=== PATIENT | female | born 1975 | race Hispanic/Latino ===

== ENCOUNTER 2017-08-02 13:27 | Emergency (ER) | payer SELFPAY ==
--- NOTE | 2017-08-02 14:55 | ER ---
Nurse's Notes [facility] Name: Nichol Garcia Age: 42 yrs Sex: Female : 1975 Arrival Date: 08/02/2017 Time: 13:28 Bed 13 Private MD: Diagnosis: Nondisplaced fracture of distal phalanx of left lesser toe(s) Presentation: 08/02 14:00 Presenting complaint: Patient states: I smashed my toe in the car door yesterday. Pt ss c/o L fifth toe pain. Transition of care: patient was not received from another setting of care. Onset of symptoms was August 01, 2017. Care prior to arrival: None. 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 - Social history:: Smoking status: Patient/guardian denies using tobacco. - Family history:: not pertinent. - Hospitalizations: : No recent hospitalization is reported. Screenin:00 Abuse screen: Denies threats or abuse. Nutritional screening: No deficits noted. rb1 Tuberculosis screening: No symptoms or risk factors identified. Fall Risk None identified. Assessment: 14:00 General: Appears uncomfortable, Behavior is calm, cooperative. Pain: Complains of pain rb1 in left fifth toe Pain currently is 10 out of 10 on a pain scale. Pain began last night. Neuro: Level of Consciousness is awake, alert, obeys commands, Oriented to person, place, time, situation. Cardiovascular: Capillary refill < 3 seconds is brisk in bilateral toes. Respiratory: Airway is patent Respiratory effort is even, unlabored, Respiratory pattern is regular, symmetrical. GI: No signs and/or symptoms were reported involving the gastrointestinal system. : No signs and/or symptoms were reported regarding the genitourinary system. Derm: Skin is pink, warm \\T\\ dry. Bruising that is dark purple, on left fifth toe. Musculoskeletal: Range of motion: limited in left fifth toe. Injury Description: Bruise sustained to left fifth toe is purple, was sustained 12-24 hours ago. pt. stated, "I shut my toe in the car door last night.". 15:00 Reassessment: Patient appears in no apparent distress at this time. No changes from [facility] previously documented assessment. Vital Signs: 14:03 BP 126 / 81; Pulse 98; Resp 16; Pulse Ox 96% on R/A; Weight 77.11 kg; Height 4 ft. 11 ss in. (149.86 cm); Pain 5/10; 15:00 BP 109 / 78; Pulse 85; Resp 17; Pulse Ox 95% on R/A; Pain 5/10; rb1 14:03 Body Mass Index 34.34 (77.11 kg, 149.86 cm) ED Course: 13:28 Patient arrived in ED. as 13:59 Andreina Kendrick, RN is Primary Nurse. rb1 14:00 Patient has correct armband on for positive identification. Bed in low position. Call rb1 light in reach. Side rails up X 1. Pulse ox on. NIBP on. 14:01 Triage completed. 14:03 Arm band placed on right wrist. 14:04 Corey Ortega MD is Attending Physician. rn 14:43 X-ray completed. Portable x-ray completed in exam room. Patient tolerated procedure jw2 well. 14:44 XRAY Foot LEFT 3 View In Process Unspecified. EDUT 15:04 Gilberto tape left foot and left fifth toe. dh3 15:08 No provider procedures requiring assistance completed. Patient did not have IV access [facility] during this emergency room visit. Administered Medications: No medications were administered Outcome: 14:55 Discharge ordered by . rn 15:08 Discharged to home ambulatory, with family. rb1 15:08 Condition: stable 15:08 Discharge instructions given to patient, Instructed on discharge instructions, follow up and referral plans. Demonstrated understanding of instructions, follow-up care, Prescriptions given X none 15:08 Patient left the ED. rb1 Signatures: Dispatcher [employer] EDUT Mikayla Pierce Roman, MD MD rn Smirch, Shelby, RN RN Andreina Kendrick RN RN [facility] Wen Kemp jw2 Tessy Borrego dh3 Corrections: (The following items were deleted from the chart) 16:16 15:09 Patient left the ED. rb1 rb1
--- NOTE | 2017-08-02 14:55 | EDPHYS ---
Physician Documentation [facility] Name: Nichol Garcia Age: 42 yrs Sex: Female : 1975 Arrival Date: 08/02/2017 Time: 13:28 Bed 13 Private MD: ED Physician Corey Ortega HPI: 08/02 14:35 This 42 yrs old Female presents to ER via Ambulatory with complaints of Toe rn Injury. 14:35 The patient presents with a crush injury, an injury. The complaints affect the left rn foot. Onset: The symptoms/episode began/occurred. 14:36 Onset: The symptoms/episode began/occurred yesterday. Associated signs and symptoms: rn Pertinent positives: swelling. The patient has not experienced similar symptoms in the past. Reports slammed foot in car door yesterday, hurts left 4th/5th toes. . 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 - Social history:: Smoking status: Patient/guardian denies using tobacco. - Family history:: not pertinent. - Hospitalizations: : No recent hospitalization is reported. ROS: 14:36 Constitutional: Negative for fever, chills, and weight loss, MS/Extremity: + for left rn foot injury Exam: 14:36 Constitutional: This is a well developed, well nourished patient who is awake, alert, rn and in no acute distress. MS/ Extremity: Pulses equal, no cyanosis. Neurovascular intact. + left 4th/5th toe tenderness with ecchymosis of left 5th toe. Vital Signs: 14:03 BP 126 / 81; Pulse 98; Resp 16; Pulse Ox 96% on R/A; Weight 77.11 kg; Height 4 ft. 11 ss in. (149.86 cm); Pain 5/10; 15:00 BP 109 / 78; Pulse 85; Resp 17; Pulse Ox 95% on R/A; Pain 5/10; rb1 14:03 Body Mass Index 34.34 (77.11 kg, 149.86 cm) ss MDM: 14:04 Patient medically screened. rn 14:50 Differential diagnosis: fracture. Data reviewed: vital signs, nurses notes, radiologic rn studies, plain films, and as a result, I will discharge patient. Counseling: I had a detailed discussion with the patient and/or guardian regarding: the historical points, exam findings, and any diagnostic results supporting the discharge/admit diagnosis, radiology results, the need for outpatient follow up, to return to the emergency department if symptoms worsen or persist or if there are any questions or concerns that arise at home. Special discussion: I discussed with the patient/guardian in detail that at this point there is no indication for admission to the hospital. It is understood, however, that if the symptoms persist or worsen the patient needs to return immediately for re-evaluation. 08/02 14:07 Order name: XRAY Foot LEFT 3 View rn 08/02 14:53 Order name: Splint: martin tape; Complete Time: 15:05 rn Administered Medications: No medications were administered Disposition: 08/02/17 14:55 Discharged to Home. Impression: Nondisplaced fracture of distal phalanx of left lesser toe(s). - Condition is Stable. - Discharge Instructions: Crush Injury, Fingers or Toes, Toe Fracture. - Medication Reconciliation Form, Thank You Letter, Antibiotic Education, Prescription Opioid Use form. - Follow up: Private Physician; When: As needed; Reason: Recheck today's complaints, Re-evaluation by your physician. - Problem is new. - Symptoms have improved. Signatures: Dispatcher [employer] EDMS Corey Ortega MD MD rn Smirch, Shelby, RN RN Andreina Kendrick RN RN rb1
--- NOTE | 2017-08-02 15:13 | RAD REPORT ---
EXAM DESCRIPTION: RAD - Foot Left 3 View - 08/02/2017 2:43 pm CLINICAL HISTORY: Left Foot pain status post fall FINDINGS: No fracture or dislocation is seen. The bones are osteoporotic
[2017-08-02 15:20] VITALS: BP 109/78; O2SAT 95
== END 2017-08-02 15:09 | disposition home or self-care (01) ==
LOC: ER 13:27
DX: S92.535A Nondisplaced fracture of distal phalanx of left lesser toe(s), initial encounter for closed fracture (principal); W23.1XXA Caught, crushed, jammed, or pinched between stationary objects, initial encounter; Y93.9 Activity, unspecified; Y92.9 Unspecified place or not applicable
CPT/HCPCS: 99284

== ENCOUNTER 2018-02-02 11:46 | Emergency (ER) | payer SELFPAY ==
[2018-02-02 13:37] LABS: Absolute Lymphocytes (CBC) 2.5 K/uL (0.7-4.9); Absolute Monocytes 0.4 K/uL (0.1-1.3); Absolute Neutrophil 4.1 K/uL (1.8-8.0); Basophils % 0.3 % (0-1.3); Eosinophils % 2.9 % (0-4.4); Hematocrit 34.7 % (36.0-45.0); Lymphocytes % 34.2 % (15.3-44.8); MCH 27.6 pg (27.0-35.0); MCV 82.3 fL (80-100); MPV 9.9 fL (7.6-11.3); Monocytes % 5.8 % (3.3-12.3); RBC Red Blood Cell Count 4.22 M/uL (3.86-4.86)
[2018-02-02 13:54] LABS: Potassium 3.8 mmol/L (3.5-5.1)
--- NOTE | 2018-02-02 14:17 | RAD REPORT ---
EXAM DESCRIPTION: US - Transvaginal Study Probe - 02/02/2018 1:57 pm CLINICAL HISTORY: ICD N92.5 heavy menses COMPARISON: June 2017 FINDINGS: The uterus measures 8 x 4 x 4cm. A fibroid is not seen. Nabothian cysts are present within the cervix. The endometrial stripe 16 millimeters The right ovary is normal in size and echotexture. Left ovary was not seen. No significant free fluid is seen. IMPRESSION: Borderline enlargement of the endometrium . Follow-up ultrasound in a couple months is r ecommended for re-evaluation
--- NOTE | 2018-02-02 14:19 | ER ---
Nurse's Notes [facility] Name: Nichol Garcia Age: 43 yrs Sex: Female : 1975 Arrival Date: 02/02/2018 Time: 11:49 Bed 24 Private MD: Diagnosis: Abnormal uterine and vaginal bleeding, unspecified Presentation: 02/02 11:57 Presenting complaint: Patient states: VAGINAL BLEEDING "TOO MUCH". Transition of care: bp patient was not received from another setting of care. Onset of symptoms is unknown. Risk Assessment: Do you want to hurt yourself or someone else? Patient reports no desire to harm self or others. Initial Sepsis Screen: Does the patient meet any 2 criteria? No. Patient's initial sepsis screen is negative. Does the patient have a suspected source of infection? No. Patient's initial sepsis screen is negative. Care prior to arrival: None. 11:57 Method Of Arrival: Ambulatory bp 11:57 Acuity: LAMAR 3 bp Triage Assessment: 11:58 General: Appears in no apparent distress. comfortable, Behavior is calm, cooperative, bp appropriate for age. Pain: Denies pain. : Reports vaginal bleeding that is FOR TWO MONTHS. 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 - Social history:: Smoking status: Patient/guardian denies using tobacco. - Ebola Screening: : Patient negative for fever greater than or equal to 101.5 degrees Fahrenheit, and additional compatible Ebola Virus Disease symptoms Patient denies exposure to infectious person Patient denies travel to an Ebola-affected area in the 21 days before illness onset No symptoms or risks identified at this time. Screenin:29 Abuse screen: Denies threats or abuse. Nutritional screening: No deficits noted. tw2 Tuberculosis screening: No symptoms or risk factors identified. Fall Risk None identified. Assessment: 12:30 General: Appears in no apparent distress. Behavior is calm, cooperative, appropriate tw2 for age. Neuro: Level of Consciousness is awake, alert, obeys commands, Oriented to person, place, time, situation. Cardiovascular: Heart tones S1 S2 Patient's skin is warm and dry. Respiratory: Airway is patent Respiratory effort is even, unlabored, Respiratory pattern is regular, symmetrical, Breath sounds are clear bilaterally. GI: No signs and/or symptoms were reported involving the gastrointestinal system. Abdomen is round Bowel sounds present X 4 quads. : Reports vaginal bleeding that is bright red. EENT: No signs and/or symptoms were reported regarding the EENT system. Derm: No signs and/or symptoms reported regarding the dermatologic system. Musculoskeletal: No signs and/or symptoms reported regarding the musculoskeletal system. Range of motion: intact in all extremities. 13:30 Reassessment: Patient appears in no apparent distress at this time. No changes from tw2 previously documented assessment. Patient and/or family updated on plan of care and expected duration. Pain level reassessed. Patient is alert, oriented x 3, equal unlabored respirations, skin warm/dry/pink. 14:16 Reassessment: Patient appears in no apparent distress at this time. No changes from tw2 previously documented assessment. Patient and/or family updated on plan of care and expected duration. Pain level reassessed. Patient is alert, oriented x 3, equal unlabored respirations, skin warm/dry/pink. Vital Signs: 11:58 BP 114 / 64; Pulse 88; Resp 16; Temp 97.4; Pulse Ox 94% ; Weight 77.11 kg; Height 4 ft. bp 11 in. (149.86 cm); 13:29 BP 106 / 65 Supine; Pulse 85; tw2 13:29 BP 98 / 59 Sitting; Pulse 88; tw2 13:29 BP 105 / 59 Standing; Pulse 87; tw2 14:14 BP 103 / 67; Pulse 84; Resp 17; Pulse Ox 95% on R/A; tw2 11:58 Body Mass Index 34.34 (77.11 kg, 149.86 cm) bp 13:29 nad, no symptoms reported tw2 ED Course: 11:49 Patient arrived in ED. mr 11:57 Triage completed. bp 11:58 Arm band placed on left wrist. bp 12:03 Vivien Alegria FNP-C is PHCP. kb 12:03 Brian Quinteros MD is Attending Physician. kb 12:29 Amalia Crystal RN is Primary Nurse. tw2 12:29 Bed in low position. Call light in reach. Pulse ox on. NIBP on. tw2 13:11 Initial lab(s) drawn, by me, sent to lab. T\\T\\S collected, blood band applied to patient. tl3 Inserted saline lock: 22 gauge in left hand, using aseptic technique. Blood collected. 13:49 US Transvaginal Study (Probe) In Process Unspecified. EDMS 14:32 No provider procedures requiring assistance completed. IV discontinued, intact, tw2 bleeding controlled, No redness/swelling at site. Pressure dressing applied. Administered Medications: No medications were administered Outcome: 14:19 Discharge ordered by . phillip 14:32 Discharged to home ambulatory, with family, with significant other. tw2 14:32 Condition: stable 14:32 Discharge instructions given to patient, family, significant other, Instructed on discharge instructions, follow up and referral plans. Demonstrated understanding of instructions, follow-up care. 14:33 Patient left the ED. tw2 Signatures: Dispatcher [employer] EDMO Vivien Alegria, SLITTER AND CUTTER OPERATOR-C SLITTER AND CUTTER OPERATOR-Mariel Daniel Tara RN RN tw2 Scot Calix, SHAHZAD RN Noemi Taylor, SHAHZAD RN tl3
--- NOTE | 2018-02-02 14:19 | EDPHYS ---
Physician Documentation [facility] Name: Nichol Garcia Age: 43 yrs Sex: Female : 1975 Arrival Date: 02/02/2018 Time: 11:49 Bed 24 Private MD: ED Physician Brian Quinteros HPI: 02/02 13:09 This 43 yrs old Female presents to ER via Ambulatory with complaints of kb Vaginal Bleeding. 13:09 The patient presents with vaginal bleeding that is light. Onset: The symptoms/episode kb began/occurred 2 month(s) ago. Modifying factors: The symptoms are alleviated by nothing, the symptoms are aggravated by nothing. Associated signs and symptoms: Pertinent positives: vaginal bleeding, Pertinent negatives: constipation, cramping, diarrhea, dyspareunia, dysuria, fever, hematuria, nausea, urinary frequency, vaginal discharge, vomiting. Severity of symptoms: At their worst the symptoms were mild, moderate, in the emergency department the symptoms are unchanged. The patient has experienced similar episodes in the past. The patient has not recently seen a physician. 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 - Social history:: Smoking status: Patient/guardian denies using tobacco. - Ebola Screening: : Patient negative for fever greater than or equal to 101.5 degrees Fahrenheit, and additional compatible Ebola Virus Disease symptoms Patient denies exposure to infectious person Patient denies travel to an Ebola-affected area in the 21 days before illness onset No symptoms or risks identified at this time. ROS: 13:09 Constitutional: Negative for fever, chills, and weight loss, Cardiovascular: Negative kb for chest pain, palpitations, and edema, Respiratory: Negative for shortness of breath, cough, wheezing, and pleuritic chest pain, Abdomen/GI: Negative for abdominal pain, nausea, vomiting, diarrhea, and constipation, Back: Negative for injury and pain, MS/Extremity: Negative for injury and deformity, Skin: Negative for injury, rash, and discoloration, Neuro: Negative for headache, weakness, numbness, tingling, and seizure. 13:09 : Positive for vaginal bleeding. Exam: 13:09 Constitutional: This is a well developed, well nourished patient who is awake, alert, kb and in no acute distress. Head/Face: Normocephalic, atraumatic. Chest/axilla: Normal chest wall appearance and motion. Nontender with no deformity. No lesions are appreciated. Cardiovascular: Regular rate and rhythm with a normal S1 and S2. No gallops, murmurs, or rubs. Normal PMI, no JVD. No pulse deficits. Respiratory: Lungs have equal breath sounds bilaterally, clear to auscultation and percussion. No rales, rhonchi or wheezes noted. No increased work of breathing, no retractions or nasal flaring. Abdomen/GI: Soft, non-tender, with normal bowel sounds. No distension or tympany. No guarding or rebound. No evidence of tenderness throughout. Back: No spinal tenderness. No costovertebral tenderness. Full range of motion. Skin: Warm, dry with normal turgor. Normal color with no rashes, no lesions, and no evidence of cellulitis. MS/ Extremity: Pulses equal, no cyanosis. Neurovascular intact. Full, normal range of motion. Neuro: Awake and alert, GCS 15, oriented to person, place, time, and situation. Cranial nerves II-XII grossly intact. Motor strength 5/5 in all extremities. Sensory grossly intact. Cerebellar exam normal. Normal gait. Vital Signs: 11:58 BP 114 / 64; Pulse 88; Resp 16; Temp 97.4; Pulse Ox 94% ; Weight 77.11 kg; Height 4 ft. bp 11 in. (149.86 cm); 13:29 BP 106 / 65 Supine; Pulse 85; tw2 13:29 BP 98 / 59 Sitting; Pulse 88; tw2 13:29 BP 105 / 59 Standing; Pulse 87; tw2 14:14 BP 103 / 67; Pulse 84; Resp 17; Pulse Ox 95% on R/A; tw2 11:58 Body Mass Index 34.34 (77.11 kg, 149.86 cm) bp 13:29 nad, no symptoms reported tw2 MDM: 12:27 Patient medically screened. kb 13:09 Data reviewed: vital signs, nurses notes. Data interpreted: Pulse oximetry: on room air kb is 94 %. Interpretation: normal. 14:19 Counseling: I had a detailed discussion with the patient and/or guardian regarding: the kb historical points, exam findings, and any diagnostic results supporting the discharge/admit diagnosis, lab results, radiology results, the need for outpatient follow up, an OB/Gyne specialist, to return to the emergency department if symptoms worsen or persist or if there are any questions or concerns that arise at home. 02/02 12:40 Order name: Basic Metabolic Panel; Complete Time: 13:59 kb 02/02 12:40 Order name: CBC with Diff; Complete Time: 13:43 kb 02/02 12:40 Order name: IV Saline Lock; Complete Time: 13:19 kb 02/02 12:40 Order name: Labs collected and sent; Complete Time: 13:19 kb 02/02 12:40 Order name: Type And Screen kb 02/02 12:53 Order name: US Transvaginal Study (Probe); Complete Time: 14:18 kb 02/02 12:40 Order name: NPO; Complete Time: 13:19 kb 02/02 12:40 Order name: Orthostatics; Complete Time: 13:28 kb Administered Medications: No medications were administered Disposition: 02/02/18 14:19 Discharged to Home. Impression: Abnormal uterine and vaginal bleeding, unspecified. - Condition is Stable. - Discharge Instructions: Abnormal Uterine Bleeding, [id number]. - Medication Reconciliation Form, Thank You Letter, Antibiotic Education, Prescription Opioid Use form. - Follow up: Emergency Department; When: As needed; Reason: Worsening of condition. Follow up: Private Physician; When: 2 - 3 days; Reason: Recheck today's complaints, Continuance of care, Re-evaluation by your physician. Addendum: 02/03/2018 18:07 Co-signature as Attending Physician, Brian Quinteros MD. g s Signatures: Dispatcher [employer] EDVivien Rivera, GUSTAVO-C REAL ESTATE ANALYST-Amalia Padron, RN RN tw2 Brian Quinteros MD MD gs Peltier, Brian, RN RN bp Corrections: (The following items were deleted from the chart) 02/02 14:33 14:19 02/02/2018 14:19 Discharged to Home. Impression: Abnormal uterine and vaginal tw2 bleeding, unspecified. Condition is Stable. Forms are Medication Reconciliation Form, Thank You Letter, Antibiotic Education, Prescription Opioid Use. Follow up: Emergency Department; When: As needed; Reason: Worsening of condition. Follow up: Private Physician; When: 2 - 3 days; Reason: Recheck today's complaints, Continuance of care, Re-evaluation by your physician. kb
[2018-02-02 14:56] VITALS: TEMP 97.4
[2018-02-02 14:59] VITALS: BP 103/67; O2SAT 95
== END 2018-02-02 14:33 | disposition home or self-care (01) ==
LOC: ER 11:46
DX: N93.9 Abnormal uterine and vaginal bleeding, unspecified (principal)
CPT/HCPCS: 36415; 76830; 80048; 85025; 86850; 86900; 86901; 99284

== ENCOUNTER 2018-04-27 16:12 | Emergency (ER) | payer SELFPAY ==
--- OUTSIDE RECORDS SUMMARY | 2018-04-27 16:14 | XMS REPORT ---
:1975 [facility] Address [address] [place] [address] Dr. Del Cid [address] [place] [id number] Care Team Providers Name Role Phone Unavailable Unavailable Unavailable Problems This patient has no known problems. Allergies, Adverse Reactions, Alerts This patient has no known allergies or adverse reactions. Medications This patient has no known medications.
--- NOTE | 2018-04-27 16:37 | ER ---
Nurse's Notes [facility] Name: Nichol Garcia Age: 43 yrs Sex: Female : 1975 Arrival Date: 04/27/2018 Time: 16:16 Bed 13 Private MD: Diagnosis: Contusion of left breast Presentation: 04/27 16:22 Presenting complaint: Patient states: "I don't know how, but I fell Thursday onto my ss knees, and the next day my tit started hurting." Pt c/o L breast pain and palpable "bump" that began the day after she fell. Denies fever/ feeling ill. Transition of care: patient was not received from another setting of care. Onset of symptoms was April 24, 2018. Risk Assessment: Do you want to hurt yourself or someone else? Patient reports no desire to harm self or others. Initial Sepsis Screen: Does the patient meet any 2 criteria? HR > 90 bpm. Does the patient have a suspected source of infection? No. Patient's initial sepsis screen is negative. Care prior to arrival: None. 16:22 Method Of Arrival: Ambulatory ss 16:22 Acuity: LAMAR 4 ss Historical: - Allergies: 16:24 No Known Allergies; ss - Home Meds: 16:24 Pt reports she takes unknown blood pressure medication that was given to her by her ss father [Active]; - PMHx: 16:24 None; ss - PSHx: 16:24 ; ss - Immunization history:: Adult Immunizations up to date. - Social history:: Smoking status: Patient/guardian denies using tobacco, Patient/guardian denies using alcohol. - Ebola Screening: : Patient denies exposure to infectious person Patient denies travel to an Ebola-affected area in the 21 days before illness onset. Screenin:26 Abuse screen: Denies threats or abuse. Denies injuries from another. Nutritional jl7 screening: No deficits noted. Tuberculosis screening: No symptoms or risk factors identified. Assessment: 16:26 General: Appears in no apparent distress. uncomfortable, Behavior is calm, cooperative, jl7 appropriate for age. Pain: Complains of pain in left breast. Silver dollar sized swelling palpated to lateral aspect of left breast, no discoloration noted. Pain does not radiate. Pain currently is 8 out of 10 on a pain scale. Quality of pain is described as "Sore" Pain began 2-3 days ago. Is continuous. Neuro: Level of Consciousness is awake, alert, obeys commands, Oriented to person, place, time, situation. Cardiovascular: Patient's skin is warm and dry. Respiratory: Airway is patent Respiratory effort is even, unlabored, Respiratory pattern is regular, symmetrical. GI: No signs and/or symptoms were reported involving the gastrointestinal system. : No signs and/or symptoms were reported regarding the genitourinary system. EENT: No signs and/or symptoms were reported regarding the EENT system. Derm: Skin is pink, warm \\T\\ dry. Musculoskeletal:. Vital Signs: 16:24 BP 138 / 85; Pulse 104; Resp 18; Temp 98.0(TE); Pulse Ox 97% on R/A; Height 4 ft. 11 ss in. (149.86 cm); Pain 8/10; ED Course: 16:16 Patient arrived in ED. sb2 16:17 Adelaida Cherry, SHAHZAD is Primary Nurse. jl7 16:23 Triage completed. ss 16:24 Cristina Vanessa FNP-C is PHCP. snw 16:24 Arm band placed on right wrist. ss 16:25 Freddy Lemus MD is Attending Physician. snw 16:26 Patient has correct armband on for positive identification. Placed in gown. Bed in low jl7 position. Call light in reach. Side rails up X 1. Pulse ox on. NIBP on. 16:30 Attending Physician role handed off by Freddy Lemus MD [facility] 16:30 Kings Ponce MD is Attending Physician. [facility] 17:05 No provider procedures requiring assistance completed. Patient did not have IV access jl7 during this emergency room visit. Administered Medications: No medications were administered Outcome: 16:37 Discharge ordered by . snw 17:05 Discharged to home ambulatory. jl7 17:05 Condition: stable 17:05 Discharge instructions given to patient, family, Instructed on discharge instructions, follow up and referral plans. medication usage, Demonstrated understanding of instructions, follow-up care, medications, Prescriptions given X 1. 17:06 Patient left the ED. jl7 Signatures: Kings Ponce MD MD cha Therrien, Shelly, FNP-C FEEDER/FOLDER-Sirisha Charlton RN RN ss Adelaida Cherry RN RN jl7 Tina Oneill sb2 Corrections: (The following items were deleted from the chart) 16:23 16:22 Initial Sepsis Screen: Does the patient meet any 2 criteria? No. Patient's ss initial sepsis screen is negative. Does the patient have a suspected source of infection? No. Patient's initial sepsis screen is negative. 16:31 16:26 Pain: Complains of pain in left breast Pain does not radiate. Pain currently is 8 jl7 out of 10 on a pain scale. Quality of pain is described as "Sore" Pain began 2-3 days ago. Is continuous, jl7
--- NOTE | 2018-04-27 16:37 | EDPHYS ---
Physician Documentation [facility] Name: Nichol Garcia Age: 43 yrs Sex: Female : 1975 Arrival Date: 04/27/2018 Time: 16:16 Bed 13 Private MD: ED Physician Kings Ponce HPI: 04/27 16:40 This 43 yrs old Female presents to ER via Ambulatory with complaints of Breast snw Injury. 16:40 Trauma demographics: County: The injury occurred in [place]. Mechanism of injury: snw Fall: the patient fell from a standing position and struck struck left breast on chair edge. Associated injuries: The patient sustained left breast. Onset: The symptoms/episode began/occurred suddenly, 2 day(s) ago, and became persistent. The patient has not experienced similar symptoms in the past. The patient has not recently seen a physician. Historical: - Allergies: 16:24 No Known Allergies; ss - Home Meds: 16:24 Pt reports she takes unknown blood pressure medication that was given to her by her ss father [Active]; - PMHx: 16:24 None; ss - PSHx: 16:24 ; ss - Immunization history:: Adult Immunizations up to date. - Social history:: Smoking status: Patient/guardian denies using tobacco, Patient/guardian denies using alcohol. - Ebola Screening: : Patient denies exposure to infectious person Patient denies travel to an Ebola-affected area in the 21 days before illness onset. ROS: 16:34 Constitutional: Negative for fever, chills, and weight loss, Eyes: Negative for injury, snw pain, redness, and discharge, ENT: Negative for injury, pain, and discharge, Neck: Negative for injury, pain, and swelling, Cardiovascular: Negative for chest pain, palpitations, and edema, Respiratory: Negative for shortness of breath, cough, wheezing, and pleuritic chest pain, Abdomen/GI: Negative for abdominal pain, nausea, vomiting, diarrhea, and constipation, Back: Negative for injury and pain, : Negative for injury, bleeding, discharge, and swelling, MS/Extremity: Negative for injury and deformity, Neuro: Negative for headache, weakness, numbness, tingling, and seizure. 16:34 Skin: Positive for swelling, tenderness to left lateral breast. Exam: 16:34 Constitutional: This is a well developed, well nourished patient who is awake, alert, snw and in no acute distress. Head/Face: Normocephalic, atraumatic. Eyes: Pupils equal round and reactive to light, extra-ocular motions intact. Lids and lashes normal. Conjunctiva and sclera are non-icteric and not injected. Cornea within normal limits. Periorbital areas with no swelling, redness, or edema. ENT: Nares patent. No nasal discharge, no septal abnormalities noted. Tympanic membranes are normal and external auditory canals are clear. Oropharynx with no redness, swelling, or masses, exudates, or evidence of obstruction, uvula midline. Mucous membranes moist. Neck: Trachea midline, no thyromegaly or masses palpated, and no cervical lymphadenopathy. Supple, full range of motion without nuchal rigidity, or vertebral point tenderness. No Meningismus. Cardiovascular: Regular rate and rhythm with a normal S1 and S2. No gallops, murmurs, or rubs. Normal PMI, no JVD. No pulse deficits. Respiratory: Lungs have equal breath sounds bilaterally, clear to auscultation and percussion. No rales, rhonchi or wheezes noted. No increased work of breathing, no retractions or nasal flaring. Abdomen/GI: Soft, non-tender, with normal bowel sounds. No distension or tympany. No guarding or rebound. No evidence of tenderness throughout. Back: No spinal tenderness. No costovertebral tenderness. Full range of motion. Skin: Warm, dry with normal turgor. Normal color with no rashes, no lesions, and no evidence of cellulitis. MS/ Extremity: Pulses equal, no cyanosis. Neurovascular intact. Full, normal range of motion. Neuro: Awake and alert, GCS 15, oriented to person, place, time, and situation. Cranial nerves II-XII grossly intact. Motor strength 5/5 in all extremities. Sensory grossly intact. Cerebellar exam normal. Normal gait. Psych: Awake, alert, with orientation to person, place and time. Behavior, mood, and affect are within normal limits. 16:34 Chest/axilla: Inspection: normal, Palpation: tenderness, left lateral breast, Axilla: are normal, Breasts: swelling, tenderness, indurated area s/p fall/striking left breast on chair edge. Vital Signs: 16:24 BP 138 / 85; Pulse 104; Resp 18; Temp 98.0(TE); Pulse Ox 97% on R/A; Height 4 ft. 11 ss in. (149.86 cm); Pain 8/10; MDM: 16:31 Patient medically screened. [facility] 16:39 Data reviewed: vital signs, nurses notes. Data interpreted: Pulse oximetry: on room air snw is 97 %. Interpretation: normal. Counseling: I had a detailed discussion with the patient and/or guardian regarding: the historical points, exam findings, and any diagnostic results supporting the discharge/admit diagnosis, the presence of at least one elevated blood pressure reading (>120/80) during this emergency department visit, the need for outpatient follow up, for definitive care, to return to the emergency department if symptoms worsen or persist or if there are any questions or concerns that arise at home. Special discussion: I have referred the patient to see his PCP for further evaluation of high blood pressure. Based on the history and exam findings, there is no indication for further emergent testing or inpatient evaluation. I discussed with the patient/guardian the need to see the OB Gyne specialist for further evaluation of the symptoms. I discussed with the patient/guardian the need to see the primary care provider for further evaluation of the symptoms. Administered Medications: No medications were administered Disposition: 04/28 07:27 Co-signature as Attending Physician, Kings Ponce MD I agree with the assessment and [facility] plan of care. Disposition: 04/27/18 16:37 Discharged to Home. Impression: Contusion of left breast. - Condition is Stable. - Discharge Instructions: Contusion, Fall Prevention in the Home, Mammogram. - Prescriptions for Motrin IB 200 mg Oral Tablet - take 3 tablet by ORAL route every 8 hours As needed as needed with food; 40 tablet. - Medication Reconciliation Form, Thank You Letter, Antibiotic Education, Prescription Opioid Use form. - Follow up: Private Physician; When: 2 - 3 days; Reason: Recheck today's complaints, Continuance of care, Re-evaluation by your physician. Follow up: Emergency Department; When: As needed; Reason: Worsening of condition. Signatures: Kings Ponce MD MD cha Therrien, Shelly, SAVE ALL OPERATOR-C SAVE ALL OPERATOR-Edsonw Sirisha Hodges RN RN Cherry, Jahala, RN RN jl7 Corrections: (The following items were deleted from the chart) 04/27 17:06 16:37 04/27/2018 16:37 Discharged to Home. Impression: Contusion of left breast. jl7 Condition is Stable. Forms are Medication Reconciliation Form, Thank You Letter, Antibiotic Education, Prescription Opioid Use. Follow up: Private Physician; When: 2 - 3 days; Reason: Recheck today's complaints, Continuance of care, Re-evaluation by your physician. Follow up: Emergency Department; When: As needed; Reason: Worsening of condition. snw
[2018-04-27 17:27] VITALS: BP 138/85; TEMP 98; O2SAT 97
== END 2018-04-27 17:06 | disposition home or self-care (01) ==
LOC: ER 16:12
DX: S20.02XA Contusion of left breast, initial encounter (principal); W18.39XA Other fall on same level, initial encounter; Y92.009 Unspecified place in unspecified non-institutional (private) residence as the place of occurrence of the external cause
CPT/HCPCS: 99283

== ENCOUNTER 2020-01-06 16:33 | Emergency (ER) | payer SELFPAY ==
--- OUTSIDE RECORDS SUMMARY | 2020-01-06 16:35 | XMS REPORT | Continuity of Care Document ---
:1975 Author Organization [facility] t Address [address] [place] [address] [place] [address] Care Team Providers Name Role Phone Unavailable Unavailable Unavailable Problems This patient has no known problems. Allergies, Adverse Reactions, Alerts This patient has no known allergies or adverse reactions. Medications This patient has no known medications. Procedures This patient has no known procedures. Results This patient has no known results.
[2020-01-06 17:35] LABS: Absolute Lymphocytes (CBC) 3.3 K/uL (0.7-4.9); Basophils % 0.6 % (0-1.3); Hematocrit 26.1 % (36.0-45.0); Lymphocytes % 39.3 % (15.3-44.8); MPV 9.4 fL (7.6-11.3); RBC Red Blood Cell Count 4.29 M/uL (3.86-4.86)
[2020-01-06 17:51] LABS: BUN Blood Urea Nitrogen 13 mg/dL (7-18); Bicarbonate 28 mmol/L (21-32); Glucose Level 107 mg/dL (74-106); Potassium 3.8 mmol/L (3.5-5.1); Sodium Level 141 mmol/L (136-145)
--- NOTE | 2020-01-06 18:22 | ER ---
Nurse's Notes [facility] Name: Nichol Garcia Age: 44 yrs Sex: Female : 1975 Arrival Date: 01/06/2020 Time: 16:36 Bed 13 Private MD: Diagnosis: Anemia, unspecified Presentation: 01/05 16:41 Chief complaint: Patient states: "I was sent by my primary because of my low blood jd3 levels. I just feel tired is all.". Coronavirus screen: At this time, the client does not indicate any symptoms associated with coronavirus-19. Ebola Screen: Patient negative for fever greater than or equal to 101.5 degrees Fahrenheit, and additional compatible Ebola Virus Disease symptoms. Initial Sepsis Screen: Does the patient meet any 2 criteria? No. Patient's initial sepsis screen is negative. Does the patient have a suspected source of infection? No. Patient's initial sepsis screen is negative. Risk Assessment: Do you want to hurt yourself or someone else? Patient reports no desire to harm self or others. Onset of symptoms was January 06, 2020. 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 - Social history:: Smoking status: Patient denies any tobacco usage or history of. Screenin:17 Abuse screen: Denies threats or abuse. Nutritional screening: No deficits noted. ll1 Tuberculosis screening: No symptoms or risk factors identified. Fall Risk None identified. IV access (20 points). Gait- Weak (10 pts.). Total Elias Fall Scale indicates Low Risk Score (25-44 pts). Fall prevention measures have been instituted. Side Rails Up X 2 Frequent Obs/Assesments occuring As available Patient and Family Educated on Fall Prevention Program and strategies. Assessment: 17:15 General: Appears comfortable, Behavior is calm, cooperative. General: was told to come ll1 into ER for low HGB. . Pain: Denies pain. Neuro: No deficits noted. Cardiovascular: Reports fatigue, generalized weakness Heart tones S1 S2 Capillary refill < 3 seconds Clubbing of nail beds is absent JVD is absent Patient's skin is warm and dry. Pulses are all present. Respiratory: No deficits noted. GI: No deficits noted. Musculoskeletal: Circulation, motion, and sensation intact. Capillary refill < 3 seconds, Reports weakness in generalized. 18:15 Reassessment: No changes from previously documented assessment. Patient and/or family ll1 updated on plan of care and expected duration. Pain level reassessed. Patient is alert, oriented x 3, equal unlabored respirations, skin warm/dry/pink. 19:15 Reassessment: Patient and/or family updated on plan of care and expected duration. Pain ll1 level reassessed. Patient is alert, oriented x 3, equal unlabored respirations, skin warm/dry/pink. Vital Signs: 16:43 BP 97 / 74; Pulse 100; Resp 16 S; Temp 98.5(TE); Pulse Ox 100% on R/A; Weight 75.75 kg jd3 (R); Height 4 ft. 11 in. (149.86 cm) (R); Pain 4/10; 16:55 BP 116 / 77 Supine; Pulse 98; ll1 17:00 BP 121 / 97; Pulse 101; ll1 17:03 BP 116 / 72; Pulse 102; ll1 19:18 BP 115 / 70; Pulse 88; Resp 16; Pulse Ox 100% ; Pain 0/10; ll1 16:43 Body Mass Index 33.73 (75.75 kg, 149.86 cm) [facility] ED Course: 16:36 Patient arrived in ED. ds1 16:42 Triage completed. jd3 16:45 Vivien Alegria FNP-C is PHCP. kb 16:45 Brandie Guido MD is Attending Physician. kb 16:45 Arm band placed on. jd3 16:49 Jihan Moon RN is Primary Nurse. ll1 16:50 Inserted saline lock: 20 gauge in right antecubital area, using aseptic technique. ll1 Blood collected. 17:17 Patient has correct armband on for positive identification. Bed in low position. Call ll1 light in reach. Side rails up X 1. Pulse ox on. NIBP on. 19:19 No provider procedures requiring assistance completed. IV discontinued, intact, ll1 bleeding controlled, No redness/swelling at site. Pressure dressing applied. Administered Medications: 18:17 Drug: NS 0.9% 1000 ml Route: IV; Rate: 1000 ml; Site: right antecubital; ll1 19:18 Follow up: Response: No adverse reaction; RASS: Alert and Calm (0); IV Status: ll1 Completed infusion; IV Intake: 1000ml Intake: 19:18 IV: 1000ml; Total: 1000ml. ll1 Outcome: 18:21 Discharge ordered by . phillip 19:20 Discharged to home ambulatory. ll1 19:20 Condition: stable 19:20 Discharge instructions given to patient, Instructed on discharge instructions, follow up and referral plans. Demonstrated understanding of instructions, follow-up care. 19:21 Patient left the ED. 1 Signatures: Vivien Alegria, SHEAR OPERATOR-C SHEAR OPERATOR-Reina Welsh ds1 Tejinder Centeno RN RN Jihan Stallings RN RN ll1
--- NOTE | 2020-01-06 18:22 | EDPHYS ---
Physician Documentation [facility] Name: Nichol Garcia Age: 44 yrs Sex: Female : 1975 Arrival Date: 01/06/2020 Time: 16:36 Bed 13 Private MD: ED Physician Brandie Guido HPI: 01/05 18:19 This 44 yrs old Female presents to ER via Ambulatory with complaints of sent kb by Dr Leiva, Low Blood Results. 18:19 Pt reports she had blood work last week and today her dr called her and told her to kb come to the ER for low blood count. Hgb 6.8. Pt denies any active bleeding. Denies dyspnea on exertion, palpitations. States she is tired at times.. Onset: The symptoms/episode began/occurred last week. Severity of symptoms: At their worst the symptoms were moderate in the emergency department the symptoms are unchanged. The patient has experienced similar episodes in the past, chronically. The patient has been recently seen by a physician: the patient's primary care provider. 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 - Social history:: Smoking status: Patient denies any tobacco usage or history of. ROS: 18:10 Cardiovascular: Negative for chest pain, palpitations, and edema, Respiratory: Negative kb for shortness of breath, cough, wheezing, and pleuritic chest pain, Abdomen/GI: Negative for abdominal pain, nausea, vomiting, diarrhea, and constipation, : Negative for injury, bleeding, discharge, and swelling, MS/Extremity: Negative for injury and deformity, Skin: Negative for injury, rash, and discoloration, Neuro: Negative for headache, weakness, numbness, tingling, and seizure. 18:10 Constitutional: Positive for fatigue, Negative for body aches, chills, fever, malaise, poor PO intake, weight loss. Exam: 18:16 Constitutional: This is a well developed, well nourished patient who is awake, alert, kb and in no acute distress. Head/Face: Normocephalic, atraumatic. Chest/axilla: Normal chest wall appearance and motion. Nontender with no deformity. No lesions are appreciated. Cardiovascular: Regular rate and rhythm with a normal S1 and S2. No gallops, murmurs, or rubs. Normal PMI, no JVD. No pulse deficits. Respiratory: Lungs have equal breath sounds bilaterally, clear to auscultation and percussion. No rales, rhonchi or wheezes noted. No increased work of breathing, no retractions or nasal flaring. Abdomen/GI: Soft, non-tender, with normal bowel sounds. No distension or tympany. No guarding or rebound. No evidence of tenderness throughout. Skin: Warm, dry with normal turgor. Normal color with no rashes, no lesions, and no evidence of cellulitis. MS/ Extremity: Pulses equal, no cyanosis. Neurovascular intact. Full, normal range of motion. Neuro: Awake and alert, GCS 15, oriented to person, place, time, and situation. Cranial nerves II-XII grossly intact. Motor strength 5/5 in all extremities. Sensory grossly intact. Cerebellar exam normal. Normal gait. Vital Signs: 16:43 BP 97 / 74; Pulse 100; Resp 16 S; Temp 98.5(TE); Pulse Ox 100% on R/A; Weight 75.75 kg jd3 (R); Height 4 ft. 11 in. (149.86 cm) (R); Pain 4/10; 16:55 BP 116 / 77 Supine; Pulse 98; ll1 17:00 BP 121 / 97; Pulse 101; ll1 17:03 BP 116 / 72; Pulse 102; ll1 19:18 BP 115 / 70; Pulse 88; Resp 16; Pulse Ox 100% ; Pain 0/10; ll1 16:43 Body Mass Index 33.73 (75.75 kg, 149.86 cm) jd3 MDM: 16:45 Patient medically screened. kb 18:16 Data reviewed: vital signs, nurses notes. Data interpreted: Pulse oximetry: on room air kb is 100 %. Interpretation: normal. 18:17 Counseling: I had a detailed discussion with the patient and/or guardian regarding: the kb historical points, exam findings, and any diagnostic results supporting the discharge/admit diagnosis, lab results, the need for outpatient follow up, a family practitioner, to return to the emergency department if symptoms worsen or persist or if there are any questions or concerns that arise at home. ED course: Pt educated on labs. Hgb 7.2, pt has no active bleeding, not symptomatic of anemia. Has history of anemia. No resp distress or reported dyspnea. Pt will increased iron supplement as directed by PCP and follow up with them. . 01/05 16:52 Order name: CBC with Diff; Complete Time: 18:45 kb 01/05 16:52 Order name: Basic Metabolic Panel; Complete Time: 18:04 kb 01/05 16:52 Order name: Type And Screen; Complete Time: 18:16 kb 01/05 16:52 Order name: IV Start; Complete Time: 18:13 kb 01/05 18:42 Order name: CBC Smear Scan; Complete Time: 18:45 EDMS 01/05 16:52 Order name: Orthostatics; Complete Time: 18:13 kb Administered Medications: 18:17 Drug: NS 0.9% 1000 ml Route: IV; Rate: 1000 ml; Site: right antecubital; ll1 19:18 Follow up: Response: No adverse reaction; RASS: Alert and Calm (0); IV Status: ll1 Completed infusion; IV Intake: 1000ml Disposition: 01/06/20 18:21 Discharged to Home. Impression: Anemia, unspecified. - Condition is Stable. - Discharge Instructions: Iron Deficiency Anemia, Adult, [id number]. - Medication Reconciliation Form, Thank You Letter, Antibiotic Education, Prescription Opioid Use form. - Follow up: Emergency Department; When: As needed; Reason: Worsening of condition. Follow up: Private Physician; When: 2 - 3 days; Reason: Recheck today's complaints, Continuance of care, Re-evaluation by your physician. Signatures: Dispatcher [employer] EDVivien Rivera, VIRIDIANA CHEN-Tejinder Chaidez RN RN Jihan Stallings RN RN ll1 Corrections: (The following items were deleted from the chart) 18:21 18:19 Pt reports she had blood work last week and today her dr called her and told her kb to come to the ER for low blood count. Hgb 6.8. kb 19:21 18:21 01/06/2020 18:21 Discharged to Home. Impression: Anemia, unspecified. Condition ll1 is Stable. Forms are Medication Reconciliation Form, Thank You Letter, Antibiotic Education, Prescription Opioid Use. Follow up: Emergency Department; When: As needed; Reason: Worsening of condition. Follow up: Private Physician; When: 2 - 3 days; Reason: Recheck today's complaints, Continuance of care, Re-evaluation by your physician. kb
[2020-01-06] MEDS ORDERED: NA CHLORIDE 0.9% 1,000 ML ONE (18:26)
[2020-01-06 18:41] LABS: White Blood Cell Scan OK (OK)
[2020-01-06 18:42] LABS: Blood Morphology Comment NOTED (NOT SEEN); Hypochromasia 3+; Platelet Estimate ADEQ
[2020-01-06 19:26] VITALS: TEMP 98.5; O2SAT 100
[2020-01-06 19:30] VITALS: BP 115/70
== END 2020-01-06 19:21 | disposition home or self-care (01) ==
LOC: ER 16:33
DX: D64.9 Anemia, unspecified (principal); E11.9 Type 2 diabetes mellitus without complications
CPT/HCPCS: 36415; 80048; 85025; 86850; 86900; 86901; 96360; 99284; J7030

== ENCOUNTER → 2023-05-15 | Emergency (ER) | payer OTHER, SELFPAY ==
[~2023-05-15] MED LIST: FENTANYL CITR 100 MCG/2 ML ONE
--- OUTSIDE RECORDS SUMMARY | 2023-05-15 16:38 | XMS REPORT | Continuity of Care Document ---
Author Name Unknown Address [address] [facility] [address] [place] [address] [facility] Address [address] [facility] [address] [place] [address] Care Team Providers Care Staff Development Coordinator Rn Name Role Phone Daina NELSON, [facility] Primary Care Physician [phone] Allergies, Adverse Reactions, Alerts Allergy Name Allergy Type Status Severity Reaction(s) Onset Date Inactive Date Treating Clinician Comments Source [place] - Intraven ous Propensi ty to adverse reaction to drug Active 707 00:00: 00 n Propensi ty to adverse reaction to drug Active 6-28 00:00: 00 Fish Oil - Oral Propensi ty to adverse reaction to drug Active 3-31 00:00: 00 Fish Oil Propensi ty to adverse reaction to drug Active -24 00:00: 00 Medications Ordered Medication Name Filled Medication Name Start Date Stop Date Current Medication? Ordering Clinician Indication Dosage Frequency Signature (SIG) Comments Components Source TAKE 1 TABLET TWICE DAILY. - 00:00: 00 No TAKE 1 TABLET TWICE DAILY. 12-25 00:00: 00 No TAKE 1 TABLET TWICE DAILY. 11-16 00:00: 00 No 1000 TAKE 1 TABLET TWICE DAILY. 11-16 00:00: 00 No 1000 TAKE 1 TABLET 3 TIMES DAILY WITH FOOD. 18 00:00: 00 No [id number] TAKE 1 TABLET 3 TIMES DAILY WITH FOOD. -18 00:00: 00 No [id number] TAKE 1 TABLET 3 TIMES DAILY WITH FOOD. 7-18 00:00: 00 No [id number] TAKE 1 TABLET TWICE DAILY. 11-07 00:00: 00 No 1000 TAKE 1 TABLET TWICE DAILY. 0 7- 00:00: 00 No 1000 TAKE 1 TABLET TWICE DAILY. 0 14 00:00: 00 No 1000 TAKE 1 TABLET TWICE DAILY. 11-05 00:00: 00 No 1000 TAKE 1 TABLET TWICE DAILY. 0 11-05 00:00: 00 No 1000 TAKE 1 TABLET TWICE DAILY. 0 11-05 00:00: 00 No 1000 TAKE 1 TABLET TWICE DAILY. 11-05 00:00: 00 No 1000 TAKE 1 TABLET 3 TIMES DAILY WITH FOOD. 10-31 00:00: 00 No [id number] TAKE 1 TABLET 3 TIMES DAILY WITH FOOD. 10-31 00:00: 00 [place] [id number] TAKE 1 TABLET 3 TIMES DAILY WITH FOOD. 10-31 00:00: 00 No [id number] TAKE 1 TABLET 3 TIMES DAILY WITH FOOD. 10-31 00:00: 00 No [id number] TAKE 1 TABLET 3 TIMES DAILY WITH FOOD. 0 10-31 00:00: 00 [place] [id number] glipizide 5 mg tablet 0 07-25 00:00: 00 No 1mg metformin 1,000 mg tablet 0 3 00:00: 00 No 1mg atorvastati n 40 mg tablet 0 07-25 00:00: 00 No 1mg Dose Unknown 0 07-25 00:00: 00 No Dose Unknown 0 3 00:00: 00 No Dose Unknown 0 3 00:00: 00 No Dose Unknown 0 3 00:00: 00 No Dose Unknown 0 3 00:00: 00 No Dose Unknown 0 3 00:00: 00 No Dose Unknown 0 3 00:00: 00 No Dose Unknown 0 3 00:00: 00 No Dose Unknown 0 3 00:00: 00 No Dose Unknown 0 3 00:00: 00 No glipizide 5 mg tablet 0 3 00:00: 00 No 1mg metformin 1,000 mg tablet 0 3 00:00: 00 No 1mg glipizide 5 mg tablet 2022-0 3-31 00:00: 00 No 1mg metformin 1,000 mg tablet 2022-0 3-31 00:00: 00 No 1mg atorvastati n 40 mg tablet 2022-0 3-31 00:00: 00 No 1mg Dose Unknown 2022-0 3-31 00:00: 00 No Dose Unknown 2022-0 3-31 00:00: 00 No Dose Unknown 2022-0 3-31 00:00: 00 No Dose Unknown 2022-0 3-31 00:00: 00 No Dose Unknown 2022-0 3-31 00:00: 00 No atorvastati n 40 mg tablet 2022-0 3-31 00:00: 00 No 1mg Dose Unknown 2022-0 3-31 00:00: 00 No Dose Unknown 2022-0 3-31 00:00: 00 No Dose Unknown 2022-0 3-31 00:00: 00 No Dose Unknown 2022-0 3-31 00:00: 00 No Dose Unknown 2022-0 3-31 00:00: 00 No Dose Unknown 2022-0 3-31 00:00: 00 No Dose Unknown 2022-0 3-31 00:00: 00 No Dose Unknown 2022-0 3-31 00:00: 00 No Dose Unknown 2022-0 3-31 00:00: 00 No Dose Unknown 2022-0 3-31 00:00: 00 No Dose Unknown 2022-0 3-31 00:00: 00 No Dose Unknown 2022-0 3-31 00:00: 00 No Dose Unknown 2022-0 3-31 00:00: 00 No Dose Unknown 2022-0 3-31 00:00: 00 No Dose Unknown 2022-0 3-31 00:00: 00 No TAKE 1 TABLET TWICE DAILY. 2022-0 3-31 00:00: 00 No metformin 1,000 mg tablet 2-0 3-31 00:00: 00 No 1mg Dose Unknown 2022-0 3-31 00:00: 00 No Dose Unknown 2022-0 3-31 00:00: 00 No Dose Unknown 2022-0 3-31 00:00: 00 No Dose Unknown 2022-0 3-31 00:00: 00 No Dose Unknown 2022-0 3-31 00:00: 00 No Dose Unknown 2022-0 3-31 00:00: 00 No Dose Unknown 2022-0 3-31 00:00: 00 No Dose Unknown 2022-0 3-31 00:00: 00 No Dose Unknown 2022-0 3-31 00:00: 00 No Dose Unknown 2022-0 3-31 00:00: 00 No Dose Unknown 2022-0 3-31 00:00: 00 No TAKE 1 TABLET TWICE DAILY. 2-0 3-31 00:00: 00 No metformin 1,000 mg tablet 2021-0 3-31 00:00: 00 No 1mg Dose Unknown 2021-0 3-31 00:00: 00 No Dose Unknown 2022-0 3-31 00:00: 00 No Dose Unknown 2-0 3-31 00:00: 00 No Dose Unknown 2-0 3-31 00:00: 00 No Dose Unknown 2-0 3- 00:00: 00 No Dose Unknown 2-0 3- 00:00: 00 No Dose Unknown 2-0 3- 00:00: 00 No Dose Unknown 2-0 3-31 00:00: 00 No Dose Unknown 2-0 331 00:00: 00 No Dose Unknown 2-0 3-31 00:00: 00 No Dose Unknown 2-0 3-31 00:00: 00 No Dose Unknown 2-0 1-07 00:00: 00 No Dose Unknown 2022-0 1-07 00:00: 00 No Dose Unknown 2022-0 1-07 00:00: 00 No Dose Unknown 2-0 1-07 00:00: 00 No Dose Unknown 2022-0 1-07 00:00: 00 No Dose Unknown 2022-0 1-06 00:00: 00 No Dose Unknown 2022-0 1-06 00:00: 00 No ferrous sulfate 325 mg (65 mg iron) tablet 2-0 1-06 00:00: 00 No 1(65 mg iron) Dose Unknown 2022-0 1-06 00:00: 00 No Dose Unknown 2022-0 1-06 00:00: 00 No ferrous sulfate 325 mg (65 mg iron) tablet 2-0 1-06 00:00: 00 No 1(65 mg iron) Dose Unknown 2022-0 1-06 00:00: 00 No Dose Unknown 05-02 00:00: 00 No ferrous sulfate 325 mg (65 mg iron) tablet 05-02 00:00: 00 No 1(65 mg iron) Dose Unknown 05-02 00:00: 00 No Dose Unknown 05-02 00:00: 00 No ferrous sulfate 325 mg (65 mg iron) tablet 05-02 00:00: 00 No 1(65 mg iron) Dose Unknown 05-02 00:00: 00 No Dose Unknown 05-02 00:00: 00 No ferrous sulfate 325 mg (65 mg iron) tablet 05-02 00:00: 00 No 1(65 mg iron) metformin 1,000 mg tablet 2020-04 00:00: 00 No 1mg Vitamin D3 10 mcg (400 unit) tablet 2020-04 00:00: 00 No 2(400 unit) metformin 1,000 mg tablet 2020-04 00:00: 00 No 1mg Vitamin D3 10 mcg (400 unit) tablet 2020-04 00:00: 00 No 2(400 unit) metformin 1,000 mg tablet 2020-04 00:00: 00 No 1mg Vitamin D3 10 mcg (400 unit) tablet 2020-04 00:00: 00 No 2(400 unit) metformin 1,000 mg tablet 2020-04 00:00: 00 No 1mg Vitamin D3 10 mcg (400 unit) tablet 2020-04 00:00: 00 No 2(400 unit) metformin 1,000 mg tablet 2020-04 00:00: 00 No 1mg Vitamin D3 10 mcg (400 unit) tablet 2020-04 00:00: 00 No 2(400 unit) metformin ER 500 mg tablet,exte nded release 24 hr 2020-04 00:00: 00 No 1mg atorvastati n 40 mg tablet 2020-04 0 00:00: 00 No 1mg ferrous sulfate 325 mg (65 mg iron) tablet 2020-04 00:00: 00 No 1(65 mg iron) metformin ER 500 mg tablet,exte nded release 24 hr 2021-1 0-04 00:00: 00 No 1mg atorvastati n 40 mg tablet 2020-04 0-04 00:00: 00 No 1mg ferrous sulfate 325 mg (65 mg iron) tablet 2020-04 0-04 00:00: 00 No 1(65 mg iron) metformin ER 500 mg tablet,exte nded release 24 hr 2020-04 0- 00:00: 00 No 1mg atorvastati n 40 mg tablet 2020-04 0- 00:00: 00 No 1mg ferrous sulfate 325 mg (65 mg iron) tablet 2020-04 0 00:00: 00 No 1(65 mg iron) metformin ER 500 mg tablet,exte nded release 24 hr 2020-04 0 00:00: 00 No 1mg atorvastati n 40 mg tablet 2020-04 0 00:00: 00 No 1mg ferrous sulfate 325 mg (65 mg iron) tablet 2020-04 0 00:00: 00 No 1(65 mg iron) metformin ER 500 mg tablet,exte nded release 24 hr 2020-04 0 00:00: 00 No 1mg atorvastati n 40 mg tablet 2020-04 0 00:00: 00 No 1mg ferrous sulfate 325 mg (65 mg iron) tablet 2020-04 0 00:00: 00 No 1(65 mg iron) ferrous sulfate 325 mg (65 mg iron) tablet 10-05 00:00: 00 No 1(65 mg iron) Macrobid 100 mg capsule 10-05 00:00: 00 No 1mg cholecalcif otto (vitamin D3) 50 mcg (2,000 unit) capsule 10-05 00:00: 00 No 1(2,000 unit) ferrous sulfate 325 mg (65 mg iron) tablet 10-05 00:00: 00 No 1(65 mg iron) Macrobid 100 mg capsule 10-05 00:00: 00 No 1mg cholecalcif otto (vitamin D3) 50 mcg (2,000 unit) capsule 10-05 00:00: 00 No 1(2,000 unit) ferrous sulfate 325 mg (65 mg iron) tablet 10-05 00:00: 00 No 1(65 mg iron) Macrobid 100 mg capsule 10-05 00:00: 00 No 1mg cholecalcif otto (vitamin D3) 50 mcg (2,000 unit) capsule 10-05 00:00: 00 No 1(2,000 unit) ferrous sulfate 325 mg (65 mg iron) tablet 10-05 00:00: 00 No 1(65 mg iron) Macrobid 100 mg capsule 10-05 00:00: 00 No 1mg cholecalcif otto (vitamin D3) 50 mcg (2,000 unit) capsule 10-05 00:00: 00 No 1%-" ferrous sulfate 325 mg (65 mg iron) tablet 10-05 00:00: 00 No 1(65 mg iron) Macrobid 100 mg capsule 10-05 00:00: 00 No 1mg cholecalcif otto (vitamin D3) 50 mcg (2,000 unit) capsule 10-05 00:00: 00 No 1%-" metformin ER 500 mg tablet,exte nded release 24 hr 10-01 00:00: 00 No 1mg atorvastati n 40 mg tablet 10-01 00:00: 00 No 1mg metformin ER 500 mg tablet,exte nded release 24 hr 10-01 00:00: 00 No 1mg atorvastati n 40 mg tablet 10-01 00:00: 00 No 1mg metformin ER 500 mg tablet,exte nded release 24 hr 10-01 00:00: 00 No 1mg atorvastati n 40 mg tablet 10-01 00:00: 00 No 1mg metformin ER 500 mg tablet,exte nded release 24 hr 10-01 00:00: 00 No 1mg atorvastati n 40 mg tablet 10-01 00:00: 00 No 1mg metformin ER 500 mg tablet,exte nded release 24 hr 10-01 00:00: 00 No 1mg atorvastati n 40 mg tablet 10-01 00:00: 00 No 1mg cholecalcif otto (vitamin D3) 50 mcg (2,000 unit) capsule 07-13 00:00: 00 No 1(2,000 unit) cholecalcif otto (vitamin D3) 50 mcg (2,000 unit) capsule 07-13 00:00: 00 No 1(2,000 unit) cholecalcif otto (vitamin D3) 50 mcg (2,000 unit) capsule 07-13 00:00: 00 No 1(2,000 unit) cholecalcif otto (vitamin D3) 50 mcg (2,000 unit) capsule 07-13 00:00: 00 No 1%-" cholecalcif otto (vitamin D3) 50 mcg (2,000 unit) capsule 07-13 00:00: 00 No 1%-" metformin ER 500 mg tablet,exte nded release 24 hr 07-10 00:00: 00 No 1mg atorvastati n 40 mg tablet 07-10 00:00: 00 No 1mg metformin ER 500 mg tablet,exte nded release 24 hr 07-10 00:00: 00 No 1mg atorvastati n 40 mg tablet 07-10 00:00: 00 No 1mg metformin ER 500 mg tablet,exte nded release 24 hr 07-10 00:00: 00 No 1mg atorvastati n 40 mg tablet 07-10 00:00: 00 No 1mg metformin ER 500 mg tablet,exte nded release 24 hr 07-10 00:00: 00 No 1mg atorvastati n 40 mg tablet 07-10 00:00: 00 No 1mg metformin ER 500 mg tablet,exte nded release 24 hr 07-10 00:00: 00 No 1mg atorvastati n 40 mg tablet 07-10 00:00: 00 No 1mg cholecalcif otto (vitamin D3) 1,250 mcg (50,000 unit) tablet 2019-04 00:00: 00 No 1(50,00 0 unit) cholecalcif otto (vitamin D3) 1,250 mcg (50,000 unit) tablet 2019-04 00:00: 00 No 1(50,00 0 unit) cholecalcif otto (vitamin D3) 1,250 mcg (50,000 unit) tablet 2019-04 00:00: 00 No 1(50,00 0 unit) cholecalcif otto (vitamin D3) 1,250 mcg (50,000 unit) tablet 2019-04 00:00: 00 No 1(50,00 0 unit) cholecalcif otto (vitamin D3) 1,250 mcg (50,000 unit) tablet 2019-04 00:00: 00 No 1(50,00 0 unit) metformin ER 500 mg tablet,exte nded release 24 hr 2019-04 00:00: 00 No 1mg atorvastati n 40 mg tablet 2019-04 00:00: 00 No 1mg metformin ER 500 mg tablet,exte nded release 24 hr 2019-04 00:00: 00 No 1mg atorvastati n 40 mg tablet 2019-04 00:00: 00 No 1mg metformin ER 500 mg tablet,exte nded release 24 hr 2019-04 00:00: 00 No 1mg atorvastati n 40 mg tablet 2019-04 00:00: 00 No 1mg metformin ER 500 mg tablet,exte nded release 24 hr 2019-04 00:00: 00 No 1mg atorvastati n 40 mg tablet 2019-04 00:00: 00 No 1mg metformin ER 500 mg tablet,exte nded release 24 hr 2019-04 00:00: 00 No 1mg atorvastati n 40 mg tablet 2019-04 00:00: 00 No 1mg metformin ER 500 mg tablet,exte nded release 24 hr 01-05 00:00: 00 No 1mg atorvastati n 40 mg tablet 01-05 00:00: 00 No 1mg cholecalcif otto (vitamin D3) 1,250 mcg (50,000 unit) tablet 01-05 00:00: 00 No 1(50,00 0 unit) metformin ER 500 mg tablet,exte nded release 24 hr 01-05 00:00: 00 No 1mg atorvastati n 40 mg tablet 01-05 00:00: 00 No 1mg cholecalcif otto (vitamin D3) 1,250 mcg (50,000 unit) tablet 01-05 00:00: 00 No 1(50,00 0 unit) metformin ER 500 mg tablet,exte nded release 24 hr 01-05 00:00: 00 No 1mg atorvastati n 40 mg tablet 01-05 00:00: 00 No 1mg cholecalcif otto (vitamin D3) 1,250 mcg (50,000 unit) tablet 01-05 00:00: 00 No 1(50,00 0 unit) metformin ER 500 mg tablet,exte nded release 24 hr 01-05 00:00: 00 No 1mg atorvastati n 40 mg tablet 01-05 00:00: 00 No 1mg cholecalcif otto (vitamin D3) 1,250 mcg (50,000 unit) tablet 01-05 00:00: 00 No 1(50,00 0 unit) metformin ER 500 mg tablet,exte nded release 24 hr 01-05 00:00: 00 No 1mg atorvastati n 40 mg tablet 01-05 00:00: 00 No 1mg cholecalcif otto (vitamin D3) 1,250 mcg (50,000 unit) tablet 01-05 00:00: 00 No 1(50,00 0 unit) metformin ER 500 mg tablet,exte nded release 24 hr 09-21 00:00: 00 No 1mg atorvastati n 40 mg tablet 09-21 00:00: 00 No 1mg metformin ER 500 mg tablet,exte nded release 24 hr 09-21 00:00: 00 No 1mg atorvastati n 40 mg tablet 09-21 00:00: 00 No 1mg metformin ER 500 mg tablet,exte nded release 24 hr 09-21 00:00: 00 No 1mg atorvastati n 40 mg tablet 09-21 00:00: 00 No 1mg metformin ER 500 mg tablet,exte nded release 24 hr 09-21 00:00: 00 No 1mg atorvastati n 40 mg tablet 0 09-21 00:00: 00 No 1mg metformin ER 500 mg tablet,exte nded release 24 hr 0 09-21 00:00: 00 No 1mg atorvastati n 40 mg tablet 09-21 00:00: 00 No 1mg loratadine 10 mg tablet 06-23 00:00: 00 No 1mg metformin ER 500 mg tablet,exte nded release 24 hr 06-23 00:00: 00 No 1mg atorvastati n 40 mg tablet 06-23 00:00: 00 No 1mg loratadine 10 mg tablet 06-23 00:00: 00 No 1mg metformin ER 500 mg tablet,exte nded release 24 hr 06-23 00:00: 00 No 1mg atorvastati n 40 mg tablet 06-23 00:00: 00 No 1mg loratadine 10 mg tablet 06-23 00:00: 00 No 1mg metformin ER 500 mg tablet,exte nded release 24 hr 06-23 00:00: 00 No 1mg atorvastati n 40 mg tablet 06-23 00:00: 00 No 1mg loratadine 10 mg tablet 06-23 00:00: 00 No 1mg metformin ER 500 mg tablet,exte nded release 24 hr 06-23 00:00: 00 No 1mg atorvastati n 40 mg tablet 06-23 00:00: 00 No 1mg loratadine 10 mg tablet 06-23 00:00: 00 No 1mg metformin ER 500 mg tablet,exte nded release 24 hr 06-23 00:00: 00 No 1mg atorvastati n 40 mg tablet 06-23 00:00: 00 No 1mg atorvastati n 40 mg tablet 2018-04 00:00: 00 No 1mg cholecalcif otto (vitamin D3) 25 mcg (1,000 unit) capsule 2018-04 00:00: 00 No 1(1,000 unit) atorvastati n 40 mg tablet 2018-04 00:00: 00 No 1mg cholecalcif otto (vitamin D3) 25 mcg (1,000 unit) capsule 2018-04 00:00: 00 No 1(1,000 unit) atorvastati n 40 mg tablet 2018-04 00:00: 00 No 1mg cholecalcif otto (vitamin D3) 25 mcg (1,000 unit) capsule 2018-04 00:00: 00 No 1(1,000 unit) atorvastati n 40 mg tablet 2018-04 00:00: 00 No 1mg cholecalcif otto (vitamin D3) 25 mcg (1,000 unit) capsule 2018-04 00:00: 00 No 1(1,000 unit) atorvastati n 40 mg tablet 2018-04 00:00: 00 No 1mg cholecalcif otto (vitamin D3) 25 mcg (1,000 unit) capsule 2018-04 00:00: 00 No 1(1,000 unit) hydrochloro thiazide 12.5 mg tablet 2018-04 00:00: 00 No 1mg metformin ER 500 mg tablet,exte nded release 24 hr 2018-04 00:00: 00 No 1mg hydrochloro thiazide 12.5 mg tablet 2018-04 0 00:00: 00 No 1mg metformin ER 500 mg tablet,exte nded release 24 hr 2018-04 00:00: 00 No 1mg hydrochloro thiazide 12.5 mg tablet 2018-04 00:00: 00 No 1mg metformin ER 500 mg tablet,exte nded release 24 hr 2018-04 00:00: 00 No 1mg hydrochloro thiazide 12.5 mg tablet 2018-04 0 00:00: 00 No 1mg metformin ER 500 mg tablet,exte nded release 24 hr 2018-04 0 00:00: 00 No 1mg hydrochloro thiazide 12.5 mg tablet 2018-04 0 00:00: 00 No 1mg metformin ER 500 mg tablet,exte nded release 24 hr 2018-04 0 00:00: 00 No 1mg metformin ER 500 mg tablet,exte nded release 24 hr 2018-04 0 00:00: 00 No 1mg metformin ER 500 mg tablet,exte nded release 24 hr 2019-1 0-19 00:00: 00 No 1mg metformin ER 500 mg tablet,exte nded release 24 hr 2018-04 0 00:00: 00 No 1mg metformin ER 500 mg tablet,exte nded release 24 hr 2018-04 0 00:00: 00 No 1mg metformin ER 500 mg tablet,exte nded release 24 hr 2018-04 0 00:00: 00 No 1mg loratadine 10 mg tablet 0 09-23 00:00: 00 No 1mg loratadine 10 mg tablet 09-23 00:00: 00 No 1mg loratadine 10 mg tablet 09-23 00:00: 00 No 1mg loratadine 10 mg tablet 09-23 00:00: 00 No 1mg loratadine 10 mg tablet 09-23 00:00: 00 No 1mg Vitamin D2 50,000 unit capsule 4 00:00: 00 No 1unit metformin ER 500 mg tablet,exte nded release 24 hr 08-05 00:00: 00 No 1mg Vitamin D2 50,000 unit capsule 0 08-05 00:00: 00 No 1unit metformin ER 500 mg tablet,exte nded release 24 hr 08-05 00:00: 00 No 1mg Vitamin D2 50,000 unit capsule 0 08-05 00:00: 00 No 1unit metformin ER 500 mg tablet,exte nded release 24 hr 4 00:00: 00 No 1mg Vitamin D2 50,000 unit capsule 0 4 00:00: 00 No 1unit metformin ER 500 mg tablet,exte nded release 24 hr 0 08-05 00:00: 00 No 1mg Vitamin D2 50,000 unit capsule 0 411 00:00: 00 No 1unit metformin ER 500 mg tablet,exte nded release 24 hr 0 11 00:00: 00 No 1mg metformin ER 500 mg tablet,exte nded release 24 hr 0 16 00:00: 00 No 1mg Vitamin D2 50,000 unit capsule 0 116 00:00: 00 No 1unit metformin ER 500 mg tablet,exte nded release 24 hr 05-12 00:00: 00 No 1mg Vitamin D2 50,000 unit capsule 05-12 00:00: 00 No 1unit metformin ER 500 mg tablet,exte nded release 24 hr 05-12 00:00: 00 No 1mg Vitamin D2 50,000 unit capsule 05-12 00:00: 00 No 1unit metformin ER 500 mg tablet,exte nded release 24 hr 05-12 00:00: 00 No 1mg Vitamin D2 50,000 unit capsule 05-12 00:00: 00 No 1unit metformin ER 500 mg tablet,exte nded release 24 hr 05-12 00:00: 00 No 1mg Vitamin D2 50,000 unit capsule 05-12 00:00: 00 No 1unit Vital Signs Vital Name Observation Time Observation Value Comments S ource BP Systolic 2022-01-21 10:44:00 134 mm[Hg] BP Diastolic 2022-01-21 10:44:00 83 mm[Hg] Weight Measured 2022-01-21 10:44:00 154.40 pounds Height Measured 2022-01-21 10:44:00 58.60 inches Body Temperature 2022-01-21 10:44:00 98.00 degrees Heart Rate 2022-01-21 10:44:00 83.00 /min Respiratory Rate 2022-01-21 10:44:00 BP Systolic 2022-01-14 10:49:00 113 mm[Hg] BP Diastolic 2022-01-14 10:49:00 68 mm[Hg] Weight Measured 2022-01-14 10:49:00 153.80 pounds Height Measured 2022-01-14 10:49:00 58.60 inches Body Temperature 2022-01-14 10:49:00 98.40 degrees Heart Rate 2022-01-14 10:49:00 75.00 /min Respiratory Rate 2022-01-14 10:49:00 18.00 /min BP Systolic 2021-11-13 17:43:00 103 mm[Hg] BP Diastolic 2021-11-13 17:43:00 71 mm[Hg] Weight Measured 2021-11-13 17:43:00 159.00 pounds Height Measured 2021-11-13 17:43:00 58.60 inches Body Temperature 2021-11-13 17:43:00 98.10 degrees Heart Rate 2021-11-13 17:43:00 86.00 /min Respiratory Rate 2021-11-13 17:43:00 18.00 /min BP Systolic 2021-11-05 15:51:00 111 mm[Hg] BP Diastolic 2021-11-05 15:51:00 70 mm[Hg] Weight Measured 2021-11-05 15:51:00 159.20 pounds Height Measured 2021-11-05 15:51:00 58.60 inches Body Temperature 2021-11-05 15:51:00 97.80 degrees Heart Rate 2021-11-05 15:51:00 74.00 /min Respiratory Rate 2021-11-05 15:51:00 18.00 /min BP Systolic 2021-10-31 11:22:00 86 mm[Hg] BP Diastolic 2021-10-31 11:22:00 60 mm[Hg] Weight Measured 2021-10-31 11:22:00 159.00 pounds Height Measured 2021-10-31 11:22:00 58.60 inches Body Temperature 2021-10-31 11:22:00 98.00 degrees Heart Rate 2021-10-31 11:22:00 68.00 /min Respiratory Rate 2021-10-31 11:22:00 16.00 /min BP Systolic 2021-07-25 09:49:00 107 mm[Hg] BP Diastolic 2021-07-25 09:49:00 70 mm[Hg] Weight Measured 2021-07-25 09:49:00 167.00 pounds Height Measured 2021-07-25 09:49:00 58.60 inches Body Temperature 2021-07-25 09:49:00 98.00 degrees Heart Rate 2021-07-25 09:49:00 78.00 /min Respiratory Rate 2021-07-25 09:49:00 20.00 /min BP Systolic 2021-05-02 10:09:00 107 mm[Hg] BP Diastolic 2021-05-02 10:09:00 67 mm[Hg] Weight Measured 2021-05-02 10:09:00 168.80 pounds Height Measured 2021-05-02 10:09:00 58.60 inches Body Temperature 2021-05-02 10:09:00 98.20 degrees Heart Rate 2021-05-02 10:09:00 79.00 /min Respiratory Rate 2021-05-02 10:09:00 20.00 /min BP Systolic 2021-02-12 09:26:00 102 mm[Hg] BP Diastolic 2021-02-12 09:26:00 67 mm[Hg] Weight Measured 2021-02-12 09:26:00 169.60 pounds Height Measured 2021-02-12 09:26:00 58.60 inches Body Temperature 2021-02-12 09:26:00 98.20 degrees Heart Rate 2021-02-12 09:26:00 92.00 /min Respiratory Rate 2021-02-12 09:26:00 17.00 /min BP Systolic 2021-01-28 14:32:00 116 mm[Hg] BP Diastolic 2021-01-28 14:32:00 68 mm[Hg] Weight Measured 2021-01-28 14:32:00 169.00 pounds Height Measured 2021-01-28 14:32:00 58.60 inches Body Temperature 2021-01-28 14:32:00 98.30 degrees Heart Rate 2021-01-28 14:32:00 97.00 /min Respiratory Rate 2021-01-28 14:32:00 BP Systolic 2020-10-01 10:09:00 92 mm[Hg] BP Diastolic 2020-10-01 10:09:00 59 mm[Hg] Weight Measured 2020-10-01 10:09:00 169.80 pounds Height Measured 2020-10-01 10:09:00 58.60 inches Body Temperature 2020-10-01 10:09:00 97.50 degrees Heart Rate 2020-10-01 10:09:00 84.00 /min Respiratory Rate 2020-10-01 10:09:00 20.00 /min BP Systolic 2020-07-10 11:33:00 105 mm[Hg] BP Diastolic 2020-07-10 11:33:00 65 mm[Hg] Weight Measured 2020-07-10 11:33:00 170.60 pounds Height Measured 2020-07-10 11:33:00 58.60 inches Body Temperature 2020-07-10 11:33:00 98.80 degrees Heart Rate 2020-07-10 11:33:00 85.00 /min Respiratory Rate 2020-07-10 11:33:00 16.00 /min BP Systolic 2020-04-17 11:15:00 110 mm[Hg] BP Diastolic 2020-04-17 11:15:00 76 mm[Hg] Weight Measured 2020-04-17 11:15:00 167.60 pounds Height Measured 2020-04-17 11:15:00 58.60 inches Body Temperature 2020-04-17 11:15:00 97.90 degrees Heart Rate 2020-04-17 11:15:00 79.00 /min Respiratory Rate 2020-04-17 11:15:00 BP Systolic 2020-01-06 15:45:00 120 mm[Hg] BP Diastolic 2020-01-06 15:45:00 69 mm[Hg] Weight Measured 2020-01-06 15:45:00 167.80 pounds Height Measured 2020-01-06 15:45:00 58.46 inches Body Temperature 2020-01-06 15:45:00 98.40 degrees Heart Rate 2020-01-06 15:45:00 109.00 /min Respiratory Rate 2020-01-06 15:45:00 17.00 /min BP Systolic 2019-09-22 10:42:00 99 mm[Hg] BP Diastolic 2019-09-22 10:42:00 64 mm[Hg] Weight Measured 2019-09-22 10:42:00 174.80 pounds Height Measured 2019-09-22 10:42:00 58.46 inches Body Temperature 2019-09-22 10:42:00 98.10 degrees Heart Rate 2019-09-22 10:42:00 72.00 /min Respiratory Rate 2019-09-22 10:42:00 16.00 /min Plan of Care Planned Activity Planned Date Details Comments Source Goal Plan of Care Note [code = 52621-1] Goal Plan of Care Note [code = 67575-6] Goal Plan of Care Note [code = 99872-1] Goal Plan of Care Note [code = 35265-6] Goal Plan of Care Note [code = 41691-2] Goal Plan of Care Note [code = 03574-1] Goal Plan of Care Note [code = 93421-8] Goal Plan of Care Note [code = 09102-1] Goal Plan of Care Note [code = 67913-9] Goal Plan of Care Note [code = 14866-1] Goal Plan of Care Note [code = 34081-5] Goal Plan of Care Note [code = 89826-6] Goal Plan of Care Note [code = 55978-9] Goal Plan of Care Note [code = 07853-5] Goal Plan of Care Note [code = 90587-4] Goal Plan of Care Note [code = 71141-3] Goal Plan of Care Note [code = 68505-7] Goal Plan of Care Note [code = 41368-0] Goal Plan of Care Note [code = 27766-5] Goal Plan of Care Note [code = 28590-4] Goal Plan of Care Note [code = 78907-1] Goal Plan of Care Note [code = 59061-7] Goal Plan of Care Note [code = 89468-3] Goal Plan of Care Note [code = 22098-9] Goal Plan of Care Note [code = 32601-4] Goal Plan of Care Note [code = 85226-6] Goal Plan of Care Note [code = 61302-7] Goal Plan of Care Note [code = 60698-4] Goal Plan of Care Note [code = 91456-9] Goal Plan of Care Note [code = 10742-4] Goal Plan of Care Note [code = 84566-4] Goal Plan of Care Note [code = 85103-3] Goal Plan of Care Note [code = 99463-0] Goal Plan of Care Note [code = 43928-3] Goal Plan of Care Note [code = 80516-0] Goal Plan of Care Note [code = 77170-1] Goal Plan of Care Note [code = 87021-4] Goal Plan of Care Note [code = 51203-1] Goal Plan of Care Note [code = 63394-9] Goal Plan of Care Note [code = 27620-3] Goal Plan of Care Note [code = 53671-3] Goal Plan of Care Note [code = 19589-7] Goal Plan of Care Note [code = 99132-0] Goal Plan of Care Note [code = 28653-9] Goal Plan of Care Note [code = 30446-7] Goal Plan of Care Note [code = 90374-8] Goal Plan of Care Note [code = 13505-3] Goal Plan of Care Note [code = 91135-2] Goal Plan of Care Note [code = 27411-2] Goal Plan of Care Note [code = 97464-3] Goal Plan of Care Note [code = 60581-9] Goal Plan of Care Note [code = 57308-4] Goal Plan of Care Note [code = 88807-4] Goal Plan of Care Note [code = 50786-0] Goal Plan of Care Note [code = 85406-0] Goal Plan of Care Note [code = 44896-5] Goal Plan of Care Note [code = 84150-6] Goal Plan of Care Note [code = 97928-3] Goal Plan of Care Note [code = 10033-6] Goal Plan of Care Note [code = 81564-9] Goal Plan of Care Note [code = 12724-0] Goal Plan of Care Note [code = 64942-7] Goal Plan of Care Note [code = 73073-8] Goal Plan of Care Note [code = 22229-7] Goal Plan of Care Note [code = 83367-0] Goal Plan of Care Note [code = 01811-7] Goal Plan of Care Note [code = 64531-0] Goal Plan of Care Note [code = 13095-0] Goal Plan of Care Note [code = 99831-8] Goal Plan of Care Note [code = 32701-0] Goal Plan of Care Note [code = 22178-3] Goal Plan of Care Note [code = 04610-1] Goal Plan of Care Note [code = 45327-7] Goal Plan of Care Note [code = 07621-2] Goal Plan of Care Note [code = 25108-3] Goal Plan of Care Note [code = 48142-0] Goal Plan of Care Note [code = 84956-7] Goal Plan of Care Note [code = 75599-4] Goal Plan of Care Note [code = 23270-3] Goal Plan of Care Note [code = 10055-4] Goal Plan of Care Note [code = 70068-8] Goal Plan of Care Note [code = 44767-4] Goal Plan of Care Note [code = 80459-1] Goal Plan of Care Note [code = 30291-0] Goal Plan of Care Note [code = 59898-7] Goal Plan of Care Note [code = 97641-0] Goal Plan of Care Note [code = 05934-3] Goal Plan of Care Note [code = 53861-4] Goal Plan of Care Note [code = 78674-9] Goal Plan of Care Note [code = 53861-6] Goal Plan of Care Note [code = 46715-4] Goal Plan of Care Note [code = 12072-2] Goal Plan of Care Note [code = 33877-7] Goal Plan of Care Note [code = 78535-1] Goal Plan of Care Note [code = 39290-7] Goal Plan of Care Note [code = 57010-2] Goal Plan of Care Note [code = 89252-0] Goal Plan of Care Note [code = 91427-6] Goal Plan of Care Note [code = 42992-3] Goal Plan of Care Note [code = 62576-5] Goal Plan of Care Note [code = 63223-5] Goal Plan of Care Note [code = 29801-9] Goal Plan of Care Note [code = 97386-8] Goal Plan of Care Note [code = 07315-6] Goal Plan of Care Note [code = 35567-5] Goal Plan of Care Note [code = 27124-4] Goal Plan of Care Note [code = 16249-6] Goal Plan of Care Note [code = 81992-1] Goal Plan of Care Note [code = 80127-3] Goal Plan of Care Note [code = 33373-7] Goal Plan of Care Note [code = 70112-6] Encounters Start Date/Time End Date/Time Encounter Type Admission Type Attending Clinicians Care Facility Care Department Encounter ID Source 2023-05-05 14:33:34 2023-05-05 14:33:34 Outpatient [facility] [id number] Alex Jones 2023-01-30 09:15:30 2023-01-30 09:15:30 Outpatient [facility] [id number] Alex Jones 2023-01-29 11:06:53 2023-01-29 11:06:53 Outpatient [facility] [id number] Alex Jones 2023-01-05 08:28:03 2023-01-05 08:28:03 Outpatient [facility] [id number] Alex Jones 2022-12-04 14:08:04 2022-12-04 14:08:04 Outpatient [facility] [id number] Alex Jones 2022-11-03 15:02:23 2022-11-03 15:02:23 Outpatient [facility] [id number] Alex Jones 2022-09-11 13:29:53 2022-09-11 13:29:53 Outpatient [facility] [id number] Alex Jones 2022-08-13 14:05:58 2022-08-13 14:05:58 Outpatient [facility] [id number] Alex Jones 2022-08-08 14:10:12 2022-08-08 14:10:12 Outpatient [facility] [id number] Alex Jones 2022-08-07 13:17:14 2022-08-07 13:17:14 Outpatient [facility] [id number] Alex Jonse 2022-07-30 14:26:04 2022-07-30 14:26:04 Outpatient [facility] [id number] Alex Jones 2022-05-01 14:53:35 2022-05-01 14:53:35 Outpatient [facility] [id number] Alex Jones 2022-03-05 13:17:56 2022-03-05 13:17:56 Outpatient [facility] [id number] Alex Caal Robert 2022-03-04 10:43:13 2022-03-04 10:43:13 Outpatient [facility] [id number] Alex Jones 2022-01-21 00:00:00 2022-01-21 00:00:00 Outpatient Visit [id number]-[id number] 2022-01-14 00:00:00 2022-01-14 00:00:00 Outpatient Visit [id number] -[id number] 6e0dae 2021-11-13 00:00:00 2021-11-13 00:00:00 Outpatient Visit [id number] 2021-11-05 00:00:00 2021-11-05 00:00:00 Outpatient Visit [id number] -[id number] [id number]-[id number] e08-[id number] 77fafa 2021-10-31 00:00:00 2021-10-31 00:00:00 Outpatient Visit [id number] -[id number] [id number]-[id number]-b [id number] Results Test Description Test Time Test Comments Results Result Co mments Source [id number] 05:25:43* Test Item Value Reference Range Interpretation Comme nts FERRITIN (test code = 2075) 5 NG/ML 13-200 L UNLESS OTHERWISE INDICATED, ALL TESTING PERFORMED AT [facility] [address] [place] [address] CARE MANAGER: MANUEL GUIDRY M.D. CLIA NUMBER [id number] [place]. [id number] CBC W/AUTO DIFF WITH [id number] 02:54:07* Test Item Value Reference Range Interpretation Comme nts WBC (test code = 1001) 8.0 K/UL 3.5-11.0 RBC (test code = 1002) 4.69 M/UL 3.80-5.40 HEMOGLOBIN (test code = 1003) 9.1 G/DL 11.5-15.5 L HEMATOCRIT (test code = 1004) 31.8 % 34.0-45.0 L MCV (test code = 1005) 67.8 fL 80.0-99.0 L MCH (test code = 1006) 19.4 PG 25.0-33.0 L MCHC (test code = 1007) 28.6 G/DL 31.0-36.0 L RDW (test code = 1038) 20.4 % 11.5-15.0 H NEUTROPHILS (test code = 1008) 58.9 % LYMPHOCYTES (test code = 1010) 33.3 % MONOCYTES (test code = 1011) 4.9 % EOSINOPHILS (test code = 1012) 2.0 % BASOPHILS (test code = 1013) 0.4 % IMMATURE GRANULOCYTES (test code = 1036) 0.5 % NUCLEATED RBCS (test code = 1065) 0.0 /100 WBC'S See_Comment [Automated messa ge] The system which generated this result transmitted reference range: 0.0. The reference range was not used to interpret this result as normal/abnormal. PLATELET COUNT (test code = 1015) 222 K/UL 130-400 ABSOLUTE NEUTROPHILS (test code = 1066) 4.74 K/UL 1.50-7.50 ABSOLUTE LYMPHOCYTES (test code = 1067) 2.67 K/UL 1.00-4.00 ABSOLUTE MONOCYTES (test code = 1068) 0.39 K/UL 0.20-1.00 ABSOLUTE EOSINOPHILS (test code = 1040) 0.16 K/UL 0.00-0.50 ABSOLUTE BASOPHILS (test code = 1069) 0.03 K/UL 0.00-0.20 ABS IMMATURE GRANULOCYTES (test code = 1020) 0.04 K/UL 0.00-0.10 ABS NUCLEATED RBCS (test code = 45154) 0.00 K/UL 0.00-0.11 SCR MAMM BILATERAL SANDHYA CAD [id number] 14:44:35 Name: Jb : 1975 Sex: F - SCR MAMM BILATERAL SANDHYA CAD DIGITALBILATERAL FIRST EVER DIGITAL SCREENING MAMMOGRAM 3D/2D WITH CAD: 08/29/2022LINICAL: Asymptomatic. Digital breast tomosynthesis was performed in addition to routine CC and MLO views. Current mammographic images were evaluated by [employer] CAD (computer-aided detection) software. No prior exams were available for comparison. The tissue of both breasts is heterogeneously dense. This may lower the sensitivity of mammography. There is a benign calcification in both breasts. No suspicious mass, architectural distortion, malignant type calcification, or lymph node abnormality detected. IMPRESSION: BENIGNThere is no mammographic evidence of malignancy. Resume annual screening mammography in oneyear. (08/30/2023) Janet Clark M.D. scg/penrad:09/04/2022 14:44:35 Service Liaison Representative: Génesis Harding MM, [facility] Mammographyletter sent: BIRADS 1-2 Normal Mammogram BI-RADS: 2 BenignLIPID [id number] 04:19:55* Test Item Value Reference Range Interpretation Comme nts CHOLESTEROL (test code = 2210) 111 MG/DL <200 TRIGLYCERIDES (test code = 2232) 156 MG/DL <150 H HDL CHOLESTEROL (test code = 2220) 45 MG/DL >39 CALC LDL CHOL (test code = 2237) 43 MG/DL <100 NOTE: CALCULATED LDL IS BASED ON PAUL-OLIVIA METHOD WHICHINCLUDES ADJUSTABLE TRIGLYCERIDE:VLDL CHOLESTEROL RATIO.THIS FACTOR VARIES BY MEASURED TRIGLYCERIDE AND NON-HDLCHOLESTEROL CONCENTRATIONS WITH INCREASED CALCULATED LDL SEENIN HIGHER TRIGLYCERIDE OR LOWER NON-HDL SPECIMENS. FOR MOREINFORMATION, SEE CLIENT ANNOUNCEMENT AT [email or web address] RATIO LDL/HDL (test code = 2238) 0.96 RATIO <3.22 [facility] has i mportant pathology staff changes effective 06/25/2022. New pathology staff will provide uninterrupted, excellent patient care and clinical consultation. See URL: [email or web address]. UNLESS OTHERWISE INDICATED, ALL TESTING PERFORMED AT [facility] [address] [place] [address] CARE MANAGER: MANUEL GUIDRY M.D. CLIA NUMBER [id number] [place]. [id number] ALBUMIN/CREATININE RATIO, URINE, [id number] 09:05:23* Test Item Value Reference Range Interpretation Comme nts CREATININE, URINE, CONC. (test code = 2072) 83.6 MG/DL NOT ESTAB ALBUMIN, URINE, RANDOM (test code = 75208) 0.7 MG/DL NOT ESTAB CALC ALBUMIN/CREAT, RND (test code = 20435) 8 MG/G <30 Note: Albumin/Creatinine ratio reference interval reflects ADA and NKF guidelines. CBC W/AUTO DIFF WITH [id number] 03:21:53* Test Item Value Reference Range Interpretation Comme nts WBC (test code = 1001) 8.9 K/UL 3.5-11.0 RBC (test code = 1002) 4.94 M/UL 3.80-5.40 HEMOGLOBIN (test code = 1003) 9.5 G/DL 11.5-15.5 L HEMATOCRIT (test code = 1004) 32.9 % 34.0-45.0 L MCV (test code = 1005) 66.6 fL 80.0-99.0 L MCH (test code = 1006) 19.2 PG 25.0-33.0 L MCHC (test code = 1007) 28.9 G/DL 31.0-36.0 L RDW (test code = 1038) 18.2 % 11.5-15.0 H NEUTROPHILS (test code = 1008) 55.3 % LYMPHOCYTES (test code = 1010) 35.9 % MONOCYTES (test code = 1011) 5.5 % EOSINOPHILS (test code = 1012) 2.4 % BASOPHILS (test code = 1013) 0.3 % IMMATURE GRANULOCYTES (test code = 1036) 0.6 % NUCLEATED RBCS (test code = 1065) 0.0 /100 WBC'S See_Comment [Automated message] The system which generated this result transmitted reference range: 0.0. The reference range was not used to interpret this result as normal/abnormal. PLATELET COUNT (test code = 1015) 218 K/UL 130-400 ABSOLUTE NEUTROPHILS (test code = 1066) 4.89 K/UL 1.50-7.50 ABSOLUTE LYMPHOCYTES (test code = 1067) 3.18 K/UL 1.00-4.00 ABSOLUTE MONOCYTES (test code = 1068) 0.49 K/UL 0.20-1.00 ABSOLUTE EOSINOPHILS (test code = 1040) 0.21 K/UL 0.00-0.50 ABSOLUTE BASOPHILS (test code = 1069) 0.03 K/UL 0.00-0.20 ABS IMMATURE GRANULOCYTES (test code = 1020) 0.05 K/UL 0.00-0.10 ABS NUCLEATED RBCS (test code = 06840) 0.00 K/UL 0.00-0.11 [facility] has important pathology staff changes effective 06/25/2022. New pathology staff will provide uninterrupted, excellent patient care and clinical consultation. See URL: [email or web address]. UNLESS OTHERWISE INDICATED, ALL TESTING PERFORMED AT [facility] [address] [place] [address] CARE MANAGER: MANUEL GUIDRY M.D. [facility] NUMBER [id number] [place] [id number] HEMOGLOBIN [id number] 03:19:43* Test Item Value Reference Range Interpretation Comme nts HEMOGLOBIN A1c (test code = 55608) 6.2 % 4.2-5.6 H [employer] GUIDELINES FOR HGB A1C: PREDIABETES/INCREASED RISK . . . . . . . 5.7-6.4% DIAGNOSIS OF DIABETES . . . . . . . . . >=6.5% WITH CONFIRMATION OR APPROPRIATE SYMPTOMS NOTE: ASSAY MAY BE AFFECTED BY HEMOGLOBINOPATHIES (SICKLE CELL ANEMIA, S-C DISEASE, OTHERS) OR ARTIFICIALLY LOWERED BY DECREASED RED CELL SURVIVAL (HEMOLYTIC ANEMIAS, BLOOD LOSS, ETC.). CONSIDER ALTERNATE TESTING OR LABORATORY CONSULTATION. PAP TEST, THINPREP, [id number] 14:10:25* Test Item Value Reference Range Interpretation Comme nts SOURCE: (test code = 8001) Cervical/End ocervical SLIDES: (test code = 8011) 1 LMP: (test code = 8021) 01/07/2022 SPECIMEN ADEQUACY: (test code = 76729) (NOTE) Satisfactory for evaluation. Endocervical cells/transformation zone component present. INTERPRETATION: (test code = 30695) NILM/NO EPITH. ABNORMALITY; SEE BELOW -- ---- NEGATIVE FOR INTRAEPITHELIAL LESION OR MALIGNANCY Reactive cellular changes present (NILM). OTHER COMMENTS: (test code = 8081) (NOTE) Cellular changes consistent with Herpes virus. ARTIFICIAL MARBLE WORKER: (test code = 8101) ANA Cowart (ASCP) PATHOLOGIST INTERPRETATION BY: (test code = 8122) Jakob Arrington LOCATION: (test code = 39803) (NOTE) Specimens proces sed at [facility], [address] [place] [address], , CLIA: [id number] interpreted at [facility], [address] [place] [address],Pathology Department Lower Level, [facility] [place] [address], , CLIA: [id number] CPT: (test code = 8140) (NOTE) 1949[address], [address] UNL ESS OTHERWISE INDICATED, COMPUTER AIDED AND ARTIFICIAL MARBLE WORKER SCREENING PERFORMED. The Pap test is a screening test with an inherent, but low probability of error. Your patient should be reminded to consult you immediately if she experiences any suspicious signs or symptoms, regardless of her Pap test result. An alternate report format containing images or consolidated prior Pap history is available as applicable. UNLESS OTHERWISE INDICATED, ALL TESTING PERFORMED [facility] PATHOLOGY [employer], [facility]. [address] [place] [address] CARE MANAGER: FRANCISCO BANSAL M.D. CLIA NUMBER [id number] [place] [id number] HEMOGLOBIN [id number] 08:34:55* Test Item Value Reference Range Interpretation Comme nts HEMOGLOBIN A1c (test code = 64702) 5.8 % 4.2-5.6 H CBC W/AUTO DIFF WITH [id number] 07:43:36* Test Item Value Reference Range Interpretation Comme nts WBC (test code = 1001) 7.3 K/UL 3.5-11.0 RBC (test code = 1002) 4.73 M/UL 3.80-5.40 HEMOGLOBIN (test code = 1003) 9.5 G/DL 11.5-15.5 L HEMATOCRIT (test code = 1004) 31.7 % 34.0-45.0 L MCV (test code = 1005) 67.0 fL 80.0-99.0 L MCH (test code = 1006) 20.1 PG 25.0-33.0 L MCHC (test code = 1007) 30.0 G/DL 31.0-36.0 L RDW (test code = 1038) 18.3 % 11.5-15.0 H NEUTROPHILS (test code = 1008) 57.5 % LYMPHOCYTES (test code = 1010) 34.6 % MONOCYTES (test code = 1011) 4.7 % EOSINOPHILS (test code = 1012) 2.5 % BASOPHILS (test code = 1013) 0.4 % IMMATURE GRANULOCYTES (test code = 1036) 0.3 % NUCLEATED RBCS (test code = 1065) 0.0 /100 WBC'S See_Comment [Automated messa ge] The system which generated this result transmitted reference range: 0.0. The reference range was not used to interpret this result as normal/abnormal. PLATELET COUNT (test code = 1015) 227 K/UL 130-400 ABSOLUTE NEUTROPHILS (test code = 1066) 4.17 K/UL 1.50-7.50 ABSOLUTE LYMPHOCYTES (test code = 1067) 2.51 K/UL 1.00-4.00 ABSOLUTE MONOCYTES (test code = 1068) 0.34 K/UL 0.20-1.00 ABSOLUTE EOSINOPHILS (test code = 1040) 0.18 K/UL 0.00-0.50 ABSOLUTE BASOPHILS (test code = 1069) 0.03 K/UL 0.00-0.20 ABS IMMATURE GRANULOCYTES (test code = 1020) 0.02 K/UL 0.00-0.10 ABS NUCLEATED RBCS (test code = 01698) 0.00 K/UL 0.00-0.11 FSH + LH [id number] 05:38:34* Test Item Value Reference Range Interpretation Comme nts FOLLICLE STIM HORMONE (test code = 2700) 6.5 IU/L SEE BELOW EXPEC JOSE VALUES FOR FSH FOR FEMALES >17 YEARS MALES FEMALES >=18 YEARS 1.5-12.4 IU/L FOLLICULAR 3.5-12.5 IU/L MID-CYCLE PEAK 4.7-21.5 IU/L LUTEAL PHASE 1.7-7.7 IU/L POSTMENOPAUSAL 25.8-134.8 IU/L LUTEINIZING HORMONE (test code = 2776) 11.3 IU/L SEE BELOW EXPEC JOSE VALUES FOR LH FOR FEMALES >17 YEARS MALES FEMALES >=18 YEARS 1.8-8.6 IU/L FOLLICULAR 2.4-12.6 IU/L MID-CYCLE PEAK 14.0-95.6 IU/L LUTEAL PHASE 1.0-11.4 IU/L POSTMENOPAUSAL 7.7-58.5 IU/L [id number] 05:38:34* Test Item Value Reference Range Interpretation Comme [facility] ESTRADIOL (test code = 2505) 106.0 PG/ML SEE BELOW EXPECTED VALUES FOR ESTRADIOL FOR FEMALES >=18 YEARS FOLLICULAR . . . . . . . . . . . . . PG/ML 12.4-233.0 OVULATION. . . . . . . . . . . . . . PG/ML 41.0-398.0 LUTEAL PHASE . . . . . . . . . . . . PG/ML 22.3-341.0 POSTMENOPAUSAL SUPPLEMENTED/NON-SUPP . PG/ML <138.0/<20.0 NOTE: TO DETERMINE NORMAL VS. SUBNORMAL ESTRADIOL IN POSTMENOPAUSAL FEMALES, CONSIDER ULTRASENSITIVE ESTRADIOL ([facility] ORDER CODE 5678). METHODOLOGY IS PAYTON SON ELECTROCHEMILUMINESCENT IMMUNOASSAY WITH A LIMIT OF DETECTION OF 17 PG/ML. [id number] 05:38:34* Test Item Value Reference Range Interpretation Comme [facility] PROLACTIN (test code = 2800) 9.5 NG/ML 5.0-37.0 NOTE: Methodolog y is [employer] Electrochemiluminescence Immunoassay (ECLIA). Values obtained with different assays/manufacturers cannot be used interchangeably. Results should not be used as sole basis to establish the presence or absence of malignancy. TSH, THIRD [id number] 05:38:34* Test Item Value Reference Range Interpretation Comme nts TSH, THIRD GENERATION (test code = 2821) 1.320 UIU/ML 0.400-4.100 UNLESS OTHERWISE INDICATED, ALL TESTING PERFORMED [facility] [employer] [address] [place] [address] CARE MANAGER: FRANCISCO BANSAL M.D. CLIA NUMBER [id number] [place] [id number] CBC W/AUTO [id number] 00:00:00* Test Item Value Reference Range Interpretation Comme nts WBC (test code = 1001) 7.3 K/UL RBC (test code = 1002) 4.73 M/UL HEMOGLOBIN (test code = 1003) 9.5 G/DL HEMATOCRIT (test code = 1004) 31.7 % MCV (test code = 1005) 67.0 fL MCH (test code = 1006) 20.1 PG MCHC (test code = 1007) 30.0 G/DL RDW (test code = 1038) 18.3 % NEUTROPHILS (test code = 1008) 57.5 % LYMPHOCYTES (test code = 1010) 34.6 % MONOCYTES (test code = 1011) 4.7 % EOSINOPHILS (test code = 1012) 2.5 % BASOPHILS (test code = 1013) 0.4 % IMMATURE GRANULOCYTES (test code = 1036) 0.3 % NUCLEATED RBCS (test code = 1065) 0.0 /100WBC'S PLATELET COUNT (test code = 1015) 227 K/UL ABSOLUTE NEUTROPHILS (test c ode = 1066) 4.17 K/UL ABSOLUTE LYMPHOCYTES (test c ode = 1067) 2.51 K/UL ABSOLUTE MONOCYTES (test cod e = 1068) 0.34 K/UL ABSOLUTE EOSINOPHILS (test c ode = 1040) 0.18 K/UL ABSOLUTE BASOPHILS (test cod e = 1069) 0.03 K/UL ABS IMMATURE GRANULOCYTES (t est code = 1020) 0.02 K/UL ABS NUCLEATED RBCS (test cod e = 55289) 0.00 K/UL CBC W/AUTO [id number] 00:00:00* Test Item Value Reference Range Interpretation Comme nts WBC (test code = 1001) 7.3 K/UL RBC (test code = 1002) 4.73 M/UL HEMOGLOBIN (test code = 1003) 9.5 G/DL HEMATOCRIT (test code = 1004) 31.7 % MCV (test code = 1005) 67.0 fL MCH (test code = 1006) 20.1 PG MCHC (test code = 1007) 30.0 G/DL RDW (test code = 1038) 18.3 % NEUTROPHILS (test code = 1008) 57.5 % LYMPHOCYTES (test code = 1010) 34.6 % MONOCYTES (test code = 1011) 4.7 % EOSINOPHILS (test code = 1012) 2.5 % BASOPHILS (test code = 1013) 0.4 % IMMATURE GRANULOCYTES (test code = 1036) 0.3 % NUCLEATED RBCS (test code = 1065) 0.0 /100WBC'S PLATELET COUNT (test code = 1015) 227 K/UL ABSOLUTE NEUTROPHILS (test c ode = 1066) 4.17 K/UL ABSOLUTE LYMPHOCYTES (test c ode = 1067) 2.51 K/UL ABSOLUTE MONOCYTES (test cod e = 1068) 0.34 K/UL ABSOLUTE EOSINOPHILS (test c ode = 1040) 0.18 K/UL ABSOLUTE BASOPHILS (test cod e = 1069) 0.03 K/UL ABS IMMATURE GRANULOCYTES (t est code = 1020) 0.02 K/UL ABS NUCLEATED RBCS (test cod e = 61956) 0.00 K/UL FSH + LH [id number] 00:00:00* Test Item Value Reference Range Interpretation Comme nts FOLLICLE STIM HORMONE (test code = 2700) 6.5 IU/L LUTEINIZING HORMONE (test co de = 2776) 11.3 IU/L FSH + LH [id number] 00:00:00* Test Item Value Reference Range Interpretation Comme nts FOLLICLE STIM HORMONE (test code = 2700) 6.5 IU/L LUTEINIZING HORMONE (test co de = 2776) 11.3 IU/L [id number] 00:00:00* Test Item Value Reference Range Interpretation Comme nts ESTRADIOL (test code = 2505) 106.0 PG/ML [id number] 00:00:00* Test Item Value Reference Range Interpretation Comme nts ESTRADIOL (test code = 2505) 106.0 PG/ML [id number] 00:00:00* Test Item Value Reference Range Interpretation Comme nts ESTRADIOL (test code = 2505) 106.0 PG/ML [id number] 00:00:00* Test Item Value Reference Range Interpretation Comme nts PROLACTIN (test code = 2800) 9.5 NG/ML [id number] 00:00:00* Test Item Value Reference Range Interpretation Comme nts PROLACTIN (test code = 2800) 9.5 NG/ML TSH, THIRD [id number] 00:00:00* Test Item Value Reference Range Interpretation Comme nts TSH, THIRD GENERATION (test code = 2821) 1.320 UIU/ML TSH, THIRD [id number] 00:00:00* Test Item Value Reference Range Interpretation Comme nts TSH, THIRD GENERATION (test code = 2821) 1.320 UIU/ML TSH, THIRD [id number] 00:00:00* Test Item Value Reference Range Interpretation Comme nts TSH, THIRD GENERATION (test code = 2821) 1.320 UIU/ML HEMOGLOBIN [id number] 00:00:00* Test Item Value Reference Range Interpretation Comme nts HEMOGLOBIN A1c (test code = 75803) 5.8 % HEMOGLOBIN [id number] 00:00:00* Test Item Value Reference Range Interpretation Comme nts HEMOGLOBIN A1c (test code = 00957) 5.8 % HEMOGLOBIN [id number] 00:00:00* Test Item Value Reference Range Interpretation Comme nts HEMOGLOBIN A1c (test code = 28630) 5.8 % CBC W/AUTO [id number] 00:00:00* Test Item Value Reference Range Interpretation Comme nts WBC (test code = 1001) 7.3 K/UL RBC (test code = 1002) 4.73 M/UL HEMOGLOBIN (test code = 1003) 9.5 G/DL HEMATOCRIT (test code = 1004) 31.7 % MCV (test code = 1005) 67.0 fL MCH (test code = 1006) 20.1 PG MCHC (test code = 1007) 30.0 G/DL RDW (test code = 1038) 18.3 % NEUTROPHILS (test code = 1008) 57.5 % LYMPHOCYTES (test code = 1010) 34.6 % MONOCYTES (test code = 1011) 4.7 % EOSINOPHILS (test code = 1012) 2.5 % BASOPHILS (test code = 1013) 0.4 % IMMATURE GRANULOCYTES (test code = 1036) 0.3 % NUCLEATED RBCS (test code = 1065) 0.0 /100WBC'S PLATELET COUNT (test code = 1015) 227 K/UL ABSOLUTE NEUTROPHILS (test c ode = 1066) 4.17 K/UL ABSOLUTE LYMPHOCYTES (test c ode = 1067) 2.51 K/UL ABSOLUTE MONOCYTES (test cod e = 1068) 0.34 K/UL ABSOLUTE EOSINOPHILS (test c ode = 1040) 0.18 K/UL ABSOLUTE BASOPHILS (test cod e = 1069) 0.03 K/UL ABS IMMATURE GRANULOCYTES (t est code = 1020) 0.02 K/UL ABS NUCLEATED RBCS (test cod e = 79380) 0.00 K/UL CBC W/AUTO [id number] 00:00:00* Test Item Value Reference Range Interpretation Comme nts WBC (test code = 1001) 7.3 K/UL RBC (test code = 1002) 4.73 M/UL HEMOGLOBIN (test code = 1003) 9.5 G/DL HEMATOCRIT (test code = 1004) 31.7 % MCV (test code = 1005) 67.0 fL MCH (test code = 1006) 20.1 PG MCHC (test code = 1007) 30.0 G/DL RDW (test code = 1038) 18.3 % NEUTROPHILS (test code = 1008) 57.5 % LYMPHOCYTES (test code = 1010) 34.6 % MONOCYTES (test code = 1011) 4.7 % EOSINOPHILS (test code = 1012) 2.5 % BASOPHILS (test code = 1013) 0.4 % IMMATURE GRANULOCYTES (test code = 1036) 0.3 % NUCLEATED RBCS (test code = 1065) 0.0 /100WBC'S PLATELET COUNT (test code = 1015) 227 K/UL ABSOLUTE NEUTROPHILS (test c ode = 1066) 4.17 K/UL ABSOLUTE LYMPHOCYTES (test c ode = 1067) 2.51 K/UL ABSOLUTE MONOCYTES (test cod e = 1068) 0.34 K/UL ABSOLUTE EOSINOPHILS (test c ode = 1040) 0.18 K/UL ABSOLUTE BASOPHILS (test cod e = 1069) 0.03 K/UL ABS IMMATURE GRANULOCYTES (t est code = 1020) 0.02 K/UL ABS NUCLEATED RBCS (test cod e = 52838) 0.00 K/UL CBC W/AUTO [id number] 00:00:00* Test Item Value Reference Range Interpretation Comme nts WBC (test code = 1001) 7.3 K/UL RBC (test code = 1002) 4.73 M/UL HEMOGLOBIN (test code = 1003) 9.5 G/DL HEMATOCRIT (test code = 1004) 31.7 % MCV (test code = 1005) 67.0 fL MCH (test code = 1006) 20.1 PG MCHC (test code = 1007) 30.0 G/DL RDW (test code = 1038) 18.3 % NEUTROPHILS (test code = 1008) 57.5 % LYMPHOCYTES (test code = 1010) 34.6 % MONOCYTES (test code = 1011) 4.7 % EOSINOPHILS (test code = 1012) 2.5 % BASOPHILS (test code = 1013) 0.4 % IMMATURE GRANULOCYTES (test code = 1036) 0.3 % NUCLEATED RBCS (test code = 1065) 0.0 /100WBC'S PLATELET COUNT (test code = 1015) 227 K/UL ABSOLUTE NEUTROPHILS (test c ode = 1066) 4.17 K/UL ABSOLUTE LYMPHOCYTES (test c ode = 1067) 2.51 K/UL ABSOLUTE MONOCYTES (test cod e = 1068) 0.34 K/UL ABSOLUTE EOSINOPHILS (test c ode = 1040) 0.18 K/UL ABSOLUTE BASOPHILS (test cod e = 1069) 0.03 K/UL ABS IMMATURE GRANULOCYTES (t est code = 1020) 0.02 K/UL ABS NUCLEATED RBCS (test cod e = 48496) 0.00 K/UL FSH + LH [id number] 00:00:00* Test Item Value Reference Range Interpretation Comme nts FOLLICLE STIM HORMONE (test code = 2700) 6.5 IU/L LUTEINIZING HORMONE (test co de = 2336) 11.3 IU/L FSH + LH [id number] 00:00:00* Test Item Value Reference Range Interpretation Comme nts FOLLICLE STIM HORMONE (test code = 2700) 6.5 IU/L LUTEINIZING HORMONE (test co de = 2776) 11.3 IU/L [id number] 00:00:00* Test Item Value Reference Range Interpretation Comme nts ESTRADIOL (test code = 2505) 106.0 PG/ML [id number] 00:00:00* Test Item Value Reference Range Interpretation Comme nts ESTRADIOL (test code = 2505) 106.0 PG/ML [id number] 00:00:00* Test Item Value Reference Range Interpretation Comme nts ESTRADIOL (test code = 2505) 106.0 PG/ML [id number] 00:00:00* Test Item Value Reference Range Interpretation Comme nts PROLACTIN (test code = 2800) 9.5 NG/ML [id number] 00:00:00* Test Item Value Reference Range Interpretation Comme nts PROLACTIN (test code = 2800) 9.5 NG/ML TSH, THIRD [id number] 00:00:00* Test Item Value Reference Range Interpretation Comme nts TSH, THIRD GENERATION (test code = 2821) 1.320 UIU/ML TSH, THIRD [id number] 00:00:00* Test Item Value Reference Range Interpretation Comme nts TSH, THIRD GENERATION (test code = 2821) 1.320 UIU/ML TSH, THIRD [id number] 00:00:00* Test Item Value Reference Range Interpretation Comme nts TSH, THIRD GENERATION (test code = 2821) 1.320 UIU/ML HEMOGLOBIN [id number] 00:00:00* Test Item Value Reference Range Interpretation Comme nts HEMOGLOBIN A1c (test code = 20886) 5.8 % HEMOGLOBIN [id number] 00:00:00* Test Item Value Reference Range Interpretation Comme nts HEMOGLOBIN A1c (test code = 62855) 5.8 % HEMOGLOBIN [id number] 00:00:00* Test Item Value Reference Range Interpretation Comme nts HEMOGLOBIN A1c (test code = 19577) 5.8 % CBC W/AUTO [id number] 00:00:00* Test Item Value Reference Range Interpretation Comme nts WBC (test code = 1001) 7.3 K/UL RBC (test code = 1002) 4.73 M/UL HEMOGLOBIN (test code = 1003) 9.5 G/DL HEMATOCRIT (test code = 1004) 31.7 % MCV (test code = 1005) 67.0 fL MCH (test code = 1006) 20.1 PG MCHC (test code = 1007) 30.0 G/DL RDW (test code = 1038) 18.3 % NEUTROPHILS (test code = 1008) 57.5 % LYMPHOCYTES (test code = 1010) 34.6 % MONOCYTES (test code = 1011) 4.7 % EOSINOPHILS (test code = 1012) 2.5 % BASOPHILS (test code = 1013) 0.4 % IMMATURE GRANULOCYTES (test code = 1036) 0.3 % NUCLEATED RBCS (test code = 1065) 0.0 /100WBC'S PLATELET COUNT (test code = 1015) 227 K/UL ABSOLUTE NEUTROPHILS (test c ode = 1066) 4.17 K/UL ABSOLUTE LYMPHOCYTES (test c ode = 1067) 2.51 K/UL ABSOLUTE MONOCYTES (test cod e = 1068) 0.34 K/UL ABSOLUTE EOSINOPHILS (test c ode = 1040) 0.18 K/UL ABSOLUTE BASOPHILS (test cod e = 1069) 0.03 K/UL ABS IMMATURE GRANULOCYTES (t est code = 1020) 0.02 K/UL ABS NUCLEATED RBCS (test cod e = 38430) 0.00 K/UL FERRITIN [ADDED]2021-11-07 00:00:00* Test Item Value Reference Range Interpretation Comme nts FERRITIN (test code = 2075) 6 NG/ML FERRITIN [ADDED]2021-11-07 00:00:00* Test Item Value Reference Range Interpretation Comme nts FERRITIN (test code = 2075) 6 NG/ML TRANSFERRIN [ADDED]2021-11-07 00:00:00* Test Item Value Reference Range Interpretation Comme nts TRANSFERRIN (test code = 4936) 443 MG/DL TRANSFERRIN [ADDED]2021-11-07 00:00:00* Test Item Value Reference Range Interpretation Comme nts TRANSFERRIN (test code = 4936) 443 MG/DL VITAMIN B 12 AND FOLIC ACID [ADDED]2021-11-07 00:00:00* Test Item Value Reference Range Interpretation Comme nts VITAMIN B-12 (test code = 2840) 354 PG/ML FOLIC ACID (test code = 2695) 6.4 UG/L VITAMIN B 12 AND FOLIC ACID [ADDED]2021-11-07 00:00:00* Test Item Value Reference Range Interpretation Comme nts VITAMIN B-12 (test code = 2840) 354 PG/ML FOLIC ACID (test code = 2695) 6.4 UG/L IRON BINDING CAPACITY AND IRON AND % SATURATION [ADDED]2021-11-07 00:00:00* Test Item Value Reference Range Interpretation Comme nts IRON, SERUM (test code = 2) 21 UG/DL UNSATURATED IBC (test code = 89619) 478 UG/DL CALC TOTAL IBC (test code = 7) 499 UG/DL CALC % IRON SAT (test code = 9) 4 % FERRITIN [ADDED]2021-11-07 00:00:00* Test Item Value Reference Range Interpretation Comme nts FERRITIN (test code = 5) 6 NG/ML TRANSFERRIN [ADDED]2021-11-07 00:00:00* Test Item Value Reference Range Interpretation Comme nts TRANSFERRIN (test code = 4936) 443 MG/DL VITAMIN B 12 AND FOLIC ACID [ADDED]2021-11-07 00:00:00* Test Item Value Reference Range Interpretation Comme nts VITAMIN B-12 (test code = 2840) 354 PG/ML FOLIC ACID (test code = 2695) 6.4 UG/L IRON BINDING CAPACITY AND IRON AND % SATURATION [ADDED]2021-11-07 00:00:00* Test Item Value Reference Range Interpretation Comme nts IRON, SERUM (test code = 2221) 21 UG/DL UNSATURATED IBC (test code = 84266) 478 UG/DL CALC TOTAL IBC (test code = 7) 499 UG/DL CALC % IRON SAT (test code = 9) 4 % IRON BINDING CAPACITY AND IRON AND % SATURATION [ADDED]2021-11-07 00:00:00* Test Item Value Reference Range Interpretation Comme nts IRON, SERUM (test code = 2) 21 UG/DL UNSATURATED IBC (test code = 58207) 478 UG/DL CALC TOTAL IBC (test code = 7) 499 UG/DL CALC % IRON SAT (test code = 9) 4 % FERRITIN [ADDED]2021-11-07 00:00:00* Test Item Value Reference Range Interpretation Comme nts FERRITIN (test code = 5) 6 NG/ML FERRITIN [ADDED]2021-11-07 00:00:00* Test Item Value Reference Range Interpretation Comme nts FERRITIN (test code = 5) 6 NG/ML TRANSFERRIN [ADDED]2021-11-07 00:00:00* Test Item Value Reference Range Interpretation Comme nts TRANSFERRIN (test code = 4936) 443 MG/DL TRANSFERRIN [ADDED]2021-11-07 00:00:00* Test Item Value Reference Range Interpretation Comme nts TRANSFERRIN (test code = 4936) 443 MG/DL VITAMIN B 12 AND FOLIC ACID [ADDED]2021-11-07 00:00:00* Test Item Value Reference Range Interpretation Comme nts VITAMIN B-12 (test code = 2840) 354 PG/ML FOLIC ACID (test code = 2695) 6.4 UG/L VITAMIN B 12 AND FOLIC ACID [ADDED]2021-11-07 00:00:00* Test Item Value Reference Range Interpretation Comme nts VITAMIN B-12 (test code = 2840) 354 PG/ML FOLIC ACID (test code = 2695) 6.4 UG/L IRON BINDING CAPACITY AND IRON AND % SATURATION [ADDED]2021-11-07 00:00:00* Test Item Value Reference Range Interpretation Comme nts IRON, SERUM (test code = 2222) 21 UG/DL UNSATURATED IBC (test code = 22779) 478 UG/DL CALC TOTAL IBC (test code = 7) 499 UG/DL CALC % IRON SAT (test code = 9) 4 % IRON BINDING CAPACITY AND IRON AND % SATURATION [ADDED]2021-11-07 00:00:00* Test Item Value Reference Range Interpretation Comme nts IRON, SERUM (test code = 2222) 21 UG/DL UNSATURATED IBC (test code = 16913) 478 UG/DL CALC TOTAL IBC (test code = 7) 499 UG/DL CALC % IRON SAT (test code = 9) 4 % CBC W/AUTO DIFF WITH [id number] 03:00:09* Test Item Value Reference Range Interpretation Comme nts WBC (test code = 1001) 6.2 K/UL 3.5-11.0 RBC (test code = 1002) 4.65 M/UL 3.80-5.40 HEMOGLOBIN (test code = 1003) 9.1 G/DL 11.5-15.5 L HEMATOCRIT (test code = 1004) 32.0 % 34.0-45.0 L MCV (test code = 1005) 68.8 fL 80.0-99.0 L MCH (test code = 1006) 19.6 PG 25.0-33.0 L MCHC (test code = 1007) 28.4 G/DL 31.0-36.0 L RDW (test code = 1038) 17.8 % 11.5-15.0 H NEUTROPHILS (test code = 1008) 53.6 % LYMPHOCYTES (test code = 1010) 37.5 % MONOCYTES (test code = 1011) 6.3 % EOSINOPHILS (test code = 1012) 1.8 % BASOPHILS (test code = 1013) 0.5 % IMMATURE GRANULOCYTES (test code = 1036) 0.3 % NUCLEATED RBCS (test code = 1065) 0.0 /100 WBC'S See_Comment [Automated message] The system which generated this result transmitted reference range: 0.0. The reference range was not used to interpret this result as normal/abnormal. PLATELET COUNT (test code = 1015) 213 K/UL 130-400 ABSOLUTE NEUTROPHILS (test code = 1066) 3.34 K/UL 1.50-7.50 ABSOLUTE LYMPHOCYTES (test code = 1067) 2.33 K/UL 1.00-4.00 ABSOLUTE MONOCYTES (test code = 1068) 0.39 K/UL 0.20-1.00 ABSOLUTE EOSINOPHILS (test code = 1040) 0.11 K/UL 0.00-0.50 ABSOLUTE BASOPHILS (test code = 1069) 0.03 K/UL 0.00-0.20 ABS IMMATURE GRANULOCYTES (test code = 1020) 0.02 K/UL 0.00-0.10 ABS NUCLEATED RBCS (test code = 68639) 0.00 K/UL 0.00-0.11 UNLESS OTHER FAIR INDICATED, ALL TESTING PERFORMED [facility] [employer] [address] [place] [id number] CARE MANAGER: FRANCISCO BANSAL M.D. CLIA NUMBER [id number] [place]. [id number] CBC W/AUTO [id number] 00:00:00* Test Item Value Reference Range Interpretation Comme nts WBC (test code = 1001) 6.2 K/UL RBC (test code = 1002) 4.65 M/UL HEMOGLOBIN (test code = 1003) 9.1 G/DL HEMATOCRIT (test code = 1004) 32.0 % MCV (test code = 1005) 68.8 fL MCH (test code = 1006) 19.6 PG MCHC (test code = 1007) 28.4 G/DL RDW (test code = 1038) 17.8 % NEUTROPHILS (test code = 1008) 53.6 % LYMPHOCYTES (test code = 1010) 37.5 % MONOCYTES (test code = 1011) 6.3 % EOSINOPHILS (test code = 1012) 1.8 % BASOPHILS (test code = 1013) 0.5 % IMMATURE GRANULOCYTES (test code = 1036) 0.3 % NUCLEATED RBCS (test code = 1065) 0.0 /100WBC'S PLATELET COUNT (test code = 1015) 213 K/UL ABSOLUTE NEUTROPHILS (test c ode = 1066) 3.34 K/UL ABSOLUTE LYMPHOCYTES (test c ode = 1067) 2.33 K/UL ABSOLUTE MONOCYTES (test cod e = 1068) 0.39 K/UL ABSOLUTE EOSINOPHILS (test c ode = 1040) 0.11 K/UL ABSOLUTE BASOPHILS (test cod e = 1069) 0.03 K/UL ABS IMMATURE GRANULOCYTES (t est code = 1020) 0.02 K/UL ABS NUCLEATED RBCS (test cod e = 75555) 0.00 K/UL CBC W/AUTO [id number] 00:00:00* Test Item Value Reference Range Interpretation Comme nts WBC (test code = 1001) 6.2 K/UL RBC (test code = 1002) 4.65 M/UL HEMOGLOBIN (test code = 1003) 9.1 G/DL HEMATOCRIT (test code = 1004) 32.0 % MCV (test code = 1005) 68.8 fL MCH (test code = 1006) 19.6 PG MCHC (test code = 1007) 28.4 G/DL RDW (test code = 1038) 17.8 % NEUTROPHILS (test code = 1008) 53.6 % LYMPHOCYTES (test code = 1010) 37.5 % MONOCYTES (test code = 1011) 6.3 % EOSINOPHILS (test code = 1012) 1.8 % BASOPHILS (test code = 1013) 0.5 % IMMATURE GRANULOCYTES (test code = 1036) 0.3 % NUCLEATED RBCS (test code = 1065) 0.0 /100WBC'S PLATELET COUNT (test code = 1015) 213 K/UL ABSOLUTE NEUTROPHILS (test c ode = 1066) 3.34 K/UL ABSOLUTE LYMPHOCYTES (test c ode = 1067) 2.33 K/UL ABSOLUTE MONOCYTES (test cod e = 1068) 0.39 K/UL ABSOLUTE EOSINOPHILS (test c ode = 1040) 0.11 K/UL ABSOLUTE BASOPHILS (test cod e = 1069) 0.03 K/UL ABS IMMATURE GRANULOCYTES (t est code = 1020) 0.02 K/UL ABS NUCLEATED RBCS (test cod e = 97636) 0.00 K/UL CBC W/AUTO [id number] 00:00:00* Test Item Value Reference Range Interpretation Comme nts WBC (test code = 1001) 6.2 K/UL RBC (test code = 1002) 4.65 M/UL HEMOGLOBIN (test code = 1003) 9.1 G/DL HEMATOCRIT (test code = 1004) 32.0 % MCV (test code = 1005) 68.8 fL MCH (test code = 1006) 19.6 PG MCHC (test code = 1007) 28.4 G/DL RDW (test code = 1038) 17.8 % NEUTROPHILS (test code = 1008) 53.6 % LYMPHOCYTES (test code = 1010) 37.5 % MONOCYTES (test code = 1011) 6.3 % EOSINOPHILS (test code = 1012) 1.8 % BASOPHILS (test code = 1013) 0.5 % IMMATURE GRANULOCYTES (test code = 1036) 0.3 % NUCLEATED RBCS (test code = 1065) 0.0 /100WBC'S PLATELET COUNT (test code = 1015) 213 K/UL ABSOLUTE NEUTROPHILS (test c ode = 1066) 3.34 K/UL ABSOLUTE LYMPHOCYTES (test c ode = 1067) 2.33 K/UL ABSOLUTE MONOCYTES (test cod e = 1068) 0.39 K/UL ABSOLUTE EOSINOPHILS (test c ode = 1040) 0.11 K/UL ABSOLUTE BASOPHILS (test cod e = 1069) 0.03 K/UL ABS IMMATURE GRANULOCYTES (t est code = 1020) 0.02 K/UL ABS NUCLEATED RBCS (test cod e = 57571) 0.00 K/UL CBC W/AUTO [id number] 00:00:00* Test Item Value Reference Range Interpretation Comme nts WBC (test code = 1001) 6.2 K/UL RBC (test code = 1002) 4.65 M/UL HEMOGLOBIN (test code = 1003) 9.1 G/DL HEMATOCRIT (test code = 1004) 32.0 % MCV (test code = 1005) 68.8 fL MCH (test code = 1006) 19.6 PG MCHC (test code = 1007) 28.4 G/DL RDW (test code = 1038) 17.8 % NEUTROPHILS (test code = 1008) 53.6 % LYMPHOCYTES (test code = 1010) 37.5 % MONOCYTES (test code = 1011) 6.3 % EOSINOPHILS (test code = 1012) 1.8 % BASOPHILS (test code = 1013) 0.5 % IMMATURE GRANULOCYTES (test code = 1036) 0.3 % NUCLEATED RBCS (test code = 1065) 0.0 /100WBC'S PLATELET COUNT (test code = 1015) 213 K/UL ABSOLUTE NEUTROPHILS (test c ode = 1066) 3.34 K/UL ABSOLUTE LYMPHOCYTES (test c ode = 1067) 2.33 K/UL ABSOLUTE MONOCYTES (test cod e = 1068) 0.39 K/UL ABSOLUTE EOSINOPHILS (test c ode = 1040) 0.11 K/UL ABSOLUTE BASOPHILS (test cod e = 1069) 0.03 K/UL ABS IMMATURE GRANULOCYTES (t est code = 1020) 0.02 K/UL ABS NUCLEATED RBCS (test cod e = 10552) 0.00 K/UL CBC W/AUTO [id number] 00:00:00* Test Item Value Reference Range Interpretation Comme nts WBC (test code = 1001) 6.2 K/UL RBC (test code = 1002) 4.65 M/UL HEMOGLOBIN (test code = 1003) 9.1 G/DL HEMATOCRIT (test code = 1004) 32.0 % MCV (test code = 1005) 68.8 fL MCH (test code = 1006) 19.6 PG MCHC (test code = 1007) 28.4 G/DL RDW (test code = 1038) 17.8 % NEUTROPHILS (test code = 1008) 53.6 % LYMPHOCYTES (test code = 1010) 37.5 % MONOCYTES (test code = 1011) 6.3 % EOSINOPHILS (test code = 1012) 1.8 % BASOPHILS (test code = 1013) 0.5 % IMMATURE GRANULOCYTES (test code = 1036) 0.3 % NUCLEATED RBCS (test code = 1065) 0.0 /100WBC'S PLATELET COUNT (test code = 1015) 213 K/UL ABSOLUTE NEUTROPHILS (test c ode = 1066) 3.34 K/UL ABSOLUTE LYMPHOCYTES (test c ode = 1067) 2.33 K/UL ABSOLUTE MONOCYTES (test cod e = 1068) 0.39 K/UL ABSOLUTE EOSINOPHILS (test c ode = 1040) 0.11 K/UL ABSOLUTE BASOPHILS (test cod e = 1069) 0.03 K/UL ABS IMMATURE GRANULOCYTES (t est code = 1020) 0.02 K/UL ABS NUCLEATED RBCS (test cod e = 57624) 0.00 K/UL CBC W/AUTO [id number] 00:00:00* Test Item Value Reference Range Interpretation Comme nts WBC (test code = 1001) 6.2 K/UL RBC (test code = 1002) 4.65 M/UL HEMOGLOBIN (test code = 1003) 9.1 G/DL HEMATOCRIT (test code = 1004) 32.0 % MCV (test code = 1005) 68.8 fL MCH (test code = 1006) 19.6 PG MCHC (test code = 1007) 28.4 G/DL RDW (test code = 1038) 17.8 % NEUTROPHILS (test code = 1008) 53.6 % LYMPHOCYTES (test code = 1010) 37.5 % MONOCYTES (test code = 1011) 6.3 % EOSINOPHILS (test code = 1012) 1.8 % BASOPHILS (test code = 1013) 0.5 % IMMATURE GRANULOCYTES (test code = 1036) 0.3 % NUCLEATED RBCS (test code = 1065) 0.0 /100WBC'S PLATELET COUNT (test code = 1015) 213 K/UL ABSOLUTE NEUTROPHILS (test c ode = 1066) 3.34 K/UL ABSOLUTE LYMPHOCYTES (test c ode = 1067) 2.33 K/UL ABSOLUTE MONOCYTES (test cod e = 1068) 0.39 K/UL ABSOLUTE EOSINOPHILS (test c ode = 1040) 0.11 K/UL ABSOLUTE BASOPHILS (test cod e = 1069) 0.03 K/UL ABS IMMATURE GRANULOCYTES (t est code = 1020) 0.02 K/UL ABS NUCLEATED RBCS (test cod e = 92694) 0.00 K/UL CBC W/AUTO [id number] 00:00:00* Test Item Value Reference Range Interpretation Comme nts WBC (test code = 1001) 6.2 K/UL RBC (test code = 1002) 4.65 M/UL HEMOGLOBIN (test code = 1003) 9.1 G/DL HEMATOCRIT (test code = 1004) 32.0 % MCV (test code = 1005) 68.8 fL MCH (test code = 1006) 19.6 PG MCHC (test code = 1007) 28.4 G/DL RDW (test code = 1038) 17.8 % NEUTROPHILS (test code = 1008) 53.6 % LYMPHOCYTES (test code = 1010) 37.5 % MONOCYTES (test code = 1011) 6.3 % EOSINOPHILS (test code = 1012) 1.8 % BASOPHILS (test code = 1013) 0.5 % IMMATURE GRANULOCYTES (test code = 1036) 0.3 % NUCLEATED RBCS (test code = 1065) 0.0 /100WBC'S PLATELET COUNT (test code = 1015) 213 K/UL ABSOLUTE NEUTROPHILS (test c ode = 1066) 3.34 K/UL ABSOLUTE LYMPHOCYTES (test c ode = 1067) 2.33 K/UL ABSOLUTE MONOCYTES (test cod e = 1068) 0.39 K/UL ABSOLUTE EOSINOPHILS (test c ode = 1040) 0.11 K/UL ABSOLUTE BASOPHILS (test cod e = 1069) 0.03 K/UL ABS IMMATURE GRANULOCYTES (t est code = 1020) 0.02 K/UL ABS NUCLEATED RBCS (test cod e = 91949) 0.00 K/UL CBC W/AUTO [id number] 00:00:00* Test Item Value Reference Range Interpretation Comme nts WBC (test code = 1001) 6.2 K/UL RBC (test code = 1002) 4.65 M/UL HEMOGLOBIN (test code = 1003) 9.1 G/DL HEMATOCRIT (test code = 1004) 32.0 % MCV (test code = 1005) 68.8 fL MCH (test code = 1006) 19.6 PG MCHC (test code = 1007) 28.4 G/DL RDW (test code = 1038) 17.8 % NEUTROPHILS (test code = 1008) 53.6 % LYMPHOCYTES (test code = 1010) 37.5 % MONOCYTES (test code = 1011) 6.3 % EOSINOPHILS (test code = 1012) 1.8 % BASOPHILS (test code = 1013) 0.5 % IMMATURE GRANULOCYTES (test code = 1036) 0.3 % NUCLEATED RBCS (test code = 1065) 0.0 /100WBC'S PLATELET COUNT (test code = 1015) 213 K/UL ABSOLUTE NEUTROPHILS (test c ode = 1066) 3.34 K/UL ABSOLUTE LYMPHOCYTES (test c ode = 1067) 2.33 K/UL ABSOLUTE MONOCYTES (test cod e = 1068) 0.39 K/UL ABSOLUTE EOSINOPHILS (test c ode = 1040) 0.11 K/UL ABSOLUTE BASOPHILS (test cod e = 1069) 0.03 K/UL ABS IMMATURE GRANULOCYTES (t est code = 1020) 0.02 K/UL ABS NUCLEATED RBCS (test cod e = 87877) 0.00 K/UL CBC W/AUTO [id number] 00:00:00* Test Item Value Reference Range Interpretation Comme nts WBC (test code = 1001) 6.2 K/UL RBC (test code = 1002) 4.65 M/UL HEMOGLOBIN (test code = 1003) 9.1 G/DL HEMATOCRIT (test code = 1004) 32.0 % MCV (test code = 1005) 68.8 fL MCH (test code = 1006) 19.6 PG MCHC (test code = 1007) 28.4 G/DL RDW (test code = 1038) 17.8 % NEUTROPHILS (test code = 1008) 53.6 % LYMPHOCYTES (test code = 1010) 37.5 % MONOCYTES (test code = 1011) 6.3 % EOSINOPHILS (test code = 1012) 1.8 % BASOPHILS (test code = 1013) 0.5 % IMMATURE GRANULOCYTES (test code = 1036) 0.3 % NUCLEATED RBCS (test code = 1065) 0.0 /100WBC'S PLATELET COUNT (test code = 1015) 213 K/UL ABSOLUTE NEUTROPHILS (test c ode = 1066) 3.34 K/UL ABSOLUTE LYMPHOCYTES (test c ode = 1067) 2.33 K/UL ABSOLUTE MONOCYTES (test cod e = 1068) 0.39 K/UL ABSOLUTE EOSINOPHILS (test c ode = 1040) 0.11 K/UL ABSOLUTE BASOPHILS (test cod e = 1069) 0.03 K/UL ABS IMMATURE GRANULOCYTES (t est code = 1020) 0.02 K/UL ABS NUCLEATED RBCS (test cod e = 97654) 0.00 K/UL CBC W/AUTO [id number] 00:00:00* Test Item Value Reference Range Interpretation Comme nts WBC (test code = 1001) 6.2 K/UL RBC (test code = 1002) 4.65 M/UL HEMOGLOBIN (test code = 1003) 9.1 G/DL HEMATOCRIT (test code = 1004) 32.0 % MCV (test code = 1005) 68.8 fL MCH (test code = 1006) 19.6 PG MCHC (test code = 1007) 28.4 G/DL RDW (test code = 1038) 17.8 % NEUTROPHILS (test code = 1008) 53.6 % LYMPHOCYTES (test code = 1010) 37.5 % MONOCYTES (test code = 1011) 6.3 % EOSINOPHILS (test code = 1012) 1.8 % BASOPHILS (test code = 1013) 0.5 % IMMATURE GRANULOCYTES (test code = 1036) 0.3 % NUCLEATED RBCS (test code = 1065) 0.0 /100WBC'S PLATELET COUNT (test code = 1015) 213 K/UL ABSOLUTE NEUTROPHILS (test c ode = 1066) 3.34 K/UL ABSOLUTE LYMPHOCYTES (test c ode = 1067) 2.33 K/UL ABSOLUTE MONOCYTES (test cod e = 1068) 0.39 K/UL ABSOLUTE EOSINOPHILS (test c ode = 1040) 0.11 K/UL ABSOLUTE BASOPHILS (test cod e = 1069) 0.03 K/UL ABS IMMATURE GRANULOCYTES (t est code = 1020) 0.02 K/UL ABS NUCLEATED RBCS (test cod e = 18639) 0.00 K/UL HEMOGLOBIN [id number] 07:48:03* Test Item Value Reference Range Interpretation Comme nts HEMOGLOBIN A1c (test code = 84936) 6.5 % 4.2-5.6 H [employer] GUIDELINES FOR HGB A1C: PREDIABETES/INCREASED RISK . . . . . . . 5.7-6.4% DIAGNOSIS OF DIABETES . . . . . . . . . >=6.5% WITH CONFIRMATION OR APPROPRIATE SYMPTOMS NOTE: ASSAY MAY BE AFFECTED BY HEMOGLOBINOPATHIES (SICKLE CELL ANEMIA, S-C DISEASE, OTHERS) OR ARTIFICIALLY LOWERED BY DECREASED RED CELL SURVIVAL (HEMOLYTIC ANEMIAS, BLOOD LOSS, ETC.). CONSIDER ALTERNATE TESTING OR LABORATORY CONSULTATION. ALBUMIN/CREATININE RATIO, URINE, [id number] 06:47:39* Test Item Value Reference Range Interpretation Comme nts CREATININE, URINE, RANDOM (test code = 2072) 88.0 MG/DL NOT ESTAB ALBUMIN, URINE, RANDOM (test code = 21872) 0.5 MG/DL NOT ESTAB CALC ALBUMIN/CREAT, RND (test code = 42694) 6 MG/G <30 Note: Albumin/Cr eatinine ratio reference interval reflects ADA and NKF guidelines. UNLESS OTHERWISE INDICATED, ALL TESTING PERFORMED [facility] [employer], [employer]. [address] [place] [address] CARE MANAGER: FRANCISCO BANSAL M.D. CLIA NUMBER [id number] [place] [id number] MICROALBUMIN/CREATININE, RANDOM AND [id number] 00:00:00* Test Item Value Reference Range Interpretation Comme nts CREATININE, URINE, RANDOM (t est code = 207) 88.0 MG/DL ALBUMIN, URINE, RANDOM (test code = 50792) 0.5 MG/DL CALC ALBUMIN/CREAT, RND (becca t code = 87081) 6 MG/G HEMOGLOBIN [id number] 00:00:00* Test Item Value Reference Range Interpretation Comme nts HEMOGLOBIN A1c (test code = 22209) 6.5 % HEMOGLOBIN [id number] 00:00:00* Test Item Value Reference Range Interpretation Comme nts HEMOGLOBIN A1c (test code = 15956) 6.5 % MICROALBUMIN/CREATININE, RANDOM AND [id number] 00:00:00* Test Item Value Reference Range Interpretation Comme nts CREATININE, URINE, RANDOM (t est code = 2072) 88.0 MG/DL ALBUMIN, URINE, RANDOM (test code = 79330) 0.5 MG/DL CALC ALBUMIN/CREAT, RND (becca t code = 22109) 6 MG/G HEMOGLOBIN [id number] 00:00:00* Test Item Value Reference Range Interpretation Comme nts HEMOGLOBIN A1c (test code = 65194) 6.5 % HEMOGLOBIN [id number] 00:00:00* Test Item Value Reference Range Interpretation Comme nts HEMOGLOBIN A1c (test code = 82326) 6.5 % MICROALBUMIN/CREATININE, RANDOM AND [id number] 00:00:00* Test Item Value Reference Range Interpretation Comme nts CREATININE, URINE, RANDOM (t est code = 207) 88.0 MG/DL ALBUMIN, URINE, RANDOM (test code = 07302) 0.5 MG/DL CALC ALBUMIN/CREAT, RND (becca t code = 05394) 6 MG/G HEMOGLOBIN [id number] 00:00:00* Test Item Value Reference Range Interpretation Comme nts HEMOGLOBIN A1c (test code = 09623) 6.5 % HEMOGLOBIN [id number] 00:00:00* Test Item Value Reference Range Interpretation Comme nts HEMOGLOBIN A1c (test code = 62550) 6.5 % HEMOGLOBIN [id number] 00:00:00* Test Item Value Reference Range Interpretation Comme nts HEMOGLOBIN A1c (test code = 57044) 6.5 % HEMOGLOBIN [id number] 00:00:00* Test Item Value Reference Range Interpretation Comme nts HEMOGLOBIN A1c (test code = 05192) 6.5 % MICROALBUMIN/CREATININE, RANDOM AND [id number] 00:00:00* Test Item Value Reference Range Interpretation Comme nts CREATININE, URINE, RANDOM (t est code = 2071) 88.0 MG/DL ALBUMIN, URINE, RANDOM (test code = 03474) 0.5 MG/DL CALC ALBUMIN/CREAT, RND (becca t code = 30827) 6 MG/G MICROALBUMIN/CREATININE, RANDOM AND [id number] 00:00:00* Test Item Value Reference Range Interpretation Comme nts CREATININE, URINE, RANDOM (t est code = 207) 88.0 MG/DL ALBUMIN, URINE, RANDOM (test code = 26518) 0.5 MG/DL CALC ALBUMIN/CREAT, RND (becca t code = 02784) 6 MG/G HEMOGLOBIN [id number] 00:00:00* Test Item Value Reference Range Interpretation Comme nts HEMOGLOBIN A1c (test code = 29356) 6.5 % HEMOGLOBIN [id number] 00:00:00* Test Item Value Reference Range Interpretation Comme nts HEMOGLOBIN A1c (test code = 60299) 6.5 % HEMOGLOBIN [id number] 00:00:00* Test Item Value Reference Range Interpretation Comme nts HEMOGLOBIN A1c (test code = 07112) 6.5 % MICROALBUMIN/CREATININE, RANDOM AND [id number] 00:00:00* Test Item Value Reference Range Interpretation Comme nts CREATININE, URINE, RANDOM (t est code = 2072) 88.0 MG/DL ALBUMIN, URINE, RANDOM (test code = 75314) 0.5 MG/DL CALC ALBUMIN/CREAT, RND (becca t code = 03828) 6 MG/G HEMOGLOBIN [id number] 00:00:00* Test Item Value Reference Range Interpretation Comme nts HEMOGLOBIN A1c (test code = 03576) 6.5 % MICROALBUMIN/CREATININE, RANDOM AND [id number] 00:00:00* Test Item Value Reference Range Interpretation Comme nts CREATININE, URINE, RANDOM (t est code = 2072) 88.0 MG/DL ALBUMIN, URINE, RANDOM (test code = 18280) 0.5 MG/DL CALC ALBUMIN/CREAT, RND (becca t code = 98437) 6 MG/G [id number] 06:28:44* Test Item Value Reference Range Interpretation Comme [facility] FERRITIN (test code = 2075) 10 NG/ML 13-200 L HEMOGLOBIN [id number] 05:30:35* Test Item Value Reference Range Interpretation Comme [facility] HEMOGLOBIN A1c (test code = 91151) 8.2 % 4.2-5.6 H [employer] GUIDELINES FOR HGB A1C: PREDIABETES/INCREASED RISK . . . . . . . 5.7-6.4% DIAGNOSIS OF DIABETES . . . . . . . . . >=6.5% WITH CONFIRMATION OR APPROPRIATE SYMPTOMS NOTE: ASSAY MAY BE AFFECTED BY HEMOGLOBINOPATHIES (SICKLE CELL ANEMIA, S-C DISEASE, OTHERS) OR ARTIFICIALLY LOWERED BY DECREASED RED CELL SURVIVAL (HEMOLYTIC ANEMIAS, BLOOD LOSS, ETC.). CONSIDER ALTERNATE TESTING OR LABORATORY CONSULTATION. [id number] 04:37:13* Test Item Value Reference Range Interpretation Comme nts TRANSFERRIN (test code = 4936) 405 MG/DL 200-360 H UNLESS OTHERWISE INDICATED, ALL TESTING PERFORMED [facility] [employer] [address] [place] [id number] CARE MANAGER: FRANCISCO BANSAL M.D. [place] NUMBER [id number] [place]. [id number] LIPID [id number] 04:30:07* Test Item Value Reference Range Interpretation Comme nts CHOLESTEROL (test code = 2210) 138 MG/DL <200 TRIGLYCERIDES (test code = 2232) 293 MG/DL <150 H HDL CHOLESTEROL (test code = 2220) 41 MG/DL >39 CALC LDL CHOL (test code = 2237) 66 MG/DL <100 NOTE: CALCULATED LDL IS BASED ON PAUL-OLIVIA METHOD WHICHINCLUDES ADJUSTABLE TRIGLYCERIDE:VLDL CHOLESTEROL RATIO.THIS FACTOR VARIES BY MEASURED TRIGLYCERIDE AND NON-HDLCHOLESTEROL CONCENTRATIONS WITH INCREASED CALCULATED LDL SEENIN HIGHER TRIGLYCERIDE OR LOWER NON-HDL SPECIMENS. FOR MOREINFORMATION, SEE CLIENT ANNOUNCEMENT AT [email or web address] RISK RATIO LDL/HDL (test code = 2238) 1.61 RATIO <3.22 COMPREHENSIVE METABOLIC [id number] 04:30:07* Test Item Value Reference Range Interpretation Comme nts GLUCOSE (test code = 2217) 133 MG/DL 70-99 H BUN (test code = 2208) 10 MG/DL 6-20 CREATININE (test code = 2214) 0.45 MG/DL 0.60-1.30 L EFFECTIVE 04/08/2021, [facility] HAS IMPLEMENTED THE NKF-ASN RECOMMENDED KD-EPI EGFR REFIT CALCULATION THAT DOES NOT INCLUDE A COEFFICIENT FORRACE. FOR MORE INFORMATION, SEE ANNOUNCEMENT [email or web address] eGFR (2020 CKD-EPI) (test code = 92426) 120 ML/MIN/1.73 >60 CALC BUN/CREAT (test code = 2235) 22 RATIO 6-28 SODIUM (test code = 223) 141 MEQ/L 133-146 POTASSIUM (test code = 2228) 4.2 MEQ/L 3.5-5.4 CHLORIDE (test code = 2214) 103 MEQ/L 95-107 CARBON DIOXIDE (test code = 2205) 27 MEQ/L 19-31 CALCIUM (test code = 2208) 9.4 MG/DL 8.5-10.5 PROTEIN, TOTAL (test code = 2228) 7.7 G/DL 6.1-8.3 ALBUMIN (test code = 2200) 4.0 G/DL 3.5-5.2 CALC GLOBULIN (test code = 2239) 3.7 G/DL 1.9-3.7 CALC A/G RATIO (test code = 2233) 1.1 RATIO 1.0-2.6 BILIRUBIN, TOTAL (test code = 2206) 0.3 MG/DL See_Comment [Automated me ssage] The system which generated this result transmitted reference range: <=1.2. The reference range was not used to interpret this result as normal/abnormal. ALKALINE PHOSPHATASE (test code = 2203) 165 U/L 40-118 H AST (test code = 2217) 31 U/L 9-40 ALT (test code = 2218) 31 U/L 5-40 IRON BINDING CAPACITY AND IRON AND % [id number] 04:30:07* Test Item Value Reference Range Interpretation Comme nts IRON, SERUM (test code = 2221) 24 UG/DL 37-145 L UNSATURATED IBC (test code = ) 438 UG/DL 112-347 H CALC TOTAL IBC (test code = 2076) 462 UG/DL 250-450 H CALC % IRON SAT (test code = 2078) 5 % 20-50 L CBC W/AUTO DIFF WITH [id number] 03:53:25* Test Item Value Reference Range Interpretation Comme nts WBC (test code = 1001) 8.1 K/UL 3.5-11.0 RBC (test code = 1002) 4.87 M/UL 3.80-5.40 HEMOGLOBIN (test code = 1003) 11.0 G/DL 11.5-15.5 L HEMATOCRIT (test code = 1004) 35.4 % 34.0-45.0 MCV (test code = 1005) 72.7 fL 80.0-99.0 L MCH (test code = 1006) 22.6 PG 25.0-33.0 L MCHC (test code = 1007) 31.1 G/DL 31.0-36.0 RDW (test code = 1038) 15.9 % 11.5-15.0 H NEUTROPHILS (test code = 1008) 57.6 % LYMPHOCYTES (test code = 1010) 34.7 % MONOCYTES (test code = 1011) 5.3 % EOSINOPHILS (test code = 1012) 1.6 % BASOPHILS (test code = 1013) 0.4 % IMMATURE GRANYLOCYTES (test code = 1036) 0.4 % NUCLEATED RBCS (test code = 1065) 0.0 /100 WBC'S See_Comment [Automated messa ge] The system which generated this result transmitted reference range: 0.0. The reference range was not used to interpret this result as normal/abnormal. PLATELET COUNT (test code = 1015) 207 K/UL 130-400 ABSOLUTE NEUTROPHILS (test code = 1066) 4.68 K/UL 1.50-7.50 ABSOLUTE LYMPHOCYTES (test code = 1067) 2.82 K/UL 1.00-4.00 ABSOLUTE MONOCYTES (test code = 1068) 0.43 K/UL 0.20-1.00 ABSOLUTE EOSINOPHILS (test code = 1040) 0.13 K/UL 0.00-0.50 ABSOLUTE BASOPHILS (test code = 1069) 0.03 K/UL 0.00-0.20 ABS IMMATURE GRANULOCYTES (test code = 1020) 0.03 K/UL 0.00-0.10 ABS NUCLEATED RBCS (test code = 73686) 0.00 K/UL 0.00-0.11 HEMOGLOBIN [id number] 00:00:00* Test Item Value Reference Range Interpretation Comme nts HEMOGLOBIN A1c (test code = 58415) 8.2 % LIPID [id number] 00:00:00* Test Item Value Reference Range Interpretation Comme nts CHOLESTEROL (test code = 2210) 138 MG/DL TRIGLYCERIDES (test code = 2232) 293 MG/DL HDL CHOLESTEROL (test code = 2220) 41 MG/DL CALC LDL CHOL (test code = 2237) 66 MG/DL RISK RATIO LDL/HDL (test cod e = 2238) 1.61 RATIO LIPID [id number] 00:00:00* Test Item Value Reference Range Interpretation Comme nts CHOLESTEROL (test code = 2210) 138 MG/DL TRIGLYCERIDES (test code = 2232) 293 MG/DL HDL CHOLESTEROL (test code = 2220) 41 MG/DL CALC LDL CHOL (test code = 2237) 66 MG/DL RISK RATIO LDL/HDL (test cod e = 2238) 1.61 RATIO COMPREHENSIVE METABOLIC [id number] 00:00:00* Test Item Value Reference Range Interpretation Comme nts GLUCOSE (test code = 2217) 133 MG/DL BUN (test code = 2208) 10 MG/DL CREATININE (test code = 2214) 0.45 MG/DL eGFR (2020 CKD-EPI) (test code = 29261) 120 ML/MIN/1.73 CALC BUN/CREAT (test code = 2235) 22 RATIO SODIUM (test code = 2231) 141 MEQ/L POTASSIUM (test code = 2228) 4.2 MEQ/L CHLORIDE (test code = 2215) 103 MEQ/L CARBON DIOXIDE (test code = 2206) 27 MEQ/L CALCIUM (test code = 2209) 9.4 MG/DL PROTEIN, TOTAL (test code = 2229) 7.7 G/DL ALBUMIN (test code = 2201) 4.0 G/DL CALC GLOBULIN (test code = 2240) 3.7 G/DL CALC A/G RATIO (test code = 2234) 1.1 RATIO BILIRUBIN, TOTAL (test code = 2207) 0.3 MG/DL ALKALINE PHOSPHATASE (test code = 2204) 165 U/L AST (test code = 2218) 31 U/L ALT (test code = 2219) 31 U/L COMPREHENSIVE METABOLIC [id number] 00:00:00* Test Item Value Reference Range Interpretation Comme nts GLUCOSE (test code = 2217) 133 MG/DL BUN (test code = 2208) 10 MG/DL CREATININE (test code = 2214) 0.45 MG/DL eGFR (2020 CKD-EPI) (test code = 65587) 120 ML/MIN/1.73 CALC BUN/CREAT (test code = 2235) 22 RATIO SODIUM (test code = 2231) 141 MEQ/L POTASSIUM (test code = 2228) 4.2 MEQ/L CHLORIDE (test code = 2215) 103 MEQ/L CARBON DIOXIDE (test code = 2206) 27 MEQ/L CALCIUM (test code = 2209) 9.4 MG/DL PROTEIN, TOTAL (test code = 2229) 7.7 G/DL ALBUMIN (test code = 2201) 4.0 G/DL CALC GLOBULIN (test code = 2240) 3.7 G/DL CALC A/G RATIO (test code = 2234) 1.1 RATIO BILIRUBIN, TOTAL (test code = 2207) 0.3 MG/DL ALKALINE PHOSPHATASE (test code = 2204) 165 U/L AST (test code = 2218) 31 U/L ALT (test code = 2219) 31 U/L LIPID [id number] 00:00:00* Test Item Value Reference Range Interpretation Comme nts CHOLESTEROL (test code = 2210) 138 MG/DL TRIGLYCERIDES (test code = 2232) 293 MG/DL HDL CHOLESTEROL (test code = 2220) 41 MG/DL CALC LDL CHOL (test code = 2237) 66 MG/DL RISK RATIO LDL/HDL (test cod e = 2238) 1.61 RATIO IRON BINDING CAPACITY AND IRON AND % [id number] 00:00:00* Test Item Value Reference Range Interpretation Comme nts IRON, SERUM (test code = 2221) 24 UG/DL UNSATURATED IBC (test code = 21505) 438 UG/DL CALC TOTAL IBC (test code = 7) 462 UG/DL CALC % IRON SAT (test code = 9) 5 % IRON BINDING CAPACITY AND IRON AND % [id number] 00:00:00* Test Item Value Reference Range Interpretation Comme nts IRON, SERUM (test code = 2221) 24 UG/DL UNSATURATED IBC (test code = 06145) 438 UG/DL CALC TOTAL IBC (test code = 7) 462 UG/DL CALC % IRON SAT (test code = 9) 5 % [id number] 00:00:00* Test Item Value Reference Range Interpretation Comme nts FERRITIN (test code = 5) 10 NG/ML [id number] 00:00:00* Test Item Value Reference Range Interpretation Comme nts FERRITIN (test code = 5) 10 NG/ML [id number] 00:00:00* Test Item Value Reference Range Interpretation Comme nts TRANSFERRIN (test code = 4936) 405 MG/DL [id number] 00:00:00* Test Item Value Reference Range Interpretation Comme nts TRANSFERRIN (test code = 4936) 405 MG/DL COMPREHENSIVE METABOLIC [id number] 00:00:00* Test Item Value Reference Range Interpretation Comme nts GLUCOSE (test code = 7) 133 MG/DL BUN (test code = 2207) 10 MG/DL CREATININE (test code = 2214) 0.45 MG/DL eGFR (2020 CKD-EPI) (test code = 05103) 120 ML/MIN/1.73 CALC BUN/CREAT (test code = 2235) 22 RATIO SODIUM (test code = 2231) 141 MEQ/L POTASSIUM (test code = 2228) 4.2 MEQ/L CHLORIDE (test code = 2215) 103 MEQ/L CARBON DIOXIDE (test code = 2206) 27 MEQ/L CALCIUM (test code = 2209) 9.4 MG/DL PROTEIN, TOTAL (test code = 2228) 7.7 G/DL ALBUMIN (test code = 220) 4.0 G/DL CALC GLOBULIN (test code = 2240) 3.7 G/DL CALC A/G RATIO (test code = 2234) 1.1 RATIO BILIRUBIN, TOTAL (test code = 2206) 0.3 MG/DL ALKALINE PHOSPHATASE (test code = 4) 165 U/L AST (test code = 2218) 31 U/L ALT (test code = 9) 31 U/L IRON BINDING CAPACITY AND IRON AND % [id number] 00:00:00* Test Item Value Reference Range Interpretation Comme nts IRON, SERUM (test code = 2221) 24 UG/DL UNSATURATED IBC (test code = 48045) 438 UG/DL CALC TOTAL IBC (test code = 2076) 462 UG/DL CALC % IRON SAT (test code = 2078) 5 % [id number] 00:00:00* Test Item Value Reference Range Interpretation Comme nts FERRITIN (test code = 2075) 10 NG/ML [id number] 00:00:00* Test Item Value Reference Range Interpretation Comme nts TRANSFERRIN (test code = 4936) 405 MG/DL CBC W/AUTO [id number] 00:00:00* Test Item Value Reference Range Interpretation Comme nts WBC (test code = 1001) 8.1 K/UL RBC (test code = 1002) 4.87 M/UL HEMOGLOBIN (test code = 1003) 11.0 G/DL HEMATOCRIT (test code = 1004) 35.4 % MCV (test code = 1005) 72.7 fL MCH (test code = 1006) 22.6 PG MCHC (test code = 1007) 31.1 G/DL RDW (test code = 1038) 15.9 % NEUTROPHILS (test code = 1008) 57.6 % LYMPHOCYTES (test code = 1010) 34.7 % MONOCYTES (test code = 1011) 5.3 % EOSINOPHILS (test code = 1012) 1.6 % BASOPHILS (test code = 1013) 0.4 % IMMATURE GRANYLOCYTES (test code = 1036) 0.4 % NUCLEATED RBCS (test code = 1065) 0.0 /100WBC'S PLATELET COUNT (test code = 1015) 207 K/UL ABSOLUTE NEUTROPHILS (test c ode = 1066) 4.68 K/UL ABSOLUTE LYMPHOCYTES (test c ode = 1067) 2.82 K/UL ABSOLUTE MONOCYTES (test cod e = 1068) 0.43 K/UL ABSOLUTE EOSINOPHILS (test c ode = 1040) 0.13 K/UL ABSOLUTE BASOPHILS (test cod e = 1069) 0.03 K/UL ABS IMMATURE GRANULOCYTES (t est code = 1020) 0.03 K/UL ABS NUCLEATED RBCS (test cod e = 64985) 0.00 K/UL CBC W/AUTO [id number] 00:00:00* Test Item Value Reference Range Interpretation Comme nts WBC (test code = 1001) 8.1 K/UL RBC (test code = 1002) 4.87 M/UL HEMOGLOBIN (test code = 1003) 11.0 G/DL HEMATOCRIT (test code = 1004) 35.4 % MCV (test code = 1005) 72.7 fL MCH (test code = 1006) 22.6 PG MCHC (test code = 1007) 31.1 G/DL RDW (test code = 1038) 15.9 % NEUTROPHILS (test code = 1008) 57.6 % LYMPHOCYTES (test code = 1010) 34.7 % MONOCYTES (test code = 1011) 5.3 % EOSINOPHILS (test code = 1012) 1.6 % BASOPHILS (test code = 1013) 0.4 % IMMATURE GRANYLOCYTES (test code = 1036) 0.4 % NUCLEATED RBCS (test code = 1065) 0.0 /100WBC'S PLATELET COUNT (test code = 1015) 207 K/UL ABSOLUTE NEUTROPHILS (test c ode = 1066) 4.68 K/UL ABSOLUTE LYMPHOCYTES (test c ode = 1067) 2.82 K/UL ABSOLUTE MONOCYTES (test cod e = 1068) 0.43 K/UL ABSOLUTE EOSINOPHILS (test c ode = 1040) 0.13 K/UL ABSOLUTE BASOPHILS (test cod e = 1069) 0.03 K/UL ABS IMMATURE GRANULOCYTES (t est code = 1020) 0.03 K/UL ABS NUCLEATED RBCS (test cod e = 65302) 0.00 K/UL HEMOGLOBIN [id number] 00:00:00* Test Item Value Reference Range Interpretation Comme nts HEMOGLOBIN A1c (test code = 75215) 8.2 % HEMOGLOBIN [id number] 00:00:00* Test Item Value Reference Range Interpretation Comme nts HEMOGLOBIN A1c (test code = 15616) 8.2 % LIPID [id number] 00:00:00* Test Item Value Reference Range Interpretation Comme nts CHOLESTEROL (test code = 2210) 138 MG/DL TRIGLYCERIDES (test code = 2232) 293 MG/DL HDL CHOLESTEROL (test code = 2220) 41 MG/DL CALC LDL CHOL (test code = 2237) 66 MG/DL RISK RATIO LDL/HDL (test cod e = 2238) 1.61 RATIO COMPREHENSIVE METABOLIC [id number] 00:00:00* Test Item Value Reference Range Interpretation Comme nts GLUCOSE (test code = 2217) 133 MG/DL BUN (test code = 2208) 10 MG/DL CREATININE (test code = 2214) 0.45 MG/DL eGFR (2020 CKD-EPI) (test code = 18456) 120 ML/MIN/1.73 CALC BUN/CREAT (test code = 2235) 22 RATIO SODIUM (test code = 2231) 141 MEQ/L POTASSIUM (test code = 2228) 4.2 MEQ/L CHLORIDE (test code = 2215) 103 MEQ/L CARBON DIOXIDE (test code = 2206) 27 MEQ/L CALCIUM (test code = 2209) 9.4 MG/DL PROTEIN, TOTAL (test code = 2229) 7.7 G/DL ALBUMIN (test code = 2201) 4.0 G/DL CALC GLOBULIN (test code = 2240) 3.7 G/DL CALC A/G RATIO (test code = 2234) 1.1 RATIO BILIRUBIN, TOTAL (test code = 2206) 0.3 MG/DL ALKALINE PHOSPHATASE (test code = 2203) 165 U/L AST (test code = 8) 31 U/L ALT (test code = 9) 31 U/L IRON BINDING CAPACITY AND IRON AND % [id number] 00:00:00* Test Item Value Reference Range Interpretation Comme nts IRON, SERUM (test code = 2221) 24 UG/DL UNSATURATED IBC (test code = 39998) 438 UG/DL CALC TOTAL IBC (test code = 2076) 462 UG/DL CALC % IRON SAT (test code = 2078) 5 % [id number] 00:00:00* Test Item Value Reference Range Interpretation Comme nts FERRITIN (test code = 5) 10 NG/ML [id number] 00:00:00* Test Item Value Reference Range Interpretation Comme nts TRANSFERRIN (test code = 4936) 405 MG/DL CBC W/AUTO [id number] 00:00:00* Test Item Value Reference Range Interpretation Comme nts WBC (test code = 1001) 8.1 K/UL RBC (test code = 1002) 4.87 M/UL HEMOGLOBIN (test code = 1003) 11.0 G/DL HEMATOCRIT (test code = 1004) 35.4 % MCV (test code = 1005) 72.7 fL MCH (test code = 1006) 22.6 PG MCHC (test code = 1007) 31.1 G/DL RDW (test code = 1038) 15.9 % NEUTROPHILS (test code = 1008) 57.6 % LYMPHOCYTES (test code = 1010) 34.7 % MONOCYTES (test code = 1011) 5.3 % EOSINOPHILS (test code = 1012) 1.6 % BASOPHILS (test code = 1013) 0.4 % IMMATURE GRANYLOCYTES (test code = 1036) 0.4 % NUCLEATED RBCS (test code = 1065) 0.0 /100WBC'S PLATELET COUNT (test code = 1015) 207 K/UL ABSOLUTE NEUTROPHILS (test c ode = 1066) 4.68 K/UL ABSOLUTE LYMPHOCYTES (test c ode = 1067) 2.82 K/UL ABSOLUTE MONOCYTES (test cod e = 1068) 0.43 K/UL ABSOLUTE EOSINOPHILS (test c ode = 1040) 0.13 K/UL ABSOLUTE BASOPHILS (test cod e = 1069) 0.03 K/UL ABS IMMATURE GRANULOCYTES (t est code = 1020) 0.03 K/UL ABS NUCLEATED RBCS (test cod e = 05969) 0.00 K/UL CBC W/AUTO [id number] 00:00:00* Test Item Value Reference Range Interpretation Comme nts WBC (test code = 1001) 8.1 K/UL RBC (test code = 1002) 4.87 M/UL HEMOGLOBIN (test code = 1003) 11.0 G/DL HEMATOCRIT (test code = 1004) 35.4 % MCV (test code = 1005) 72.7 fL MCH (test code = 1006) 22.6 PG MCHC (test code = 1007) 31.1 G/DL RDW (test code = 1038) 15.9 % NEUTROPHILS (test code = 1008) 57.6 % LYMPHOCYTES (test code = 1010) 34.7 % MONOCYTES (test code = 1011) 5.3 % EOSINOPHILS (test code = 1012) 1.6 % BASOPHILS (test code = 1013) 0.4 % IMMATURE GRANYLOCYTES (test code = 1036) 0.4 % NUCLEATED RBCS (test code = 1065) 0.0 /100WBC'S PLATELET COUNT (test code = 1015) 207 K/UL ABSOLUTE NEUTROPHILS (test c ode = 1066) 4.68 K/UL ABSOLUTE LYMPHOCYTES (test c ode = 1067) 2.82 K/UL ABSOLUTE MONOCYTES (test cod e = 1068) 0.43 K/UL ABSOLUTE EOSINOPHILS (test c ode = 1040) 0.13 K/UL ABSOLUTE BASOPHILS (test cod e = 1069) 0.03 K/UL ABS IMMATURE GRANULOCYTES (t est code = 1020) 0.03 K/UL ABS NUCLEATED RBCS (test cod e = 44661) 0.00 K/UL HEMOGLOBIN [id number] 00:00:00* Test Item Value Reference Range Interpretation Comme nts HEMOGLOBIN A1c (test code = 72201) 8.2 % HEMOGLOBIN [id number] 00:00:00* Test Item Value Reference Range Interpretation Comme nts HEMOGLOBIN A1c (test code = 76270) 8.2 % LIPID [id number] 00:00:00* Test Item Value Reference Range Interpretation Comme nts CHOLESTEROL (test code = 2210) 138 MG/DL TRIGLYCERIDES (test code = 2232) 293 MG/DL HDL CHOLESTEROL (test code = 2220) 41 MG/DL CALC LDL CHOL (test code = 2237) 66 MG/DL RISK RATIO LDL/HDL (test cod e = 2238) 1.61 RATIO COMPREHENSIVE METABOLIC [id number] 00:00:00* Test Item Value Reference Range Interpretation Comme nts GLUCOSE (test code = 2217) 133 MG/DL BUN (test code = 2208) 10 MG/DL CREATININE (test code = 2214) 0.45 MG/DL eGFR (2020 CKD-EPI) (test code = 21202) 120 ML/MIN/1.73 CALC BUN/CREAT (test code = 2235) 22 RATIO SODIUM (test code = 2231) 141 MEQ/L POTASSIUM (test code = 2228) 4.2 MEQ/L CHLORIDE (test code = 2215) 103 MEQ/L CARBON DIOXIDE (test code = 2206) 27 MEQ/L CALCIUM (test code = 2209) 9.4 MG/DL PROTEIN, TOTAL (test code = 2229) 7.7 G/DL ALBUMIN (test code = 2201) 4.0 G/DL CALC GLOBULIN (test code = 2240) 3.7 G/DL CALC A/G RATIO (test code = 2234) 1.1 RATIO BILIRUBIN, TOTAL (test code = 2207) 0.3 MG/DL ALKALINE PHOSPHATASE (test code = 2204) 165 U/L AST (test code = 2218) 31 U/L ALT (test code = 2219) 31 U/L IRON BINDING CAPACITY AND IRON AND % [id number] 00:00:00* Test Item Value Reference Range Interpretation Comme nts IRON, SERUM (test code = 2221) 24 UG/DL UNSATURATED IBC (test code = 62608) 438 UG/DL CALC TOTAL IBC (test code = 7) 462 UG/DL CALC % IRON SAT (test code = 2078) 5 % [id number] 00:00:00* Test Item Value Reference Range Interpretation Comme nts FERRITIN (test code = 2075) 10 NG/ML [id number] 00:00:00* Test Item Value Reference Range Interpretation Comme nts TRANSFERRIN (test code = 4936) 405 MG/DL CBC W/AUTO [id number] 00:00:00* Test Item Value Reference Range Interpretation Comme nts WBC (test code = 1001) 8.1 K/UL RBC (test code = 1002) 4.87 M/UL HEMOGLOBIN (test code = 1003) 11.0 G/DL HEMATOCRIT (test code = 1004) 35.4 % MCV (test code = 1005) 72.7 fL MCH (test code = 1006) 22.6 PG MCHC (test code = 1007) 31.1 G/DL RDW (test code = 1038) 15.9 % NEUTROPHILS (test code = 1008) 57.6 % LYMPHOCYTES (test code = 1010) 34.7 % MONOCYTES (test code = 1011) 5.3 % EOSINOPHILS (test code = 1012) 1.6 % BASOPHILS (test code = 1013) 0.4 % IMMATURE GRANYLOCYTES (test code = 1036) 0.4 % NUCLEATED RBCS (test code = 1065) 0.0 /100WBC'S PLATELET COUNT (test code = 1015) 207 K/UL ABSOLUTE NEUTROPHILS (test c ode = 1066) 4.68 K/UL ABSOLUTE LYMPHOCYTES (test c ode = 1067) 2.82 K/UL ABSOLUTE MONOCYTES (test cod e = 1068) 0.43 K/UL ABSOLUTE EOSINOPHILS (test c ode = 1040) 0.13 K/UL ABSOLUTE BASOPHILS (test cod e = 1069) 0.03 K/UL ABS IMMATURE GRANULOCYTES (t est code = 1020) 0.03 K/UL ABS NUCLEATED RBCS (test cod e = 88352) 0.00 K/UL CBC W/AUTO [id number] 00:00:00* Test Item Value Reference Range Interpretation Comme nts WBC (test code = 1001) 8.1 K/UL RBC (test code = 1002) 4.87 M/UL HEMOGLOBIN (test code = 1003) 11.0 G/DL HEMATOCRIT (test code = 1004) 35.4 % MCV (test code = 1005) 72.7 fL MCH (test code = 1006) 22.6 PG MCHC (test code = 1007) 31.1 G/DL RDW (test code = 1038) 15.9 % NEUTROPHILS (test code = 1008) 57.6 % LYMPHOCYTES (test code = 1010) 34.7 % MONOCYTES (test code = 1011) 5.3 % EOSINOPHILS (test code = 1012) 1.6 % BASOPHILS (test code = 1013) 0.4 % IMMATURE GRANYLOCYTES (test code = 1036) 0.4 % NUCLEATED RBCS (test code = 1065) 0.0 /100WBC'S PLATELET COUNT (test code = 1015) 207 K/UL ABSOLUTE NEUTROPHILS (test c ode = 1066) 4.68 K/UL ABSOLUTE LYMPHOCYTES (test c ode = 1067) 2.82 K/UL ABSOLUTE MONOCYTES (test cod e = 1068) 0.43 K/UL ABSOLUTE EOSINOPHILS (test c ode = 1040) 0.13 K/UL ABSOLUTE BASOPHILS (test cod e = 1069) 0.03 K/UL ABS IMMATURE GRANULOCYTES (t est code = 1020) 0.03 K/UL ABS NUCLEATED RBCS (test cod e = 14785) 0.00 K/UL CBC W/AUTO [id number] 00:00:00* Test Item Value Reference Range Interpretation Comme nts WBC (test code = 1001) 8.1 K/UL RBC (test code = 1002) 4.87 M/UL HEMOGLOBIN (test code = 1003) 11.0 G/DL HEMATOCRIT (test code = 1004) 35.4 % MCV (test code = 1005) 72.7 fL MCH (test code = 1006) 22.6 PG MCHC (test code = 1007) 31.1 G/DL RDW (test code = 1038) 15.9 % NEUTROPHILS (test code = 1008) 57.6 % LYMPHOCYTES (test code = 1010) 34.7 % MONOCYTES (test code = 1011) 5.3 % EOSINOPHILS (test code = 1012) 1.6 % BASOPHILS (test code = 1013) 0.4 % IMMATURE GRANYLOCYTES (test code = 1036) 0.4 % NUCLEATED RBCS (test code = 1065) 0.0 /100WBC'S PLATELET COUNT (test code = 1015) 207 K/UL ABSOLUTE NEUTROPHILS (test c ode = 1066) 4.68 K/UL ABSOLUTE LYMPHOCYTES (test c ode = 1067) 2.82 K/UL ABSOLUTE MONOCYTES (test cod e = 1068) 0.43 K/UL ABSOLUTE EOSINOPHILS (test c ode = 1040) 0.13 K/UL ABSOLUTE BASOPHILS (test cod e = 1069) 0.03 K/UL ABS IMMATURE GRANULOCYTES (t est code = 1020) 0.03 K/UL ABS NUCLEATED RBCS (test cod e = 25507) 0.00 K/UL HEMOGLOBIN [id number] 00:00:00* Test Item Value Reference Range Interpretation Comme nts HEMOGLOBIN A1c (test code = 89165) 8.2 % HEMOGLOBIN [id number] 00:00:00* Test Item Value Reference Range Interpretation Comme nts HEMOGLOBIN A1c (test code = 72099) 8.2 % HEMOGLOBIN [id number] 00:00:00* Test Item Value Reference Range Interpretation Comme nts HEMOGLOBIN A1c (test code = 72856) 8.2 % CBC W/AUTO [id number] 00:00:00* Test Item Value Reference Range Interpretation Comme nts WBC (test code = 1001) 8.1 K/UL RBC (test code = 1002) 4.87 M/UL HEMOGLOBIN (test code = 1003) 11.0 G/DL HEMATOCRIT (test code = 1004) 35.4 % MCV (test code = 1005) 72.7 fL MCH (test code = 1006) 22.6 PG MCHC (test code = 1007) 31.1 G/DL RDW (test code = 1038) 15.9 % NEUTROPHILS (test code = 1008) 57.6 % LYMPHOCYTES (test code = 1010) 34.7 % MONOCYTES (test code = 1011) 5.3 % EOSINOPHILS (test code = 1012) 1.6 % BASOPHILS (test code = 1013) 0.4 % IMMATURE GRANYLOCYTES (test code = 1036) 0.4 % NUCLEATED RBCS (test code = 1065) 0.0 /100WBC'S PLATELET COUNT (test code = 1015) 207 K/UL ABSOLUTE NEUTROPHILS (test c ode = 1066) 4.68 K/UL ABSOLUTE LYMPHOCYTES (test c ode = 1067) 2.82 K/UL ABSOLUTE MONOCYTES (test cod e = 1068) 0.43 K/UL ABSOLUTE EOSINOPHILS (test c ode = 1040) 0.13 K/UL ABSOLUTE BASOPHILS (test cod e = 1069) 0.03 K/UL ABS IMMATURE GRANULOCYTES (t est code = 1020) 0.03 K/UL ABS NUCLEATED RBCS (test cod e = 27474) 0.00 K/UL LIPID [id number] 00:00:00* Test Item Value Reference Range Interpretation Comme nts CHOLESTEROL (test code = 2210) 138 MG/DL TRIGLYCERIDES (test code = 2232) 293 MG/DL HDL CHOLESTEROL (test code = 2220) 41 MG/DL CALC LDL CHOL (test code = 2237) 66 MG/DL RISK RATIO LDL/HDL (test cod e = 2238) 1.61 RATIO LIPID [id number] 00:00:00* Test Item Value Reference Range Interpretation Comme nts CHOLESTEROL (test code = 2210) 138 MG/DL TRIGLYCERIDES (test code = 2232) 293 MG/DL HDL CHOLESTEROL (test code = 2220) 41 MG/DL CALC LDL CHOL (test code = 2237) 66 MG/DL RISK RATIO LDL/HDL (test cod e = 2238) 1.61 RATIO COMPREHENSIVE METABOLIC [id number] 00:00:00* Test Item Value Reference Range Interpretation Comme nts GLUCOSE (test code = 2217) 133 MG/DL BUN (test code = 2208) 10 MG/DL CREATININE (test code = 2214) 0.45 MG/DL eGFR (2020 CKD-EPI) (test code = 35502) 120 ML/MIN/1.73 CALC BUN/CREAT (test code = 2235) 22 RATIO SODIUM (test code = 2231) 141 MEQ/L POTASSIUM (test code = 2228) 4.2 MEQ/L CHLORIDE (test code = 2215) 103 MEQ/L CARBON DIOXIDE (test code = 2206) 27 MEQ/L CALCIUM (test code = 2209) 9.4 MG/DL PROTEIN, TOTAL (test code = 2229) 7.7 G/DL ALBUMIN (test code = 2201) 4.0 G/DL CALC GLOBULIN (test code = 2240) 3.7 G/DL CALC A/G RATIO (test code = 2234) 1.1 RATIO BILIRUBIN, TOTAL (test code = 2207) 0.3 MG/DL ALKALINE PHOSPHATASE (test code = 2204) 165 U/L AST (test code = 2218) 31 U/L ALT (test code = 2219) 31 U/L COMPREHENSIVE METABOLIC [id number] 00:00:00* Test Item Value Reference Range Interpretation Comme nts GLUCOSE (test code = 2217) 133 MG/DL BUN (test code = 2208) 10 MG/DL CREATININE (test code = 2214) 0.45 MG/DL eGFR (2020 CKD-EPI) (test code = 18277) 120 ML/MIN/1.73 CALC BUN/CREAT (test code = 2235) 22 RATIO SODIUM (test code = 2231) 141 MEQ/L POTASSIUM (test code = 2228) 4.2 MEQ/L CHLORIDE (test code = 2215) 103 MEQ/L CARBON DIOXIDE (test code = 2206) 27 MEQ/L CALCIUM (test code = 2209) 9.4 MG/DL PROTEIN, TOTAL (test code = 2229) 7.7 G/DL ALBUMIN (test code = 2201) 4.0 G/DL CALC GLOBULIN (test code = 2240) 3.7 G/DL CALC A/G RATIO (test code = 2234) 1.1 RATIO BILIRUBIN, TOTAL (test code = 2207) 0.3 MG/DL ALKALINE PHOSPHATASE (test code = 2204) 165 U/L AST (test code = 2218) 31 U/L ALT (test code = 2219) 31 U/L CBC W/AUTO [id number] 00:00:00* Test Item Value Reference Range Interpretation Comme nts WBC (test code = 1001) 8.1 K/UL RBC (test code = 1002) 4.87 M/UL HEMOGLOBIN (test code = 1003) 11.0 G/DL HEMATOCRIT (test code = 1004) 35.4 % MCV (test code = 1005) 72.7 fL MCH (test code = 1006) 22.6 PG MCHC (test code = 1007) 31.1 G/DL RDW (test code = 1038) 15.9 % NEUTROPHILS (test code = 1008) 57.6 % LYMPHOCYTES (test code = 1010) 34.7 % MONOCYTES (test code = 1011) 5.3 % EOSINOPHILS (test code = 1012) 1.6 % BASOPHILS (test code = 1013) 0.4 % IMMATURE GRANYLOCYTES (test code = 1036) 0.4 % NUCLEATED RBCS (test code = 1065) 0.0 /100WBC'S PLATELET COUNT (test code = 1015) 207 K/UL ABSOLUTE NEUTROPHILS (test c ode = 1066) 4.68 K/UL ABSOLUTE LYMPHOCYTES (test c ode = 1067) 2.82 K/UL ABSOLUTE MONOCYTES (test cod e = 1068) 0.43 K/UL ABSOLUTE EOSINOPHILS (test c ode = 1040) 0.13 K/UL ABSOLUTE BASOPHILS (test cod e = 1069) 0.03 K/UL ABS IMMATURE GRANULOCYTES (t est code = 1020) 0.03 K/UL ABS NUCLEATED RBCS (test cod e = 32379) 0.00 K/UL IRON BINDING CAPACITY AND IRON AND % [id number] 00:00:00* Test Item Value Reference Range Interpretation Comme nts IRON, SERUM (test code = 2221) 24 UG/DL UNSATURATED IBC (test code = ) 438 UG/DL CALC TOTAL IBC (test code = 7) 462 UG/DL CALC % IRON SAT (test code = 9) 5 % IRON BINDING CAPACITY AND IRON AND % [id number] 00:00:00* Test Item Value Reference Range Interpretation Comme nts IRON, SERUM (test code = 2221) 24 UG/DL UNSATURATED IBC (test code = 45957) 438 UG/DL CALC TOTAL IBC (test code = 7) 462 UG/DL CALC % IRON SAT (test code = 9) 5 % [id number] 00:00:00* Test Item Value Reference Range Interpretation Comme nts FERRITIN (test code = 2074) 10 NG/ML [id number] 00:00:00* Test Item Value Reference Range Interpretation Comme nts FERRITIN (test code = 5) 10 NG/ML [id number] 00:00:00* Test Item Value Reference Range Interpretation Comme nts TRANSFERRIN (test code = 4936) 405 MG/DL [id number] 00:00:00* Test Item Value Reference Range Interpretation Comme nts TRANSFERRIN (test code = 4936) 405 MG/DL HEMOGLOBIN [id number] 00:00:00* Test Item Value Reference Range Interpretation Comme nts HEMOGLOBIN A1c (test code = 09413) 8.2 % HEMOGLOBIN [id number] 00:00:00* Test Item Value Reference Range Interpretation Comme nts HEMOGLOBIN A1c (test code = 65388) 8.2 % CBC W/AUTO [id number] 00:00:00* Test Item Value Reference Range Interpretation Comme nts WBC (test code = 1001) 8.1 K/UL RBC (test code = 1002) 4.87 M/UL HEMOGLOBIN (test code = 1003) 11.0 G/DL HEMATOCRIT (test code = 1004) 35.4 % MCV (test code = 1005) 72.7 fL MCH (test code = 1006) 22.6 PG MCHC (test code = 1007) 31.1 G/DL RDW (test code = 1038) 15.9 % NEUTROPHILS (test code = 1008) 57.6 % LYMPHOCYTES (test code = 1010) 34.7 % MONOCYTES (test code = 1011) 5.3 % EOSINOPHILS (test code = 1012) 1.6 % BASOPHILS (test code = 1013) 0.4 % IMMATURE GRANYLOCYTES (test code = 1036) 0.4 % NUCLEATED RBCS (test code = 1065) 0.0 /100WBC'S PLATELET COUNT (test code = 1015) 207 K/UL ABSOLUTE NEUTROPHILS (test c ode = 1066) 4.68 K/UL ABSOLUTE LYMPHOCYTES (test c ode = 1067) 2.82 K/UL ABSOLUTE MONOCYTES (test cod e = 1068) 0.43 K/UL ABSOLUTE EOSINOPHILS (test c ode = 1040) 0.13 K/UL ABSOLUTE BASOPHILS (test cod e = 1069) 0.03 K/UL ABS IMMATURE GRANULOCYTES (t est code = 1020) 0.03 K/UL ABS NUCLEATED RBCS (test cod e = 17870) 0.00 K/UL CBC W/AUTO [id number] 00:00:00* Test Item Value Reference Range Interpretation Comme nts WBC (test code = 1001) 8.1 K/UL RBC (test code = 1002) 4.87 M/UL HEMOGLOBIN (test code = 1003) 11.0 G/DL HEMATOCRIT (test code = 1004) 35.4 % MCV (test code = 1005) 72.7 fL MCH (test code = 1006) 22.6 PG MCHC (test code = 1007) 31.1 G/DL RDW (test code = 1038) 15.9 % NEUTROPHILS (test code = 1008) 57.6 % LYMPHOCYTES (test code = 1010) 34.7 % MONOCYTES (test code = 1011) 5.3 % EOSINOPHILS (test code = 1012) 1.6 % BASOPHILS (test code = 1013) 0.4 % IMMATURE GRANYLOCYTES (test code = 1036) 0.4 % NUCLEATED RBCS (test code = 1065) 0.0 /100WBC'S PLATELET COUNT (test code = 1015) 207 K/UL ABSOLUTE NEUTROPHILS (test c ode = 1066) 4.68 K/UL ABSOLUTE LYMPHOCYTES (test c ode = 1067) 2.82 K/UL ABSOLUTE MONOCYTES (test cod e = 1068) 0.43 K/UL ABSOLUTE EOSINOPHILS (test c ode = 1040) 0.13 K/UL ABSOLUTE BASOPHILS (test cod e = 1069) 0.03 K/UL ABS IMMATURE GRANULOCYTES (t est code = 1020) 0.03 K/UL ABS NUCLEATED RBCS (test cod e = 36537) 0.00 K/UL CBC W/AUTO [id number] 00:00:00* Test Item Value Reference Range Interpretation Comme nts WBC (test code = 1001) 8.1 K/UL RBC (test code = 1002) 4.87 M/UL HEMOGLOBIN (test code = 1003) 11.0 G/DL HEMATOCRIT (test code = 1004) 35.4 % MCV (test code = 1005) 72.7 fL MCH (test code = 1006) 22.6 PG MCHC (test code = 1007) 31.1 G/DL RDW (test code = 1038) 15.9 % NEUTROPHILS (test code = 1008) 57.6 % LYMPHOCYTES (test code = 1010) 34.7 % MONOCYTES (test code = 1011) 5.3 % EOSINOPHILS (test code = 1012) 1.6 % BASOPHILS (test code = 1013) 0.4 % IMMATURE GRANYLOCYTES (test code = 1036) 0.4 % NUCLEATED RBCS (test code = 1065) 0.0 /100WBC'S PLATELET COUNT (test code = 1015) 207 K/UL ABSOLUTE NEUTROPHILS (test c ode = 1066) 4.68 K/UL ABSOLUTE LYMPHOCYTES (test c ode = 1067) 2.82 K/UL ABSOLUTE MONOCYTES (test cod e = 1068) 0.43 K/UL ABSOLUTE EOSINOPHILS (test c ode = 1040) 0.13 K/UL ABSOLUTE BASOPHILS (test cod e = 1069) 0.03 K/UL ABS IMMATURE GRANULOCYTES (t est code = 1020) 0.03 K/UL ABS NUCLEATED RBCS (test cod e = 25733) 0.00 K/UL HEMOGLOBIN [id number] 00:00:00* Test Item Value Reference Range Interpretation Comme nts HEMOGLOBIN A1c (test code = 28075) 8.2 % HEMOGLOBIN [id number] 00:00:00* Test Item Value Reference Range Interpretation Comme nts HEMOGLOBIN A1c (test code = 42696) 8.2 % FSH + LH [id number] 00:00:00* Test Item Value Reference Range Interpretation Comme nts FOLLICLE STIM HORMONE (test code = 2700) 4.9 IU/L LUTEINIZING HORMONE (test co de = 2776) 14.3 IU/L FSH + LH [id number] 00:00:00* Test Item Value Reference Range Interpretation Comme nts FOLLICLE STIM HORMONE (test code = 2700) 4.9 IU/L LUTEINIZING HORMONE (test co de = 2776) 14.3 IU/L FSH + LH [id number] 00:00:00* Test Item Value Reference Range Interpretation Comme nts FOLLICLE STIM HORMONE (test code = 2700) 4.9 IU/L LUTEINIZING HORMONE (test co de = 2776) 14.3 IU/L [id number] 00:00:00* Test Item Value Reference Range Interpretation Comme nts PROLACTIN (test code = 2800) 11.2 NG/ML [id number] 00:00:00* Test Item Value Reference Range Interpretation Comme nts PROLACTIN (test code = 2800) 11.2 NG/ML [id number] 00:00:00* Test Item Value Reference Range Interpretation Comme nts ESTRADIOL (test code = 2505) 113.0 PG/ML [id number] 00:00:00* Test Item Value Reference Range Interpretation Comme nts ESTRADIOL (test code = 2505) 113.0 PG/ML [id number] 00:00:00* Test Item Value Reference Range Interpretation Comme nts ESTRADIOL (test code = 2505) 113.0 PG/ML [id number] 00:00:00* Test Item Value Reference Range Interpretation Comme nts PROLACTIN (test code = 2800) 11.2 NG/ML [id number] 00:00:00* Test Item Value Reference Range Interpretation Comme nts ESTRADIOL (test code = 2505) 113.0 PG/ML [id number] 00:00:00* Test Item Value Reference Range Interpretation Comme nts ESTRADIOL (test code = 2505) 113.0 PG/ML [id number] 00:00:00* Test Item Value Reference Range Interpretation Comme nts TESTOSTERONE (test code = 2830) 16 NG/DL FSH + LH [id number] 00:00:00* Test Item Value Reference Range Interpretation Comme nts FOLLICLE STIM HORMONE (test code = 2700) 4.9 IU/L LUTEINIZING HORMONE (test co de = 2776) 14.3 IU/L [id number] 00:00:00* Test Item Value Reference Range Interpretation Comme nts PROLACTIN (test code = 2800) 11.2 NG/ML [id number] 00:00:00* Test Item Value Reference Range Interpretation Comme nts ESTRADIOL (test code = 2505) 113.0 PG/ML [id number] 00:00:00* Test Item Value Reference Range Interpretation Comme nts ESTRADIOL (test code = 2505) 113.0 PG/ML [id number] 00:00:00* Test Item Value Reference Range Interpretation Comme nts TESTOSTERONE (test code = 2830) 16 NG/DL FSH + LH [id number] 00:00:00* Test Item Value Reference Range Interpretation Comme nts FOLLICLE STIM HORMONE (test code = 2700) 4.9 IU/L LUTEINIZING HORMONE (test co de = 2776) 14.3 IU/L [id number] 00:00:00* Test Item Value Reference Range Interpretation Comme nts PROLACTIN (test code = 2800) 11.2 NG/ML [id number] 00:00:00* Test Item Value Reference Range Interpretation Comme nts ESTRADIOL (test code = 2505) 113.0 PG/ML [id number] 00:00:00* Test Item Value Reference Range Interpretation Comme nts ESTRADIOL (test code = 2505) 113.0 PG/ML [id number] 00:00:00* Test Item Value Reference Range Interpretation Comme nts TESTOSTERONE (test code = 2830) 16 NG/DL [id number] 00:00:00* Test Item Value Reference Range Interpretation Comme nts TESTOSTERONE (test code = 2830) 16 NG/DL [id number] 00:00:00* Test Item Value Reference Range Interpretation Comme nts TESTOSTERONE (test code = 2830) 16 NG/DL FSH + LH [id number] 00:00:00* Test Item Value Reference Range Interpretation Comme nts FOLLICLE STIM HORMONE (test code = 2700) 4.9 IU/L LUTEINIZING HORMONE (test co de = 2776) 14.3 IU/L FSH + LH [id number] 00:00:00* Test Item Value Reference Range Interpretation Comme nts FOLLICLE STIM HORMONE (test code = 2700) 4.9 IU/L LUTEINIZING HORMONE (test co de = 2776) 14.3 IU/L [id number] 00:00:00* Test Item Value Reference Range Interpretation Comme nts PROLACTIN (test code = 2800) 11.2 NG/ML [id number] 00:00:00* Test Item Value Reference Range Interpretation Comme nts PROLACTIN (test code = 2800) 11.2 NG/ML [id number] 00:00:00* Test Item Value Reference Range Interpretation Comme nts ESTRADIOL (test code = 2505) 113.0 PG/ML [id number] 00:00:00* Test Item Value Reference Range Interpretation Comme nts ESTRADIOL (test code = 2505) 113.0 PG/ML [id number] 00:00:00* Test Item Value Reference Range Interpretation Comme nts ESTRADIOL (test code = 2505) 113.0 PG/ML [id number] 00:00:00* Test Item Value Reference Range Interpretation Comme nts TESTOSTERONE (test code = 2830) 16 NG/DL [id number] 00:00:00* Test Item Value Reference Range Interpretation Comme nts TESTOSTERONE (test code = 2830) 16 NG/DL VITAMIN D, 25 [id number] 00:00:00* Test Item Value Reference Range Interpretation Comme nts VITAMIN D, 25 OH (test code = 4958) 18 NG/ML VITAMIN D, 25 [id number] 00:00:00* Test Item Value Reference Range Interpretation Comme nts VITAMIN D, 25 OH (test code = 4958) 18 NG/ML HEMOGLOBIN [id number] 00:00:00* Test Item Value Reference Range Interpretation Comme nts HEMOGLOBIN A1c (test code = 35125) 7.8 % HEMOGLOBIN [id number] 00:00:00* Test Item Value Reference Range Interpretation Comme nts HEMOGLOBIN A1c (test code = 05176) 7.8 % HEMOGLOBIN [id number] 00:00:00* Test Item Value Reference Range Interpretation Comme nts HEMOGLOBIN A1c (test code = 84746) 7.8 % HEMOGLOBIN [id number] 00:00:00* Test Item Value Reference Range Interpretation Comme nts HEMOGLOBIN A1c (test code = 21586) 7.8 % LIPID [id number] 00:00:00* Test Item Value Reference Range Interpretation Comme nts CHOLESTEROL (test code = 2210) 175 MG/DL TRIGLYCERIDES (test code = 2232) 226 MG/DL HDL CHOLESTEROL (test code = 2220) 39 MG/DL CALC LDL CHOL (test code = 2237) 102 MG/DL RISK RATIO LDL/HDL (test cod e = 2238) 2.62 RATIO LIPID [id number] 00:00:00* Test Item Value Reference Range Interpretation Comme nts CHOLESTEROL (test code = 2210) 175 MG/DL TRIGLYCERIDES (test code = 2232) 226 MG/DL HDL CHOLESTEROL (test code = 2220) 39 MG/DL CALC LDL CHOL (test code = 2237) 102 MG/DL RISK RATIO LDL/HDL (test cod e = 2238) 2.62 RATIO COMPREHENSIVE METABOLIC [id number] 00:00:00* Test Item Value Reference Range Interpretation Comme nts GLUCOSE (test code = 2217) 158 MG/DL BUN (test code = 2208) 11 MG/DL CREATININE (test code = 2214) 0.48 MG/DL eGFR AMER. (test cod e = 16377) 136 ML/MIN/1.73 eGFR NON- AMER. (test code = 45948) 118 ML/MIN/1.73 CALC BUN/CREAT (test code = 2235) 23 RATIO SODIUM (test code = 2231) 142 MEQ/L POTASSIUM (test code = 2228) 4.3 MEQ/L CHLORIDE (test code = 2215) 104 MEQ/L CARBON DIOXIDE (test code = 2206) 26 MEQ/L CALCIUM (test code = 2209) 9.6 MG/DL PROTEIN, TOTAL (test code = 2229) 7.6 G/DL ALBUMIN (test code = 2201) 4.0 G/DL CALC GLOBULIN (test code = 2240) 3.6 G/DL CALC A/G RATIO (test code = 2234) 1.1 RATIO BILIRUBIN, TOTAL (test code = 2207) 0.4 MG/DL ALKALINE PHOSPHATASE (test code = 2204) 212 U/L AST (test code = 2218) 49 U/L ALT (test code = 2219) 53 U/L COMPREHENSIVE METABOLIC [id number] 00:00:00* Test Item Value Reference Range Interpretation Comme nts GLUCOSE (test code = 2217) 158 MG/DL BUN (test code = 2208) 11 MG/DL CREATININE (test code = 2214) 0.48 MG/DL eGFR AMER. (test cod e = 01714) 136 ML/MIN/1.73 eGFR NON- AMER. (test code = 64490) 118 ML/MIN/1.73 CALC BUN/CREAT (test code = 2235) 23 RATIO SODIUM (test code = 2231) 142 MEQ/L POTASSIUM (test code = 2228) 4.3 MEQ/L CHLORIDE (test code = 2215) 104 MEQ/L CARBON DIOXIDE (test code = 2206) 26 MEQ/L CALCIUM (test code = 2209) 9.6 MG/DL PROTEIN, TOTAL (test code = 2229) 7.6 G/DL ALBUMIN (test code = 2201) 4.0 G/DL CALC GLOBULIN (test code = 2240) 3.6 G/DL CALC A/G RATIO (test code = 2234) 1.1 RATIO BILIRUBIN, TOTAL (test code = 2207) 0.4 MG/DL ALKALINE PHOSPHATASE (test code = 2204) 212 U/L AST (test code = 2218) 49 U/L ALT (test code = 2219) 53 U/L [id number] 00:00:00* Test Item Value Reference Range Interpretation Comme nts FERRITIN (test code = 2074) 11 NG/ML [id number] 00:00:00* Test Item Value Reference Range Interpretation Comme nts FERRITIN (test code = 2074) 11 NG/ML HEMOGLOBIN [id number] 00:00:00* Test Item Value Reference Range Interpretation Comme nts HEMOGLOBIN A1c (test code = 61646) 7.8 % IRON BINDING CAPACITY AND IRON AND % [id number] 00:00:00* Test Item Value Reference Range Interpretation Comme nts IRON, SERUM (test code = 2221) 23 UG/DL UNSATURATED IBC (test code = ) 478 UG/DL CALC TOTAL IBC (test code = 2076) 501 UG/DL CALC % IRON SAT (test code = 2078) 5 % IRON BINDING CAPACITY AND IRON AND % [id number] 00:00:00* Test Item Value Reference Range Interpretation Comme nts IRON, SERUM (test code = 2221) 23 UG/DL UNSATURATED IBC (test code = ) 478 UG/DL CALC TOTAL IBC (test code = 2076) 501 UG/DL CALC % IRON SAT (test code = 2078) 5 % [id number] 00:00:00* Test Item Value Reference Range Interpretation Comme nts TRANSFERRIN (test code = 4936) 410 MG/DL [id number] 00:00:00* Test Item Value Reference Range Interpretation Comme nts TRANSFERRIN (test code = 4936) 410 MG/DL VITAMIN B 12 AND FOLIC [id number] 00:00:00* Test Item Value Reference Range Interpretation Comme nts VITAMIN B-12 (test code = 2840) 519 PG/ML FOLIC ACID (test code = 2695) 7.1 UG/L VITAMIN B 12 AND FOLIC [id number] 00:00:00* Test Item Value Reference Range Interpretation Comme nts VITAMIN B-12 (test code = 2840) 519 PG/ML FOLIC ACID (test code = 2695) 7.1 UG/L LIPID [id number] 00:00:00* Test Item Value Reference Range Interpretation Comme nts CHOLESTEROL (test code = 2210) 175 MG/DL TRIGLYCERIDES (test code = 2232) 226 MG/DL HDL CHOLESTEROL (test code = 2220) 39 MG/DL CALC LDL CHOL (test code = 7) 102 MG/DL RISK RATIO LDL/HDL (test cod e = 2238) 2.62 RATIO COMPREHENSIVE METABOLIC [id number] 00:00:00* Test Item Value Reference Range Interpretation Comme nts GLUCOSE (test code = 7) 158 MG/DL BUN (test code = 8) 11 MG/DL CREATININE (test code = 2214) 0.48 MG/DL eGFR AMER. (test cod e = 46247) 136 ML/MIN/1.73 eGFR NON- AMER. (test code = 77162) 118 ML/MIN/1.73 CALC BUN/CREAT (test code = 2235) 23 RATIO SODIUM (test code = 223) 142 MEQ/L POTASSIUM (test code = 2228) 4.3 MEQ/L CHLORIDE (test code = 2215) 104 MEQ/L CARBON DIOXIDE (test code = 2206) 26 MEQ/L CALCIUM (test code = 2209) 9.6 MG/DL PROTEIN, TOTAL (test code = 2228) 7.6 G/DL ALBUMIN (test code = 2201) 4.0 G/DL CALC GLOBULIN (test code = 2240) 3.6 G/DL CALC A/G RATIO (test code = 2234) 1.1 RATIO BILIRUBIN, TOTAL (test code = 7) 0.4 MG/DL ALKALINE PHOSPHATASE (test code = 2204) 212 U/L AST (test code = 8) 49 U/L ALT (test code = 2219) 53 U/L [id number] 00:00:00* Test Item Value Reference Range Interpretation Comme nts FERRITIN (test code = 2074) 11 NG/ML IRON BINDING CAPACITY AND IRON AND % [id number] 00:00:00* Test Item Value Reference Range Interpretation Comme nts IRON, SERUM (test code = 2221) 23 UG/DL UNSATURATED IBC (test code = 34428) 478 UG/DL CALC TOTAL IBC (test code = 2076) 501 UG/DL CALC % IRON SAT (test code = 2078) 5 % [id number] 00:00:00* Test Item Value Reference Range Interpretation Comme nts TRANSFERRIN (test code = 4936) 410 MG/DL VITAMIN B 12 AND FOLIC [id number] 00:00:00* Test Item Value Reference Range Interpretation Comme nts VITAMIN B-12 (test code = 2840) 519 PG/ML FOLIC ACID (test code = 2695) 7.1 UG/L CBC W/AUTO [id number] 00:00:00* Test Item Value Reference Range Interpretation Comme nts WBC (test code = 1001) 7.5 K/UL RBC (test code = 1002) 4.41 M/UL HEMOGLOBIN (test code = 1003) 8.0 G/DL HEMATOCRIT (test code = 1004) 27.7 % MCV (test code = 1005) 62.8 fL MCH (test code = 1006) 18.1 PG MCHC (test code = 1007) 28.9 G/DL RDW (test code = 1038) 17.8 % NEUTROPHILS (test code = 1008) 56.3 % LYMPHOCYTES (test code = 1010) 34.4 % MONOCYTES (test code = 1011) 5.6 % EOSINOPHILS (test code = 1012) 2.8 % BASOPHILS (test code = 1013) 0.5 % IMMATURE GRANULOCYTES (test code = 1036) 0.4 % NUCLEATED RBCS (test code = 1065) 0.0 /100WBC'S PLATELET COUNT (test code = 1015) 246 K/UL ABSOLUTE NEUTROPHILS (test c ode = 1066) 4.21 K/UL ABSOLUTE LYMPHOCYTES (test c ode = 1067) 2.57 K/UL ABSOLUTE MONOCYTES (test cod e = 1068) 0.42 K/UL ABSOLUTE EOSINOPHILS (test c ode = 1040) 0.21 K/UL ABSOLUTE BASOPHILS (test cod e = 1069) 0.04 K/UL ABS IMMATURE GRANULOCYTES (t est code = 1020) 0.03 K/UL ABS NUCLEATED RBCS (test cod e = 47154) 0.00 K/UL COMMENTS (test code = 1016) (NOTE) CBC W/AUTO [id number] 00:00:00* Test Item Value Reference Range Interpretation Comme nts WBC (test code = 1001) 7.5 K/UL RBC (test code = 1002) 4.41 M/UL HEMOGLOBIN (test code = 1003) 8.0 G/DL HEMATOCRIT (test code = 1004) 27.7 % MCV (test code = 1005) 62.8 fL MCH (test code = 1006) 18.1 PG MCHC (test code = 1007) 28.9 G/DL RDW (test code = 1038) 17.8 % NEUTROPHILS (test code = 1008) 56.3 % LYMPHOCYTES (test code = 1010) 34.4 % MONOCYTES (test code = 1011) 5.6 % EOSINOPHILS (test code = 1012) 2.8 % BASOPHILS (test code = 1013) 0.5 % IMMATURE GRANULOCYTES (test code = 1036) 0.4 % NUCLEATED RBCS (test code = 1065) 0.0 /100WBC'S PLATELET COUNT (test code = 1015) 246 K/UL ABSOLUTE NEUTROPHILS (test c ode = 1066) 4.21 K/UL ABSOLUTE LYMPHOCYTES (test c ode = 1067) 2.57 K/UL ABSOLUTE MONOCYTES (test cod e = 1068) 0.42 K/UL ABSOLUTE EOSINOPHILS (test c ode = 1040) 0.21 K/UL ABSOLUTE BASOPHILS (test cod e = 1069) 0.04 K/UL ABS IMMATURE GRANULOCYTES (t est code = 1020) 0.03 K/UL ABS NUCLEATED RBCS (test cod e = 51007) 0.00 K/UL COMMENTS (test code = 1016) (NOTE) VITAMIN D, 25 [id number] 00:00:00* Test Item Value Reference Range Interpretation Comme [facility] VITAMIN D, 25 OH (test code = 4958) 18 NG/ML HEMOGLOBIN [id number] 00:00:00* Test Item Value Reference Range Interpretation Comme [facility] HEMOGLOBIN A1c (test code = 50603) 7.8 % HEMOGLOBIN [id number] 00:00:00* Test Item Value Reference Range Interpretation Comme nts HEMOGLOBIN A1c (test code = 38649) 7.8 % LIPID [id number] 00:00:00* Test Item Value Reference Range Interpretation Comme nts CHOLESTEROL (test code = 2210) 175 MG/DL TRIGLYCERIDES (test code = 2232) 226 MG/DL HDL CHOLESTEROL (test code = 2220) 39 MG/DL CALC LDL CHOL (test code = 2237) 102 MG/DL RISK RATIO LDL/HDL (test cod e = 2238) 2.62 RATIO COMPREHENSIVE METABOLIC [id number] 00:00:00* Test Item Value Reference Range Interpretation Comme nts GLUCOSE (test code = 2217) 158 MG/DL BUN (test code = 2208) 11 MG/DL CREATININE (test code = 2214) 0.48 MG/DL eGFR AMER. (test cod e = 19066) 136 ML/MIN/1.73 eGFR NON- AMER. (test code = 57676) 118 ML/MIN/1.73 CALC BUN/CREAT (test code = 2235) 23 RATIO SODIUM (test code = 2231) 142 MEQ/L POTASSIUM (test code = 2228) 4.3 MEQ/L CHLORIDE (test code = 2215) 104 MEQ/L CARBON DIOXIDE (test code = 2206) 26 MEQ/L CALCIUM (test code = 2209) 9.6 MG/DL PROTEIN, TOTAL (test code = 222) 7.6 G/DL ALBUMIN (test code = 220) 4.0 G/DL CALC GLOBULIN (test code = 2240) 3.6 G/DL CALC A/G RATIO (test code = 2234) 1.1 RATIO BILIRUBIN, TOTAL (test code = 2206) 0.4 MG/DL ALKALINE PHOSPHATASE (test code = 2204) 212 U/L AST (test code = 2218) 49 U/L ALT (test code = 2219) 53 U/L [id number] 00:00:00* Test Item Value Reference Range Interpretation Comme nts FERRITIN (test code = 5) 11 NG/ML IRON BINDING CAPACITY AND IRON AND % [id number] 00:00:00* Test Item Value Reference Range Interpretation Comme nts IRON, SERUM (test code = 222) 23 UG/DL UNSATURATED IBC (test code = 69173) 478 UG/DL CALC TOTAL IBC (test code = 2076) 501 UG/DL CALC % IRON SAT (test code = 2078) 5 % [id number] 00:00:00* Test Item Value Reference Range Interpretation Comme nts TRANSFERRIN (test code = 4936) 410 MG/DL VITAMIN B 12 AND FOLIC [id number] 00:00:00* Test Item Value Reference Range Interpretation Comme nts VITAMIN B-12 (test code = 2840) 519 PG/ML FOLIC ACID (test code = 2695) 7.1 UG/L CBC W/AUTO [id number] 00:00:00* Test Item Value Reference Range Interpretation Comme nts WBC (test code = 1001) 7.5 K/UL RBC (test code = 1002) 4.41 M/UL HEMOGLOBIN (test code = 1003) 8.0 G/DL HEMATOCRIT (test code = 1004) 27.7 % MCV (test code = 1005) 62.8 fL MCH (test code = 1006) 18.1 PG MCHC (test code = 1007) 28.9 G/DL RDW (test code = 1038) 17.8 % NEUTROPHILS (test code = 1008) 56.3 % LYMPHOCYTES (test code = 1010) 34.4 % MONOCYTES (test code = 1011) 5.6 % EOSINOPHILS (test code = 1012) 2.8 % BASOPHILS (test code = 1013) 0.5 % IMMATURE GRANULOCYTES (test code = 1036) 0.4 % NUCLEATED RBCS (test code = 1065) 0.0 /100WBC'S PLATELET COUNT (test code = 1015) 246 K/UL ABSOLUTE NEUTROPHILS (test c ode = 1066) 4.21 K/UL ABSOLUTE LYMPHOCYTES (test c ode = 1067) 2.57 K/UL ABSOLUTE MONOCYTES (test cod e = 1068) 0.42 K/UL ABSOLUTE EOSINOPHILS (test c ode = 1040) 0.21 K/UL ABSOLUTE BASOPHILS (test cod e = 1069) 0.04 K/UL ABS IMMATURE GRANULOCYTES (t est code = 1020) 0.03 K/UL ABS NUCLEATED RBCS (test cod e = 94272) 0.00 K/UL COMMENTS (test code = 1016) (NOTE) CBC W/AUTO [id number] 00:00:00* Test Item Value Reference Range Interpretation Comme nts WBC (test code = 1001) 7.5 K/UL RBC (test code = 1002) 4.41 M/UL HEMOGLOBIN (test code = 1003) 8.0 G/DL HEMATOCRIT (test code = 1004) 27.7 % MCV (test code = 1005) 62.8 fL MCH (test code = 1006) 18.1 PG MCHC (test code = 1007) 28.9 G/DL RDW (test code = 1038) 17.8 % NEUTROPHILS (test code = 1008) 56.3 % LYMPHOCYTES (test code = 1010) 34.4 % MONOCYTES (test code = 1011) 5.6 % EOSINOPHILS (test code = 1012) 2.8 % BASOPHILS (test code = 1013) 0.5 % IMMATURE GRANULOCYTES (test code = 1036) 0.4 % NUCLEATED RBCS (test code = 1065) 0.0 /100WBC'S PLATELET COUNT (test code = 1015) 246 K/UL ABSOLUTE NEUTROPHILS (test c ode = 1066) 4.21 K/UL ABSOLUTE LYMPHOCYTES (test c ode = 1067) 2.57 K/UL ABSOLUTE MONOCYTES (test cod e = 1068) 0.42 K/UL ABSOLUTE EOSINOPHILS (test c ode = 1040) 0.21 K/UL ABSOLUTE BASOPHILS (test cod e = 1069) 0.04 K/UL ABS IMMATURE GRANULOCYTES (t est code = 1020) 0.03 K/UL ABS NUCLEATED RBCS (test cod e = 42926) 0.00 K/UL COMMENTS (test code = 1016) (NOTE) VITAMIN D, 25 [id number] 00:00:00* Test Item Value Reference Range Interpretation Comme nts VITAMIN D, 25 OH (test code = 4958) 18 NG/ML HEMOGLOBIN [id number] 00:00:00* Test Item Value Reference Range Interpretation Comme nts HEMOGLOBIN A1c (test code = 09788) 7.8 % HEMOGLOBIN [id number] 00:00:00* Test Item Value Reference Range Interpretation Comme nts HEMOGLOBIN A1c (test code = 01018) 7.8 % LIPID [id number] 00:00:00* Test Item Value Reference Range Interpretation Comme nts CHOLESTEROL (test code = 2210) 175 MG/DL TRIGLYCERIDES (test code = 2232) 226 MG/DL HDL CHOLESTEROL (test code = 2220) 39 MG/DL CALC LDL CHOL (test code = 2237) 102 MG/DL RISK RATIO LDL/HDL (test cod e = 2238) 2.62 RATIO COMPREHENSIVE METABOLIC [id number] 00:00:00* Test Item Value Reference Range Interpretation Comme nts GLUCOSE (test code = 2217) 158 MG/DL BUN (test code = 2208) 11 MG/DL CREATININE (test code = 2214) 0.48 MG/DL eGFR AMER. (test cod e = 48629) 136 ML/MIN/1.73 eGFR NON- AMER. (test code = 15111) 118 ML/MIN/1.73 CALC BUN/CREAT (test code = 2234) 23 RATIO SODIUM (test code = 2230) 142 MEQ/L POTASSIUM (test code = 2228) 4.3 MEQ/L CHLORIDE (test code = 5) 104 MEQ/L CARBON DIOXIDE (test code = 2205) 26 MEQ/L CALCIUM (test code = 9) 9.6 MG/DL PROTEIN, TOTAL (test code = 2228) 7.6 G/DL ALBUMIN (test code = 2200) 4.0 G/DL CALC GLOBULIN (test code = 0) 3.6 G/DL CALC A/G RATIO (test code = 2233) 1.1 RATIO BILIRUBIN, TOTAL (test code = 2206) 0.4 MG/DL ALKALINE PHOSPHATASE (test code = 2203) 212 U/L AST (test code = 2217) 49 U/L ALT (test code = 2218) 53 U/L [id number] 00:00:00* Test Item Value Reference Range Interpretation Comme nts FERRITIN (test code = 2074) 11 NG/ML IRON BINDING CAPACITY AND IRON AND % [id number] 00:00:00* Test Item Value Reference Range Interpretation Comme nts IRON, SERUM (test code = 2221) 23 UG/DL UNSATURATED IBC (test code = 53470) 478 UG/DL CALC TOTAL IBC (test code = 2076) 501 UG/DL CALC % IRON SAT (test code = 2078) 5 % [id number] 00:00:00* Test Item Value Reference Range Interpretation Comme nts TRANSFERRIN (test code = 4936) 410 MG/DL VITAMIN B 12 AND FOLIC [id number] 00:00:00* Test Item Value Reference Range Interpretation Comme nts VITAMIN B-12 (test code = 2840) 519 PG/ML FOLIC ACID (test code = 2695) 7.1 UG/L CBC W/AUTO [id number] 00:00:00* Test Item Value Reference Range Interpretation Comme nts WBC (test code = 1001) 7.5 K/UL RBC (test code = 1002) 4.41 M/UL HEMOGLOBIN (test code = 1003) 8.0 G/DL HEMATOCRIT (test code = 1004) 27.7 % MCV (test code = 1005) 62.8 fL MCH (test code = 1006) 18.1 PG MCHC (test code = 1007) 28.9 G/DL RDW (test code = 1038) 17.8 % NEUTROPHILS (test code = 1008) 56.3 % LYMPHOCYTES (test code = 1010) 34.4 % MONOCYTES (test code = 1011) 5.6 % EOSINOPHILS (test code = 1012) 2.8 % BASOPHILS (test code = 1013) 0.5 % IMMATURE GRANULOCYTES (test code = 1036) 0.4 % NUCLEATED RBCS (test code = 1065) 0.0 /100WBC'S PLATELET COUNT (test code = 1015) 246 K/UL ABSOLUTE NEUTROPHILS (test c ode = 1066) 4.21 K/UL ABSOLUTE LYMPHOCYTES (test c ode = 1067) 2.57 K/UL ABSOLUTE MONOCYTES (test cod e = 1068) 0.42 K/UL ABSOLUTE EOSINOPHILS (test c ode = 1040) 0.21 K/UL ABSOLUTE BASOPHILS (test cod e = 1069) 0.04 K/UL ABS IMMATURE GRANULOCYTES (t est code = 1020) 0.03 K/UL ABS NUCLEATED RBCS (test cod e = 20189) 0.00 K/UL COMMENTS (test code = 1016) (NOTE) CBC W/AUTO [id number] 00:00:00* Test Item Value Reference Range Interpretation Comme nts WBC (test code = 1001) 7.5 K/UL RBC (test code = 1002) 4.41 M/UL HEMOGLOBIN (test code = 1003) 8.0 G/DL HEMATOCRIT (test code = 1004) 27.7 % MCV (test code = 1005) 62.8 fL MCH (test code = 1006) 18.1 PG MCHC (test code = 1007) 28.9 G/DL RDW (test code = 1038) 17.8 % NEUTROPHILS (test code = 1008) 56.3 % LYMPHOCYTES (test code = 1010) 34.4 % MONOCYTES (test code = 1011) 5.6 % EOSINOPHILS (test code = 1012) 2.8 % BASOPHILS (test code = 1013) 0.5 % IMMATURE GRANULOCYTES (test code = 1036) 0.4 % NUCLEATED RBCS (test code = 1065) 0.0 /100WBC'S PLATELET COUNT (test code = 1015) 246 K/UL ABSOLUTE NEUTROPHILS (test c ode = 1066) 4.21 K/UL ABSOLUTE LYMPHOCYTES (test c ode = 1067) 2.57 K/UL ABSOLUTE MONOCYTES (test cod e = 1068) 0.42 K/UL ABSOLUTE EOSINOPHILS (test c ode = 1040) 0.21 K/UL ABSOLUTE BASOPHILS (test cod e = 1069) 0.04 K/UL ABS IMMATURE GRANULOCYTES (t est code = 1020) 0.03 K/UL ABS NUCLEATED RBCS (test cod e = 61691) 0.00 K/UL COMMENTS (test code = 1016) (NOTE) CBC W/AUTO [id number] 00:00:00* Test Item Value Reference Range Interpretation Comme nts WBC (test code = 1001) 7.5 K/UL RBC (test code = 1002) 4.41 M/UL HEMOGLOBIN (test code = 1003) 8.0 G/DL HEMATOCRIT (test code = 1004) 27.7 % MCV (test code = 1005) 62.8 fL MCH (test code = 1006) 18.1 PG MCHC (test code = 1007) 28.9 G/DL RDW (test code = 1038) 17.8 % NEUTROPHILS (test code = 1008) 56.3 % LYMPHOCYTES (test code = 1010) 34.4 % MONOCYTES (test code = 1011) 5.6 % EOSINOPHILS (test code = 1012) 2.8 % BASOPHILS (test code = 1013) 0.5 % IMMATURE GRANULOCYTES (test code = 1036) 0.4 % NUCLEATED RBCS (test code = 1065) 0.0 /100WBC'S PLATELET COUNT (test code = 1015) 246 K/UL ABSOLUTE NEUTROPHILS (test c ode = 1066) 4.21 K/UL ABSOLUTE LYMPHOCYTES (test c ode = 1067) 2.57 K/UL ABSOLUTE MONOCYTES (test cod e = 1068) 0.42 K/UL ABSOLUTE EOSINOPHILS (test c ode = 1040) 0.21 K/UL ABSOLUTE BASOPHILS (test cod e = 1069) 0.04 K/UL ABS IMMATURE GRANULOCYTES (t est code = 1020) 0.03 K/UL ABS NUCLEATED RBCS (test cod e = 63874) 0.00 K/UL COMMENTS (test code = 1016) (NOTE) CBC W/AUTO [id number] 00:00:00* Test Item Value Reference Range Interpretation Comme nts WBC (test code = 1001) 7.5 K/UL RBC (test code = 1002) 4.41 M/UL HEMOGLOBIN (test code = 1003) 8.0 G/DL HEMATOCRIT (test code = 1004) 27.7 % MCV (test code = 1005) 62.8 fL MCH (test code = 1006) 18.1 PG MCHC (test code = 1007) 28.9 G/DL RDW (test code = 1038) 17.8 % NEUTROPHILS (test code = 1008) 56.3 % LYMPHOCYTES (test code = 1010) 34.4 % MONOCYTES (test code = 1011) 5.6 % EOSINOPHILS (test code = 1012) 2.8 % BASOPHILS (test code = 1013) 0.5 % IMMATURE GRANULOCYTES (test code = 1036) 0.4 % NUCLEATED RBCS (test code = 1065) 0.0 /100WBC'S PLATELET COUNT (test code = 1015) 246 K/UL ABSOLUTE NEUTROPHILS (test c ode = 1066) 4.21 K/UL ABSOLUTE LYMPHOCYTES (test c ode = 1067) 2.57 K/UL ABSOLUTE MONOCYTES (test cod e = 1068) 0.42 K/UL ABSOLUTE EOSINOPHILS (test c ode = 1040) 0.21 K/UL ABSOLUTE BASOPHILS (test cod e = 1069) 0.04 K/UL ABS IMMATURE GRANULOCYTES (t est code = 1020) 0.03 K/UL ABS NUCLEATED RBCS (test cod e = 98987) 0.00 K/UL COMMENTS (test code = 1016) (NOTE) CBC W/AUTO [id number] 00:00:00* Test Item Value Reference Range Interpretation Comme nts WBC (test code = 1001) 7.5 K/UL RBC (test code = 1002) 4.41 M/UL HEMOGLOBIN (test code = 1003) 8.0 G/DL HEMATOCRIT (test code = 1004) 27.7 % MCV (test code = 1005) 62.8 fL MCH (test code = 1006) 18.1 PG MCHC (test code = 1007) 28.9 G/DL RDW (test code = 1038) 17.8 % NEUTROPHILS (test code = 1008) 56.3 % LYMPHOCYTES (test code = 1010) 34.4 % MONOCYTES (test code = 1011) 5.6 % EOSINOPHILS (test code = 1012) 2.8 % BASOPHILS (test code = 1013) 0.5 % IMMATURE GRANULOCYTES (test code = 1036) 0.4 % NUCLEATED RBCS (test code = 1065) 0.0 /100WBC'S PLATELET COUNT (test code = 1015) 246 K/UL ABSOLUTE NEUTROPHILS (test c ode = 1066) 4.21 K/UL ABSOLUTE LYMPHOCYTES (test c ode = 1067) 2.57 K/UL ABSOLUTE MONOCYTES (test cod e = 1068) 0.42 K/UL ABSOLUTE EOSINOPHILS (test c ode = 1040) 0.21 K/UL ABSOLUTE BASOPHILS (test cod e = 1069) 0.04 K/UL ABS IMMATURE GRANULOCYTES (t est code = 1020) 0.03 K/UL ABS NUCLEATED RBCS (test cod e = 80813) 0.00 K/UL COMMENTS (test code = 1016) (NOTE) VITAMIN D, 25 [id number] 00:00:00* Test Item Value Reference Range Interpretation Comme [facility] VITAMIN D, 25 OH (test code = 4958) 18 NG/ML VITAMIN D, 25 [id number] 00:00:00* Test Item Value Reference Range Interpretation Comme [facility] VITAMIN D, 25 OH (test code = 4958) 18 NG/ML HEMOGLOBIN [id number] 00:00:00* Test Item Value Reference Range Interpretation Comme [facility] HEMOGLOBIN A1c (test code = 81983) 7.8 % HEMOGLOBIN [id number] 00:00:00* Test Item Value Reference Range Interpretation Comme nts HEMOGLOBIN A1c (test code = 32913) 7.8 % HEMOGLOBIN [id number] 00:00:00* Test Item Value Reference Range Interpretation Comme nts HEMOGLOBIN A1c (test code = 70716) 7.8 % LIPID [id number] 00:00:00* Test Item Value Reference Range Interpretation Comme nts CHOLESTEROL (test code = 2210) 175 MG/DL TRIGLYCERIDES (test code = 2232) 226 MG/DL HDL CHOLESTEROL (test code = 2220) 39 MG/DL CALC LDL CHOL (test code = 2237) 102 MG/DL RISK RATIO LDL/HDL (test cod e = 2238) 2.62 RATIO LIPID [id number] 00:00:00* Test Item Value Reference Range Interpretation Comme nts CHOLESTEROL (test code = 2210) 175 MG/DL TRIGLYCERIDES (test code = 2232) 226 MG/DL HDL CHOLESTEROL (test code = 2220) 39 MG/DL CALC LDL CHOL (test code = 2237) 102 MG/DL RISK RATIO LDL/HDL (test cod e = 2238) 2.62 RATIO COMPREHENSIVE METABOLIC [id number] 00:00:00* Test Item Value Reference Range Interpretation Comme nts GLUCOSE (test code = 2217) 158 MG/DL BUN (test code = 2208) 11 MG/DL CREATININE (test code = 2214) 0.48 MG/DL eGFR AMER. (test cod e = 33595) 136 ML/MIN/1.73 eGFR NON- AMER. (test code = 92687) 118 ML/MIN/1.73 CALC BUN/CREAT (test code = 2235) 23 RATIO SODIUM (test code = 2231) 142 MEQ/L POTASSIUM (test code = 2228) 4.3 MEQ/L CHLORIDE (test code = 2215) 104 MEQ/L CARBON DIOXIDE (test code = 2206) 26 MEQ/L CALCIUM (test code = 2209) 9.6 MG/DL PROTEIN, TOTAL (test code = 2229) 7.6 G/DL ALBUMIN (test code = 2201) 4.0 G/DL CALC GLOBULIN (test code = 2240) 3.6 G/DL CALC A/G RATIO (test code = 2234) 1.1 RATIO BILIRUBIN, TOTAL (test code = 2207) 0.4 MG/DL ALKALINE PHOSPHATASE (test code = 2204) 212 U/L AST (test code = 2218) 49 U/L ALT (test code = 2219) 53 U/L COMPREHENSIVE METABOLIC [id number] 00:00:00* Test Item Value Reference Range Interpretation Comme nts GLUCOSE (test code = 2217) 158 MG/DL BUN (test code = 2208) 11 MG/DL CREATININE (test code = 2214) 0.48 MG/DL eGFR AMER. (test cod e = 72707) 136 ML/MIN/1.73 eGFR NON- AMER. (test code = 32924) 118 ML/MIN/1.73 CALC BUN/CREAT (test code = 2235) 23 RATIO SODIUM (test code = 2230) 142 MEQ/L POTASSIUM (test code = 8) 4.3 MEQ/L CHLORIDE (test code = 5) 104 MEQ/L CARBON DIOXIDE (test code = 2205) 26 MEQ/L CALCIUM (test code = 2208) 9.6 MG/DL PROTEIN, TOTAL (test code = 2228) 7.6 G/DL ALBUMIN (test code = 2200) 4.0 G/DL CALC GLOBULIN (test code = 0) 3.6 G/DL CALC A/G RATIO (test code = 2233) 1.1 RATIO BILIRUBIN, TOTAL (test code = 2206) 0.4 MG/DL ALKALINE PHOSPHATASE (test code = 2203) 212 U/L AST (test code = 2217) 49 U/L ALT (test code = 2218) 53 U/L [id number] 00:00:00* Test Item Value Reference Range Interpretation Comme nts FERRITIN (test code = 2074) 11 NG/ML [id number] 00:00:00* Test Item Value Reference Range Interpretation Comme nts FERRITIN (test code = 2074) 11 NG/ML IRON BINDING CAPACITY AND IRON AND % [id number] 00:00:00* Test Item Value Reference Range Interpretation Comme nts IRON, SERUM (test code = 2221) 23 UG/DL UNSATURATED IBC (test code = ) 478 UG/DL CALC TOTAL IBC (test code = 2076) 501 UG/DL CALC % IRON SAT (test code = 2078) 5 % IRON BINDING CAPACITY AND IRON AND % [id number] 00:00:00* Test Item Value Reference Range Interpretation Comme nts IRON, SERUM (test code = 2221) 23 UG/DL UNSATURATED IBC (test code = 82341) 478 UG/DL CALC TOTAL IBC (test code = 2076) 501 UG/DL CALC % IRON SAT (test code = 2078) 5 % [id number] 00:00:00* Test Item Value Reference Range Interpretation Comme nts TRANSFERRIN (test code = 4936) 410 MG/DL [id number] 00:00:00* Test Item Value Reference Range Interpretation Comme nts TRANSFERRIN (test code = 4936) 410 MG/DL VITAMIN B 12 AND FOLIC [id number] 00:00:00* Test Item Value Reference Range Interpretation Comme nts VITAMIN B-12 (test code = 2840) 519 PG/ML FOLIC ACID (test code = 2695) 7.1 UG/L VITAMIN B 12 AND FOLIC [id number] 00:00:00* Test Item Value Reference Range Interpretation Comme nts VITAMIN B-12 (test code = 2840) 519 PG/ML FOLIC ACID (test code = 2695) 7.1 UG/L VITAMIN D, 25 [id number] 00:00:00* Test Item Value Reference Range Interpretation Comme nts VITAMIN D, 25 OH (test code = 4958) 18 NG/ML CBC W/AUTO [id number] 00:00:00* Test Item Value Reference Range Interpretation Comme nts WBC (test code = 1001) 7.5 K/UL RBC (test code = 1002) 4.41 M/UL HEMOGLOBIN (test code = 1003) 8.0 G/DL HEMATOCRIT (test code = 1004) 27.7 % MCV (test code = 1005) 62.8 fL MCH (test code = 1006) 18.1 PG MCHC (test code = 1007) 28.9 G/DL RDW (test code = 1038) 17.8 % NEUTROPHILS (test code = 1008) 56.3 % LYMPHOCYTES (test code = 1010) 34.4 % MONOCYTES (test code = 1011) 5.6 % EOSINOPHILS (test code = 1012) 2.8 % BASOPHILS (test code = 1013) 0.5 % IMMATURE GRANULOCYTES (test code = 1036) 0.4 % NUCLEATED RBCS (test code = 1065) 0.0 /100WBC'S PLATELET COUNT (test code = 1015) 246 K/UL ABSOLUTE NEUTROPHILS (test c ode = 1066) 4.21 K/UL ABSOLUTE LYMPHOCYTES (test c ode = 1067) 2.57 K/UL ABSOLUTE MONOCYTES (test cod e = 1068) 0.42 K/UL ABSOLUTE EOSINOPHILS (test c ode = 1040) 0.21 K/UL ABSOLUTE BASOPHILS (test cod e = 1069) 0.04 K/UL ABS IMMATURE GRANULOCYTES (t est code = 1020) 0.03 K/UL ABS NUCLEATED RBCS (test cod e = 13187) 0.00 K/UL COMMENTS (test code = 1016) (NOTE) CBC W/AUTO [id number] 00:00:00* Test Item Value Reference Range Interpretation Comme nts WBC (test code = 1001) 7.5 K/UL RBC (test code = 1002) 4.41 M/UL HEMOGLOBIN (test code = 1003) 8.0 G/DL HEMATOCRIT (test code = 1004) 27.7 % MCV (test code = 1005) 62.8 fL MCH (test code = 1006) 18.1 PG MCHC (test code = 1007) 28.9 G/DL RDW (test code = 1038) 17.8 % NEUTROPHILS (test code = 1008) 56.3 % LYMPHOCYTES (test code = 1010) 34.4 % MONOCYTES (test code = 1011) 5.6 % EOSINOPHILS (test code = 1012) 2.8 % BASOPHILS (test code = 1013) 0.5 % IMMATURE GRANULOCYTES (test code = 1036) 0.4 % NUCLEATED RBCS (test code = 1065) 0.0 /100WBC'S PLATELET COUNT (test code = 1015) 246 K/UL ABSOLUTE NEUTROPHILS (test c ode = 1066) 4.21 K/UL ABSOLUTE LYMPHOCYTES (test c ode = 1067) 2.57 K/UL ABSOLUTE MONOCYTES (test cod e = 1068) 0.42 K/UL ABSOLUTE EOSINOPHILS (test c ode = 1040) 0.21 K/UL ABSOLUTE BASOPHILS (test cod e = 1069) 0.04 K/UL ABS IMMATURE GRANULOCYTES (t est code = 1020) 0.03 K/UL ABS NUCLEATED RBCS (test cod e = 63458) 0.00 K/UL COMMENTS (test code = 1016) (NOTE) CBC W/AUTO [id number] 00:00:00* Test Item Value Reference Range Interpretation Comme nts WBC (test code = 1001) 7.5 K/UL RBC (test code = 1002) 4.41 M/UL HEMOGLOBIN (test code = 1003) 8.0 G/DL HEMATOCRIT (test code = 1004) 27.7 % MCV (test code = 1005) 62.8 fL MCH (test code = 1006) 18.1 PG MCHC (test code = 1007) 28.9 G/DL RDW (test code = 1038) 17.8 % NEUTROPHILS (test code = 1008) 56.3 % LYMPHOCYTES (test code = 1010) 34.4 % MONOCYTES (test code = 1011) 5.6 % EOSINOPHILS (test code = 1012) 2.8 % BASOPHILS (test code = 1013) 0.5 % IMMATURE GRANULOCYTES (test code = 1036) 0.4 % NUCLEATED RBCS (test code = 1065) 0.0 /100WBC'S PLATELET COUNT (test code = 1015) 246 K/UL ABSOLUTE NEUTROPHILS (test c ode = 1066) 4.21 K/UL ABSOLUTE LYMPHOCYTES (test c ode = 1067) 2.57 K/UL ABSOLUTE MONOCYTES (test cod e = 1068) 0.42 K/UL ABSOLUTE EOSINOPHILS (test c ode = 1040) 0.21 K/UL ABSOLUTE BASOPHILS (test cod e = 1069) 0.04 K/UL ABS IMMATURE GRANULOCYTES (t est code = 1020) 0.03 K/UL ABS NUCLEATED RBCS (test cod e = 81102) 0.00 K/UL COMMENTS (test code = 1016) (NOTE) CULTURE, [id number] 00:00:00* Test Item Value Reference Range Interpretation Comme nts CULTURE, URINE (test code = 20317) SPECIMEN NUMBER: [id number] CULTURE, [id number] 00:00:00* Test Item Value Reference Range Interpretation Comme nts CULTURE, URINE (test code = 24429) SPECIMEN NUMBER: [id number] CULTURE, [id number] 00:00:00* Test Item Value Reference Range Interpretation Comme nts CULTURE, URINE (test code = 03616) SPECIMEN NUMBER: [id number] CULTURE, [id number] 00:00:00* Test Item Value Reference Range Interpretation Comme nts CULTURE, URINE (test code = 49468) SPECIMEN NUMBER: [id number] CULTURE, [id number] 00:00:00* Test Item Value Reference Range Interpretation Comme nts CULTURE, URINE (test code = 91098) SPECIMEN NUMBER: [id number] CULTURE, [id number] 00:00:00* Test Item Value Reference Range Interpretation Comme nts CULTURE, URINE (test code = 72597) SPECIMEN NUMBER: [id number] CULTURE, [id number] 00:00:00* Test Item Value Reference Range Interpretation Comme nts CULTURE, URINE (test code = 13682) SPECIMEN NUMBER: [id number] HEMOGLOBIN [id number] 00:00:00* Test Item Value Reference Range Interpretation Comme nts HEMOGLOBIN A1c (test code = 06812) 7.3 % HEMOGLOBIN [id number] 00:00:00* Test Item Value Reference Range Interpretation Comme nts HEMOGLOBIN A1c (test code = 37486) 7.3 % HEMOGLOBIN [id number] 00:00:00* Test Item Value Reference Range Interpretation Comme nts HEMOGLOBIN A1c (test code = 53315) 7.3 % LIPID [id number] 00:00:00* Test Item Value Reference Range Interpretation Comme nts CHOLESTEROL (test code = 2210) 210 MG/DL TRIGLYCERIDES (test code = 2232) 291 MG/DL HDL CHOLESTEROL (test code = 2220) 44 MG/DL CALC LDL CHOL (test code = 2237) 121 MG/DL RISK RATIO LDL/HDL (test cod e = 2238) 2.75 RATIO LIPID [id number] 00:00:00* Test Item Value Reference Range Interpretation Comme nts CHOLESTEROL (test code = 2210) 210 MG/DL TRIGLYCERIDES (test code = 2232) 291 MG/DL HDL CHOLESTEROL (test code = 2220) 44 MG/DL CALC LDL CHOL (test code = 2237) 121 MG/DL RISK RATIO LDL/HDL (test cod e = 2238) 2.75 RATIO LIPID [id number] 00:00:00* Test Item Value Reference Range Interpretation Comme nts CHOLESTEROL (test code = 2210) 210 MG/DL TRIGLYCERIDES (test code = 2232) 291 MG/DL HDL CHOLESTEROL (test code = 2220) 44 MG/DL CALC LDL CHOL (test code = 2237) 121 MG/DL RISK RATIO LDL/HDL (test cod e = 2238) 2.75 RATIO COMPREHENSIVE METABOLIC [id number] 00:00:00* Test Item Value Reference Range Interpretation Comme nts GLUCOSE (test code = 2217) 137 MG/DL BUN (test code = 2208) 8 MG/DL CREATININE (test code = 2214) 0.49 MG/DL eGFR AMER. (test cod e = 92261) 136 ML/MIN/1.73 eGFR NON- AMER. (test code = 69814) 118 ML/MIN/1.73 CALC BUN/CREAT (test code = 2235) 16 RATIO SODIUM (test code = 2231) 141 MEQ/L POTASSIUM (test code = 2228) 4.4 MEQ/L CHLORIDE (test code = 2215) 102 MEQ/L CARBON DIOXIDE (test code = 2206) 27 MEQ/L CALCIUM (test code = 2209) 9.8 MG/DL PROTEIN, TOTAL (test code = 2229) 7.6 G/DL ALBUMIN (test code = 2201) 4.1 G/DL CALC GLOBULIN (test code = 2240) 3.5 G/DL CALC A/G RATIO (test code = 2234) 1.2 RATIO BILIRUBIN, TOTAL (test code = 2207) 0.4 MG/DL ALKALINE PHOSPHATASE (test code = 2204) 176 U/L AST (test code = 2218) 69 U/L ALT (test code = 2219) 78 U/L COMPREHENSIVE METABOLIC [id number] 00:00:00* Test Item Value Reference Range Interpretation Comme nts GLUCOSE (test code = 2217) 137 MG/DL BUN (test code = 2208) 8 MG/DL CREATININE (test code = 2214) 0.49 MG/DL eGFR AMER. (test cod e = 81930) 136 ML/MIN/1.73 eGFR NON- AMER. (test code = 23760) 118 ML/MIN/1.73 CALC BUN/CREAT (test code = 2235) 16 RATIO SODIUM (test code = 2231) 141 MEQ/L POTASSIUM (test code = 2228) 4.4 MEQ/L CHLORIDE (test code = 2215) 102 MEQ/L CARBON DIOXIDE (test code = 2206) 27 MEQ/L CALCIUM (test code = 2209) 9.8 MG/DL PROTEIN, TOTAL (test code = 2229) 7.6 G/DL ALBUMIN (test code = 2201) 4.1 G/DL CALC GLOBULIN (test code = 2240) 3.5 G/DL CALC A/G RATIO (test code = 2234) 1.2 RATIO BILIRUBIN, TOTAL (test code = 2207) 0.4 MG/DL ALKALINE PHOSPHATASE (test code = 2204) 176 U/L AST (test code = 2218) 69 U/L ALT (test code = 2219) 78 U/L [id number] 00:00:00* Test Item Value Reference Range Interpretation Comme nts TSH, THIRD GENERATION (test code = 2821) 1.490 UIU/ML [id number] 00:00:00* Test Item Value Reference Range Interpretation Comme nts TSH, THIRD GENERATION (test code = 2821) 1.490 UIU/ML [id number] 00:00:00* Test Item Value Reference Range Interpretation Comme nts TSH, THIRD GENERATION (test code = 2821) 1.490 UIU/ML VITAMIN D, 25 [id number] 00:00:00* Test Item Value Reference Range Interpretation Comme nts VITAMIN D, 25 OH (test code = 4958) 29 NG/ML VITAMIN D, 25 [id number] 00:00:00* Test Item Value Reference Range Interpretation Comme nts VITAMIN D, 25 OH (test code = 4958) 29 NG/ML HIV AB/AG COMBO RFLX [id number] 00:00:00* Test Item Value Reference Range Interpretation Comme nts HIV 1/2 4TH GEN, RFLX CONF ( test code = 3514) NON-REACTIVE HIV AB/AG COMBO RFLX [id number] 00:00:00* Test Item Value Reference Range Interpretation Comme nts HIV 1/2 4TH GEN, RFLX CONF ( test code = 3514) NON-REACTIVE COMPREHENSIVE METABOLIC [id number] 00:00:00* Test Item Value Reference Range Interpretation Comme nts GLUCOSE (test code = 2217) 137 MG/DL BUN (test code = 2208) 8 MG/DL CREATININE (test code = 2214) 0.49 MG/DL eGFR AMER. (test cod e = 78085) 136 ML/MIN/1.73 eGFR NON- AMER. (test code = 58409) 118 ML/MIN/1.73 CALC BUN/CREAT (test code = 2235) 16 RATIO SODIUM (test code = 2231) 141 MEQ/L POTASSIUM (test code = 2228) 4.4 MEQ/L CHLORIDE (test code = 2215) 102 MEQ/L CARBON DIOXIDE (test code = 2206) 27 MEQ/L CALCIUM (test code = 2209) 9.8 MG/DL PROTEIN, TOTAL (test code = 2229) 7.6 G/DL ALBUMIN (test code = 2201) 4.1 G/DL CALC GLOBULIN (test code = 2240) 3.5 G/DL CALC A/G RATIO (test code = 2234) 1.2 RATIO BILIRUBIN, TOTAL (test code = 2207) 0.4 MG/DL ALKALINE PHOSPHATASE (test code = 2204) 176 U/L AST (test code = 2218) 69 U/L ALT (test code = 2219) 78 U/L [id number] 00:00:00* Test Item Value Reference Range Interpretation Comme [facility] TSH, THIRD GENERATION (test code = 2821) 1.490 UIU/ML [id number] 00:00:00* Test Item Value Reference Range Interpretation Comme [facility] TSH, THIRD GENERATION (test code = 2821) 1.490 UIU/ML VITAMIN D, 25 [id number] 00:00:00* Test Item Value Reference Range Interpretation Comme [facility] VITAMIN D, 25 OH (test code = 4958) 29 NG/ML HIV AB/AG COMBO RFLX [id number] 00:00:00* Test Item Value Reference Range Interpretation Comme [facility] HIV 1/2 4TH GEN, RFLX CONF ( test code = 3514) NON-REACTIVE CBC W/AUTO [id number] 00:00:00* Test Item Value Reference Range Interpretation Comme [facility] WBC (test code = 1001) 6.9 K/UL RBC (test code = 1002) 4.61 M/UL HEMOGLOBIN (test code = 1003) 8.7 G/DL HEMATOCRIT (test code = 1004) 30.0 % MCV (test code = 1005) 65.1 fL MCH (test code = 1006) 18.9 PG MCHC (test code = 1007) 29.0 G/DL RDW (test code = 1038) 18.4 % NEUTROPHILS (test code = 1008) 56.8 % LYMPHOCYTES (test code = 1010) 34.0 % MONOCYTES (test code = 1011) 5.7 % EOSINOPHILS (test code = 1012) 2.6 % BASOPHILS (test code = 1013) 0.6 % IMMATURE GRANULOCYTES (test code = 1036) 0.3 % NUCLEATED RBCS (test code = 1065) 0.0 /100WBC'S PLATELET COUNT (test code = 1015) 281 K/UL ABSOLUTE NEUTROPHILS (test c ode = 1066) 3.92 K/UL ABSOLUTE LYMPHOCYTES (test c ode = 1067) 2.34 K/UL ABSOLUTE MONOCYTES (test cod e = 1068) 0.39 K/UL ABSOLUTE EOSINOPHILS (test c ode = 1040) 0.18 K/UL ABSOLUTE BASOPHILS (test cod e = 1069) 0.04 K/UL ABS IMMATURE GRANULOCYTES (t est code = 1020) 0.02 K/UL ABS NUCLEATED RBCS (test cod e = 85230) 0.00 K/UL CBC W/AUTO [id number] 00:00:00* Test Item Value Reference Range Interpretation Comme nts WBC (test code = 1001) 6.9 K/UL RBC (test code = 1002) 4.61 M/UL HEMOGLOBIN (test code = 1003) 8.7 G/DL HEMATOCRIT (test code = 1004) 30.0 % MCV (test code = 1005) 65.1 fL MCH (test code = 1006) 18.9 PG MCHC (test code = 1007) 29.0 G/DL RDW (test code = 1038) 18.4 % NEUTROPHILS (test code = 1008) 56.8 % LYMPHOCYTES (test code = 1010) 34.0 % MONOCYTES (test code = 1011) 5.7 % EOSINOPHILS (test code = 1012) 2.6 % BASOPHILS (test code = 1013) 0.6 % IMMATURE GRANULOCYTES (test code = 1036) 0.3 % NUCLEATED RBCS (test code = 1065) 0.0 /100WBC'S PLATELET COUNT (test code = 1015) 281 K/UL ABSOLUTE NEUTROPHILS (test c ode = 1066) 3.92 K/UL ABSOLUTE LYMPHOCYTES (test c ode = 1067) 2.34 K/UL ABSOLUTE MONOCYTES (test cod e = 1068) 0.39 K/UL ABSOLUTE EOSINOPHILS (test c ode = 1040) 0.18 K/UL ABSOLUTE BASOPHILS (test cod e = 1069) 0.04 K/UL ABS IMMATURE GRANULOCYTES (t est code = 1020) 0.02 K/UL ABS NUCLEATED RBCS (test cod e = 86037) 0.00 K/UL HEMOGLOBIN [id number] 00:00:00* Test Item Value Reference Range Interpretation Comme nts HEMOGLOBIN A1c (test code = 96337) 7.3 % HEMOGLOBIN [id number] 00:00:00* Test Item Value Reference Range Interpretation Comme nts HEMOGLOBIN A1c (test code = 14161) 7.3 % LIPID [id number] 00:00:00* Test Item Value Reference Range Interpretation Comme nts CHOLESTEROL (test code = 2210) 210 MG/DL TRIGLYCERIDES (test code = 2232) 291 MG/DL HDL CHOLESTEROL (test code = 2220) 44 MG/DL CALC LDL CHOL (test code = 2237) 121 MG/DL RISK RATIO LDL/HDL (test cod e = 2238) 2.75 RATIO COMPREHENSIVE METABOLIC [id number] 00:00:00* Test Item Value Reference Range Interpretation Comme nts GLUCOSE (test code = 2217) 137 MG/DL BUN (test code = 2208) 8 MG/DL CREATININE (test code = 2214) 0.49 MG/DL eGFR AMER. (test cod e = 56699) 136 ML/MIN/1.73 eGFR NON- AMER. (test code = 10386) 118 ML/MIN/1.73 CALC BUN/CREAT (test code = 2235) 16 RATIO SODIUM (test code = 2231) 141 MEQ/L POTASSIUM (test code = 2228) 4.4 MEQ/L CHLORIDE (test code = 2215) 102 MEQ/L CARBON DIOXIDE (test code = 2206) 27 MEQ/L CALCIUM (test code = 2209) 9.8 MG/DL PROTEIN, TOTAL (test code = 2229) 7.6 G/DL ALBUMIN (test code = 2201) 4.1 G/DL CALC GLOBULIN (test code = 2240) 3.5 G/DL CALC A/G RATIO (test code = 2234) 1.2 RATIO BILIRUBIN, TOTAL (test code = 2207) 0.4 MG/DL ALKALINE PHOSPHATASE (test code = 2204) 176 U/L AST (test code = 2218) 69 U/L ALT (test code = 2219) 78 U/L [id number] 00:00:00* Test Item Value Reference Range Interpretation Comme nts TSH, THIRD GENERATION (test code = 2821) 1.490 UIU/ML [id number] 00:00:00* Test Item Value Reference Range Interpretation Comme nts TSH, THIRD GENERATION (test code = 2821) 1.490 UIU/ML VITAMIN D, 25 [id number] 00:00:00* Test Item Value Reference Range Interpretation Comme [facility] VITAMIN D, 25 OH (test code = 4958) 29 NG/ML HIV AB/AG COMBO RFLX [id number] 00:00:00* Test Item Value Reference Range Interpretation Comme [facility] HIV 1/2 4TH GEN, RFLX CONF ( test code = 3514) NON-REACTIVE CBC W/AUTO [id number] 00:00:00* Test Item Value Reference Range Interpretation Comme nts WBC (test code = 1001) 6.9 K/UL RBC (test code = 1002) 4.61 M/UL HEMOGLOBIN (test code = 1003) 8.7 G/DL HEMATOCRIT (test code = 1004) 30.0 % MCV (test code = 1005) 65.1 fL MCH (test code = 1006) 18.9 PG MCHC (test code = 1007) 29.0 G/DL RDW (test code = 1038) 18.4 % NEUTROPHILS (test code = 1008) 56.8 % LYMPHOCYTES (test code = 1010) 34.0 % MONOCYTES (test code = 1011) 5.7 % EOSINOPHILS (test code = 1012) 2.6 % BASOPHILS (test code = 1013) 0.6 % IMMATURE GRANULOCYTES (test code = 1036) 0.3 % NUCLEATED RBCS (test code = 1065) 0.0 /100WBC'S PLATELET COUNT (test code = 1015) 281 K/UL ABSOLUTE NEUTROPHILS (test c ode = 1066) 3.92 K/UL ABSOLUTE LYMPHOCYTES (test c ode = 1067) 2.34 K/UL ABSOLUTE MONOCYTES (test cod e = 1068) 0.39 K/UL ABSOLUTE EOSINOPHILS (test c ode = 1040) 0.18 K/UL ABSOLUTE BASOPHILS (test cod e = 1069) 0.04 K/UL ABS IMMATURE GRANULOCYTES (t est code = 1020) 0.02 K/UL ABS NUCLEATED RBCS (test cod e = 16074) 0.00 K/UL CBC W/AUTO [id number] 00:00:00* Test Item Value Reference Range Interpretation Comme nts WBC (test code = 1001) 6.9 K/UL RBC (test code = 1002) 4.61 M/UL HEMOGLOBIN (test code = 1003) 8.7 G/DL HEMATOCRIT (test code = 1004) 30.0 % MCV (test code = 1005) 65.1 fL MCH (test code = 1006) 18.9 PG MCHC (test code = 1007) 29.0 G/DL RDW (test code = 1038) 18.4 % NEUTROPHILS (test code = 1008) 56.8 % LYMPHOCYTES (test code = 1010) 34.0 % MONOCYTES (test code = 1011) 5.7 % EOSINOPHILS (test code = 1012) 2.6 % BASOPHILS (test code = 1013) 0.6 % IMMATURE GRANULOCYTES (test code = 1036) 0.3 % NUCLEATED RBCS (test code = 1065) 0.0 /100WBC'S PLATELET COUNT (test code = 1015) 281 K/UL ABSOLUTE NEUTROPHILS (test c ode = 1066) 3.92 K/UL ABSOLUTE LYMPHOCYTES (test c ode = 1067) 2.34 K/UL ABSOLUTE MONOCYTES (test cod e = 1068) 0.39 K/UL ABSOLUTE EOSINOPHILS (test c ode = 1040) 0.18 K/UL ABSOLUTE BASOPHILS (test cod e = 1069) 0.04 K/UL ABS IMMATURE GRANULOCYTES (t est code = 1020) 0.02 K/UL ABS NUCLEATED RBCS (test cod e = 93727) 0.00 K/UL HEMOGLOBIN [id number] 00:00:00* Test Item Value Reference Range Interpretation Comme nts HEMOGLOBIN A1c (test code = 82692) 7.3 % HEMOGLOBIN [id number] 00:00:00* Test Item Value Reference Range Interpretation Comme nts HEMOGLOBIN A1c (test code = 21692) 7.3 % LIPID [id number] 00:00:00* Test Item Value Reference Range Interpretation Comme nts CHOLESTEROL (test code = 2210) 210 MG/DL TRIGLYCERIDES (test code = 2232) 291 MG/DL HDL CHOLESTEROL (test code = 2220) 44 MG/DL CALC LDL CHOL (test code = 2237) 121 MG/DL RISK RATIO LDL/HDL (test cod e = 2238) 2.75 RATIO COMPREHENSIVE METABOLIC [id number] 00:00:00* Test Item Value Reference Range Interpretation Comme nts GLUCOSE (test code = 2217) 137 MG/DL BUN (test code = 2208) 8 MG/DL CREATININE (test code = 2214) 0.49 MG/DL eGFR AMER. (test cod e = ) 136 ML/MIN/1.73 eGFR NON- AMER. (test code = 63459) 118 ML/MIN/1.73 CALC BUN/CREAT (test code = 2235) 16 RATIO SODIUM (test code = 2231) 141 MEQ/L POTASSIUM (test code = 2228) 4.4 MEQ/L CHLORIDE (test code = 2215) 102 MEQ/L CARBON DIOXIDE (test code = 2206) 27 MEQ/L CALCIUM (test code = 2209) 9.8 MG/DL PROTEIN, TOTAL (test code = 222) 7.6 G/DL ALBUMIN (test code = 2201) 4.1 G/DL CALC GLOBULIN (test code = 2240) 3.5 G/DL CALC A/G RATIO (test code = 2234) 1.2 RATIO BILIRUBIN, TOTAL (test code = 2207) 0.4 MG/DL ALKALINE PHOSPHATASE (test code = 2204) 176 U/L AST (test code = 2218) 69 U/L ALT (test code = 2219) 78 U/L [id number] 00:00:00* Test Item Value Reference Range Interpretation Comme [facility] TSH, THIRD GENERATION (test code = 2821) 1.490 UIU/ML [id number] 00:00:00* Test Item Value Reference Range Interpretation Comme [facility] TSH, THIRD GENERATION (test code = 2821) 1.490 UIU/ML VITAMIN D, 25 [id number] 00:00:00* Test Item Value Reference Range Interpretation Comme [facility] VITAMIN D, 25 OH (test code = 4958) 29 NG/ML HIV AB/AG COMBO RFLX [id number] 00:00:00* Test Item Value Reference Range Interpretation Comme [facility] HIV 1/2 4TH GEN, RFLX CONF ( test code = 3514) NON-REACTIVE CBC W/AUTO [id number] 00:00:00* Test Item Value Reference Range Interpretation Comme [facility] WBC (test code = 1001) 6.9 K/UL RBC (test code = 1002) 4.61 M/UL HEMOGLOBIN (test code = 1003) 8.7 G/DL HEMATOCRIT (test code = 1004) 30.0 % MCV (test code = 1005) 65.1 fL MCH (test code = 1006) 18.9 PG MCHC (test code = 1007) 29.0 G/DL RDW (test code = 1038) 18.4 % NEUTROPHILS (test code = 1008) 56.8 % LYMPHOCYTES (test code = 1010) 34.0 % MONOCYTES (test code = 1011) 5.7 % EOSINOPHILS (test code = 1012) 2.6 % BASOPHILS (test code = 1013) 0.6 % IMMATURE GRANULOCYTES (test code = 1036) 0.3 % NUCLEATED RBCS (test code = 1065) 0.0 /100WBC'S PLATELET COUNT (test code = 1015) 281 K/UL ABSOLUTE NEUTROPHILS (test c ode = 1066) 3.92 K/UL ABSOLUTE LYMPHOCYTES (test c ode = 1067) 2.34 K/UL ABSOLUTE MONOCYTES (test cod e = 1068) 0.39 K/UL ABSOLUTE EOSINOPHILS (test c ode = 1040) 0.18 K/UL ABSOLUTE BASOPHILS (test cod e = 1069) 0.04 K/UL ABS IMMATURE GRANULOCYTES (t est code = 1020) 0.02 K/UL ABS NUCLEATED RBCS (test cod e = 29284) 0.00 K/UL CBC W/AUTO [id number] 00:00:00* Test Item Value Reference Range Interpretation Comme nts WBC (test code = 1001) 6.9 K/UL RBC (test code = 1002) 4.61 M/UL HEMOGLOBIN (test code = 1003) 8.7 G/DL HEMATOCRIT (test code = 1004) 30.0 % MCV (test code = 1005) 65.1 fL MCH (test code = 1006) 18.9 PG MCHC (test code = 1007) 29.0 G/DL RDW (test code = 1038) 18.4 % NEUTROPHILS (test code = 1008) 56.8 % LYMPHOCYTES (test code = 1010) 34.0 % MONOCYTES (test code = 1011) 5.7 % EOSINOPHILS (test code = 1012) 2.6 % BASOPHILS (test code = 1013) 0.6 % IMMATURE GRANULOCYTES (test code = 1036) 0.3 % NUCLEATED RBCS (test code = 1065) 0.0 /100WBC'S PLATELET COUNT (test code = 1015) 281 K/UL ABSOLUTE NEUTROPHILS (test c ode = 1066) 3.92 K/UL ABSOLUTE LYMPHOCYTES (test c ode = 1067) 2.34 K/UL ABSOLUTE MONOCYTES (test cod e = 1068) 0.39 K/UL ABSOLUTE EOSINOPHILS (test c ode = 1040) 0.18 K/UL ABSOLUTE BASOPHILS (test cod e = 1069) 0.04 K/UL ABS IMMATURE GRANULOCYTES (t est code = 1020) 0.02 K/UL ABS NUCLEATED RBCS (test cod e = 64323) 0.00 K/UL CBC W/AUTO [id number] 00:00:00* Test Item Value Reference Range Interpretation Comme nts WBC (test code = 1001) 6.9 K/UL RBC (test code = 1002) 4.61 M/UL HEMOGLOBIN (test code = 1003) 8.7 G/DL HEMATOCRIT (test code = 1004) 30.0 % MCV (test code = 1005) 65.1 fL MCH (test code = 1006) 18.9 PG MCHC (test code = 1007) 29.0 G/DL RDW (test code = 1038) 18.4 % NEUTROPHILS (test code = 1008) 56.8 % LYMPHOCYTES (test code = 1010) 34.0 % MONOCYTES (test code = 1011) 5.7 % EOSINOPHILS (test code = 1012) 2.6 % BASOPHILS (test code = 1013) 0.6 % IMMATURE GRANULOCYTES (test code = 1036) 0.3 % NUCLEATED RBCS (test code = 1065) 0.0 /100WBC'S PLATELET COUNT (test code = 1015) 281 K/UL ABSOLUTE NEUTROPHILS (test c ode = 1066) 3.92 K/UL ABSOLUTE LYMPHOCYTES (test c ode = 1067) 2.34 K/UL ABSOLUTE MONOCYTES (test cod e = 1068) 0.39 K/UL ABSOLUTE EOSINOPHILS (test c ode = 1040) 0.18 K/UL ABSOLUTE BASOPHILS (test cod e = 1069) 0.04 K/UL ABS IMMATURE GRANULOCYTES (t est code = 1020) 0.02 K/UL ABS NUCLEATED RBCS (test cod e = 45253) 0.00 K/UL CBC W/AUTO [id number] 00:00:00* Test Item Value Reference Range Interpretation Comme nts WBC (test code = 1001) 6.9 K/UL RBC (test code = 1002) 4.61 M/UL HEMOGLOBIN (test code = 1003) 8.7 G/DL HEMATOCRIT (test code = 1004) 30.0 % MCV (test code = 1005) 65.1 fL MCH (test code = 1006) 18.9 PG MCHC (test code = 1007) 29.0 G/DL RDW (test code = 1038) 18.4 % NEUTROPHILS (test code = 1008) 56.8 % LYMPHOCYTES (test code = 1010) 34.0 % MONOCYTES (test code = 1011) 5.7 % EOSINOPHILS (test code = 1012) 2.6 % BASOPHILS (test code = 1013) 0.6 % IMMATURE GRANULOCYTES (test code = 1036) 0.3 % NUCLEATED RBCS (test code = 1065) 0.0 /100WBC'S PLATELET COUNT (test code = 1015) 281 K/UL ABSOLUTE NEUTROPHILS (test c ode = 1066) 3.92 K/UL ABSOLUTE LYMPHOCYTES (test c ode = 1067) 2.34 K/UL ABSOLUTE MONOCYTES (test cod e = 1068) 0.39 K/UL ABSOLUTE EOSINOPHILS (test c ode = 1040) 0.18 K/UL ABSOLUTE BASOPHILS (test cod e = 1069) 0.04 K/UL ABS IMMATURE GRANULOCYTES (t est code = 1020) 0.02 K/UL ABS NUCLEATED RBCS (test cod e = 01430) 0.00 K/UL HEMOGLOBIN [id number] 00:00:00* Test Item Value Reference Range Interpretation Comme nts HEMOGLOBIN A1c (test code = 44416) 7.3 % HEMOGLOBIN [id number] 00:00:00* Test Item Value Reference Range Interpretation Comme nts HEMOGLOBIN A1c (test code = 70143) 7.3 % HEMOGLOBIN [id number] 00:00:00* Test Item Value Reference Range Interpretation Comme nts HEMOGLOBIN A1c (test code = 11839) 7.3 % LIPID [id number] 00:00:00* Test Item Value Reference Range Interpretation Comme nts CHOLESTEROL (test code = 2210) 210 MG/DL TRIGLYCERIDES (test code = 2232) 291 MG/DL HDL CHOLESTEROL (test code = 2220) 44 MG/DL CALC LDL CHOL (test code = 2237) 121 MG/DL RISK RATIO LDL/HDL (test cod e = 2238) 2.75 RATIO LIPID [id number] 00:00:00* Test Item Value Reference Range Interpretation Comme nts CHOLESTEROL (test code = 2210) 210 MG/DL TRIGLYCERIDES (test code = 2232) 291 MG/DL HDL CHOLESTEROL (test code = 2220) 44 MG/DL CALC LDL CHOL (test code = 2237) 121 MG/DL RISK RATIO LDL/HDL (test cod e = 2238) 2.75 RATIO CBC W/AUTO [id number] 00:00:00* Test Item Value Reference Range Interpretation Comme nts WBC (test code = 1001) 6.9 K/UL RBC (test code = 1002) 4.61 M/UL HEMOGLOBIN (test code = 1003) 8.7 G/DL HEMATOCRIT (test code = 1004) 30.0 % MCV (test code = 1005) 65.1 fL MCH (test code = 1006) 18.9 PG MCHC (test code = 1007) 29.0 G/DL RDW (test code = 1038) 18.4 % NEUTROPHILS (test code = 1008) 56.8 % LYMPHOCYTES (test code = 1010) 34.0 % MONOCYTES (test code = 1011) 5.7 % EOSINOPHILS (test code = 1012) 2.6 % BASOPHILS (test code = 1013) 0.6 % IMMATURE GRANULOCYTES (test code = 1036) 0.3 % NUCLEATED RBCS (test code = 1065) 0.0 /100WBC'S PLATELET COUNT (test code = 1015) 281 K/UL ABSOLUTE NEUTROPHILS (test c ode = 1066) 3.92 K/UL ABSOLUTE LYMPHOCYTES (test c ode = 1067) 2.34 K/UL ABSOLUTE MONOCYTES (test cod e = 1068) 0.39 K/UL ABSOLUTE EOSINOPHILS (test c ode = 1040) 0.18 K/UL ABSOLUTE BASOPHILS (test cod e = 1069) 0.04 K/UL ABS IMMATURE GRANULOCYTES (t est code = 1020) 0.02 K/UL ABS NUCLEATED RBCS (test cod e = 77692) 0.00 K/UL COMPREHENSIVE METABOLIC [id number] 00:00:00* Test Item Value Reference Range Interpretation Comme nts GLUCOSE (test code = 2217) 137 MG/DL BUN (test code = 2208) 8 MG/DL CREATININE (test code = 2214) 0.49 MG/DL eGFR AMER. (test cod e = 58346) 136 ML/MIN/1.73 eGFR NON- AMER. (test code = 58746) 118 ML/MIN/1.73 CALC BUN/CREAT (test code = 2235) 16 RATIO SODIUM (test code = 2231) 141 MEQ/L POTASSIUM (test code = 2228) 4.4 MEQ/L CHLORIDE (test code = 2215) 102 MEQ/L CARBON DIOXIDE (test code = 2206) 27 MEQ/L CALCIUM (test code = 2209) 9.8 MG/DL PROTEIN, TOTAL (test code = 2229) 7.6 G/DL ALBUMIN (test code = 2201) 4.1 G/DL CALC GLOBULIN (test code = 2240) 3.5 G/DL CALC A/G RATIO (test code = 2234) 1.2 RATIO BILIRUBIN, TOTAL (test code = 2207) 0.4 MG/DL ALKALINE PHOSPHATASE (test code = 2204) 176 U/L AST (test code = 2218) 69 U/L ALT (test code = 2219) 78 U/L COMPREHENSIVE METABOLIC [id number] 00:00:00* Test Item Value Reference Range Interpretation Comme nts GLUCOSE (test code = 2217) 137 MG/DL BUN (test code = 2208) 8 MG/DL CREATININE (test code = 2214) 0.49 MG/DL eGFR AMER. (test cod e = 08258) 136 ML/MIN/1.73 eGFR NON- AMER. (test code = 04476) 118 ML/MIN/1.73 CALC BUN/CREAT (test code = 2235) 16 RATIO SODIUM (test code = 2231) 141 MEQ/L POTASSIUM (test code = 2228) 4.4 MEQ/L CHLORIDE (test code = 2215) 102 MEQ/L CARBON DIOXIDE (test code = 2206) 27 MEQ/L CALCIUM (test code = 2209) 9.8 MG/DL PROTEIN, TOTAL (test code = 2229) 7.6 G/DL ALBUMIN (test code = 2201) 4.1 G/DL CALC GLOBULIN (test code = 2240) 3.5 G/DL CALC A/G RATIO (test code = 2234) 1.2 RATIO BILIRUBIN, TOTAL (test code = 2207) 0.4 MG/DL ALKALINE PHOSPHATASE (test code = 2204) 176 U/L AST (test code = 2218) 69 U/L ALT (test code = 2219) 78 U/L [id number] 00:00:00* Test Item Value Reference Range Interpretation Comme nts TSH, THIRD GENERATION (test code = 2821) 1.490 UIU/ML [id number] 00:00:00* Test Item Value Reference Range Interpretation Comme nts TSH, THIRD GENERATION (test code = 2821) 1.490 UIU/ML [id number] 00:00:00* Test Item Value Reference Range Interpretation Comme nts TSH, THIRD GENERATION (test code = 2821) 1.490 UIU/ML VITAMIN D, 25 [id number] 00:00:00* Test Item Value Reference Range Interpretation Comme nts VITAMIN D, 25 OH (test code = 4958) 29 NG/ML VITAMIN D, 25 [id number] 00:00:00* Test Item Value Reference Range Interpretation Comme nts VITAMIN D, 25 OH (test code = 4958) 29 NG/ML HIV AB/AG COMBO RFLX [id number] 00:00:00* Test Item Value Reference Range Interpretation Comme nts HIV 1/2 4TH GEN, RFLX CONF ( test code = 3514) NON-REACTIVE HIV AB/AG COMBO RFLX [id number] 00:00:00* Test Item Value Reference Range Interpretation Comme nts HIV 1/2 4TH GEN, RFLX CONF ( test code = 3514) NON-REACTIVE HEMOGLOBIN [id number] 00:00:00* Test Item Value Reference Range Interpretation Comme nts HEMOGLOBIN A1c (test code = 60585) 7.3 % HEMOGLOBIN [id number] 00:00:00* Test Item Value Reference Range Interpretation Comme nts HEMOGLOBIN A1c (test code = 07153) 7.3 % CBC W/AUTO [id number] 00:00:00* Test Item Value Reference Range Interpretation Comme nts WBC (test code = 1001) 6.9 K/UL RBC (test code = 1002) 4.61 M/UL HEMOGLOBIN (test code = 1003) 8.7 G/DL HEMATOCRIT (test code = 1004) 30.0 % MCV (test code = 1005) 65.1 fL MCH (test code = 1006) 18.9 PG MCHC (test code = 1007) 29.0 G/DL RDW (test code = 1038) 18.4 % NEUTROPHILS (test code = 1008) 56.8 % LYMPHOCYTES (test code = 1010) 34.0 % MONOCYTES (test code = 1011) 5.7 % EOSINOPHILS (test code = 1012) 2.6 % BASOPHILS (test code = 1013) 0.6 % IMMATURE GRANULOCYTES (test code = 1036) 0.3 % NUCLEATED RBCS (test code = 1065) 0.0 /100WBC'S PLATELET COUNT (test code = 1015) 281 K/UL ABSOLUTE NEUTROPHILS (test c ode = 1066) 3.92 K/UL ABSOLUTE LYMPHOCYTES (test c ode = 1067) 2.34 K/UL ABSOLUTE MONOCYTES (test cod e = 1068) 0.39 K/UL ABSOLUTE EOSINOPHILS (test c ode = 1040) 0.18 K/UL ABSOLUTE BASOPHILS (test cod e = 1069) 0.04 K/UL ABS IMMATURE GRANULOCYTES (t est code = 1020) 0.02 K/UL ABS NUCLEATED RBCS (test cod e = 68127) 0.00 K/UL CBC W/AUTO [id number] 00:00:00* Test Item Value Reference Range Interpretation Comme nts WBC (test code = 1001) 6.9 K/UL RBC (test code = 1002) 4.61 M/UL HEMOGLOBIN (test code = 1003) 8.7 G/DL HEMATOCRIT (test code = 1004) 30.0 % MCV (test code = 1005) 65.1 fL MCH (test code = 1006) 18.9 PG MCHC (test code = 1007) 29.0 G/DL RDW (test code = 1038) 18.4 % NEUTROPHILS (test code = 1008) 56.8 % LYMPHOCYTES (test code = 1010) 34.0 % MONOCYTES (test code = 1011) 5.7 % EOSINOPHILS (test code = 1012) 2.6 % BASOPHILS (test code = 1013) 0.6 % IMMATURE GRANULOCYTES (test code = 1036) 0.3 % NUCLEATED RBCS (test code = 1065) 0.0 /100WBC'S PLATELET COUNT (test code = 1015) 281 K/UL ABSOLUTE NEUTROPHILS (test c ode = 1066) 3.92 K/UL ABSOLUTE LYMPHOCYTES (test c ode = 1067) 2.34 K/UL ABSOLUTE MONOCYTES (test cod e = 1068) 0.39 K/UL ABSOLUTE EOSINOPHILS (test c ode = 1040) 0.18 K/UL ABSOLUTE BASOPHILS (test cod e = 1069) 0.04 K/UL ABS IMMATURE GRANULOCYTES (t est code = 1020) 0.02 K/UL ABS NUCLEATED RBCS (test cod e = 32092) 0.00 K/UL CBC W/AUTO [id number] 00:00:00* Test Item Value Reference Range Interpretation Comme nts WBC (test code = 1001) 6.9 K/UL RBC (test code = 1002) 4.61 M/UL HEMOGLOBIN (test code = 1003) 8.7 G/DL HEMATOCRIT (test code = 1004) 30.0 % MCV (test code = 1005) 65.1 fL MCH (test code = 1006) 18.9 PG MCHC (test code = 1007) 29.0 G/DL RDW (test code = 1038) 18.4 % NEUTROPHILS (test code = 1008) 56.8 % LYMPHOCYTES (test code = 1010) 34.0 % MONOCYTES (test code = 1011) 5.7 % EOSINOPHILS (test code = 1012) 2.6 % BASOPHILS (test code = 1013) 0.6 % IMMATURE GRANULOCYTES (test code = 1036) 0.3 % NUCLEATED RBCS (test code = 1065) 0.0 /100WBC'S PLATELET COUNT (test code = 1015) 281 K/UL ABSOLUTE NEUTROPHILS (test c ode = 1066) 3.92 K/UL ABSOLUTE LYMPHOCYTES (test c ode = 1067) 2.34 K/UL ABSOLUTE MONOCYTES (test cod e = 1068) 0.39 K/UL ABSOLUTE EOSINOPHILS (test c ode = 1040) 0.18 K/UL ABSOLUTE BASOPHILS (test cod e = 1069) 0.04 K/UL ABS IMMATURE GRANULOCYTES (t est code = 1020) 0.02 K/UL ABS NUCLEATED RBCS (test cod e = 60860) 0.00 K/UL COMPREHENSIVE METABOLIC [id number] 00:00:00* Test Item Value Reference Range Interpretation Comme nts GLUCOSE (test code = 2217) 154 MG/DL BUN (test code = 2208) 8 MG/DL CREATININE (test code = 2214) 0.51 MG/DL eGFR AMER. (test cod e = 51589) 135 ML/MIN/1.73 eGFR NON- AMER. (test code = 92147) 116 ML/MIN/1.73 CALC BUN/CREAT (test code = 2235) 16 RATIO SODIUM (test code = 2231) 142 MEQ/L POTASSIUM (test code = 2228) 4.4 MEQ/L CHLORIDE (test code = 2215) 105 MEQ/L CARBON DIOXIDE (test code = 2206) 26 MEQ/L CALCIUM (test code = 2209) 9.3 MG/DL PROTEIN, TOTAL (test code = 2229) 7.9 G/DL ALBUMIN (test code = 2201) 4.2 G/DL CALC GLOBULIN (test code = 2240) 3.7 G/DL CALC A/G RATIO (test code = 2234) 1.1 RATIO BILIRUBIN, TOTAL (test code = 2207) 0.4 MG/DL ALKALINE PHOSPHATASE (test code = 2204) 145 U/L AST (test code = 2218) 61 U/L ALT (test code = 2219) 70 U/L HEMOGLOBIN [id number] 00:00:00* Test Item Value Reference Range Interpretation Comme nts HEMOGLOBIN A1c (test code = 48884) 7.3 % HEMOGLOBIN [id number] 00:00:00* Test Item Value Reference Range Interpretation Comme nts HEMOGLOBIN A1c (test code = 11869) 7.3 % HEMOGLOBIN [id number] 00:00:00* Test Item Value Reference Range Interpretation Comme nts HEMOGLOBIN A1c (test code = 92259) 7.3 % LIPID [id number] 00:00:00* Test Item Value Reference Range Interpretation Comme nts CHOLESTEROL (test code = 2210) 207 MG/DL TRIGLYCERIDES (test code = 2232) 304 MG/DL HDL CHOLESTEROL (test code = 2220) 48 MG/DL CALC LDL CHOL (test code = 2237) 118 MG/DL RISK RATIO LDL/HDL (test cod e = 2238) 2.46 RATIO LIPID [id number] 00:00:00* Test Item Value Reference Range Interpretation Comme nts CHOLESTEROL (test code = 2210) 207 MG/DL TRIGLYCERIDES (test code = 2232) 304 MG/DL HDL CHOLESTEROL (test code = 2220) 48 MG/DL CALC LDL CHOL (test code = 2237) 118 MG/DL RISK RATIO LDL/HDL (test cod e = 2238) 2.46 RATIO HEMOGLOBIN [id number] 00:00:00* Test Item Value Reference Range Interpretation Comme nts HEMOGLOBIN A1c (test code = 23651) 7.3 % VITAMIN D, 25 [id number] 00:00:00* Test Item Value Reference Range Interpretation Comme nts VITAMIN D, 25 OH (test code = 4958) 40 NG/ML VITAMIN D, 25 [id number] 00:00:00* Test Item Value Reference Range Interpretation Comme nts VITAMIN D, 25 OH (test code = 4958) 40 NG/ML HEMOGLOBIN [id number] 00:00:00* Test Item Value Reference Range Interpretation Comme nts HEMOGLOBIN A1c (test code = 44170) 7.3 % LIPID [id number] 00:00:00* Test Item Value Reference Range Interpretation Comme nts CHOLESTEROL (test code = 2210) 207 MG/DL TRIGLYCERIDES (test code = 2232) 304 MG/DL HDL CHOLESTEROL (test code = 2220) 48 MG/DL CALC LDL CHOL (test code = 2237) 118 MG/DL RISK RATIO LDL/HDL (test cod e = 2238) 2.46 RATIO VITAMIN D, 25 [id number] 00:00:00* Test Item Value Reference Range Interpretation Comme nts VITAMIN D, 25 OH (test code = 4958) 40 NG/ML CBC W/AUTO [id number] 00:00:00* Test Item Value Reference Range Interpretation Comme nts WBC (test code = 1001) 8.1 K/UL RBC (test code = 1002) 4.70 M/UL HEMOGLOBIN (test code = 1003) 8.4 G/DL HEMATOCRIT (test code = 1004) 30.0 % MCV (test code = 1005) 63.8 fL MCH (test code = 1006) 17.9 PG MCHC (test code = 1007) 28.0 G/DL RDW (test code = 1038) 18.8 % NEUTROPHILS (test code = 1008) 61.4 % LYMPHOCYTES (test code = 1010) 31.6 % MONOCYTES (test code = 1011) 4.3 % EOSINOPHILS (test code = 1012) 2.2 % BASOPHILS (test code = 1013) 0.5 % PLATELET COUNT (test code = 1015) 219 K/UL COMMENTS (test code = 1016) (NOTE) CBC W/AUTO [id number] 00:00:00* Test Item Value Reference Range Interpretation Comme nts WBC (test code = 1001) 8.1 K/UL RBC (test code = 1002) 4.70 M/UL HEMOGLOBIN (test code = 1003) 8.4 G/DL HEMATOCRIT (test code = 1004) 30.0 % MCV (test code = 1005) 63.8 fL MCH (test code = 1006) 17.9 PG MCHC (test code = 1007) 28.0 G/DL RDW (test code = 1038) 18.8 % NEUTROPHILS (test code = 1008) 61.4 % LYMPHOCYTES (test code = 1010) 31.6 % MONOCYTES (test code = 1011) 4.3 % EOSINOPHILS (test code = 1012) 2.2 % BASOPHILS (test code = 1013) 0.5 % PLATELET COUNT (test code = 1015) 219 K/UL COMMENTS (test code = 1016) (NOTE) COMPREHENSIVE METABOLIC [id number] 00:00:00* Test Item Value Reference Range Interpretation Comme nts GLUCOSE (test code = 2217) 154 MG/DL BUN (test code = 2208) 8 MG/DL CREATININE (test code = 2214) 0.51 MG/DL eGFR AMER. (test cod e = 32018) 135 ML/MIN/1.73 eGFR NON- AMER. (test code = 90878) 116 ML/MIN/1.73 CALC BUN/CREAT (test code = 2235) 16 RATIO SODIUM (test code = 2231) 142 MEQ/L POTASSIUM (test code = 2228) 4.4 MEQ/L CHLORIDE (test code = 2215) 105 MEQ/L CARBON DIOXIDE (test code = 2206) 26 MEQ/L CALCIUM (test code = 2209) 9.3 MG/DL PROTEIN, TOTAL (test code = 2229) 7.9 G/DL ALBUMIN (test code = 2201) 4.2 G/DL CALC GLOBULIN (test code = 2240) 3.7 G/DL CALC A/G RATIO (test code = 2234) 1.1 RATIO BILIRUBIN, TOTAL (test code = 2207) 0.4 MG/DL ALKALINE PHOSPHATASE (test code = 2204) 145 U/L AST (test code = 2218) 61 U/L ALT (test code = 2219) 70 U/L HEMOGLOBIN [id number] 00:00:00* Test Item Value Reference Range Interpretation Comme nts HEMOGLOBIN A1c (test code = 06488) 7.3 % HEMOGLOBIN [id number] 00:00:00* Test Item Value Reference Range Interpretation Comme nts HEMOGLOBIN A1c (test code = 47539) 7.3 % LIPID [id number] 00:00:00* Test Item Value Reference Range Interpretation Comme nts CHOLESTEROL (test code = 2210) 207 MG/DL TRIGLYCERIDES (test code = 2232) 304 MG/DL HDL CHOLESTEROL (test code = 2220) 48 MG/DL CALC LDL CHOL (test code = 2237) 118 MG/DL RISK RATIO LDL/HDL (test cod e = 2238) 2.46 RATIO VITAMIN D, 25 [id number] 00:00:00* Test Item Value Reference Range Interpretation Comme nts VITAMIN D, 25 OH (test code = 4958) 40 NG/ML CBC W/AUTO [id number] 00:00:00* Test Item Value Reference Range Interpretation Comme nts WBC (test code = 1001) 8.1 K/UL RBC (test code = 1002) 4.70 M/UL HEMOGLOBIN (test code = 1003) 8.4 G/DL HEMATOCRIT (test code = 1004) 30.0 % MCV (test code = 1005) 63.8 fL MCH (test code = 1006) 17.9 PG MCHC (test code = 1007) 28.0 G/DL RDW (test code = 1038) 18.8 % NEUTROPHILS (test code = 1008) 61.4 % LYMPHOCYTES (test code = 1010) 31.6 % MONOCYTES (test code = 1011) 4.3 % EOSINOPHILS (test code = 1012) 2.2 % BASOPHILS (test code = 1013) 0.5 % PLATELET COUNT (test code = 1015) 219 K/UL COMMENTS (test code = 1016) (NOTE) CBC W/AUTO [id number] 00:00:00* Test Item Value Reference Range Interpretation Comme nts WBC (test code = 1001) 8.1 K/UL RBC (test code = 1002) 4.70 M/UL HEMOGLOBIN (test code = 1003) 8.4 G/DL HEMATOCRIT (test code = 1004) 30.0 % MCV (test code = 1005) 63.8 fL MCH (test code = 1006) 17.9 PG MCHC (test code = 1007) 28.0 G/DL RDW (test code = 1038) 18.8 % NEUTROPHILS (test code = 1008) 61.4 % LYMPHOCYTES (test code = 1010) 31.6 % MONOCYTES (test code = 1011) 4.3 % EOSINOPHILS (test code = 1012) 2.2 % BASOPHILS (test code = 1013) 0.5 % PLATELET COUNT (test code = 1015) 219 K/UL COMMENTS (test code = 1016) (NOTE) COMPREHENSIVE METABOLIC [id number] 00:00:00* Test Item Value Reference Range Interpretation Comme nts GLUCOSE (test code = 2217) 154 MG/DL BUN (test code = 2208) 8 MG/DL CREATININE (test code = 2214) 0.51 MG/DL eGFR AMER. (test cod e = 32526) 135 ML/MIN/1.73 eGFR NON- AMER. (test code = 76403) 116 ML/MIN/1.73 CALC BUN/CREAT (test code = 2235) 16 RATIO SODIUM (test code = 2231) 142 MEQ/L POTASSIUM (test code = 2228) 4.4 MEQ/L CHLORIDE (test code = 2215) 105 MEQ/L CARBON DIOXIDE (test code = 2206) 26 MEQ/L CALCIUM (test code = 2209) 9.3 MG/DL PROTEIN, TOTAL (test code = 2229) 7.9 G/DL ALBUMIN (test code = 2201) 4.2 G/DL CALC GLOBULIN (test code = 2240) 3.7 G/DL CALC A/G RATIO (test code = 2234) 1.1 RATIO BILIRUBIN, TOTAL (test code = 2207) 0.4 MG/DL ALKALINE PHOSPHATASE (test code = 2204) 145 U/L AST (test code = 2218) 61 U/L ALT (test code = 2219) 70 U/L HEMOGLOBIN [id number] 00:00:00* Test Item Value Reference Range Interpretation Comme nts HEMOGLOBIN A1c (test code = 51050) 7.3 % HEMOGLOBIN [id number] 00:00:00* Test Item Value Reference Range Interpretation Comme nts HEMOGLOBIN A1c (test code = 33509) 7.3 % LIPID [id number] 00:00:00* Test Item Value Reference Range Interpretation Comme nts CHOLESTEROL (test code = 2210) 207 MG/DL TRIGLYCERIDES (test code = 2232) 304 MG/DL HDL CHOLESTEROL (test code = 2220) 48 MG/DL CALC LDL CHOL (test code = 2237) 118 MG/DL RISK RATIO LDL/HDL (test cod e = 2238) 2.46 RATIO VITAMIN D, 25 [id number] 00:00:00* Test Item Value Reference Range Interpretation Comme nts VITAMIN D, 25 OH (test code = 4958) 40 NG/ML CBC W/AUTO [id number] 00:00:00* Test Item Value Reference Range Interpretation Comme nts WBC (test code = 1001) 8.1 K/UL RBC (test code = 1002) 4.70 M/UL HEMOGLOBIN (test code = 1003) 8.4 G/DL HEMATOCRIT (test code = 1004) 30.0 % MCV (test code = 1005) 63.8 fL MCH (test code = 1006) 17.9 PG MCHC (test code = 1007) 28.0 G/DL RDW (test code = 1038) 18.8 % NEUTROPHILS (test code = 1008) 61.4 % LYMPHOCYTES (test code = 1010) 31.6 % MONOCYTES (test code = 1011) 4.3 % EOSINOPHILS (test code = 1012) 2.2 % BASOPHILS (test code = 1013) 0.5 % PLATELET COUNT (test code = 1015) 219 K/UL COMMENTS (test code = 1016) (NOTE) CBC W/AUTO [id number] 00:00:00* Test Item Value Reference Range Interpretation Comme nts WBC (test code = 1001) 8.1 K/UL RBC (test code = 1002) 4.70 M/UL HEMOGLOBIN (test code = 1003) 8.4 G/DL HEMATOCRIT (test code = 1004) 30.0 % MCV (test code = 1005) 63.8 fL MCH (test code = 1006) 17.9 PG MCHC (test code = 1007) 28.0 G/DL RDW (test code = 1038) 18.8 % NEUTROPHILS (test code = 1008) 61.4 % LYMPHOCYTES (test code = 1010) 31.6 % MONOCYTES (test code = 1011) 4.3 % EOSINOPHILS (test code = 1012) 2.2 % BASOPHILS (test code = 1013) 0.5 % PLATELET COUNT (test code = 1015) 219 K/UL COMMENTS (test code = 1016) (NOTE) CBC W/AUTO [id number] 00:00:00* Test Item Value Reference Range Interpretation Comme nts WBC (test code = 1001) 8.1 K/UL RBC (test code = 1002) 4.70 M/UL HEMOGLOBIN (test code = 1003) 8.4 G/DL HEMATOCRIT (test code = 1004) 30.0 % MCV (test code = 1005) 63.8 fL MCH (test code = 1006) 17.9 PG MCHC (test code = 1007) 28.0 G/DL RDW (test code = 1038) 18.8 % NEUTROPHILS (test code = 1008) 61.4 % LYMPHOCYTES (test code = 1010) 31.6 % MONOCYTES (test code = 1011) 4.3 % EOSINOPHILS (test code = 1012) 2.2 % BASOPHILS (test code = 1013) 0.5 % PLATELET COUNT (test code = 1015) 219 K/UL COMMENTS (test code = 1016) (NOTE) CBC W/AUTO [id number] 00:00:00* Test Item Value Reference Range Interpretation Comme nts WBC (test code = 1001) 8.1 K/UL RBC (test code = 1002) 4.70 M/UL HEMOGLOBIN (test code = 1003) 8.4 G/DL HEMATOCRIT (test code = 1004) 30.0 % MCV (test code = 1005) 63.8 fL MCH (test code = 1006) 17.9 PG MCHC (test code = 1007) 28.0 G/DL RDW (test code = 1038) 18.8 % NEUTROPHILS (test code = 1008) 61.4 % LYMPHOCYTES (test code = 1010) 31.6 % MONOCYTES (test code = 1011) 4.3 % EOSINOPHILS (test code = 1012) 2.2 % BASOPHILS (test code = 1013) 0.5 % PLATELET COUNT (test code = 1015) 219 K/UL COMMENTS (test code = 1016) (NOTE) COMPREHENSIVE METABOLIC [id number] 00:00:00* Test Item Value Reference Range Interpretation Comme nts GLUCOSE (test code = 2217) 154 MG/DL BUN (test code = 2208) 8 MG/DL CREATININE (test code = 2214) 0.51 MG/DL eGFR AMER. (test cod e = 64024) 135 ML/MIN/1.73 eGFR NON- AMER. (test code = 40065) 116 ML/MIN/1.73 CALC BUN/CREAT (test code = 2235) 16 RATIO SODIUM (test code = 2231) 142 MEQ/L POTASSIUM (test code = 2228) 4.4 MEQ/L CHLORIDE (test code = 2215) 105 MEQ/L CARBON DIOXIDE (test code = 2206) 26 MEQ/L CALCIUM (test code = 2209) 9.3 MG/DL PROTEIN, TOTAL (test code = 2229) 7.9 G/DL ALBUMIN (test code = 2201) 4.2 G/DL CALC GLOBULIN (test code = 2240) 3.7 G/DL CALC A/G RATIO (test code = 2234) 1.1 RATIO BILIRUBIN, TOTAL (test code = 2207) 0.4 MG/DL ALKALINE PHOSPHATASE (test code = 2204) 145 U/L AST (test code = 2218) 61 U/L ALT (test code = 2219) 70 U/L COMPREHENSIVE METABOLIC [id number] 00:00:00* Test Item Value Reference Range Interpretation Comme nts GLUCOSE (test code = 2217) 154 MG/DL BUN (test code = 2208) 8 MG/DL CREATININE (test code = 2214) 0.51 MG/DL eGFR AMER. (test cod e = 17958) 135 ML/MIN/1.73 eGFR NON- AMER. (test code = 02828) 116 ML/MIN/1.73 CALC BUN/CREAT (test code = 2235) 16 RATIO SODIUM (test code = 2231) 142 MEQ/L POTASSIUM (test code = 2228) 4.4 MEQ/L CHLORIDE (test code = 2215) 105 MEQ/L CARBON DIOXIDE (test code = 2206) 26 MEQ/L CALCIUM (test code = 2209) 9.3 MG/DL PROTEIN, TOTAL (test code = 2229) 7.9 G/DL ALBUMIN (test code = 2201) 4.2 G/DL CALC GLOBULIN (test code = 2240) 3.7 G/DL CALC A/G RATIO (test code = 2234) 1.1 RATIO BILIRUBIN, TOTAL (test code = 2207) 0.4 MG/DL ALKALINE PHOSPHATASE (test code = 2204) 145 U/L AST (test code = 2218) 61 U/L ALT (test code = 2219) 70 U/L HEMOGLOBIN [id number] 00:00:00* Test Item Value Reference Range Interpretation Comme nts HEMOGLOBIN A1c (test code = 38576) 7.3 % HEMOGLOBIN [id number] 00:00:00* Test Item Value Reference Range Interpretation Comme nts HEMOGLOBIN A1c (test code = 53025) 7.3 % HEMOGLOBIN [id number] 00:00:00* Test Item Value Reference Range Interpretation Comme nts HEMOGLOBIN A1c (test code = 33800) 7.3 % LIPID [id number] 00:00:00* Test Item Value Reference Range Interpretation Comme nts CHOLESTEROL (test code = 2210) 207 MG/DL TRIGLYCERIDES (test code = 2232) 304 MG/DL HDL CHOLESTEROL (test code = 2220) 48 MG/DL CALC LDL CHOL (test code = 2237) 118 MG/DL RISK RATIO LDL/HDL (test cod e = 2238) 2.46 RATIO LIPID [id number] 00:00:00* Test Item Value Reference Range Interpretation Comme nts CHOLESTEROL (test code = 2210) 207 MG/DL TRIGLYCERIDES (test code = 2232) 304 MG/DL HDL CHOLESTEROL (test code = 2220) 48 MG/DL CALC LDL CHOL (test code = 2237) 118 MG/DL RISK RATIO LDL/HDL (test cod e = 2238) 2.46 RATIO CBC W/AUTO [id number] 00:00:00* Test Item Value Reference Range Interpretation Comme nts WBC (test code = 1001) 8.1 K/UL RBC (test code = 1002) 4.70 M/UL HEMOGLOBIN (test code = 1003) 8.4 G/DL HEMATOCRIT (test code = 1004) 30.0 % MCV (test code = 1005) 63.8 fL MCH (test code = 1006) 17.9 PG MCHC (test code = 1007) 28.0 G/DL RDW (test code = 1038) 18.8 % NEUTROPHILS (test code = 1008) 61.4 % LYMPHOCYTES (test code = 1010) 31.6 % MONOCYTES (test code = 1011) 4.3 % EOSINOPHILS (test code = 1012) 2.2 % BASOPHILS (test code = 1013) 0.5 % PLATELET COUNT (test code = 1015) 219 K/UL COMMENTS (test code = 1016) (NOTE) VITAMIN D, 25 [id number] 00:00:00* Test Item Value Reference Range Interpretation Comme [facility] VITAMIN D, 25 OH (test code = 4958) 40 NG/ML VITAMIN D, 25 [id number] 00:00:00* Test Item Value Reference Range Interpretation Comme [facility] VITAMIN D, 25 OH (test code = 4958) 40 NG/ML CBC W/AUTO [id number] 00:00:00* Test Item Value Reference Range Interpretation Comme nts WBC (test code = 1001) 8.1 K/UL RBC (test code = 1002) 4.70 M/UL HEMOGLOBIN (test code = 1003) 8.4 G/DL HEMATOCRIT (test code = 1004) 30.0 % MCV (test code = 1005) 63.8 fL MCH (test code = 1006) 17.9 PG MCHC (test code = 1007) 28.0 G/DL RDW (test code = 1038) 18.8 % NEUTROPHILS (test code = 1008) 61.4 % LYMPHOCYTES (test code = 1010) 31.6 % MONOCYTES (test code = 1011) 4.3 % EOSINOPHILS (test code = 1012) 2.2 % BASOPHILS (test code = 1013) 0.5 % PLATELET COUNT (test code = 1015) 219 K/UL COMMENTS (test code = 1016) (NOTE) COMPREHENSIVE METABOLIC [id number] 00:00:00* Test Item Value Reference Range Interpretation Comme nts GLUCOSE (test code = 2217) 154 MG/DL BUN (test code = 2208) 8 MG/DL CREATININE (test code = 2214) 0.51 MG/DL eGFR AMER. (test cod e = 09963) 135 ML/MIN/1.73 eGFR NON- AMER. (test code = 88480) 116 ML/MIN/1.73 CALC BUN/CREAT (test code = 2235) 16 RATIO SODIUM (test code = 2231) 142 MEQ/L POTASSIUM (test code = 2228) 4.4 MEQ/L CHLORIDE (test code = 2215) 105 MEQ/L CARBON DIOXIDE (test code = 2206) 26 MEQ/L CALCIUM (test code = 2209) 9.3 MG/DL PROTEIN, TOTAL (test code = 2229) 7.9 G/DL ALBUMIN (test code = 2201) 4.2 G/DL CALC GLOBULIN (test code = 2240) 3.7 G/DL CALC A/G RATIO (test code = 2234) 1.1 RATIO BILIRUBIN, TOTAL (test code = 2207) 0.4 MG/DL ALKALINE PHOSPHATASE (test code = 2204) 145 U/L AST (test code = 2218) 61 U/L ALT (test code = 2219) 70 U/L CBC W/AUTO [id number] 00:00:00* Test Item Value Reference Range Interpretation Comme nts WBC (test code = 1001) 8.1 K/UL RBC (test code = 1002) 4.70 M/UL HEMOGLOBIN (test code = 1003) 8.4 G/DL HEMATOCRIT (test code = 1004) 30.0 % MCV (test code = 1005) 63.8 fL MCH (test code = 1006) 17.9 PG MCHC (test code = 1007) 28.0 G/DL RDW (test code = 1038) 18.8 % NEUTROPHILS (test code = 1008) 61.4 % LYMPHOCYTES (test code = 1010) 31.6 % MONOCYTES (test code = 1011) 4.3 % EOSINOPHILS (test code = 1012) 2.2 % BASOPHILS (test code = 1013) 0.5 % PLATELET COUNT (test code = 1015) 219 K/UL COMMENTS (test code = 1016) (NOTE) CBC W/AUTO [id number] 00:00:00* Test Item Value Reference Range Interpretation Comme nts WBC (test code = 1001) 8.1 K/UL RBC (test code = 1002) 4.70 M/UL HEMOGLOBIN (test code = 1003) 8.4 G/DL HEMATOCRIT (test code = 1004) 30.0 % MCV (test code = 1005) 63.8 fL MCH (test code = 1006) 17.9 PG MCHC (test code = 1007) 28.0 G/DL RDW (test code = 1038) 18.8 % NEUTROPHILS (test code = 1008) 61.4 % LYMPHOCYTES (test code = 1010) 31.6 % MONOCYTES (test code = 1011) 4.3 % EOSINOPHILS (test code = 1012) 2.2 % BASOPHILS (test code = 1013) 0.5 % PLATELET COUNT (test code = 1015) 219 K/UL COMMENTS (test code = 1016) (NOTE) COMPREHENSIVE METABOLIC [id number] 00:00:00* Test Item Value Reference Range Interpretation Comme nts GLUCOSE (test code = 2217) 154 MG/DL BUN (test code = 2208) 8 MG/DL CREATININE (test code = 2214) 0.51 MG/DL eGFR AMER. (test cod e = 29206) 135 ML/MIN/1.73 eGFR NON- AMER. (test code = 59299) 116 ML/MIN/1.73 CALC BUN/CREAT (test code = 2235) 16 RATIO SODIUM (test code = 2231) 142 MEQ/L POTASSIUM (test code = 2228) 4.4 MEQ/L CHLORIDE (test code = 2215) 105 MEQ/L CARBON DIOXIDE (test code = 2206) 26 MEQ/L CALCIUM (test code = 2209) 9.3 MG/DL PROTEIN, TOTAL (test code = 2229) 7.9 G/DL ALBUMIN (test code = 2201) 4.2 G/DL CALC GLOBULIN (test code = 2240) 3.7 G/DL CALC A/G RATIO (test code = 2234) 1.1 RATIO BILIRUBIN, TOTAL (test code = 2207) 0.4 MG/DL ALKALINE PHOSPHATASE (test code = 2204) 145 U/L AST (test code = 2218) 61 U/L ALT (test code = 2219) 70 U/L LIPID [id number] 00:00:00* Test Item Value Reference Range Interpretation Comme nts CHOLESTEROL (test code = 2210) 199 MG/DL TRIGLYCERIDES (test code = 2232) 283 MG/DL HDL CHOLESTEROL (test code = 2220) 40 MG/DL CALC LDL CHOL (test code = 2237) 119 MG/DL RISK RATIO LDL/HDL (test cod e = 2238) 2.98 RATIO LIPID [id number] 00:00:00* Test Item Value Reference Range Interpretation Comme nts CHOLESTEROL (test code = 2210) 199 MG/DL TRIGLYCERIDES (test code = 2232) 283 MG/DL HDL CHOLESTEROL (test code = 2220) 40 MG/DL CALC LDL CHOL (test code = 2237) 119 MG/DL RISK RATIO LDL/HDL (test cod e = 2238) 2.98 RATIO CBC W/AUTO [id number] 00:00:00* Test Item Value Reference Range Interpretation Comme nts WBC (test code = 1001) 7.8 K/UL RBC (test code = 1002) 4.45 M/UL HEMOGLOBIN (test code = 1003) 7.7 G/DL HEMATOCRIT (test code = 1004) 27.9 % MCV (test code = 1005) 62.7 fL MCH (test code = 1006) 17.3 PG MCHC (test code = 1007) 27.6 G/DL RDW (test code = 1038) 17.5 % NEUTROPHILS (test code = 1008) 58.0 % LYMPHOCYTES (test code = 1010) 33.7 % MONOCYTES (test code = 1011) 5.1 % EOSINOPHILS (test code = 1012) 2.7 % BASOPHILS (test code = 1013) 0.5 % PLATELET COUNT (test code = 1015) 256 K/UL COMMENTS (test code = 1016) (NOTE) CBC W/AUTO [id number] 00:00:00* Test Item Value Reference Range Interpretation Comme nts WBC (test code = 1001) 7.8 K/UL RBC (test code = 1002) 4.45 M/UL HEMOGLOBIN (test code = 1003) 7.7 G/DL HEMATOCRIT (test code = 1004) 27.9 % MCV (test code = 1005) 62.7 fL MCH (test code = 1006) 17.3 PG MCHC (test code = 1007) 27.6 G/DL RDW (test code = 1038) 17.5 % NEUTROPHILS (test code = 1008) 58.0 % LYMPHOCYTES (test code = 1010) 33.7 % MONOCYTES (test code = 1011) 5.1 % EOSINOPHILS (test code = 1012) 2.7 % BASOPHILS (test code = 1013) 0.5 % PLATELET COUNT (test code = 1015) 256 K/UL COMMENTS (test code = 1016) (NOTE) CBC W/AUTO [id number] 00:00:00* Test Item Value Reference Range Interpretation Comme nts WBC (test code = 1001) 7.8 K/UL RBC (test code = 1002) 4.45 M/UL HEMOGLOBIN (test code = 1003) 7.7 G/DL HEMATOCRIT (test code = 1004) 27.9 % MCV (test code = 1005) 62.7 fL MCH (test code = 1006) 17.3 PG MCHC (test code = 1007) 27.6 G/DL RDW (test code = 1038) 17.5 % NEUTROPHILS (test code = 1008) 58.0 % LYMPHOCYTES (test code = 1010) 33.7 % MONOCYTES (test code = 1011) 5.1 % EOSINOPHILS (test code = 1012) 2.7 % BASOPHILS (test code = 1013) 0.5 % PLATELET COUNT (test code = 1015) 256 K/UL COMMENTS (test code = 1016) (NOTE) CBC W/AUTO [id number] 00:00:00* Test Item Value Reference Range Interpretation Comme nts WBC (test code = 1001) 7.8 K/UL RBC (test code = 1002) 4.45 M/UL HEMOGLOBIN (test code = 1003) 7.7 G/DL HEMATOCRIT (test code = 1004) 27.9 % MCV (test code = 1005) 62.7 fL MCH (test code = 1006) 17.3 PG MCHC (test code = 1007) 27.6 G/DL RDW (test code = 1038) 17.5 % NEUTROPHILS (test code = 1008) 58.0 % LYMPHOCYTES (test code = 1010) 33.7 % MONOCYTES (test code = 1011) 5.1 % EOSINOPHILS (test code = 1012) 2.7 % BASOPHILS (test code = 1013) 0.5 % PLATELET COUNT (test code = 1015) 256 K/UL COMMENTS (test code = 1016) (NOTE) COMPREHENSIVE METABOLIC [id number] 00:00:00* Test Item Value Reference Range Interpretation Comme nts GLUCOSE (test code = 2217) 153 MG/DL BUN (test code = 2208) 7 MG/DL CREATININE (test code = 2214) 0.55 MG/DL eGFR AMER. (test cod e = 73519) 131 ML/MIN/1.73 eGFR NON- AMER. (test code = 74873) 113 ML/MIN/1.73 CALC BUN/CREAT (test code = 2235) 13 RATIO SODIUM (test code = 2231) 140 MEQ/L POTASSIUM (test code = 2228) 4.4 MEQ/L CHLORIDE (test code = 2215) 101 MEQ/L CARBON DIOXIDE (test code = 2206) 26 MEQ/L CALCIUM (test code = 2209) 9.7 MG/DL PROTEIN, TOTAL (test code = 2229) 7.6 G/DL ALBUMIN (test code = 2201) 4.2 G/DL CALC GLOBULIN (test code = 2240) 3.4 G/DL CALC A/G RATIO (test code = 2234) 1.2 RATIO BILIRUBIN, TOTAL (test code = 2207) 0.4 MG/DL ALKALINE PHOSPHATASE (test code = 2204) 161 U/L AST (test code = 2218) 64 U/L ALT (test code = 2219) 77 U/L COMPREHENSIVE METABOLIC [id number] 00:00:00* Test Item Value Reference Range Interpretation Comme nts GLUCOSE (test code = 2217) 153 MG/DL BUN (test code = 2208) 7 MG/DL CREATININE (test code = 2214) 0.55 MG/DL eGFR AMER. (test cod e = 86408) 131 ML/MIN/1.73 eGFR NON- AMER. (test code = 31221) 113 ML/MIN/1.73 CALC BUN/CREAT (test code = 2235) 13 RATIO SODIUM (test code = 2231) 140 MEQ/L POTASSIUM (test code = 2228) 4.4 MEQ/L CHLORIDE (test code = 2215) 101 MEQ/L CARBON DIOXIDE (test code = 2206) 26 MEQ/L CALCIUM (test code = 2209) 9.7 MG/DL PROTEIN, TOTAL (test code = 2229) 7.6 G/DL ALBUMIN (test code = 2201) 4.2 G/DL CALC GLOBULIN (test code = 2240) 3.4 G/DL CALC A/G RATIO (test code = 2234) 1.2 RATIO BILIRUBIN, TOTAL (test code = 2207) 0.4 MG/DL ALKALINE PHOSPHATASE (test code = 2204) 161 U/L AST (test code = 2218) 64 U/L ALT (test code = 2219) 77 U/L VITAMIN D, 25 [id number] 00:00:00* Test Item Value Reference Range Interpretation Comme nts VITAMIN D, 25 OH (test code = 4958) 24 NG/ML VITAMIN D, 25 [id number] 00:00:00* Test Item Value Reference Range Interpretation Comme nts VITAMIN D, 25 OH (test code = 4958) 24 NG/ML CBC W/AUTO [id number] 00:00:00* Test Item Value Reference Range Interpretation Comme nts WBC (test code = 1001) 7.8 K/UL RBC (test code = 1002) 4.45 M/UL HEMOGLOBIN (test code = 1003) 7.7 G/DL HEMATOCRIT (test code = 1004) 27.9 % MCV (test code = 1005) 62.7 fL MCH (test code = 1006) 17.3 PG MCHC (test code = 1007) 27.6 G/DL RDW (test code = 1038) 17.5 % NEUTROPHILS (test code = 1008) 58.0 % LYMPHOCYTES (test code = 1010) 33.7 % MONOCYTES (test code = 1011) 5.1 % EOSINOPHILS (test code = 1012) 2.7 % BASOPHILS (test code = 1013) 0.5 % PLATELET COUNT (test code = 1015) 256 K/UL COMMENTS (test code = 1016) (NOTE) COMPREHENSIVE METABOLIC [id number] 00:00:00* Test Item Value Reference Range Interpretation Comme nts GLUCOSE (test code = 2217) 153 MG/DL BUN (test code = 2208) 7 MG/DL CREATININE (test code = 2214) 0.55 MG/DL eGFR AMER. (test cod e = 00550) 131 ML/MIN/1.73 eGFR NON- AMER. (test code = 48144) 113 ML/MIN/1.73 CALC BUN/CREAT (test code = 2235) 13 RATIO SODIUM (test code = 2231) 140 MEQ/L POTASSIUM (test code = 2228) 4.4 MEQ/L CHLORIDE (test code = 2215) 101 MEQ/L CARBON DIOXIDE (test code = 2206) 26 MEQ/L CALCIUM (test code = 2209) 9.7 MG/DL PROTEIN, TOTAL (test code = 2229) 7.6 G/DL ALBUMIN (test code = 2201) 4.2 G/DL CALC GLOBULIN (test code = 2240) 3.4 G/DL CALC A/G RATIO (test code = 2234) 1.2 RATIO BILIRUBIN, TOTAL (test code = 220) 0.4 MG/DL ALKALINE PHOSPHATASE (test code = 220) 161 U/L AST (test code = 221) 64 U/L ALT (test code = 2219) 77 U/L VITAMIN D, 25 [id number] 00:00:00* Test Item Value Reference Range Interpretation Comme [facility] VITAMIN D, 25 OH (test code = 4958) 24 NG/ML HEMOGLOBIN [id number] 00:00:00* Test Item Value Reference Range Interpretation Comme [facility] HEMOGLOBIN A1c (test code = 03133) 7.1 % HEMOGLOBIN [id number] 00:00:00* Test Item Value Reference Range Interpretation Comme [facility] HEMOGLOBIN A1c (test code = 15006) 7.1 % LIPID [id number] 00:00:00* Test Item Value Reference Range Interpretation Comme nts CHOLESTEROL (test code = 2210) 199 MG/DL TRIGLYCERIDES (test code = 2232) 283 MG/DL HDL CHOLESTEROL (test code = 2220) 40 MG/DL CALC LDL CHOL (test code = 2237) 119 MG/DL RISK RATIO LDL/HDL (test cod e = 2238) 2.98 RATIO CBC W/AUTO [id number] 00:00:00* Test Item Value Reference Range Interpretation Comme nts WBC (test code = 1001) 7.8 K/UL RBC (test code = 1002) 4.45 M/UL HEMOGLOBIN (test code = 1003) 7.7 G/DL HEMATOCRIT (test code = 1004) 27.9 % MCV (test code = 1005) 62.7 fL MCH (test code = 1006) 17.3 PG MCHC (test code = 1007) 27.6 G/DL RDW (test code = 1038) 17.5 % NEUTROPHILS (test code = 1008) 58.0 % LYMPHOCYTES (test code = 1010) 33.7 % MONOCYTES (test code = 1011) 5.1 % EOSINOPHILS (test code = 1012) 2.7 % BASOPHILS (test code = 1013) 0.5 % PLATELET COUNT (test code = 1015) 256 K/UL COMMENTS (test code = 1016) (NOTE) CBC W/AUTO [id number] 00:00:00* Test Item Value Reference Range Interpretation Comme nts WBC (test code = 1001) 7.8 K/UL RBC (test code = 1002) 4.45 M/UL HEMOGLOBIN (test code = 1003) 7.7 G/DL HEMATOCRIT (test code = 1004) 27.9 % MCV (test code = 1005) 62.7 fL MCH (test code = 1006) 17.3 PG MCHC (test code = 1007) 27.6 G/DL RDW (test code = 1038) 17.5 % NEUTROPHILS (test code = 1008) 58.0 % LYMPHOCYTES (test code = 1010) 33.7 % MONOCYTES (test code = 1011) 5.1 % EOSINOPHILS (test code = 1012) 2.7 % BASOPHILS (test code = 1013) 0.5 % PLATELET COUNT (test code = 1015) 256 K/UL COMMENTS (test code = 1016) (NOTE) COMPREHENSIVE METABOLIC [id number] 00:00:00* Test Item Value Reference Range Interpretation Comme nts GLUCOSE (test code = 2217) 153 MG/DL BUN (test code = 2208) 7 MG/DL CREATININE (test code = 2214) 0.55 MG/DL eGFR AMER. (test cod e = 00159) 131 ML/MIN/1.73 eGFR NON- AMER. (test code = 60062) 113 ML/MIN/1.73 CALC BUN/CREAT (test code = 2235) 13 RATIO SODIUM (test code = 2231) 140 MEQ/L POTASSIUM (test code = 2228) 4.4 MEQ/L CHLORIDE (test code = 2215) 101 MEQ/L CARBON DIOXIDE (test code = 2206) 26 MEQ/L CALCIUM (test code = 2209) 9.7 MG/DL PROTEIN, TOTAL (test code = 2229) 7.6 G/DL ALBUMIN (test code = 2201) 4.2 G/DL CALC GLOBULIN (test code = 2240) 3.4 G/DL CALC A/G RATIO (test code = 2234) 1.2 RATIO BILIRUBIN, TOTAL (test code = 2207) 0.4 MG/DL ALKALINE PHOSPHATASE (test code = 220) 161 U/L AST (test code = 2218) 64 U/L ALT (test code = 2219) 77 U/L VITAMIN D, 25 [id number] 00:00:00* Test Item Value Reference Range Interpretation Comme [facility] VITAMIN D, 25 OH (test code = 4958) 24 NG/ML HEMOGLOBIN [id number] 00:00:00* Test Item Value Reference Range Interpretation Comme [facility] HEMOGLOBIN A1c (test code = 89051) 7.1 % HEMOGLOBIN [id number] 00:00:00* Test Item Value Reference Range Interpretation Comme nts HEMOGLOBIN A1c (test code = 28771) 7.1 % LIPID [id number] 00:00:00* Test Item Value Reference Range Interpretation Comme nts CHOLESTEROL (test code = 2210) 199 MG/DL TRIGLYCERIDES (test code = 2232) 283 MG/DL HDL CHOLESTEROL (test code = 2220) 40 MG/DL CALC LDL CHOL (test code = 2237) 119 MG/DL RISK RATIO LDL/HDL (test cod e = 2238) 2.98 RATIO CBC W/AUTO [id number] 00:00:00* Test Item Value Reference Range Interpretation Comme nts WBC (test code = 1001) 7.8 K/UL RBC (test code = 1002) 4.45 M/UL HEMOGLOBIN (test code = 1003) 7.7 G/DL HEMATOCRIT (test code = 1004) 27.9 % MCV (test code = 1005) 62.7 fL MCH (test code = 1006) 17.3 PG MCHC (test code = 1007) 27.6 G/DL RDW (test code = 1038) 17.5 % NEUTROPHILS (test code = 1008) 58.0 % LYMPHOCYTES (test code = 1010) 33.7 % MONOCYTES (test code = 1011) 5.1 % EOSINOPHILS (test code = 1012) 2.7 % BASOPHILS (test code = 1013) 0.5 % PLATELET COUNT (test code = 1015) 256 K/UL COMMENTS (test code = 1016) (NOTE) CBC W/AUTO [id number] 00:00:00* Test Item Value Reference Range Interpretation Comme nts WBC (test code = 1001) 7.8 K/UL RBC (test code = 1002) 4.45 M/UL HEMOGLOBIN (test code = 1003) 7.7 G/DL HEMATOCRIT (test code = 1004) 27.9 % MCV (test code = 1005) 62.7 fL MCH (test code = 1006) 17.3 PG MCHC (test code = 1007) 27.6 G/DL RDW (test code = 1038) 17.5 % NEUTROPHILS (test code = 1008) 58.0 % LYMPHOCYTES (test code = 1010) 33.7 % MONOCYTES (test code = 1011) 5.1 % EOSINOPHILS (test code = 1012) 2.7 % BASOPHILS (test code = 1013) 0.5 % PLATELET COUNT (test code = 1015) 256 K/UL COMMENTS (test code = 1016) (NOTE) COMPREHENSIVE METABOLIC [id number] 00:00:00* Test Item Value Reference Range Interpretation Comme nts GLUCOSE (test code = 2217) 153 MG/DL BUN (test code = 2208) 7 MG/DL CREATININE (test code = 2214) 0.55 MG/DL eGFR AMER. (test cod e = 03470) 131 ML/MIN/1.73 eGFR NON- AMER. (test code = 99469) 113 ML/MIN/1.73 CALC BUN/CREAT (test code = 2235) 13 RATIO SODIUM (test code = 2231) 140 MEQ/L POTASSIUM (test code = 2228) 4.4 MEQ/L CHLORIDE (test code = 2215) 101 MEQ/L CARBON DIOXIDE (test code = 2206) 26 MEQ/L CALCIUM (test code = 2209) 9.7 MG/DL PROTEIN, TOTAL (test code = 2229) 7.6 G/DL ALBUMIN (test code = 2201) 4.2 G/DL CALC GLOBULIN (test code = 2240) 3.4 G/DL CALC A/G RATIO (test code = 2234) 1.2 RATIO BILIRUBIN, TOTAL (test code = 2207) 0.4 MG/DL ALKALINE PHOSPHATASE (test code = 2204) 161 U/L AST (test code = 2218) 64 U/L ALT (test code = 2219) 77 U/L VITAMIN D, 25 [id number] 00:00:00* Test Item Value Reference Range Interpretation Comme nts VITAMIN D, 25 OH (test code = 4958) 24 NG/ML HEMOGLOBIN [id number] 00:00:00* Test Item Value Reference Range Interpretation Comme nts HEMOGLOBIN A1c (test code = 32738) 7.1 % HEMOGLOBIN [id number] 00:00:00* Test Item Value Reference Range Interpretation Comme nts HEMOGLOBIN A1c (test code = 50232) 7.1 % HEMOGLOBIN [id number] 00:00:00* Test Item Value Reference Range Interpretation Comme nts HEMOGLOBIN A1c (test code = 79349) 7.1 % HEMOGLOBIN [id number] 00:00:00* Test Item Value Reference Range Interpretation Comme nts HEMOGLOBIN A1c (test code = 26368) 7.1 % LIPID [id number] 00:00:00* Test Item Value Reference Range Interpretation Comme nts CHOLESTEROL (test code = 2210) 199 MG/DL TRIGLYCERIDES (test code = 2232) 283 MG/DL HDL CHOLESTEROL (test code = 2220) 40 MG/DL CALC LDL CHOL (test code = 2237) 119 MG/DL RISK RATIO LDL/HDL (test cod e = 2238) 2.98 RATIO LIPID [id number] 00:00:00* Test Item Value Reference Range Interpretation Comme nts CHOLESTEROL (test code = 2210) 199 MG/DL TRIGLYCERIDES (test code = 2232) 283 MG/DL HDL CHOLESTEROL (test code = 2220) 40 MG/DL CALC LDL CHOL (test code = 2237) 119 MG/DL RISK RATIO LDL/HDL (test cod e = 2238) 2.98 RATIO CBC W/AUTO [id number] 00:00:00* Test Item Value Reference Range Interpretation Comme nts WBC (test code = 1001) 7.8 K/UL RBC (test code = 1002) 4.45 M/UL HEMOGLOBIN (test code = 1003) 7.7 G/DL HEMATOCRIT (test code = 1004) 27.9 % MCV (test code = 1005) 62.7 fL MCH (test code = 1006) 17.3 PG MCHC (test code = 1007) 27.6 G/DL RDW (test code = 1038) 17.5 % NEUTROPHILS (test code = 1008) 58.0 % LYMPHOCYTES (test code = 1010) 33.7 % MONOCYTES (test code = 1011) 5.1 % EOSINOPHILS (test code = 1012) 2.7 % BASOPHILS (test code = 1013) 0.5 % PLATELET COUNT (test code = 1015) 256 K/UL COMMENTS (test code = 1016) (NOTE) CBC W/AUTO [id number] 00:00:00* Test Item Value Reference Range Interpretation Comme nts WBC (test code = 1001) 7.8 K/UL RBC (test code = 1002) 4.45 M/UL HEMOGLOBIN (test code = 1003) 7.7 G/DL HEMATOCRIT (test code = 1004) 27.9 % MCV (test code = 1005) 62.7 fL MCH (test code = 1006) 17.3 PG MCHC (test code = 1007) 27.6 G/DL RDW (test code = 1038) 17.5 % NEUTROPHILS (test code = 1008) 58.0 % LYMPHOCYTES (test code = 1010) 33.7 % MONOCYTES (test code = 1011) 5.1 % EOSINOPHILS (test code = 1012) 2.7 % BASOPHILS (test code = 1013) 0.5 % PLATELET COUNT (test code = 1015) 256 K/UL COMMENTS (test code = 1016) (NOTE) CBC W/AUTO [id number] 00:00:00* Test Item Value Reference Range Interpretation Comme nts WBC (test code = 1001) 7.8 K/UL RBC (test code = 1002) 4.45 M/UL HEMOGLOBIN (test code = 1003) 7.7 G/DL HEMATOCRIT (test code = 1004) 27.9 % MCV (test code = 1005) 62.7 fL MCH (test code = 1006) 17.3 PG MCHC (test code = 1007) 27.6 G/DL RDW (test code = 1038) 17.5 % NEUTROPHILS (test code = 1008) 58.0 % LYMPHOCYTES (test code = 1010) 33.7 % MONOCYTES (test code = 1011) 5.1 % EOSINOPHILS (test code = 1012) 2.7 % BASOPHILS (test code = 1013) 0.5 % PLATELET COUNT (test code = 1015) 256 K/UL COMMENTS (test code = 1016) (NOTE) COMPREHENSIVE METABOLIC [id number] 00:00:00* Test Item Value Reference Range Interpretation Comme nts GLUCOSE (test code = 2217) 153 MG/DL BUN (test code = 2208) 7 MG/DL CREATININE (test code = 2214) 0.55 MG/DL eGFR AMER. (test cod e = 73932) 131 ML/MIN/1.73 eGFR NON- AMER. (test code = 01746) 113 ML/MIN/1.73 CALC BUN/CREAT (test code = 2235) 13 RATIO SODIUM (test code = 2231) 140 MEQ/L POTASSIUM (test code = 2228) 4.4 MEQ/L CHLORIDE (test code = 2215) 101 MEQ/L CARBON DIOXIDE (test code = 2206) 26 MEQ/L CALCIUM (test code = 2209) 9.7 MG/DL PROTEIN, TOTAL (test code = 2229) 7.6 G/DL ALBUMIN (test code = 2201) 4.2 G/DL CALC GLOBULIN (test code = 2240) 3.4 G/DL CALC A/G RATIO (test code = 2234) 1.2 RATIO BILIRUBIN, TOTAL (test code = 2207) 0.4 MG/DL ALKALINE PHOSPHATASE (test code = 2204) 161 U/L AST (test code = 2218) 64 U/L ALT (test code = 2219) 77 U/L COMPREHENSIVE METABOLIC [id number] 00:00:00* Test Item Value Reference Range Interpretation Comme nts GLUCOSE (test code = 2217) 153 MG/DL BUN (test code = 2208) 7 MG/DL CREATININE (test code = 2214) 0.55 MG/DL eGFR AMER. (test cod e = 84077) 131 ML/MIN/1.73 eGFR NON- AMER. (test code = 95655) 113 ML/MIN/1.73 CALC BUN/CREAT (test code = 2235) 13 RATIO SODIUM (test code = 2231) 140 MEQ/L POTASSIUM (test code = 2228) 4.4 MEQ/L CHLORIDE (test code = 2215) 101 MEQ/L CARBON DIOXIDE (test code = 2206) 26 MEQ/L CALCIUM (test code = 2209) 9.7 MG/DL PROTEIN, TOTAL (test code = 2229) 7.6 G/DL ALBUMIN (test code = 2201) 4.2 G/DL CALC GLOBULIN (test code = 2240) 3.4 G/DL CALC A/G RATIO (test code = 2234) 1.2 RATIO BILIRUBIN, TOTAL (test code = 2207) 0.4 MG/DL ALKALINE PHOSPHATASE (test code = 220) 161 U/L AST (test code = 221) 64 U/L ALT (test code = 2219) 77 U/L VITAMIN D, 25 [id number] 00:00:00* Test Item Value Reference Range Interpretation Comme nts VITAMIN D, 25 OH (test code = 4958) 24 NG/ML VITAMIN D, 25 [id number] 00:00:00* Test Item Value Reference Range Interpretation Comme nts VITAMIN D, 25 OH (test code = 4958) 24 NG/ML HEMOGLOBIN [id number] 00:00:00* Test Item Value Reference Range Interpretation Comme nts HEMOGLOBIN A1c (test code = 53150) 7.1 % LIPID [id number] 00:00:00* Test Item Value Reference Range Interpretation Comme nts CHOLESTEROL (test code = 2210) 199 MG/DL TRIGLYCERIDES (test code = 2232) 283 MG/DL HDL CHOLESTEROL (test code = 2220) 40 MG/DL CALC LDL CHOL (test code = 2237) 119 MG/DL RISK RATIO LDL/HDL (test cod e = 2238) 2.98 RATIO HEMOGLOBIN [id number] 00:00:00* Test Item Value Reference Range Interpretation Comme nts HEMOGLOBIN A1c (test code = 42063) 7.1 % HEMOGLOBIN [id number] 00:00:00* Test Item Value Reference Range Interpretation Comme nts HEMOGLOBIN A1c (test code = 17842) 7.1 % HEMOGLOBIN [id number] 00:00:00* Test Item Value Reference Range Interpretation Comme nts HEMOGLOBIN A1c (test code = 77095) 7.1 % VITAMIN D, 25 [id number] 00:00:00* Test Item Value Reference Range Interpretation Comme nts VITAMIN D, 25 OH (test code = 4958) 19 NG/ML VITAMIN D, 25 [id number] 00:00:00* Test Item Value Reference Range Interpretation Comme nts VITAMIN D, 25 OH (test code = 4958) 19 NG/ML VITAMIN D, 25 [id number] 00:00:00* Test Item Value Reference Range Interpretation Comme nts VITAMIN D, 25 OH (test code = 4958) 19 NG/ML VITAMIN D, 25 [id number] 00:00:00* Test Item Value Reference Range Interpretation Comme nts VITAMIN D, 25 OH (test code = 4958) 19 NG/ML VITAMIN D, 25 [id number] 00:00:00* Test Item Value Reference Range Interpretation Comme nts VITAMIN D, 25 OH (test code = 4958) 19 NG/ML VITAMIN D, 25 [id number] 00:00:00* Test Item Value Reference Range Interpretation Comme nts VITAMIN D, 25 OH (test code = 4958) 19 NG/ML VITAMIN D, 25 [id number] 00:00:00* Test Item Value Reference Range Interpretation Comme nts VITAMIN D, 25 OH (test code = 4958) 19 NG/ML COMPREHENSIVE METABOLIC [id number] 00:00:00* Test Item Value Reference Range Interpretation Comme [facility] GLUCOSE (test code = 2217) 175 MG/DL BUN (test code = 2208) 12 MG/DL CREATININE (test code = 2214) 0.62 MG/DL eGFR AMER. (test cod e = 56416) 127 ML/MIN/1.73 eGFR NON- AMER. (test code = 48882) 110 ML/MIN/1.73 CALC BUN/CREAT (test code = 2235) 19 RATIO SODIUM (test code = 2231) 141 MEQ/L POTASSIUM (test code = 2228) 4.6 MEQ/L CHLORIDE (test code = 2215) 104 MEQ/L CARBON DIOXIDE (test code = 2206) 25 MEQ/L CALCIUM (test code = 2209) 9.6 MG/DL PROTEIN, TOTAL (test code = 2229) 7.4 G/DL ALBUMIN (test code = 2201) 4.1 G/DL CALC GLOBULIN (test code = 2240) 3.3 G/DL CALC A/G RATIO (test code = 2234) 1.2 RATIO BILIRUBIN, TOTAL (test code = 2207) 0.5 MG/DL ALKALINE PHOSPHATASE (test code = 2204) 146 U/L AST (test code = 2218) 65 U/L ALT (test code = 2219) 74 U/L LIPID [id number] 00:00:00* Test Item Value Reference Range Interpretation Comme nts CHOLESTEROL (test code = 2210) 182 MG/DL TRIGLYCERIDES (test code = 2232) 265 MG/DL HDL CHOLESTEROL (test code = 2220) 35 MG/DL CALC LDL CHOL (test code = 2237) 109 MG/DL RISK RATIO LDL/HDL (test cod e = 2238) 3.11 RATIO COMPREHENSIVE METABOLIC [id number] 00:00:00* Test Item Value Reference Range Interpretation Comme nts GLUCOSE (test code = 2217) 175 MG/DL BUN (test code = 2208) 12 MG/DL CREATININE (test code = 2214) 0.62 MG/DL eGFR AMER. (test cod e = 88218) 127 ML/MIN/1.73 eGFR NON- AMER. (test code = 16520) 110 ML/MIN/1.73 CALC BUN/CREAT (test code = 2235) 19 RATIO SODIUM (test code = 2231) 141 MEQ/L POTASSIUM (test code = 2228) 4.6 MEQ/L CHLORIDE (test code = 2215) 104 MEQ/L CARBON DIOXIDE (test code = 2206) 25 MEQ/L CALCIUM (test code = 2209) 9.6 MG/DL PROTEIN, TOTAL (test code = 2229) 7.4 G/DL ALBUMIN (test code = 2201) 4.1 G/DL CALC GLOBULIN (test code = 2240) 3.3 G/DL CALC A/G RATIO (test code = 2234) 1.2 RATIO BILIRUBIN, TOTAL (test code = 2207) 0.5 MG/DL ALKALINE PHOSPHATASE (test code = 2204) 146 U/L AST (test code = 2218) 65 U/L ALT (test code = 2219) 74 U/L LIPID [id number] 00:00:00* Test Item Value Reference Range Interpretation Comme nts CHOLESTEROL (test code = 2210) 182 MG/DL TRIGLYCERIDES (test code = 2232) 265 MG/DL HDL CHOLESTEROL (test code = 2220) 35 MG/DL CALC LDL CHOL (test code = 2237) 109 MG/DL RISK RATIO LDL/HDL (test cod e = 2238) 3.11 RATIO COMPREHENSIVE METABOLIC [id number] 00:00:00* Test Item Value Reference Range Interpretation Comme nts GLUCOSE (test code = 2217) 175 MG/DL BUN (test code = 2208) 12 MG/DL CREATININE (test code = 2214) 0.62 MG/DL eGFR AMER. (test cod e = 48921) 127 ML/MIN/1.73 eGFR NON- AMER. (test code = 53763) 110 ML/MIN/1.73 CALC BUN/CREAT (test code = 2235) 19 RATIO SODIUM (test code = 2231) 141 MEQ/L POTASSIUM (test code = 2228) 4.6 MEQ/L CHLORIDE (test code = 2215) 104 MEQ/L CARBON DIOXIDE (test code = 2206) 25 MEQ/L CALCIUM (test code = 2209) 9.6 MG/DL PROTEIN, TOTAL (test code = 2229) 7.4 G/DL ALBUMIN (test code = 2201) 4.1 G/DL CALC GLOBULIN (test code = 2240) 3.3 G/DL CALC A/G RATIO (test code = 2234) 1.2 RATIO BILIRUBIN, TOTAL (test code = 2207) 0.5 MG/DL ALKALINE PHOSPHATASE (test code = 2204) 146 U/L AST (test code = 2218) 65 U/L ALT (test code = 2219) 74 U/L COMPREHENSIVE METABOLIC [id number] 00:00:00* Test Item Value Reference Range Interpretation Comme nts GLUCOSE (test code = 2217) 175 MG/DL BUN (test code = 2208) 12 MG/DL CREATININE (test code = 2214) 0.62 MG/DL eGFR AMER. (test cod e = 39213) 127 ML/MIN/1.73 eGFR NON- AMER. (test code = 68438) 110 ML/MIN/1.73 CALC BUN/CREAT (test code = 2235) 19 RATIO SODIUM (test code = 2231) 141 MEQ/L POTASSIUM (test code = 2228) 4.6 MEQ/L CHLORIDE (test code = 2215) 104 MEQ/L CARBON DIOXIDE (test code = 2206) 25 MEQ/L CALCIUM (test code = 2209) 9.6 MG/DL PROTEIN, TOTAL (test code = 2229) 7.4 G/DL ALBUMIN (test code = 2201) 4.1 G/DL CALC GLOBULIN (test code = 2240) 3.3 G/DL CALC A/G RATIO (test code = 2234) 1.2 RATIO BILIRUBIN, TOTAL (test code = 2207) 0.5 MG/DL ALKALINE PHOSPHATASE (test code = 2204) 146 U/L AST (test code = 2218) 65 U/L ALT (test code = 2219) 74 U/L LIPID [id number] 00:00:00* Test Item Value Reference Range Interpretation Comme nts CHOLESTEROL (test code = 2210) 182 MG/DL TRIGLYCERIDES (test code = 2232) 265 MG/DL HDL CHOLESTEROL (test code = 2220) 35 MG/DL CALC LDL CHOL (test code = 2237) 109 MG/DL RISK RATIO LDL/HDL (test cod e = 2238) 3.11 RATIO LIPID [id number] 00:00:00* Test Item Value Reference Range Interpretation Comme nts CHOLESTEROL (test code = 2210) 182 MG/DL TRIGLYCERIDES (test code = 2232) 265 MG/DL HDL CHOLESTEROL (test code = 2220) 35 MG/DL CALC LDL CHOL (test code = 2237) 109 MG/DL RISK RATIO LDL/HDL (test cod e = 2238) 3.11 RATIO COMPREHENSIVE METABOLIC [id number] 00:00:00* Test Item Value Reference Range Interpretation Comme nts GLUCOSE (test code = 2217) 175 MG/DL BUN (test code = 2208) 12 MG/DL CREATININE (test code = 2214) 0.62 MG/DL eGFR AMER. (test cod e = 47291) 127 ML/MIN/1.73 eGFR NON- AMER. (test code = 19407) 110 ML/MIN/1.73 CALC BUN/CREAT (test code = 2235) 19 RATIO SODIUM (test code = 2231) 141 MEQ/L POTASSIUM (test code = 2228) 4.6 MEQ/L CHLORIDE (test code = 2215) 104 MEQ/L CARBON DIOXIDE (test code = 2206) 25 MEQ/L CALCIUM (test code = 2209) 9.6 MG/DL PROTEIN, TOTAL (test code = 2229) 7.4 G/DL ALBUMIN (test code = 2201) 4.1 G/DL CALC GLOBULIN (test code = 2240) 3.3 G/DL CALC A/G RATIO (test code = 2234) 1.2 RATIO BILIRUBIN, TOTAL (test code = 2207) 0.5 MG/DL ALKALINE PHOSPHATASE (test code = 2204) 146 U/L AST (test code = 2218) 65 U/L ALT (test code = 2219) 74 U/L LIPID [id number] 00:00:00* Test Item Value Reference Range Interpretation Comme nts CHOLESTEROL (test code = 2210) 182 MG/DL TRIGLYCERIDES (test code = 2232) 265 MG/DL HDL CHOLESTEROL (test code = 2220) 35 MG/DL CALC LDL CHOL (test code = 2237) 109 MG/DL RISK RATIO LDL/HDL (test cod e = 2238) 3.11 RATIO COMPREHENSIVE METABOLIC [id number] 00:00:00* Test Item Value Reference Range Interpretation Comme nts GLUCOSE (test code = 2217) 175 MG/DL BUN (test code = 2208) 12 MG/DL CREATININE (test code = 2214) 0.62 MG/DL eGFR AMER. (test cod e = 77049) 127 ML/MIN/1.73 eGFR NON- AMER. (test code = 39600) 110 ML/MIN/1.73 CALC BUN/CREAT (test code = 2235) 19 RATIO SODIUM (test code = 2231) 141 MEQ/L POTASSIUM (test code = 2228) 4.6 MEQ/L CHLORIDE (test code = 2215) 104 MEQ/L CARBON DIOXIDE (test code = 2206) 25 MEQ/L CALCIUM (test code = 2209) 9.6 MG/DL PROTEIN, TOTAL (test code = 2229) 7.4 G/DL ALBUMIN (test code = 2201) 4.1 G/DL CALC GLOBULIN (test code = 2240) 3.3 G/DL CALC A/G RATIO (test code = 2234) 1.2 RATIO BILIRUBIN, TOTAL (test code = 2207) 0.5 MG/DL ALKALINE PHOSPHATASE (test code = 2204) 146 U/L AST (test code = 2218) 65 U/L ALT (test code = 2219) 74 U/L COMPREHENSIVE METABOLIC [id number] 00:00:00* Test Item Value Reference Range Interpretation Comme nts GLUCOSE (test code = 2217) 175 MG/DL BUN (test code = 2208) 12 MG/DL CREATININE (test code = 2214) 0.62 MG/DL eGFR AMER. (test cod e = 90733) 127 ML/MIN/1.73 eGFR NON- AMER. (test code = 40103) 110 ML/MIN/1.73 CALC BUN/CREAT (test code = 2235) 19 RATIO SODIUM (test code = 2231) 141 MEQ/L POTASSIUM (test code = 2228) 4.6 MEQ/L CHLORIDE (test code = 2215) 104 MEQ/L CARBON DIOXIDE (test code = 2206) 25 MEQ/L CALCIUM (test code = 2209) 9.6 MG/DL PROTEIN, TOTAL (test code = 2229) 7.4 G/DL ALBUMIN (test code = 2201) 4.1 G/DL CALC GLOBULIN (test code = 2240) 3.3 G/DL CALC A/G RATIO (test code = 2234) 1.2 RATIO BILIRUBIN, TOTAL (test code = 2207) 0.5 MG/DL ALKALINE PHOSPHATASE (test code = 2204) 146 U/L AST (test code = 2218) 65 U/L ALT (test code = 2219) 74 U/L LIPID [id number] 00:00:00* Test Item Value Reference Range Interpretation Comme nts CHOLESTEROL (test code = 2210) 182 MG/DL TRIGLYCERIDES (test code = 2232) 265 MG/DL HDL CHOLESTEROL (test code = 2220) 35 MG/DL CALC LDL CHOL (test code = 2237) 109 MG/DL RISK RATIO LDL/HDL (test cod e = 2238) 3.11 RATIO LIPID [id number] 00:00:00* Test Item Value Reference Range Interpretation Comme nts CHOLESTEROL (test code = 2210) 182 MG/DL TRIGLYCERIDES (test code = 2232) 265 MG/DL HDL CHOLESTEROL (test code = 2220) 35 MG/DL CALC LDL CHOL (test code = 2237) 109 MG/DL RISK RATIO LDL/HDL (test cod e = 2238) 3.11 RATIO CBC W/AUTO [id number] 00:00:00* Test Item Value Reference Range Interpretation Comme nts WBC (test code = 1001) 7.4 K/UL RBC (test code = 1002) 4.09 M/UL HEMOGLOBIN (test code = 1003) 6.8 G/DL HEMATOCRIT (test code = 1004) 25.7 % MCV (test code = 1005) 62.8 fL MCH (test code = 1006) 16.6 PG MCHC (test code = 1007) 26.5 G/DL RDW (test code = 1038) 19.2 % NEUTROPHILS (test code = 1008) 57.7 % LYMPHOCYTES (test code = 1010) 34.6 % MONOCYTES (test code = 1011) 4.6 % EOSINOPHILS (test code = 1012) 2.7 % BASOPHILS (test code = 1013) 0.4 % PLATELET COUNT (test code = 1015) 217 K/UL COMMENTS (test code = 1016) (NOTE) CBC W/AUTO [id number] 00:00:00* Test Item Value Reference Range Interpretation Comme nts WBC (test code = 1001) 7.4 K/UL RBC (test code = 1002) 4.09 M/UL HEMOGLOBIN (test code = 1003) 6.8 G/DL HEMATOCRIT (test code = 1004) 25.7 % MCV (test code = 1005) 62.8 fL MCH (test code = 1006) 16.6 PG MCHC (test code = 1007) 26.5 G/DL RDW (test code = 1038) 19.2 % NEUTROPHILS (test code = 1008) 57.7 % LYMPHOCYTES (test code = 1010) 34.6 % MONOCYTES (test code = 1011) 4.6 % EOSINOPHILS (test code = 1012) 2.7 % BASOPHILS (test code = 1013) 0.4 % PLATELET COUNT (test code = 1015) 217 K/UL COMMENTS (test code = 1016) (NOTE) CBC W/AUTO [id number] 00:00:00* Test Item Value Reference Range Interpretation Comme nts WBC (test code = 1001) 7.4 K/UL RBC (test code = 1002) 4.09 M/UL HEMOGLOBIN (test code = 1003) 6.8 G/DL HEMATOCRIT (test code = 1004) 25.7 % MCV (test code = 1005) 62.8 fL MCH (test code = 1006) 16.6 PG MCHC (test code = 1007) 26.5 G/DL RDW (test code = 1038) 19.2 % NEUTROPHILS (test code = 1008) 57.7 % LYMPHOCYTES (test code = 1010) 34.6 % MONOCYTES (test code = 1011) 4.6 % EOSINOPHILS (test code = 1012) 2.7 % BASOPHILS (test code = 1013) 0.4 % PLATELET COUNT (test code = 1015) 217 K/UL COMMENTS (test code = 1016) (NOTE) CBC W/AUTO [id number] 00:00:00* Test Item Value Reference Range Interpretation Comme nts WBC (test code = 1001) 7.4 K/UL RBC (test code = 1002) 4.09 M/UL HEMOGLOBIN (test code = 1003) 6.8 G/DL HEMATOCRIT (test code = 1004) 25.7 % MCV (test code = 1005) 62.8 fL MCH (test code = 1006) 16.6 PG MCHC (test code = 1007) 26.5 G/DL RDW (test code = 1038) 19.2 % NEUTROPHILS (test code = 1008) 57.7 % LYMPHOCYTES (test code = 1010) 34.6 % MONOCYTES (test code = 1011) 4.6 % EOSINOPHILS (test code = 1012) 2.7 % BASOPHILS (test code = 1013) 0.4 % PLATELET COUNT (test code = 1015) 217 K/UL COMMENTS (test code = 1016) (NOTE) HEMOGLOBIN [id number] 00:00:00* Test Item Value Reference Range Interpretation Comme nts HEMOGLOBIN A1c (test code = 18998) 6.8 % HEMOGLOBIN [id number] 00:00:00* Test Item Value Reference Range Interpretation Comme nts HEMOGLOBIN A1c (test code = 27042) 6.8 % HEMOGLOBIN [id number] 00:00:00* Test Item Value Reference Range Interpretation Comme nts HEMOGLOBIN A1c (test code = 57589) 6.8 % CBC W/AUTO [id number] 00:00:00* Test Item Value Reference Range Interpretation Comme nts WBC (test code = 1001) 7.4 K/UL RBC (test code = 1002) 4.09 M/UL HEMOGLOBIN (test code = 1003) 6.8 G/DL HEMATOCRIT (test code = 1004) 25.7 % MCV (test code = 1005) 62.8 fL MCH (test code = 1006) 16.6 PG MCHC (test code = 1007) 26.5 G/DL RDW (test code = 1038) 19.2 % NEUTROPHILS (test code = 1008) 57.7 % LYMPHOCYTES (test code = 1010) 34.6 % MONOCYTES (test code = 1011) 4.6 % EOSINOPHILS (test code = 1012) 2.7 % BASOPHILS (test code = 1013) 0.4 % PLATELET COUNT (test code = 1015) 217 K/UL COMMENTS (test code = 1016) (NOTE) HEMOGLOBIN [id number] 00:00:00* Test Item Value Reference Range Interpretation Comme nts HEMOGLOBIN A1c (test code = 44218) 6.8 % HEMOGLOBIN [id number] 00:00:00* Test Item Value Reference Range Interpretation Comme nts HEMOGLOBIN A1c (test code = 44964) 6.8 % CBC W/AUTO [id number] 00:00:00* Test Item Value Reference Range Interpretation Comme nts WBC (test code = 1001) 7.4 K/UL RBC (test code = 1002) 4.09 M/UL HEMOGLOBIN (test code = 1003) 6.8 G/DL HEMATOCRIT (test code = 1004) 25.7 % MCV (test code = 1005) 62.8 fL MCH (test code = 1006) 16.6 PG MCHC (test code = 1007) 26.5 G/DL RDW (test code = 1038) 19.2 % NEUTROPHILS (test code = 1008) 57.7 % LYMPHOCYTES (test code = 1010) 34.6 % MONOCYTES (test code = 1011) 4.6 % EOSINOPHILS (test code = 1012) 2.7 % BASOPHILS (test code = 1013) 0.4 % PLATELET COUNT (test code = 1015) 217 K/UL COMMENTS (test code = 1016) (NOTE) CBC W/AUTO [id number] 00:00:00* Test Item Value Reference Range Interpretation Comme nts WBC (test code = 1001) 7.4 K/UL RBC (test code = 1002) 4.09 M/UL HEMOGLOBIN (test code = 1003) 6.8 G/DL HEMATOCRIT (test code = 1004) 25.7 % MCV (test code = 1005) 62.8 fL MCH (test code = 1006) 16.6 PG MCHC (test code = 1007) 26.5 G/DL RDW (test code = 1038) 19.2 % NEUTROPHILS (test code = 1008) 57.7 % LYMPHOCYTES (test code = 1010) 34.6 % MONOCYTES (test code = 1011) 4.6 % EOSINOPHILS (test code = 1012) 2.7 % BASOPHILS (test code = 1013) 0.4 % PLATELET COUNT (test code = 1015) 217 K/UL COMMENTS (test code = 1016) (NOTE) HEMOGLOBIN [id number] 00:00:00* Test Item Value Reference Range Interpretation Comme nts HEMOGLOBIN A1c (test code = 74105) 6.8 % HEMOGLOBIN [id number] 00:00:00* Test Item Value Reference Range Interpretation Comme nts HEMOGLOBIN A1c (test code = 07382) 6.8 % CBC W/AUTO [id number] 00:00:00* Test Item Value Reference Range Interpretation Comme nts WBC (test code = 1001) 7.4 K/UL RBC (test code = 1002) 4.09 M/UL HEMOGLOBIN (test code = 1003) 6.8 G/DL HEMATOCRIT (test code = 1004) 25.7 % MCV (test code = 1005) 62.8 fL MCH (test code = 1006) 16.6 PG MCHC (test code = 1007) 26.5 G/DL RDW (test code = 1038) 19.2 % NEUTROPHILS (test code = 1008) 57.7 % LYMPHOCYTES (test code = 1010) 34.6 % MONOCYTES (test code = 1011) 4.6 % EOSINOPHILS (test code = 1012) 2.7 % BASOPHILS (test code = 1013) 0.4 % PLATELET COUNT (test code = 1015) 217 K/UL COMMENTS (test code = 1016) (NOTE) CBC W/AUTO [id number] 00:00:00* Test Item Value Reference Range Interpretation Comme nts WBC (test code = 1001) 7.4 K/UL RBC (test code = 1002) 4.09 M/UL HEMOGLOBIN (test code = 1003) 6.8 G/DL HEMATOCRIT (test code = 1004) 25.7 % MCV (test code = 1005) 62.8 fL MCH (test code = 1006) 16.6 PG MCHC (test code = 1007) 26.5 G/DL RDW (test code = 1038) 19.2 % NEUTROPHILS (test code = 1008) 57.7 % LYMPHOCYTES (test code = 1010) 34.6 % MONOCYTES (test code = 1011) 4.6 % EOSINOPHILS (test code = 1012) 2.7 % BASOPHILS (test code = 1013) 0.4 % PLATELET COUNT (test code = 1015) 217 K/UL COMMENTS (test code = 1016) (NOTE) HEMOGLOBIN [id number] 00:00:00* Test Item Value Reference Range Interpretation Comme nts HEMOGLOBIN A1c (test code = 51003) 6.8 % HEMOGLOBIN [id number] 00:00:00* Test Item Value Reference Range Interpretation Comme nts HEMOGLOBIN A1c (test code = 95727) 6.8 % CBC W/AUTO [id number] 00:00:00* Test Item Value Reference Range Interpretation Comme nts WBC (test code = 1001) 7.4 K/UL RBC (test code = 1002) 4.09 M/UL HEMOGLOBIN (test code = 1003) 6.8 G/DL HEMATOCRIT (test code = 1004) 25.7 % MCV (test code = 1005) 62.8 fL MCH (test code = 1006) 16.6 PG MCHC (test code = 1007) 26.5 G/DL RDW (test code = 1038) 19.2 % NEUTROPHILS (test code = 1008) 57.7 % LYMPHOCYTES (test code = 1010) 34.6 % MONOCYTES (test code = 1011) 4.6 % EOSINOPHILS (test code = 1012) 2.7 % BASOPHILS (test code = 1013) 0.4 % PLATELET COUNT (test code = 1015) 217 K/UL COMMENTS (test code = 1016) (NOTE) CBC W/AUTO [id number] 00:00:00* Test Item Value Reference Range Interpretation Comme nts WBC (test code = 1001) 7.4 K/UL RBC (test code = 1002) 4.09 M/UL HEMOGLOBIN (test code = 1003) 6.8 G/DL HEMATOCRIT (test code = 1004) 25.7 % MCV (test code = 1005) 62.8 fL MCH (test code = 1006) 16.6 PG MCHC (test code = 1007) 26.5 G/DL RDW (test code = 1038) 19.2 % NEUTROPHILS (test code = 1008) 57.7 % LYMPHOCYTES (test code = 1010) 34.6 % MONOCYTES (test code = 1011) 4.6 % EOSINOPHILS (test code = 1012) 2.7 % BASOPHILS (test code = 1013) 0.4 % PLATELET COUNT (test code = 1015) 217 K/UL COMMENTS (test code = 1016) (NOTE) CBC W/AUTO [id number] 00:00:00* Test Item Value Reference Range Interpretation Comme nts WBC (test code = 1001) 7.4 K/UL RBC (test code = 1002) 4.09 M/UL HEMOGLOBIN (test code = 1003) 6.8 G/DL HEMATOCRIT (test code = 1004) 25.7 % MCV (test code = 1005) 62.8 fL MCH (test code = 1006) 16.6 PG MCHC (test code = 1007) 26.5 G/DL RDW (test code = 1038) 19.2 % NEUTROPHILS (test code = 1008) 57.7 % LYMPHOCYTES (test code = 1010) 34.6 % MONOCYTES (test code = 1011) 4.6 % EOSINOPHILS (test code = 1012) 2.7 % BASOPHILS (test code = 1013) 0.4 % PLATELET COUNT (test code = 1015) 217 K/UL COMMENTS (test code = 1016) (NOTE) HEMOGLOBIN [id number] 00:00:00* Test Item Value Reference Range Interpretation Comme nts HEMOGLOBIN A1c (test code = 20847) 6.8 % HEMOGLOBIN [id number] 00:00:00* Test Item Value Reference Range Interpretation Comme nts HEMOGLOBIN A1c (test code = 55507) 6.8 % HEMOGLOBIN [id number] 00:00:00* Test Item Value Reference Range Interpretation Comme nts HEMOGLOBIN A1c (test code = 48996) 6.8 % HEMOGLOBIN [id number] 00:00:00* Test Item Value Reference Range Interpretation Comme nts HEMOGLOBIN A1c (test code = 78842) 8.3 % HEMOGLOBIN [id number] 00:00:00* Test Item Value Reference Range Interpretation Comme nts HEMOGLOBIN A1c (test code = 92203) 8.3 % LIPID [id number] 00:00:00* Test Item Value Reference Range Interpretation Comme nts CHOLESTEROL (test code = 2210) 260 MG/DL TRIGLYCERIDES (test code = 2232) 464 MG/DL HDL CHOLESTEROL (test code = 2220) 42 MG/DL CALC LDL CHOL (test code = 2237) NOTE MG/DL RISK RATIO LDL/HDL (test cod e = 2238) (NOTE) RATIO HEMOGLOBIN [id number] 00:00:00* Test Item Value Reference Range Interpretation Comme nts HEMOGLOBIN A1c (test code = 54998) 8.3 % LIPID [id number] 00:00:00* Test Item Value Reference Range Interpretation Comme nts CHOLESTEROL (test code = 2210) 260 MG/DL TRIGLYCERIDES (test code = 2232) 464 MG/DL HDL CHOLESTEROL (test code = 2220) 42 MG/DL CALC LDL CHOL (test code = 2237) NOTE MG/DL RISK RATIO LDL/HDL (test cod e = 2238) (NOTE) RATIO LIPID [id number] 00:00:00* Test Item Value Reference Range Interpretation Comme nts CHOLESTEROL (test code = 2210) 260 MG/DL TRIGLYCERIDES (test code = 2232) 464 MG/DL HDL CHOLESTEROL (test code = 2220) 42 MG/DL CALC LDL CHOL (test code = 2237) NOTE MG/DL RISK RATIO LDL/HDL (test cod e = 2238) (NOTE) RATIO COMPREHENSIVE METABOLIC [id number] 00:00:00* Test Item Value Reference Range Interpretation Comme nts GLUCOSE (test code = 2217) 195 MG/DL BUN (test code = 2208) 10 MG/DL CREATININE (test code = 2214) 0.58 MG/DL eGFR AMER. (test cod e = 43888) 130 ML/MIN/1.73 eGFR NON- AMER. (test code = 38135) 112 ML/MIN/1.73 CALC BUN/CREAT (test code = 2235) 17 RATIO SODIUM (test code = 2231) 143 MEQ/L POTASSIUM (test code = 2228) 4.2 MEQ/L CHLORIDE (test code = 2215) 103 MEQ/L CARBON DIOXIDE (test code = 2206) 24 MEQ/L CALCIUM (test code = 2209) 9.6 MG/DL PROTEIN, TOTAL (test code = 2229) 7.7 G/DL ALBUMIN (test code = 2201) 4.3 G/DL CALC GLOBULIN (test code = 2240) 3.4 G/DL CALC A/G RATIO (test code = 2234) 1.3 RATIO BILIRUBIN, TOTAL (test code = 2207) 0.3 MG/DL ALKALINE PHOSPHATASE (test code = 2204) 188 U/L AST (test code = 2218) 97 U/L ALT (test code = 2219) 123 U/L COMPREHENSIVE METABOLIC [id number] 00:00:00* Test Item Value Reference Range Interpretation Comme nts GLUCOSE (test code = 2217) 195 MG/DL BUN (test code = 2208) 10 MG/DL CREATININE (test code = 2214) 0.58 MG/DL eGFR AMER. (test cod e = 10113) 130 ML/MIN/1.73 eGFR NON- AMER. (test code = 95409) 112 ML/MIN/1.73 CALC BUN/CREAT (test code = 2235) 17 RATIO SODIUM (test code = 2231) 143 MEQ/L POTASSIUM (test code = 2228) 4.2 MEQ/L CHLORIDE (test code = 2215) 103 MEQ/L CARBON DIOXIDE (test code = 2206) 24 MEQ/L CALCIUM (test code = 2209) 9.6 MG/DL PROTEIN, TOTAL (test code = 2229) 7.7 G/DL ALBUMIN (test code = 2201) 4.3 G/DL CALC GLOBULIN (test code = 2240) 3.4 G/DL CALC A/G RATIO (test code = 2234) 1.3 RATIO BILIRUBIN, TOTAL (test code = 2207) 0.3 MG/DL ALKALINE PHOSPHATASE (test code = 2204) 188 U/L AST (test code = 2218) 97 U/L ALT (test code = 2219) 123 U/L COMPREHENSIVE METABOLIC [id number] 00:00:00* Test Item Value Reference Range Interpretation Comme nts GLUCOSE (test code = 2217) 195 MG/DL BUN (test code = 2208) 10 MG/DL CREATININE (test code = 2214) 0.58 MG/DL eGFR AMER. (test cod e = ) 130 ML/MIN/1.73 eGFR NON- AMER. (test code = 72522) 112 ML/MIN/1.73 CALC BUN/CREAT (test code = 2235) 17 RATIO SODIUM (test code = 2231) 143 MEQ/L POTASSIUM (test code = 2228) 4.2 MEQ/L CHLORIDE (test code = 2215) 103 MEQ/L CARBON DIOXIDE (test code = 2206) 24 MEQ/L CALCIUM (test code = 2209) 9.6 MG/DL PROTEIN, TOTAL (test code = 2229) 7.7 G/DL ALBUMIN (test code = 2201) 4.3 G/DL CALC GLOBULIN (test code = 2240) 3.4 G/DL CALC A/G RATIO (test code = 2234) 1.3 RATIO BILIRUBIN, TOTAL (test code = 2207) 0.3 MG/DL ALKALINE PHOSPHATASE (test code = 2204) 188 U/L AST (test code = 2218) 97 U/L ALT (test code = 2219) 123 U/L CBC W/AUTO [id number] 00:00:00* Test Item Value Reference Range Interpretation Comme nts WBC (test code = 1001) 7.5 K/UL RBC (test code = 1002) 5.06 M/UL HEMOGLOBIN (test code = 1003) 11.7 G/DL HEMATOCRIT (test code = 1004) 36.8 % MCV (test code = 1005) 72.7 fL MCH (test code = 1006) 23.1 PG MCHC (test code = 1007) 31.8 G/DL RDW (test code = 1038) 15.1 % NEUTROPHILS (test code = 1008) 57.3 % LYMPHOCYTES (test code = 1010) 33.4 % MONOCYTES (test code = 1011) 6.1 % EOSINOPHILS (test code = 1012) 2.7 % BASOPHILS (test code = 1013) 0.5 % PLATELET COUNT (test code = 1015) 194 K/UL CBC W/AUTO [id number] 00:00:00* Test Item Value Reference Range Interpretation Comme nts WBC (test code = 1001) 7.5 K/UL RBC (test code = 1002) 5.06 M/UL HEMOGLOBIN (test code = 1003) 11.7 G/DL HEMATOCRIT (test code = 1004) 36.8 % MCV (test code = 1005) 72.7 fL MCH (test code = 1006) 23.1 PG MCHC (test code = 1007) 31.8 G/DL RDW (test code = 1038) 15.1 % NEUTROPHILS (test code = 1008) 57.3 % LYMPHOCYTES (test code = 1010) 33.4 % MONOCYTES (test code = 1011) 6.1 % EOSINOPHILS (test code = 1012) 2.7 % BASOPHILS (test code = 1013) 0.5 % PLATELET COUNT (test code = 1015) 194 K/UL HEMOGLOBIN [id number] 00:00:00* Test Item Value Reference Range Interpretation Comme nts HEMOGLOBIN A1c (test code = 09996) 8.3 % HEMOGLOBIN [id number] 00:00:00* Test Item Value Reference Range Interpretation Comme nts HEMOGLOBIN A1c (test code = 68345) 8.3 % LIPID [id number] 00:00:00* Test Item Value Reference Range Interpretation Comme nts CHOLESTEROL (test code = 2210) 260 MG/DL TRIGLYCERIDES (test code = 2232) 464 MG/DL HDL CHOLESTEROL (test code = 2220) 42 MG/DL CALC LDL CHOL (test code = 2237) NOTE MG/DL RISK RATIO LDL/HDL (test cod e = 2238) (NOTE) RATIO COMPREHENSIVE METABOLIC [id number] 00:00:00* Test Item Value Reference Range Interpretation Comme nts GLUCOSE (test code = 2217) 195 MG/DL BUN (test code = 2208) 10 MG/DL CREATININE (test code = 2214) 0.58 MG/DL eGFR AMER. (test cod e = 31873) 130 ML/MIN/1.73 eGFR NON- AMER. (test code = 89656) 112 ML/MIN/1.73 CALC BUN/CREAT (test code = 2235) 17 RATIO SODIUM (test code = 2231) 143 MEQ/L POTASSIUM (test code = 2228) 4.2 MEQ/L CHLORIDE (test code = 2215) 103 MEQ/L CARBON DIOXIDE (test code = 2206) 24 MEQ/L CALCIUM (test code = 2209) 9.6 MG/DL PROTEIN, TOTAL (test code = 2229) 7.7 G/DL ALBUMIN (test code = 2201) 4.3 G/DL CALC GLOBULIN (test code = 2240) 3.4 G/DL CALC A/G RATIO (test code = 2234) 1.3 RATIO BILIRUBIN, TOTAL (test code = 2207) 0.3 MG/DL ALKALINE PHOSPHATASE (test code = 2204) 188 U/L AST (test code = 2218) 97 U/L ALT (test code = 2219) 123 U/L CBC W/AUTO [id number] 00:00:00* Test Item Value Reference Range Interpretation Comme nts WBC (test code = 1001) 7.5 K/UL RBC (test code = 1002) 5.06 M/UL HEMOGLOBIN (test code = 1003) 11.7 G/DL HEMATOCRIT (test code = 1004) 36.8 % MCV (test code = 1005) 72.7 fL MCH (test code = 1006) 23.1 PG MCHC (test code = 1007) 31.8 G/DL RDW (test code = 1038) 15.1 % NEUTROPHILS (test code = 1008) 57.3 % LYMPHOCYTES (test code = 1010) 33.4 % MONOCYTES (test code = 1011) 6.1 % EOSINOPHILS (test code = 1012) 2.7 % BASOPHILS (test code = 1013) 0.5 % PLATELET COUNT (test code = 1015) 194 K/UL CBC W/AUTO [id number] 00:00:00* Test Item Value Reference Range Interpretation Comme nts WBC (test code = 1001) 7.5 K/UL RBC (test code = 1002) 5.06 M/UL HEMOGLOBIN (test code = 1003) 11.7 G/DL HEMATOCRIT (test code = 1004) 36.8 % MCV (test code = 1005) 72.7 fL MCH (test code = 1006) 23.1 PG MCHC (test code = 1007) 31.8 G/DL RDW (test code = 1038) 15.1 % NEUTROPHILS (test code = 1008) 57.3 % LYMPHOCYTES (test code = 1010) 33.4 % MONOCYTES (test code = 1011) 6.1 % EOSINOPHILS (test code = 1012) 2.7 % BASOPHILS (test code = 1013) 0.5 % PLATELET COUNT (test code = 1015) 194 K/UL HEMOGLOBIN [id number] 00:00:00* Test Item Value Reference Range Interpretation Comme nts HEMOGLOBIN A1c (test code = 81614) 8.3 % HEMOGLOBIN [id number] 00:00:00* Test Item Value Reference Range Interpretation Comme nts HEMOGLOBIN A1c (test code = 85940) 8.3 % LIPID [id number] 00:00:00* Test Item Value Reference Range Interpretation Comme nts CHOLESTEROL (test code = 2210) 260 MG/DL TRIGLYCERIDES (test code = 2232) 464 MG/DL HDL CHOLESTEROL (test code = 2220) 42 MG/DL CALC LDL CHOL (test code = 2237) NOTE MG/DL RISK RATIO LDL/HDL (test cod e = 2238) (NOTE) RATIO COMPREHENSIVE METABOLIC [id number] 00:00:00* Test Item Value Reference Range Interpretation Comme nts GLUCOSE (test code = 2217) 195 MG/DL BUN (test code = 2208) 10 MG/DL CREATININE (test code = 2214) 0.58 MG/DL eGFR AMER. (test cod e = 76808) 130 ML/MIN/1.73 eGFR NON- AMER. (test code = 16932) 112 ML/MIN/1.73 CALC BUN/CREAT (test code = 2235) 17 RATIO SODIUM (test code = 2231) 143 MEQ/L POTASSIUM (test code = 2228) 4.2 MEQ/L CHLORIDE (test code = 2215) 103 MEQ/L CARBON DIOXIDE (test code = 2206) 24 MEQ/L CALCIUM (test code = 2209) 9.6 MG/DL PROTEIN, TOTAL (test code = 2229) 7.7 G/DL ALBUMIN (test code = 2201) 4.3 G/DL CALC GLOBULIN (test code = 2240) 3.4 G/DL CALC A/G RATIO (test code = 2234) 1.3 RATIO BILIRUBIN, TOTAL (test code = 2207) 0.3 MG/DL ALKALINE PHOSPHATASE (test code = 2204) 188 U/L AST (test code = 2218) 97 U/L ALT (test code = 2219) 123 U/L CBC W/AUTO [id number] 00:00:00* Test Item Value Reference Range Interpretation Comme nts WBC (test code = 1001) 7.5 K/UL RBC (test code = 1002) 5.06 M/UL HEMOGLOBIN (test code = 1003) 11.7 G/DL HEMATOCRIT (test code = 1004) 36.8 % MCV (test code = 1005) 72.7 fL MCH (test code = 1006) 23.1 PG MCHC (test code = 1007) 31.8 G/DL RDW (test code = 1038) 15.1 % NEUTROPHILS (test code = 1008) 57.3 % LYMPHOCYTES (test code = 1010) 33.4 % MONOCYTES (test code = 1011) 6.1 % EOSINOPHILS (test code = 1012) 2.7 % BASOPHILS (test code = 1013) 0.5 % PLATELET COUNT (test code = 1015) 194 K/UL CBC W/AUTO [id number] 00:00:00* Test Item Value Reference Range Interpretation Comme nts WBC (test code = 1001) 7.5 K/UL RBC (test code = 1002) 5.06 M/UL HEMOGLOBIN (test code = 1003) 11.7 G/DL HEMATOCRIT (test code = 1004) 36.8 % MCV (test code = 1005) 72.7 fL MCH (test code = 1006) 23.1 PG MCHC (test code = 1007) 31.8 G/DL RDW (test code = 1038) 15.1 % NEUTROPHILS (test code = 1008) 57.3 % LYMPHOCYTES (test code = 1010) 33.4 % MONOCYTES (test code = 1011) 6.1 % EOSINOPHILS (test code = 1012) 2.7 % BASOPHILS (test code = 1013) 0.5 % PLATELET COUNT (test code = 1015) 194 K/UL CBC W/AUTO [id number] 00:00:00* Test Item Value Reference Range Interpretation Comme nts WBC (test code = 1001) 7.5 K/UL RBC (test code = 1002) 5.06 M/UL HEMOGLOBIN (test code = 1003) 11.7 G/DL HEMATOCRIT (test code = 1004) 36.8 % MCV (test code = 1005) 72.7 fL MCH (test code = 1006) 23.1 PG MCHC (test code = 1007) 31.8 G/DL RDW (test code = 1038) 15.1 % NEUTROPHILS (test code = 1008) 57.3 % LYMPHOCYTES (test code = 1010) 33.4 % MONOCYTES (test code = 1011) 6.1 % EOSINOPHILS (test code = 1012) 2.7 % BASOPHILS (test code = 1013) 0.5 % PLATELET COUNT (test code = 1015) 194 K/UL CBC W/AUTO [id number] 00:00:00* Test Item Value Reference Range Interpretation Comme nts WBC (test code = 1001) 7.5 K/UL RBC (test code = 1002) 5.06 M/UL HEMOGLOBIN (test code = 1003) 11.7 G/DL HEMATOCRIT (test code = 1004) 36.8 % MCV (test code = 1005) 72.7 fL MCH (test code = 1006) 23.1 PG MCHC (test code = 1007) 31.8 G/DL RDW (test code = 1038) 15.1 % NEUTROPHILS (test code = 1008) 57.3 % LYMPHOCYTES (test code = 1010) 33.4 % MONOCYTES (test code = 1011) 6.1 % EOSINOPHILS (test code = 1012) 2.7 % BASOPHILS (test code = 1013) 0.5 % PLATELET COUNT (test code = 1015) 194 K/UL HEMOGLOBIN [id number] 00:00:00* Test Item Value Reference Range Interpretation Comme nts HEMOGLOBIN A1c (test code = 77665) 8.3 % HEMOGLOBIN [id number] 00:00:00* Test Item Value Reference Range Interpretation Comme nts HEMOGLOBIN A1c (test code = 81351) 8.3 % HEMOGLOBIN [id number] 00:00:00* Test Item Value Reference Range Interpretation Comme nts HEMOGLOBIN A1c (test code = 23151) 8.3 % CBC W/AUTO [id number] 00:00:00* Test Item Value Reference Range Interpretation Comme nts WBC (test code = 1001) 7.5 K/UL RBC (test code = 1002) 5.06 M/UL HEMOGLOBIN (test code = 1003) 11.7 G/DL HEMATOCRIT (test code = 1004) 36.8 % MCV (test code = 1005) 72.7 fL MCH (test code = 1006) 23.1 PG MCHC (test code = 1007) 31.8 G/DL RDW (test code = 1038) 15.1 % NEUTROPHILS (test code = 1008) 57.3 % LYMPHOCYTES (test code = 1010) 33.4 % MONOCYTES (test code = 1011) 6.1 % EOSINOPHILS (test code = 1012) 2.7 % BASOPHILS (test code = 1013) 0.5 % PLATELET COUNT (test code = 1015) 194 K/UL LIPID [id number] 00:00:00* Test Item Value Reference Range Interpretation Comme nts CHOLESTEROL (test code = 2210) 260 MG/DL TRIGLYCERIDES (test code = 2232) 464 MG/DL HDL CHOLESTEROL (test code = 2220) 42 MG/DL CALC LDL CHOL (test code = 2237) NOTE MG/DL RISK RATIO LDL/HDL (test cod e = 2238) (NOTE) RATIO LIPID [id number] 00:00:00* Test Item Value Reference Range Interpretation Comme nts CHOLESTEROL (test code = 2210) 260 MG/DL TRIGLYCERIDES (test code = 2232) 464 MG/DL HDL CHOLESTEROL (test code = 2220) 42 MG/DL CALC LDL CHOL (test code = 2237) NOTE MG/DL RISK RATIO LDL/HDL (test cod e = 2238) (NOTE) RATIO COMPREHENSIVE METABOLIC [id number] 00:00:00* Test Item Value Reference Range Interpretation Comme nts GLUCOSE (test code = 2217) 195 MG/DL BUN (test code = 2208) 10 MG/DL CREATININE (test code = 2214) 0.58 MG/DL eGFR AMER. (test cod e = 78203) 130 ML/MIN/1.73 eGFR NON- AMER. (test code = 02719) 112 ML/MIN/1.73 CALC BUN/CREAT (test code = 2235) 17 RATIO SODIUM (test code = 2231) 143 MEQ/L POTASSIUM (test code = 2228) 4.2 MEQ/L CHLORIDE (test code = 2215) 103 MEQ/L CARBON DIOXIDE (test code = 2206) 24 MEQ/L CALCIUM (test code = 2209) 9.6 MG/DL PROTEIN, TOTAL (test code = 2229) 7.7 G/DL ALBUMIN (test code = 2201) 4.3 G/DL CALC GLOBULIN (test code = 2240) 3.4 G/DL CALC A/G RATIO (test code = 2234) 1.3 RATIO BILIRUBIN, TOTAL (test code = 2207) 0.3 MG/DL ALKALINE PHOSPHATASE (test code = 2204) 188 U/L AST (test code = 2218) 97 U/L ALT (test code = 2219) 123 U/L COMPREHENSIVE METABOLIC [id number] 00:00:00* Test Item Value Reference Range Interpretation Comme nts GLUCOSE (test code = 2217) 195 MG/DL BUN (test code = 2208) 10 MG/DL CREATININE (test code = 2214) 0.58 MG/DL eGFR AMER. (test cod e = 47963) 130 ML/MIN/1.73 eGFR NON- AMER. (test code = 30075) 112 ML/MIN/1.73 CALC BUN/CREAT (test code = 2235) 17 RATIO SODIUM (test code = 2231) 143 MEQ/L POTASSIUM (test code = 2228) 4.2 MEQ/L CHLORIDE (test code = 2215) 103 MEQ/L CARBON DIOXIDE (test code = 2206) 24 MEQ/L CALCIUM (test code = 2209) 9.6 MG/DL PROTEIN, TOTAL (test code = 2229) 7.7 G/DL ALBUMIN (test code = 2201) 4.3 G/DL CALC GLOBULIN (test code = 2240) 3.4 G/DL CALC A/G RATIO (test code = 2234) 1.3 RATIO BILIRUBIN, TOTAL (test code = 2207) 0.3 MG/DL ALKALINE PHOSPHATASE (test code = 2204) 188 U/L AST (test code = 2218) 97 U/L ALT (test code = 2219) 123 U/L HEMOGLOBIN [id number] 00:00:00* Test Item Value Reference Range Interpretation Comme nts HEMOGLOBIN A1c (test code = 43020) 8.3 % CBC W/AUTO [id number] 00:00:00* Test Item Value Reference Range Interpretation Comme nts WBC (test code = 1001) 7.5 K/UL RBC (test code = 1002) 5.06 M/UL HEMOGLOBIN (test code = 1003) 11.7 G/DL HEMATOCRIT (test code = 1004) 36.8 % MCV (test code = 1005) 72.7 fL MCH (test code = 1006) 23.1 PG MCHC (test code = 1007) 31.8 G/DL RDW (test code = 1038) 15.1 % NEUTROPHILS (test code = 1008) 57.3 % LYMPHOCYTES (test code = 1010) 33.4 % MONOCYTES (test code = 1011) 6.1 % EOSINOPHILS (test code = 1012) 2.7 % BASOPHILS (test code = 1013) 0.5 % PLATELET COUNT (test code = 1015) 194 K/UL CBC W/AUTO [id number] 00:00:00* Test Item Value Reference Range Interpretation Comme nts WBC (test code = 1001) 7.5 K/UL RBC (test code = 1002) 5.06 M/UL HEMOGLOBIN (test code = 1003) 11.7 G/DL HEMATOCRIT (test code = 1004) 36.8 % MCV (test code = 1005) 72.7 fL MCH (test code = 1006) 23.1 PG MCHC (test code = 1007) 31.8 G/DL RDW (test code = 1038) 15.1 % NEUTROPHILS (test code = 1008) 57.3 % LYMPHOCYTES (test code = 1010) 33.4 % MONOCYTES (test code = 1011) 6.1 % EOSINOPHILS (test code = 1012) 2.7 % BASOPHILS (test code = 1013) 0.5 % PLATELET COUNT (test code = 1015) 194 K/UL CBC W/AUTO [id number] 00:00:00* Test Item Value Reference Range Interpretation Comme nts WBC (test code = 1001) 7.5 K/UL RBC (test code = 1002) 5.06 M/UL HEMOGLOBIN (test code = 1003) 11.7 G/DL HEMATOCRIT (test code = 1004) 36.8 % MCV (test code = 1005) 72.7 fL MCH (test code = 1006) 23.1 PG MCHC (test code = 1007) 31.8 G/DL RDW (test code = 1038) 15.1 % NEUTROPHILS (test code = 1008) 57.3 % LYMPHOCYTES (test code = 1010) 33.4 % MONOCYTES (test code = 1011) 6.1 % EOSINOPHILS (test code = 1012) 2.7 % BASOPHILS (test code = 1013) 0.5 % PLATELET COUNT (test code = 1015) 194 K/UL HEMOGLOBIN [id number] 00:00:00* Test Item Value Reference Range Interpretation Comme nts HEMOGLOBIN A1c (test code = 09243) 8.3 % LIPID [id number] 00:00:00* Test Item Value Reference Range Interpretation Comme nts CHOLESTEROL (test code = 2210) 237 MG/DL TRIGLYCERIDES (test code = 2232) 398 MG/DL HDL CHOLESTEROL (test code = 2220) 39 MG/DL CALC LDL CHOL (test code = 2237) 118 MG/DL RISK RATIO LDL/HDL (test cod e = 2237) 3.04 RATIO HEMOGLOBIN [id number] 00:00:00* Test Item Value Reference Range Interpretation Comme nts HEMOGLOBIN A1c (test code = 65227) 6.1 % HEMOGLOBIN [id number] 00:00:00* Test Item Value Reference Range Interpretation Comme nts HEMOGLOBIN A1c (test code = 38926) 6.1 % HEMOGLOBIN [id number] 00:00:00* Test Item Value Reference Range Interpretation Comme nts HEMOGLOBIN A1c (test code = 83396) 6.1 % HEMOGLOBIN [id number] 00:00:00* Test Item Value Reference Range Interpretation Comme nts HEMOGLOBIN A1c (test code = 24167) 6.1 % COMPREHENSIVE METABOLIC [id number] 00:00:00* Test Item Value Reference Range Interpretation Comme nts GLUCOSE (test code = 2217) 243 MG/DL BUN (test code = 2208) 13 MG/DL CREATININE (test code = 2214) 0.57 MG/DL eGFR AMER. (test cod e = 60717) 131 ML/MIN/1.73 eGFR NON- AMER. (test code = 61723) 113 ML/MIN/1.73 CALC BUN/CREAT (test code = 2235) 23 RATIO SODIUM (test code = 2231) 141 MEQ/L POTASSIUM (test code = 2228) 4.2 MEQ/L CHLORIDE (test code = 2215) 100 MEQ/L CARBON DIOXIDE (test code = 2206) 24 MEQ/L CALCIUM (test code = 2209) 9.8 MG/DL PROTEIN, TOTAL (test code = 2229) 7.7 G/DL ALBUMIN (test code = 2201) 4.2 G/DL CALC GLOBULIN (test code = 2240) 3.5 G/DL CALC A/G RATIO (test code = 2234) 1.2 RATIO BILIRUBIN, TOTAL (test code = 2207) 0.3 MG/DL ALKALINE PHOSPHATASE (test code = 2204) 143 U/L AST (test code = 2218) 108 U/L ALT (test code = 2219) 114 U/L COMPREHENSIVE METABOLIC [id number] 00:00:00* Test Item Value Reference Range Interpretation Comme nts GLUCOSE (test code = 2217) 243 MG/DL BUN (test code = 2208) 13 MG/DL CREATININE (test code = 2214) 0.57 MG/DL eGFR AMER. (test cod e = 66079) 131 ML/MIN/1.73 eGFR NON- AMER. (test code = 95904) 113 ML/MIN/1.73 CALC BUN/CREAT (test code = 2235) 23 RATIO SODIUM (test code = 2231) 141 MEQ/L POTASSIUM (test code = 2228) 4.2 MEQ/L CHLORIDE (test code = 2215) 100 MEQ/L CARBON DIOXIDE (test code = 2206) 24 MEQ/L CALCIUM (test code = 2209) 9.8 MG/DL PROTEIN, TOTAL (test code = 2229) 7.7 G/DL ALBUMIN (test code = 2201) 4.2 G/DL CALC GLOBULIN (test code = 2240) 3.5 G/DL CALC A/G RATIO (test code = 2234) 1.2 RATIO BILIRUBIN, TOTAL (test code = 2207) 0.3 MG/DL ALKALINE PHOSPHATASE (test code = 2204) 143 U/L AST (test code = 2218) 108 U/L ALT (test code = 2219) 114 U/L VITAMIN D, 25 [id number] 00:00:00* Test Item Value Reference Range Interpretation Comme [facility] VITAMIN D, 25 OH (test code = 4958) 14 NG/ML VITAMIN D, 25 [id number] 00:00:00* Test Item Value Reference Range Interpretation Comme [facility] VITAMIN D, 25 OH (test code = 4958) 14 NG/ML HEMOGLOBIN [id number] 00:00:00* Test Item Value Reference Range Interpretation Comme nts HEMOGLOBIN A1c (test code = 90570) 6.1 % COMPREHENSIVE METABOLIC [id number] 00:00:00* Test Item Value Reference Range Interpretation Comme nts GLUCOSE (test code = 2217) 243 MG/DL BUN (test code = 2208) 13 MG/DL CREATININE (test code = 2214) 0.57 MG/DL eGFR AMER. (test cod e = 91151) 131 ML/MIN/1.73 eGFR NON- AMER. (test code = 77866) 113 ML/MIN/1.73 CALC BUN/CREAT (test code = 2235) 23 RATIO SODIUM (test code = 2231) 141 MEQ/L POTASSIUM (test code = 2228) 4.2 MEQ/L CHLORIDE (test code = 2215) 100 MEQ/L CARBON DIOXIDE (test code = 2206) 24 MEQ/L CALCIUM (test code = 2209) 9.8 MG/DL PROTEIN, TOTAL (test code = 2229) 7.7 G/DL ALBUMIN (test code = 2201) 4.2 G/DL CALC GLOBULIN (test code = 2240) 3.5 G/DL CALC A/G RATIO (test code = 2234) 1.2 RATIO BILIRUBIN, TOTAL (test code = 2207) 0.3 MG/DL ALKALINE PHOSPHATASE (test code = 2204) 143 U/L AST (test code = 2218) 108 U/L ALT (test code = 2219) 114 U/L VITAMIN D, 25 [id number] 00:00:00* Test Item Value Reference Range Interpretation Comme [facility] VITAMIN D, 25 OH (test code = 4958) 14 NG/ML CBC W/AUTO [id number] 00:00:00* Test Item Value Reference Range Interpretation Comme nts WBC (test code = 1001) 7.6 K/UL RBC (test code = 1002) 4.64 M/UL HEMOGLOBIN (test code = 1003) 8.6 G/DL HEMATOCRIT (test code = 1004) 29.7 % MCV (test code = 1005) 64.0 fL MCH (test code = 1006) 18.5 PG MCHC (test code = 1007) 29.0 G/DL RDW (test code = 1038) 18.8 % NEUTROPHILS (test code = 1008) 55.0 % LYMPHOCYTES (test code = 1010) 36.2 % MONOCYTES (test code = 1011) 5.5 % EOSINOPHILS (test code = 1012) 2.6 % BASOPHILS (test code = 1013) 0.7 % PLATELET COUNT (test code = 1015) 247 K/UL COMMENTS (test code = 1016) (NOTE) CBC W/AUTO [id number] 00:00:00* Test Item Value Reference Range Interpretation Comme nts WBC (test code = 1001) 7.6 K/UL RBC (test code = 1002) 4.64 M/UL HEMOGLOBIN (test code = 1003) 8.6 G/DL HEMATOCRIT (test code = 1004) 29.7 % MCV (test code = 1005) 64.0 fL MCH (test code = 1006) 18.5 PG MCHC (test code = 1007) 29.0 G/DL RDW (test code = 1038) 18.8 % NEUTROPHILS (test code = 1008) 55.0 % LYMPHOCYTES (test code = 1010) 36.2 % MONOCYTES (test code = 1011) 5.5 % EOSINOPHILS (test code = 1012) 2.6 % BASOPHILS (test code = 1013) 0.7 % PLATELET COUNT (test code = 1015) 247 K/UL COMMENTS (test code = 1016) (NOTE) LIPID [id number] 00:00:00* Test Item Value Reference Range Interpretation Comme nts CHOLESTEROL (test code = 2210) 237 MG/DL TRIGLYCERIDES (test code = 2232) 398 MG/DL HDL CHOLESTEROL (test code = 2220) 39 MG/DL CALC LDL CHOL (test code = 2237) 118 MG/DL RISK RATIO LDL/HDL (test cod e = 2238) 3.04 RATIO HEMOGLOBIN [id number] 00:00:00* Test Item Value Reference Range Interpretation Comme nts HEMOGLOBIN A1c (test code = 94668) 6.1 % HEMOGLOBIN [id number] 00:00:00* Test Item Value Reference Range Interpretation Comme nts HEMOGLOBIN A1c (test code = 57496) 6.1 % COMPREHENSIVE METABOLIC [id number] 00:00:00* Test Item Value Reference Range Interpretation Comme nts GLUCOSE (test code = 2217) 243 MG/DL BUN (test code = 2208) 13 MG/DL CREATININE (test code = 2214) 0.57 MG/DL eGFR AMER. (test cod e = 18850) 131 ML/MIN/1.73 eGFR NON- AMER. (test code = 39696) 113 ML/MIN/1.73 CALC BUN/CREAT (test code = 2235) 23 RATIO SODIUM (test code = 2231) 141 MEQ/L POTASSIUM (test code = 2228) 4.2 MEQ/L CHLORIDE (test code = 2215) 100 MEQ/L CARBON DIOXIDE (test code = 2206) 24 MEQ/L CALCIUM (test code = 2209) 9.8 MG/DL PROTEIN, TOTAL (test code = 2229) 7.7 G/DL ALBUMIN (test code = 2201) 4.2 G/DL CALC GLOBULIN (test code = 2240) 3.5 G/DL CALC A/G RATIO (test code = 2234) 1.2 RATIO BILIRUBIN, TOTAL (test code = 2207) 0.3 MG/DL ALKALINE PHOSPHATASE (test code = 2204) 143 U/L AST (test code = 2218) 108 U/L ALT (test code = 2219) 114 U/L VITAMIN D, 25 [id number] 00:00:00* Test Item Value Reference Range Interpretation Comme nts VITAMIN D, 25 OH (test code = 4958) 14 NG/ML CBC W/AUTO [id number] 00:00:00* Test Item Value Reference Range Interpretation Comme nts WBC (test code = 1001) 7.6 K/UL RBC (test code = 1002) 4.64 M/UL HEMOGLOBIN (test code = 1003) 8.6 G/DL HEMATOCRIT (test code = 1004) 29.7 % MCV (test code = 1005) 64.0 fL MCH (test code = 1006) 18.5 PG MCHC (test code = 1007) 29.0 G/DL RDW (test code = 1038) 18.8 % NEUTROPHILS (test code = 1008) 55.0 % LYMPHOCYTES (test code = 1010) 36.2 % MONOCYTES (test code = 1011) 5.5 % EOSINOPHILS (test code = 1012) 2.6 % BASOPHILS (test code = 1013) 0.7 % PLATELET COUNT (test code = 1015) 247 K/UL COMMENTS (test code = 1016) (NOTE) CBC W/AUTO [id number] 00:00:00* Test Item Value Reference Range Interpretation Comme nts WBC (test code = 1001) 7.6 K/UL RBC (test code = 1002) 4.64 M/UL HEMOGLOBIN (test code = 1003) 8.6 G/DL HEMATOCRIT (test code = 1004) 29.7 % MCV (test code = 1005) 64.0 fL MCH (test code = 1006) 18.5 PG MCHC (test code = 1007) 29.0 G/DL RDW (test code = 1038) 18.8 % NEUTROPHILS (test code = 1008) 55.0 % LYMPHOCYTES (test code = 1010) 36.2 % MONOCYTES (test code = 1011) 5.5 % EOSINOPHILS (test code = 1012) 2.6 % BASOPHILS (test code = 1013) 0.7 % PLATELET COUNT (test code = 1015) 247 K/UL COMMENTS (test code = 1016) (NOTE) LIPID [id number] 00:00:00* Test Item Value Reference Range Interpretation Comme nts CHOLESTEROL (test code = 2210) 237 MG/DL TRIGLYCERIDES (test code = 2232) 398 MG/DL HDL CHOLESTEROL (test code = 2220) 39 MG/DL CALC LDL CHOL (test code = 2237) 118 MG/DL RISK RATIO LDL/HDL (test cod e = 2238) 3.04 RATIO HEMOGLOBIN [id number] 00:00:00* Test Item Value Reference Range Interpretation Comme nts HEMOGLOBIN A1c (test code = 40884) 6.1 % HEMOGLOBIN [id number] 00:00:00* Test Item Value Reference Range Interpretation Comme nts HEMOGLOBIN A1c (test code = 54357) 6.1 % COMPREHENSIVE METABOLIC [id number] 00:00:00* Test Item Value Reference Range Interpretation Comme nts GLUCOSE (test code = 2217) 243 MG/DL BUN (test code = 2208) 13 MG/DL CREATININE (test code = 2214) 0.57 MG/DL eGFR AMER. (test cod e = 95183) 131 ML/MIN/1.73 eGFR NON- AMER. (test code = 28389) 113 ML/MIN/1.73 CALC BUN/CREAT (test code = 2235) 23 RATIO SODIUM (test code = 2231) 141 MEQ/L POTASSIUM (test code = 2228) 4.2 MEQ/L CHLORIDE (test code = 2215) 100 MEQ/L CARBON DIOXIDE (test code = 2206) 24 MEQ/L CALCIUM (test code = 2209) 9.8 MG/DL PROTEIN, TOTAL (test code = 2229) 7.7 G/DL ALBUMIN (test code = 2201) 4.2 G/DL CALC GLOBULIN (test code = 2240) 3.5 G/DL CALC A/G RATIO (test code = 2234) 1.2 RATIO BILIRUBIN, TOTAL (test code = 2207) 0.3 MG/DL ALKALINE PHOSPHATASE (test code = 220) 143 U/L AST (test code = 2218) 108 U/L ALT (test code = 2219) 114 U/L VITAMIN D, 25 [id number] 00:00:00* Test Item Value Reference Range Interpretation Comme nts VITAMIN D, 25 OH (test code = 4958) 14 NG/ML CBC W/AUTO [id number] 00:00:00* Test Item Value Reference Range Interpretation Comme nts WBC (test code = 1001) 7.6 K/UL RBC (test code = 1002) 4.64 M/UL HEMOGLOBIN (test code = 1003) 8.6 G/DL HEMATOCRIT (test code = 1004) 29.7 % MCV (test code = 1005) 64.0 fL MCH (test code = 1006) 18.5 PG MCHC (test code = 1007) 29.0 G/DL RDW (test code = 1038) 18.8 % NEUTROPHILS (test code = 1008) 55.0 % LYMPHOCYTES (test code = 1010) 36.2 % MONOCYTES (test code = 1011) 5.5 % EOSINOPHILS (test code = 1012) 2.6 % BASOPHILS (test code = 1013) 0.7 % PLATELET COUNT (test code = 1015) 247 K/UL COMMENTS (test code = 1016) (NOTE) CBC W/AUTO [id number] 00:00:00* Test Item Value Reference Range Interpretation Comme nts WBC (test code = 1001) 7.6 K/UL RBC (test code = 1002) 4.64 M/UL HEMOGLOBIN (test code = 1003) 8.6 G/DL HEMATOCRIT (test code = 1004) 29.7 % MCV (test code = 1005) 64.0 fL MCH (test code = 1006) 18.5 PG MCHC (test code = 1007) 29.0 G/DL RDW (test code = 1038) 18.8 % NEUTROPHILS (test code = 1008) 55.0 % LYMPHOCYTES (test code = 1010) 36.2 % MONOCYTES (test code = 1011) 5.5 % EOSINOPHILS (test code = 1012) 2.6 % BASOPHILS (test code = 1013) 0.7 % PLATELET COUNT (test code = 1015) 247 K/UL COMMENTS (test code = 1016) (NOTE) CBC W/AUTO [id number] 00:00:00* Test Item Value Reference Range Interpretation Comme nts WBC (test code = 1001) 7.6 K/UL RBC (test code = 1002) 4.64 M/UL HEMOGLOBIN (test code = 1003) 8.6 G/DL HEMATOCRIT (test code = 1004) 29.7 % MCV (test code = 1005) 64.0 fL MCH (test code = 1006) 18.5 PG MCHC (test code = 1007) 29.0 G/DL RDW (test code = 1038) 18.8 % NEUTROPHILS (test code = 1008) 55.0 % LYMPHOCYTES (test code = 1010) 36.2 % MONOCYTES (test code = 1011) 5.5 % EOSINOPHILS (test code = 1012) 2.6 % BASOPHILS (test code = 1013) 0.7 % PLATELET COUNT (test code = 1015) 247 K/UL COMMENTS (test code = 1016) (NOTE) LIPID [id number] 00:00:00* Test Item Value Reference Range Interpretation Comme nts CHOLESTEROL (test code = 2210) 237 MG/DL TRIGLYCERIDES (test code = 2232) 398 MG/DL HDL CHOLESTEROL (test code = 2220) 39 MG/DL CALC LDL CHOL (test code = 2237) 118 MG/DL RISK RATIO LDL/HDL (test cod e = 2238) 3.04 RATIO LIPID [id number] 00:00:00* Test Item Value Reference Range Interpretation Comme nts CHOLESTEROL (test code = 2210) 237 MG/DL TRIGLYCERIDES (test code = 2232) 398 MG/DL HDL CHOLESTEROL (test code = 2220) 39 MG/DL CALC LDL CHOL (test code = 2237) 118 MG/DL RISK RATIO LDL/HDL (test cod e = 2238) 3.04 RATIO CBC W/AUTO [id number] 00:00:00* Test Item Value Reference Range Interpretation Comme nts WBC (test code = 1001) 7.6 K/UL RBC (test code = 1002) 4.64 M/UL HEMOGLOBIN (test code = 1003) 8.6 G/DL HEMATOCRIT (test code = 1004) 29.7 % MCV (test code = 1005) 64.0 fL MCH (test code = 1006) 18.5 PG MCHC (test code = 1007) 29.0 G/DL RDW (test code = 1038) 18.8 % NEUTROPHILS (test code = 1008) 55.0 % LYMPHOCYTES (test code = 1010) 36.2 % MONOCYTES (test code = 1011) 5.5 % EOSINOPHILS (test code = 1012) 2.6 % BASOPHILS (test code = 1013) 0.7 % PLATELET COUNT (test code = 1015) 247 K/UL COMMENTS (test code = 1016) (NOTE) HEMOGLOBIN [id number] 00:00:00* Test Item Value Reference Range Interpretation Comme nts HEMOGLOBIN A1c (test code = 95365) 6.1 % HEMOGLOBIN [id number] 00:00:00* Test Item Value Reference Range Interpretation Comme nts HEMOGLOBIN A1c (test code = 97384) 6.1 % HEMOGLOBIN [id number] 00:00:00* Test Item Value Reference Range Interpretation Comme nts HEMOGLOBIN A1c (test code = 91515) 6.1 % COMPREHENSIVE METABOLIC [id number] 00:00:00* Test Item Value Reference Range Interpretation Comme nts GLUCOSE (test code = 2217) 243 MG/DL BUN (test code = 2208) 13 MG/DL CREATININE (test code = 2214) 0.57 MG/DL eGFR AMER. (test cod e = 68624) 131 ML/MIN/1.73 eGFR NON- AMER. (test code = 07137) 113 ML/MIN/1.73 CALC BUN/CREAT (test code = 2235) 23 RATIO SODIUM (test code = 2231) 141 MEQ/L POTASSIUM (test code = 2228) 4.2 MEQ/L CHLORIDE (test code = 2215) 100 MEQ/L CARBON DIOXIDE (test code = 2206) 24 MEQ/L CALCIUM (test code = 2209) 9.8 MG/DL PROTEIN, TOTAL (test code = 2229) 7.7 G/DL ALBUMIN (test code = 2201) 4.2 G/DL CALC GLOBULIN (test code = 2240) 3.5 G/DL CALC A/G RATIO (test code = 2234) 1.2 RATIO BILIRUBIN, TOTAL (test code = 2207) 0.3 MG/DL ALKALINE PHOSPHATASE (test code = 2204) 143 U/L AST (test code = 2218) 108 U/L ALT (test code = 2219) 114 U/L COMPREHENSIVE METABOLIC [id number] 00:00:00* Test Item Value Reference Range Interpretation Comme nts GLUCOSE (test code = 2217) 243 MG/DL BUN (test code = 2208) 13 MG/DL CREATININE (test code = 2214) 0.57 MG/DL eGFR AMER. (test cod e = 01409) 131 ML/MIN/1.73 eGFR NON- AMER. (test code = 03847) 113 ML/MIN/1.73 CALC BUN/CREAT (test code = 2235) 23 RATIO SODIUM (test code = 2231) 141 MEQ/L POTASSIUM (test code = 2228) 4.2 MEQ/L CHLORIDE (test code = 2215) 100 MEQ/L CARBON DIOXIDE (test code = 2206) 24 MEQ/L CALCIUM (test code = 2209) 9.8 MG/DL PROTEIN, TOTAL (test code = 2229) 7.7 G/DL ALBUMIN (test code = 2201) 4.2 G/DL CALC GLOBULIN (test code = 2240) 3.5 G/DL CALC A/G RATIO (test code = 2234) 1.2 RATIO BILIRUBIN, TOTAL (test code = 2207) 0.3 MG/DL ALKALINE PHOSPHATASE (test code = 2204) 143 U/L AST (test code = 2218) 108 U/L ALT (test code = 2219) 114 U/L VITAMIN D, 25 [id number] 00:00:00* Test Item Value Reference Range Interpretation Comme nts VITAMIN D, 25 OH (test code = 4958) 14 NG/ML VITAMIN D, 25 [id number] 00:00:00* Test Item Value Reference Range Interpretation Comme nts VITAMIN D, 25 OH (test code = 4958) 14 NG/ML CBC W/AUTO [id number] 00:00:00* Test Item Value Reference Range Interpretation Comme nts WBC (test code = 1001) 7.6 K/UL RBC (test code = 1002) 4.64 M/UL HEMOGLOBIN (test code = 1003) 8.6 G/DL HEMATOCRIT (test code = 1004) 29.7 % MCV (test code = 1005) 64.0 fL MCH (test code = 1006) 18.5 PG MCHC (test code = 1007) 29.0 G/DL RDW (test code = 1038) 18.8 % NEUTROPHILS (test code = 1008) 55.0 % LYMPHOCYTES (test code = 1010) 36.2 % MONOCYTES (test code = 1011) 5.5 % EOSINOPHILS (test code = 1012) 2.6 % BASOPHILS (test code = 1013) 0.7 % PLATELET COUNT (test code = 1015) 247 K/UL COMMENTS (test code = 1016) (NOTE) LIPID [id number] 00:00:00* Test Item Value Reference Range Interpretation Comme nts CHOLESTEROL (test code = 2210) 237 MG/DL TRIGLYCERIDES (test code = 2232) 398 MG/DL HDL CHOLESTEROL (test code = 2220) 39 MG/DL CALC LDL CHOL (test code = 2237) 118 MG/DL RISK RATIO LDL/HDL (test cod e = 2238) 3.04 RATIO CBC W/AUTO [id number] 00:00:00* Test Item Value Reference Range Interpretation Comme nts WBC (test code = 1001) 7.6 K/UL RBC (test code = 1002) 4.64 M/UL HEMOGLOBIN (test code = 1003) 8.6 G/DL HEMATOCRIT (test code = 1004) 29.7 % MCV (test code = 1005) 64.0 fL MCH (test code = 1006) 18.5 PG MCHC (test code = 1007) 29.0 G/DL RDW (test code = 1038) 18.8 % NEUTROPHILS (test code = 1008) 55.0 % LYMPHOCYTES (test code = 1010) 36.2 % MONOCYTES (test code = 1011) 5.5 % EOSINOPHILS (test code = 1012) 2.6 % BASOPHILS (test code = 1013) 0.7 % PLATELET COUNT (test code = 1015) 247 K/UL COMMENTS (test code = 1016) (NOTE) CBC W/AUTO [id number] 00:00:00* Test Item Value Reference Range Interpretation Comme nts WBC (test code = 1001) 7.6 K/UL RBC (test code = 1002) 4.64 M/UL HEMOGLOBIN (test code = 1003) 8.6 G/DL HEMATOCRIT (test code = 1004) 29.7 % MCV (test code = 1005) 64.0 fL MCH (test code = 1006) 18.5 PG MCHC (test code = 1007) 29.0 G/DL RDW (test code = 1038) 18.8 % NEUTROPHILS (test code = 1008) 55.0 % LYMPHOCYTES (test code = 1010) 36.2 % MONOCYTES (test code = 1011) 5.5 % EOSINOPHILS (test code = 1012) 2.6 % BASOPHILS (test code = 1013) 0.7 % PLATELET COUNT (test code = 1015) 247 K/UL COMMENTS (test code = 1016) (NOTE) CBC W/AUTO [id number] 00:00:00* Test Item Value Reference Range Interpretation Comme nts WBC (test code = 1001) 7.6 K/UL RBC (test code = 1002) 4.64 M/UL HEMOGLOBIN (test code = 1003) 8.6 G/DL HEMATOCRIT (test code = 1004) 29.7 % MCV (test code = 1005) 64.0 fL MCH (test code = 1006) 18.5 PG MCHC (test code = 1007) 29.0 G/DL RDW (test code = 1038) 18.8 % NEUTROPHILS (test code = 1008) 55.0 % LYMPHOCYTES (test code = 1010) 36.2 % MONOCYTES (test code = 1011) 5.5 % EOSINOPHILS (test code = 1012) 2.6 % BASOPHILS (test code = 1013) 0.7 % PLATELET COUNT (test code = 1015) 247 K/UL COMMENTS (test code = 1016) (NOTE) LIPID [id number] 00:00:00* Test Item Value Reference Range Interpretation Comme nts CHOLESTEROL (test code = 2210) 237 MG/DL TRIGLYCERIDES (test code = 2232) 398 MG/DL HDL CHOLESTEROL (test code = 2220) 39 MG/DL CALC LDL CHOL (test code = 2237) 118 MG/DL RISK RATIO LDL/HDL (test cod e = 2238) 3.04 RATIO LIPID [id number] 00:00:00* Test Item Value Reference Range Interpretation Comme nts CHOLESTEROL (test code = 2210) 176 MG/DL TRIGLYCERIDES (test code = 2232) 379 MG/DL HDL CHOLESTEROL (test code = 2220) 33 MG/DL CALC LDL CHOL (test code = 2237) 67 MG/DL RISK RATIO LDL/HDL (test cod e = 2238) 2.04 RATIO COMPREHENSIVE METABOLIC [id number] 00:00:00* Test Item Value Reference Range Interpretation Comme nts GLUCOSE (test code = 2217) 141 MG/DL BUN (test code = 2208) 11 MG/DL CREATININE (test code = 2214) 0.50 MG/DL eGFR AMER. (test cod e = 15521) 137 ML/MIN/1.73 eGFR NON- AMER. (test code = 44673) 119 ML/MIN/1.73 CALC BUN/CREAT (test code = 2235) 22 RATIO SODIUM (test code = 2231) 143 MEQ/L POTASSIUM (test code = 2228) 4.2 MEQ/L CHLORIDE (test code = 2215) 102 MEQ/L CARBON DIOXIDE (test code = 2206) 25 MEQ/L CALCIUM (test code = 2209) 9.9 MG/DL PROTEIN, TOTAL (test code = 2229) 7.7 G/DL ALBUMIN (test code = 2201) 4.3 G/DL CALC GLOBULIN (test code = 2240) 3.4 G/DL CALC A/G RATIO (test code = 2234) 1.3 RATIO BILIRUBIN, TOTAL (test code = 2207) 0.3 MG/DL ALKALINE PHOSPHATASE (test code = 2204) 144 U/L AST (test code = 2218) 152 U/L ALT (test code = 2219) 154 U/L COMPREHENSIVE METABOLIC [id number] 00:00:00* Test Item Value Reference Range Interpretation Comme nts GLUCOSE (test code = 2217) 141 MG/DL BUN (test code = 2208) 11 MG/DL CREATININE (test code = 2214) 0.50 MG/DL eGFR AMER. (test cod e = 23713) 137 ML/MIN/1.73 eGFR NON- AMER. (test code = 31418) 119 ML/MIN/1.73 CALC BUN/CREAT (test code = 2235) 22 RATIO SODIUM (test code = 2231) 143 MEQ/L POTASSIUM (test code = 2228) 4.2 MEQ/L CHLORIDE (test code = 2215) 102 MEQ/L CARBON DIOXIDE (test code = 2206) 25 MEQ/L CALCIUM (test code = 2209) 9.9 MG/DL PROTEIN, TOTAL (test code = 2229) 7.7 G/DL ALBUMIN (test code = 2201) 4.3 G/DL CALC GLOBULIN (test code = 2240) 3.4 G/DL CALC A/G RATIO (test code = 2234) 1.3 RATIO BILIRUBIN, TOTAL (test code = 2207) 0.3 MG/DL ALKALINE PHOSPHATASE (test code = 2204) 144 U/L AST (test code = 2218) 152 U/L ALT (test code = 2219) 154 U/L VITAMIN D, 25 OH [ADDED][id number] 00:00:00* Test Item Value Reference Range Interpretation Comme nts VITAMIN D, 25 OH (test code = 4958) 28 NG/ML VITAMIN D, 25 OH [ADDED]2018-09-24 00:00:00* Test Item Value Reference Range Interpretation Comme nts VITAMIN D, 25 OH (test code = 4958) 28 NG/ML COMPREHENSIVE METABOLIC [id number] 00:00:00* Test Item Value Reference Range Interpretation Comme nts GLUCOSE (test code = 2217) 141 MG/DL BUN (test code = 2208) 11 MG/DL CREATININE (test code = 2214) 0.50 MG/DL eGFR AMER. (test cod e = 93491) 137 ML/MIN/1.73 eGFR NON- AMER. (test code = 66256) 119 ML/MIN/1.73 CALC BUN/CREAT (test code = 2235) 22 RATIO SODIUM (test code = 2231) 143 MEQ/L POTASSIUM (test code = 2228) 4.2 MEQ/L CHLORIDE (test code = 2215) 102 MEQ/L CARBON DIOXIDE (test code = 2206) 25 MEQ/L CALCIUM (test code = 2209) 9.9 MG/DL PROTEIN, TOTAL (test code = 2229) 7.7 G/DL ALBUMIN (test code = 2201) 4.3 G/DL CALC GLOBULIN (test code = 2240) 3.4 G/DL CALC A/G RATIO (test code = 2234) 1.3 RATIO BILIRUBIN, TOTAL (test code = 2207) 0.3 MG/DL ALKALINE PHOSPHATASE (test code = 2204) 144 U/L AST (test code = 2218) 152 U/L ALT (test code = 2219) 154 U/L VITAMIN D, 25 OH [ADDED]2018-09-24 00:00:00* Test Item Value Reference Range Interpretation Comme nts VITAMIN D, 25 OH (test code = 4958) 28 NG/ML CBC W/AUTO [id number] 00:00:00* Test Item Value Reference Range Interpretation Comme nts WBC (test code = 1001) 5.5 K/UL RBC (test code = 1002) 4.15 M/UL HEMOGLOBIN (test code = 1003) 8.0 G/DL HEMATOCRIT (test code = 1004) 27.4 % MCV (test code = 1005) 66.0 fL MCH (test code = 1006) 19.3 PG MCHC (test code = 1007) 29.2 G/DL RDW (test code = 1038) 19.4 % NEUTROPHILS (test code = 1008) 52.2 % LYMPHOCYTES (test code = 1010) 32.2 % MONOCYTES (test code = 1011) 8.0 % EOSINOPHILS (test code = 1012) 6.9 % BASOPHILS (test code = 1013) 0.7 % PLATELET COUNT (test code = 1015) 230 K/UL CBC W/AUTO [id number] 00:00:00* Test Item Value Reference Range Interpretation Comme nts WBC (test code = 1001) 5.5 K/UL RBC (test code = 1002) 4.15 M/UL HEMOGLOBIN (test code = 1003) 8.0 G/DL HEMATOCRIT (test code = 1004) 27.4 % MCV (test code = 1005) 66.0 fL MCH (test code = 1006) 19.3 PG MCHC (test code = 1007) 29.2 G/DL RDW (test code = 1038) 19.4 % NEUTROPHILS (test code = 1008) 52.2 % LYMPHOCYTES (test code = 1010) 32.2 % MONOCYTES (test code = 1011) 8.0 % EOSINOPHILS (test code = 1012) 6.9 % BASOPHILS (test code = 1013) 0.7 % PLATELET COUNT (test code = 1015) 230 K/UL LIPID [id number] 00:00:00* Test Item Value Reference Range Interpretation Comme nts CHOLESTEROL (test code = 2210) 176 MG/DL TRIGLYCERIDES (test code = 2232) 379 MG/DL HDL CHOLESTEROL (test code = 2220) 33 MG/DL CALC LDL CHOL (test code = 2237) 67 MG/DL RISK RATIO LDL/HDL (test cod e = 2238) 2.04 RATIO COMPREHENSIVE METABOLIC [id number] 00:00:00* Test Item Value Reference Range Interpretation Comme nts GLUCOSE (test code = 2217) 141 MG/DL BUN (test code = 2208) 11 MG/DL CREATININE (test code = 2214) 0.50 MG/DL eGFR AMER. (test cod e = 06747) 137 ML/MIN/1.73 eGFR NON- AMER. (test code = 51176) 119 ML/MIN/1.73 CALC BUN/CREAT (test code = 2235) 22 RATIO SODIUM (test code = 2231) 143 MEQ/L POTASSIUM (test code = 2228) 4.2 MEQ/L CHLORIDE (test code = 2215) 102 MEQ/L CARBON DIOXIDE (test code = 2206) 25 MEQ/L CALCIUM (test code = 2209) 9.9 MG/DL PROTEIN, TOTAL (test code = 2229) 7.7 G/DL ALBUMIN (test code = 2201) 4.3 G/DL CALC GLOBULIN (test code = 2240) 3.4 G/DL CALC A/G RATIO (test code = 2234) 1.3 RATIO BILIRUBIN, TOTAL (test code = 2207) 0.3 MG/DL ALKALINE PHOSPHATASE (test code = 2204) 144 U/L AST (test code = 2218) 152 U/L ALT (test code = 2219) 154 U/L VITAMIN D, 25 OH [ADDED]2018-09-24 00:00:00* Test Item Value Reference Range Interpretation Comme nts VITAMIN D, 25 OH (test code = 4958) 28 NG/ML CBC W/AUTO [id number] 00:00:00* Test Item Value Reference Range Interpretation Comme nts WBC (test code = 1001) 5.5 K/UL RBC (test code = 1002) 4.15 M/UL HEMOGLOBIN (test code = 1003) 8.0 G/DL HEMATOCRIT (test code = 1004) 27.4 % MCV (test code = 1005) 66.0 fL MCH (test code = 1006) 19.3 PG MCHC (test code = 1007) 29.2 G/DL RDW (test code = 1038) 19.4 % NEUTROPHILS (test code = 1008) 52.2 % LYMPHOCYTES (test code = 1010) 32.2 % MONOCYTES (test code = 1011) 8.0 % EOSINOPHILS (test code = 1012) 6.9 % BASOPHILS (test code = 1013) 0.7 % PLATELET COUNT (test code = 1015) 230 K/UL CBC W/AUTO [id number] 00:00:00* Test Item Value Reference Range Interpretation Comme nts WBC (test code = 1001) 5.5 K/UL RBC (test code = 1002) 4.15 M/UL HEMOGLOBIN (test code = 1003) 8.0 G/DL HEMATOCRIT (test code = 1004) 27.4 % MCV (test code = 1005) 66.0 fL MCH (test code = 1006) 19.3 PG MCHC (test code = 1007) 29.2 G/DL RDW (test code = 1038) 19.4 % NEUTROPHILS (test code = 1008) 52.2 % LYMPHOCYTES (test code = 1010) 32.2 % MONOCYTES (test code = 1011) 8.0 % EOSINOPHILS (test code = 1012) 6.9 % BASOPHILS (test code = 1013) 0.7 % PLATELET COUNT (test code = 1015) 230 K/UL LIPID [id number] 00:00:00* Test Item Value Reference Range Interpretation Comme nts CHOLESTEROL (test code = 2210) 176 MG/DL TRIGLYCERIDES (test code = 2232) 379 MG/DL HDL CHOLESTEROL (test code = 2220) 33 MG/DL CALC LDL CHOL (test code = 2237) 67 MG/DL RISK RATIO LDL/HDL (test cod e = 2238) 2.04 RATIO COMPREHENSIVE METABOLIC [id number] 00:00:00* Test Item Value Reference Range Interpretation Comme nts GLUCOSE (test code = 2217) 141 MG/DL BUN (test code = 2208) 11 MG/DL CREATININE (test code = 2214) 0.50 MG/DL eGFR AMER. (test cod e = 17421) 137 ML/MIN/1.73 eGFR NON- AMER. (test code = 70904) 119 ML/MIN/1.73 CALC BUN/CREAT (test code = 2235) 22 RATIO SODIUM (test code = 2231) 143 MEQ/L POTASSIUM (test code = 2228) 4.2 MEQ/L CHLORIDE (test code = 2215) 102 MEQ/L CARBON DIOXIDE (test code = 2206) 25 MEQ/L CALCIUM (test code = 2209) 9.9 MG/DL PROTEIN, TOTAL (test code = 2229) 7.7 G/DL ALBUMIN (test code = 2201) 4.3 G/DL CALC GLOBULIN (test code = 2240) 3.4 G/DL CALC A/G RATIO (test code = 2234) 1.3 RATIO BILIRUBIN, TOTAL (test code = 2207) 0.3 MG/DL ALKALINE PHOSPHATASE (test code = 2204) 144 U/L AST (test code = 2218) 152 U/L ALT (test code = 2219) 154 U/L VITAMIN D, 25 OH [ADDED]2018-09-24 00:00:00* Test Item Value Reference Range Interpretation Comme nts VITAMIN D, 25 OH (test code = 4958) 28 NG/ML CBC W/AUTO [id number] 00:00:00* Test Item Value Reference Range Interpretation Comme nts WBC (test code = 1001) 5.5 K/UL RBC (test code = 1002) 4.15 M/UL HEMOGLOBIN (test code = 1003) 8.0 G/DL HEMATOCRIT (test code = 1004) 27.4 % MCV (test code = 1005) 66.0 fL MCH (test code = 1006) 19.3 PG MCHC (test code = 1007) 29.2 G/DL RDW (test code = 1038) 19.4 % NEUTROPHILS (test code = 1008) 52.2 % LYMPHOCYTES (test code = 1010) 32.2 % MONOCYTES (test code = 1011) 8.0 % EOSINOPHILS (test code = 1012) 6.9 % BASOPHILS (test code = 1013) 0.7 % PLATELET COUNT (test code = 1015) 230 K/UL CBC W/AUTO [id number] 00:00:00* Test Item Value Reference Range Interpretation Comme nts WBC (test code = 1001) 5.5 K/UL RBC (test code = 1002) 4.15 M/UL HEMOGLOBIN (test code = 1003) 8.0 G/DL HEMATOCRIT (test code = 1004) 27.4 % MCV (test code = 1005) 66.0 fL MCH (test code = 1006) 19.3 PG MCHC (test code = 1007) 29.2 G/DL RDW (test code = 1038) 19.4 % NEUTROPHILS (test code = 1008) 52.2 % LYMPHOCYTES (test code = 1010) 32.2 % MONOCYTES (test code = 1011) 8.0 % EOSINOPHILS (test code = 1012) 6.9 % BASOPHILS (test code = 1013) 0.7 % PLATELET COUNT (test code = 1015) 230 K/UL CBC W/AUTO [id number] 00:00:00* Test Item Value Reference Range Interpretation Comme nts WBC (test code = 1001) 5.5 K/UL RBC (test code = 1002) 4.15 M/UL HEMOGLOBIN (test code = 1003) 8.0 G/DL HEMATOCRIT (test code = 1004) 27.4 % MCV (test code = 1005) 66.0 fL MCH (test code = 1006) 19.3 PG MCHC (test code = 1007) 29.2 G/DL RDW (test code = 1038) 19.4 % NEUTROPHILS (test code = 1008) 52.2 % LYMPHOCYTES (test code = 1010) 32.2 % MONOCYTES (test code = 1011) 8.0 % EOSINOPHILS (test code = 1012) 6.9 % BASOPHILS (test code = 1013) 0.7 % PLATELET COUNT (test code = 1015) 230 K/UL CBC W/AUTO [id number] 00:00:00* Test Item Value Reference Range Interpretation Comme nts WBC (test code = 1001) 5.5 K/UL RBC (test code = 1002) 4.15 M/UL HEMOGLOBIN (test code = 1003) 8.0 G/DL HEMATOCRIT (test code = 1004) 27.4 % MCV (test code = 1005) 66.0 fL MCH (test code = 1006) 19.3 PG MCHC (test code = 1007) 29.2 G/DL RDW (test code = 1038) 19.4 % NEUTROPHILS (test code = 1008) 52.2 % LYMPHOCYTES (test code = 1010) 32.2 % MONOCYTES (test code = 1011) 8.0 % EOSINOPHILS (test code = 1012) 6.9 % BASOPHILS (test code = 1013) 0.7 % PLATELET COUNT (test code = 1015) 230 K/UL CBC W/AUTO [id number] 00:00:00* Test Item Value Reference Range Interpretation Comme nts WBC (test code = 1001) 5.5 K/UL RBC (test code = 1002) 4.15 M/UL HEMOGLOBIN (test code = 1003) 8.0 G/DL HEMATOCRIT (test code = 1004) 27.4 % MCV (test code = 1005) 66.0 fL MCH (test code = 1006) 19.3 PG MCHC (test code = 1007) 29.2 G/DL RDW (test code = 1038) 19.4 % NEUTROPHILS (test code = 1008) 52.2 % LYMPHOCYTES (test code = 1010) 32.2 % MONOCYTES (test code = 1011) 8.0 % EOSINOPHILS (test code = 1012) 6.9 % BASOPHILS (test code = 1013) 0.7 % PLATELET COUNT (test code = 1015) 230 K/UL LIPID [id number] 00:00:00* Test Item Value Reference Range Interpretation Comme nts CHOLESTEROL (test code = 2210) 176 MG/DL TRIGLYCERIDES (test code = 2232) 379 MG/DL HDL CHOLESTEROL (test code = 2220) 33 MG/DL CALC LDL CHOL (test code = 2237) 67 MG/DL RISK RATIO LDL/HDL (test cod e = 2238) 2.04 RATIO LIPID [id number] 00:00:00* Test Item Value Reference Range Interpretation Comme nts CHOLESTEROL (test code = 2210) 176 MG/DL TRIGLYCERIDES (test code = 2232) 379 MG/DL HDL CHOLESTEROL (test code = 2220) 33 MG/DL CALC LDL CHOL (test code = 2237) 67 MG/DL RISK RATIO LDL/HDL (test cod e = 2238) 2.04 RATIO COMPREHENSIVE METABOLIC [id number] 00:00:00* Test Item Value Reference Range Interpretation Comme nts GLUCOSE (test code = 2217) 141 MG/DL BUN (test code = 2208) 11 MG/DL CREATININE (test code = 2214) 0.50 MG/DL eGFR AMER. (test cod e = 46445) 137 ML/MIN/1.73 eGFR NON- AMER. (test code = 37735) 119 ML/MIN/1.73 CALC BUN/CREAT (test code = 2235) 22 RATIO SODIUM (test code = 2231) 143 MEQ/L POTASSIUM (test code = 2228) 4.2 MEQ/L CHLORIDE (test code = 2215) 102 MEQ/L CARBON DIOXIDE (test code = 2206) 25 MEQ/L CALCIUM (test code = 2209) 9.9 MG/DL PROTEIN, TOTAL (test code = 2229) 7.7 G/DL ALBUMIN (test code = 2201) 4.3 G/DL CALC GLOBULIN (test code = 2240) 3.4 G/DL CALC A/G RATIO (test code = 2234) 1.3 RATIO BILIRUBIN, TOTAL (test code = 2207) 0.3 MG/DL ALKALINE PHOSPHATASE (test code = 2204) 144 U/L AST (test code = 2218) 152 U/L ALT (test code = 2219) 154 U/L COMPREHENSIVE METABOLIC [id number] 00:00:00* Test Item Value Reference Range Interpretation Comme nts GLUCOSE (test code = 2217) 141 MG/DL BUN (test code = 2208) 11 MG/DL CREATININE (test code = 2214) 0.50 MG/DL eGFR AMER. (test cod e = 29471) 137 ML/MIN/1.73 eGFR NON- AMER. (test code = 87988) 119 ML/MIN/1.73 CALC BUN/CREAT (test code = 2235) 22 RATIO SODIUM (test code = 2231) 143 MEQ/L POTASSIUM (test code = 2228) 4.2 MEQ/L CHLORIDE (test code = 2215) 102 MEQ/L CARBON DIOXIDE (test code = 2206) 25 MEQ/L CALCIUM (test code = 2209) 9.9 MG/DL PROTEIN, TOTAL (test code = 2229) 7.7 G/DL ALBUMIN (test code = 2201) 4.3 G/DL CALC GLOBULIN (test code = 2240) 3.4 G/DL CALC A/G RATIO (test code = 2234) 1.3 RATIO BILIRUBIN, TOTAL (test code = 2207) 0.3 MG/DL ALKALINE PHOSPHATASE (test code = 2204) 144 U/L AST (test code = 2218) 152 U/L ALT (test code = 2219) 154 U/L VITAMIN D, 25 OH [ADDED][id number] 00:00:00* Test Item Value Reference Range Interpretation Comme nts VITAMIN D, 25 OH (test code = 4958) 28 NG/ML VITAMIN D, 25 OH [ADDED][id number] 00:00:00* Test Item Value Reference Range Interpretation Comme nts VITAMIN D, 25 OH (test code = 4958) 28 NG/ML CBC W/AUTO [id number] 00:00:00* Test Item Value Reference Range Interpretation Comme nts WBC (test code = 1001) 5.5 K/UL RBC (test code = 1002) 4.15 M/UL HEMOGLOBIN (test code = 1003) 8.0 G/DL HEMATOCRIT (test code = 1004) 27.4 % MCV (test code = 1005) 66.0 fL MCH (test code = 1006) 19.3 PG MCHC (test code = 1007) 29.2 G/DL RDW (test code = 1038) 19.4 % NEUTROPHILS (test code = 1008) 52.2 % LYMPHOCYTES (test code = 1010) 32.2 % MONOCYTES (test code = 1011) 8.0 % EOSINOPHILS (test code = 1012) 6.9 % BASOPHILS (test code = 1013) 0.7 % PLATELET COUNT (test code = 1015) 230 K/UL CBC W/AUTO [id number] 00:00:00* Test Item Value Reference Range Interpretation Comme nts WBC (test code = 1001) 5.5 K/UL RBC (test code = 1002) 4.15 M/UL HEMOGLOBIN (test code = 1003) 8.0 G/DL HEMATOCRIT (test code = 1004) 27.4 % MCV (test code = 1005) 66.0 fL MCH (test code = 1006) 19.3 PG MCHC (test code = 1007) 29.2 G/DL RDW (test code = 1038) 19.4 % NEUTROPHILS (test code = 1008) 52.2 % LYMPHOCYTES (test code = 1010) 32.2 % MONOCYTES (test code = 1011) 8.0 % EOSINOPHILS (test code = 1012) 6.9 % BASOPHILS (test code = 1013) 0.7 % PLATELET COUNT (test code = 1015) 230 K/UL CBC W/AUTO [id number] 00:00:00* Test Item Value Reference Range Interpretation Comme nts WBC (test code = 1001) 5.5 K/UL RBC (test code = 1002) 4.15 M/UL HEMOGLOBIN (test code = 1003) 8.0 G/DL HEMATOCRIT (test code = 1004) 27.4 % MCV (test code = 1005) 66.0 fL MCH (test code = 1006) 19.3 PG MCHC (test code = 1007) 29.2 G/DL RDW (test code = 1038) 19.4 % NEUTROPHILS (test code = 1008) 52.2 % LYMPHOCYTES (test code = 1010) 32.2 % MONOCYTES (test code = 1011) 8.0 % EOSINOPHILS (test code = 1012) 6.9 % BASOPHILS (test code = 1013) 0.7 % PLATELET COUNT (test code = 1015) 230 K/UL LIPID [id number] 00:00:00* Test Item Value Reference Range Interpretation Comme nts CHOLESTEROL (test code = 2210) 176 MG/DL TRIGLYCERIDES (test code = 2232) 379 MG/DL HDL CHOLESTEROL (test code = 2220) 33 MG/DL CALC LDL CHOL (test code = 2237) 67 MG/DL RISK RATIO LDL/HDL (test cod e = 2238) 2.04 RATIO LIPID [id number] 00:00:00* Test Item Value Reference Range Interpretation Comme nts CHOLESTEROL (test code = 2210) 176 MG/DL TRIGLYCERIDES (test code = 2232) 379 MG/DL HDL CHOLESTEROL (test code = 2220) 33 MG/DL CALC LDL CHOL (test code = 2237) 67 MG/DL RISK RATIO LDL/HDL (test cod e = 2238) 2.04 RATIO ACUTE HEPATITIS [id number] 00:00:00* Test Item Value Reference Range Interpretation Comme nts HEPATITIS A IgM (test code = 30859) NON-REACTIVE HEPATITIS B CORE IgM (test c ode = 4644) NON-REACTIVE HEPATITIS B SURF AG (test co de = 2739) NON-REACTIVE HEPATITIS C ANTIBODY (test c ode = 4675) NON-REACTIVE HCV INDEX (test code = 57626) 0.11 INTERPRETATION HEPATITIS A: (test code = 2552) (NOTE) INTERPRETATION HEPATITIS B: (test code = 59646) (NOTE) INTERPRETATION HEPATITIS C: (test code = 63549) (NOTE) ACUTE HEPATITIS [id number] 00:00:00* Test Item Value Reference Range Interpretation Comme nts HEPATITIS A IgM (test code = 64250) NON-REACTIVE HEPATITIS B CORE IgM (test c ode = 4644) NON-REACTIVE HEPATITIS B SURF AG (test co de = 2739) NON-REACTIVE HEPATITIS C ANTIBODY (test c ode = 4675) NON-REACTIVE HCV INDEX (test code = 07164) 0.11 INTERPRETATION HEPATITIS A: (test code = 2552) (NOTE) INTERPRETATION HEPATITIS B: (test code = 77479) (NOTE) INTERPRETATION HEPATITIS C: (test code = 03515) (NOTE) ACUTE HEPATITIS [id number] 00:00:00* Test Item Value Reference Range Interpretation Comme nts HEPATITIS A IgM (test code = 44884) NON-REACTIVE HEPATITIS B CORE IgM (test c ode = 4644) NON-REACTIVE HEPATITIS B SURF AG (test co de = 2739) NON-REACTIVE HEPATITIS C ANTIBODY (test c ode = 4675) NON-REACTIVE HCV INDEX (test code = 68133) 0.11 INTERPRETATION HEPATITIS A: (test code = 2552) (NOTE) INTERPRETATION HEPATITIS B: (test code = 84576) (NOTE) INTERPRETATION HEPATITIS C: (test code = 06452) (NOTE) ACUTE HEPATITIS [id number] 00:00:00* Test Item Value Reference Range Interpretation Comme nts HEPATITIS A IgM (test code = 67047) NON-REACTIVE HEPATITIS B CORE IgM (test c ode = 4644) NON-REACTIVE HEPATITIS B SURF AG (test co de = 2739) NON-REACTIVE HEPATITIS C ANTIBODY (test c ode = 4675) NON-REACTIVE HCV INDEX (test code = 54291) 0.11 INTERPRETATION HEPATITIS A: (test code = 2552) (NOTE) INTERPRETATION HEPATITIS B: (test code = 25430) (NOTE) INTERPRETATION HEPATITIS C: (test code = 49029) (NOTE) ACUTE HEPATITIS [id number] 00:00:00* Test Item Value Reference Range Interpretation Comme nts HEPATITIS A IgM (test code = 90173) NON-REACTIVE HEPATITIS B CORE IgM (test c ode = 4644) NON-REACTIVE HEPATITIS B SURF AG (test co de = 2739) NON-REACTIVE HEPATITIS C ANTIBODY (test c ode = 4675) NON-REACTIVE HCV INDEX (test code = 34557) 0.11 INTERPRETATION HEPATITIS A: (test code = 2552) (NOTE) INTERPRETATION HEPATITIS B: (test code = 33517) (NOTE) INTERPRETATION HEPATITIS C: (test code = 92298) (NOTE) ACUTE HEPATITIS [id number] 00:00:00* Test Item Value Reference Range Interpretation Comme nts HEPATITIS A IgM (test code = 45073) NON-REACTIVE HEPATITIS B CORE IgM (test c ode = 4644) NON-REACTIVE HEPATITIS B SURF AG (test co de = 2739) NON-REACTIVE HEPATITIS C ANTIBODY (test c ode = 4675) NON-REACTIVE HCV INDEX (test code = 03953) 0.11 INTERPRETATION HEPATITIS A: (test code = 2552) (NOTE) INTERPRETATION HEPATITIS B: (test code = 86468) (NOTE) INTERPRETATION HEPATITIS C: (test code = 37178) (NOTE) ACUTE HEPATITIS [id number] 00:00:00* Test Item Value Reference Range Interpretation Comme nts HEPATITIS A IgM (test code = 95980) NON-REACTIVE HEPATITIS B CORE IgM (test c ode = 4644) NON-REACTIVE HEPATITIS B SURF AG (test co de = 2739) NON-REACTIVE HEPATITIS C ANTIBODY (test c ode = 4675) NON-REACTIVE HCV INDEX (test code = 49834) 0.11 INTERPRETATION HEPATITIS A: (test code = 2552) (NOTE) INTERPRETATION HEPATITIS B: (test code = 77524) (NOTE) INTERPRETATION HEPATITIS C: (test code = 95929) (NOTE) HEMOGLOBIN [id number] 00:00:00* Test Item Value Reference Range Interpretation Comme nts HEMOGLOBIN A1c (test code = 66378) 7.7 % HEMOGLOBIN [id number] 00:00:00* Test Item Value Reference Range Interpretation Comme nts HEMOGLOBIN A1c (test code = 05873) 7.7 % VITAMIN D, 25 [id number] 00:00:00* Test Item Value Reference Range Interpretation Comme nts VITAMIN D, 25 OH (test code = 4958) 9 NG/ML VITAMIN D, 25 [id number] 00:00:00* Test Item Value Reference Range Interpretation Comme nts VITAMIN D, 25 OH (test code = 4958) 9 NG/ML VITAMIN D, 25 [id number] 00:00:00* Test Item Value Reference Range Interpretation Comme nts VITAMIN D, 25 OH (test code = 4958) 9 NG/ML HEMOGLOBIN [id number] 00:00:00* Test Item Value Reference Range Interpretation Comme nts HEMOGLOBIN A1c (test code = 22061) 7.7 % HEMOGLOBIN [id number] 00:00:00* Test Item Value Reference Range Interpretation Comme nts HEMOGLOBIN A1c (test code = 86204) 7.7 % VITAMIN D, 25 [id number] 00:00:00* Test Item Value Reference Range Interpretation Comme nts VITAMIN D, 25 OH (test code = 4958) 9 NG/ML HEMOGLOBIN [id number] 00:00:00* Test Item Value Reference Range Interpretation Comme nts HEMOGLOBIN A1c (test code = 13445) 7.7 % HEMOGLOBIN [id number] 00:00:00* Test Item Value Reference Range Interpretation Comme nts HEMOGLOBIN A1c (test code = 44980) 7.7 % VITAMIN D, 25 [id number] 00:00:00* Test Item Value Reference Range Interpretation Comme nts VITAMIN D, 25 OH (test code = 4958) 9 NG/ML HEMOGLOBIN [id number] 00:00:00* Test Item Value Reference Range Interpretation Comme nts HEMOGLOBIN A1c (test code = 00185) 7.7 % HEMOGLOBIN [id number] 00:00:00* Test Item Value Reference Range Interpretation Comme nts HEMOGLOBIN A1c (test code = 25639) 7.7 % HEMOGLOBIN [id number] 00:00:00* Test Item Value Reference Range Interpretation Comme nts HEMOGLOBIN A1c (test code = 55295) 7.7 % VITAMIN D, 25 [id number] 00:00:00* Test Item Value Reference Range Interpretation Comme nts VITAMIN D, 25 OH (test code = 4958) 9 NG/ML VITAMIN D, 25 [id number] 00:00:00* Test Item Value Reference Range Interpretation Comme nts VITAMIN D, 25 OH (test code = 4958) 9 NG/ML HEMOGLOBIN [id number] 00:00:00* Test Item Value Reference Range Interpretation Comme nts HEMOGLOBIN A1c (test code = 76233) 7.7 % HEMOGLOBIN [id number] 00:00:00* Test Item Value Reference Range Interpretation Comme nts HEMOGLOBIN A1c (test code = 05397) 7.7 % HEMOGLOBIN [id number] 00:00:00* Test Item Value Reference Range Interpretation Comme nts HEMOGLOBIN A1c (test code = 11116) 7.7 % LIPID [id number] 00:00:00* Test Item Value Reference Range Interpretation Comme nts CHOLESTEROL (test code = 2210) 230 MG/DL TRIGLYCERIDES (test code = 2232) 376 MG/DL HDL CHOLESTEROL (test code = 2220) 36 MG/DL CALC LDL CHOL (test code = 2237) 119 MG/DL RISK RATIO LDL/HDL (test cod e = 2238) 3.30 RATIO LIPID [id number] 00:00:00* Test Item Value Reference Range Interpretation Comme nts CHOLESTEROL (test code = 2210) 230 MG/DL TRIGLYCERIDES (test code = 2232) 376 MG/DL HDL CHOLESTEROL (test code = 2220) 36 MG/DL CALC LDL CHOL (test code = 2237) 119 MG/DL RISK RATIO LDL/HDL (test cod e = 2238) 3.30 RATIO COMPREHENSIVE METABOLIC [id number] 00:00:00* Test Item Value Reference Range Interpretation Comme nts GLUCOSE (test code = 2217) 100 MG/DL BUN (test code = 2208) 10 MG/DL CREATININE (test code = 2214) 0.61 MG/DL eGFR AMER. (test cod e = 43131) 129 ML/MIN/1.73 eGFR NON- AMER. (test code = 05460) 111 ML/MIN/1.73 CALC BUN/CREAT (test code = 2235) 16 RATIO SODIUM (test code = 2231) 142 MEQ/L POTASSIUM (test code = 2228) 4.7 MEQ/L CHLORIDE (test code = 2215) 103 MEQ/L CARBON DIOXIDE (test code = 2206) 25 MEQ/L CALCIUM (test code = 2209) 10.1 MG/DL PROTEIN, TOTAL (test code = 2229) 8.4 G/DL ALBUMIN (test code = 2201) 4.5 G/DL CALC GLOBULIN (test code = 2240) 3.9 G/DL CALC A/G RATIO (test code = 2234) 1.2 RATIO BILIRUBIN, TOTAL (test code = 2207) 0.2 MG/DL ALKALINE PHOSPHATASE (test code = 2204) 145 U/L AST (test code = 2218) 111 U/L ALT (test code = 2219) 123 U/L LIPID [id number] 00:00:00* Test Item Value Reference Range Interpretation Comme nts CHOLESTEROL (test code = 2210) 230 MG/DL TRIGLYCERIDES (test code = 2232) 376 MG/DL HDL CHOLESTEROL (test code = 2220) 36 MG/DL CALC LDL CHOL (test code = 2237) 119 MG/DL RISK RATIO LDL/HDL (test cod e = 2238) 3.30 RATIO COMPREHENSIVE METABOLIC [id number] 00:00:00* Test Item Value Reference Range Interpretation Comme nts GLUCOSE (test code = 2217) 100 MG/DL BUN (test code = 2208) 10 MG/DL CREATININE (test code = 2214) 0.61 MG/DL eGFR AMER. (test cod e = 74459) 129 ML/MIN/1.73 eGFR NON- AMER. (test code = 65978) 111 ML/MIN/1.73 CALC BUN/CREAT (test code = 2235) 16 RATIO SODIUM (test code = 2231) 142 MEQ/L POTASSIUM (test code = 2228) 4.7 MEQ/L CHLORIDE (test code = 2215) 103 MEQ/L CARBON DIOXIDE (test code = 2206) 25 MEQ/L CALCIUM (test code = 2209) 10.1 MG/DL PROTEIN, TOTAL (test code = 2229) 8.4 G/DL ALBUMIN (test code = 2201) 4.5 G/DL CALC GLOBULIN (test code = 2240) 3.9 G/DL CALC A/G RATIO (test code = 2234) 1.2 RATIO BILIRUBIN, TOTAL (test code = 2207) 0.2 MG/DL ALKALINE PHOSPHATASE (test code = 2204) 145 U/L AST (test code = 2218) 111 U/L ALT (test code = 2219) 123 U/L [id number] 00:00:00* Test Item Value Reference Range Interpretation Comme nts TSH, THIRD GENERATION (test code = 2821) 1.250 UIU/ML [id number] 00:00:00* Test Item Value Reference Range Interpretation Comme nts TSH, THIRD GENERATION (test code = 2821) 1.250 UIU/ML [id number] 00:00:00* Test Item Value Reference Range Interpretation Comme nts TSH, THIRD GENERATION (test code = 2821) 1.250 UIU/ML VITAMIN [id number] 00:00:00* Test Item Value Reference Range Interpretation Comme nts VITAMIN B-12 (test code = 2840) 636 PG/ML VITAMIN [id number] 00:00:00* Test Item Value Reference Range Interpretation Comme nts VITAMIN B-12 (test code = 2840) 636 PG/ML VITAMIN [id number] 00:00:00* Test Item Value Reference Range Interpretation Comme nts VITAMIN B-12 (test code = 2840) 636 PG/ML FOLATE, [id number] 00:00:00* Test Item Value Reference Range Interpretation Comme nts HEMATOCRIT (test code = 1004) 33.5 % FOLATE, RBC (test code = 2690) 1179 NG/ML FOLATE, [id number] 00:00:00* Test Item Value Reference Range Interpretation Comme nts HEMATOCRIT (test code = 1004) 33.5 % FOLATE, RBC (test code = 2690) 1179 NG/ML COMPREHENSIVE METABOLIC [id number] 00:00:00* Test Item Value Reference Range Interpretation Comme nts GLUCOSE (test code = 2217) 100 MG/DL BUN (test code = 2208) 10 MG/DL CREATININE (test code = 2214) 0.61 MG/DL eGFR AMER. (test cod e = 17700) 129 ML/MIN/1.73 eGFR NON- AMER. (test code = 59807) 111 ML/MIN/1.73 CALC BUN/CREAT (test code = 2235) 16 RATIO SODIUM (test code = 2231) 142 MEQ/L POTASSIUM (test code = 2228) 4.7 MEQ/L CHLORIDE (test code = 2215) 103 MEQ/L CARBON DIOXIDE (test code = 2206) 25 MEQ/L CALCIUM (test code = 2209) 10.1 MG/DL PROTEIN, TOTAL (test code = 2229) 8.4 G/DL ALBUMIN (test code = 2201) 4.5 G/DL CALC GLOBULIN (test code = 2240) 3.9 G/DL CALC A/G RATIO (test code = 2234) 1.2 RATIO BILIRUBIN, TOTAL (test code = 2207) 0.2 MG/DL ALKALINE PHOSPHATASE (test code = 2204) 145 U/L AST (test code = 2218) 111 U/L ALT (test code = 2219) 123 U/L [id number] 00:00:00* Test Item Value Reference Range Interpretation Comme nts TSH, THIRD GENERATION (test code = 2821) 1.250 UIU/ML [id number] 00:00:00* Test Item Value Reference Range Interpretation Comme nts TSH, THIRD GENERATION (test code = 2821) 1.250 UIU/ML VITAMIN [id number] 00:00:00* Test Item Value Reference Range Interpretation Comme nts VITAMIN B-12 (test code = 2840) 636 PG/ML VITAMIN [id number] 00:00:00* Test Item Value Reference Range Interpretation Comme nts VITAMIN B-12 (test code = 2840) 636 PG/ML FOLATE, [id number] 00:00:00* Test Item Value Reference Range Interpretation Comme nts HEMATOCRIT (test code = 1004) 33.5 % FOLATE, RBC (test code = 2690) 1179 NG/ML CBC W/AUTO [id number] 00:00:00* Test Item Value Reference Range Interpretation Comme nts WBC (test code = 1001) 7.9 K/UL RBC (test code = 1002) 4.29 M/UL HEMOGLOBIN (test code = 1003) 10.9 G/DL HEMATOCRIT (test code = 1004) 33.5 % MCV (test code = 1005) 78.1 fL MCH (test code = 1006) 25.4 PG MCHC (test code = 1007) 32.5 G/DL RDW (test code = 1038) 14.3 % NEUTROPHILS (test code = 1008) 56.5 % LYMPHOCYTES (test code = 1010) 36.5 % MONOCYTES (test code = 1011) 4.7 % EOSINOPHILS (test code = 1012) 1.9 % BASOPHILS (test code = 1013) 0.4 % PLATELET COUNT (test code = 1015) 303 K/UL CBC W/AUTO [id number] 00:00:00* Test Item Value Reference Range Interpretation Comme nts WBC (test code = 1001) 7.9 K/UL RBC (test code = 1002) 4.29 M/UL HEMOGLOBIN (test code = 1003) 10.9 G/DL HEMATOCRIT (test code = 1004) 33.5 % MCV (test code = 1005) 78.1 fL MCH (test code = 1006) 25.4 PG MCHC (test code = 1007) 32.5 G/DL RDW (test code = 1038) 14.3 % NEUTROPHILS (test code = 1008) 56.5 % LYMPHOCYTES (test code = 1010) 36.5 % MONOCYTES (test code = 1011) 4.7 % EOSINOPHILS (test code = 1012) 1.9 % BASOPHILS (test code = 1013) 0.4 % PLATELET COUNT (test code = 1015) 303 K/UL LIPID [id number] 00:00:00* Test Item Value Reference Range Interpretation Comme nts CHOLESTEROL (test code = 2210) 230 MG/DL TRIGLYCERIDES (test code = 2232) 376 MG/DL HDL CHOLESTEROL (test code = 2220) 36 MG/DL CALC LDL CHOL (test code = 2237) 119 MG/DL RISK RATIO LDL/HDL (test cod e = 2238) 3.30 RATIO COMPREHENSIVE METABOLIC [id number] 00:00:00* Test Item Value Reference Range Interpretation Comme nts GLUCOSE (test code = 2217) 100 MG/DL BUN (test code = 2208) 10 MG/DL CREATININE (test code = 2214) 0.61 MG/DL eGFR AMER. (test cod e = 85792) 129 ML/MIN/1.73 eGFR NON- AMER. (test code = 15032) 111 ML/MIN/1.73 CALC BUN/CREAT (test code = 2235) 16 RATIO SODIUM (test code = 2231) 142 MEQ/L POTASSIUM (test code = 2228) 4.7 MEQ/L CHLORIDE (test code = 2215) 103 MEQ/L CARBON DIOXIDE (test code = 2206) 25 MEQ/L CALCIUM (test code = 2209) 10.1 MG/DL PROTEIN, TOTAL (test code = 2229) 8.4 G/DL ALBUMIN (test code = 2201) 4.5 G/DL CALC GLOBULIN (test code = 2240) 3.9 G/DL CALC A/G RATIO (test code = 2234) 1.2 RATIO BILIRUBIN, TOTAL (test code = 2207) 0.2 MG/DL ALKALINE PHOSPHATASE (test code = 2204) 145 U/L AST (test code = 2218) 111 U/L ALT (test code = 2219) 123 U/L [id number] 00:00:00* Test Item Value Reference Range Interpretation Comme [facility] TSH, THIRD GENERATION (test code = 2821) 1.250 UIU/ML [id number] 00:00:00* Test Item Value Reference Range Interpretation Comme [facility] TSH, THIRD GENERATION (test code = 2821) 1.250 UIU/ML VITAMIN [id number] 00:00:00* Test Item Value Reference Range Interpretation Comme nts VITAMIN B-12 (test code = 2840) 636 PG/ML VITAMIN [id number] 00:00:00* Test Item Value Reference Range Interpretation Comme nts VITAMIN B-12 (test code = 2840) 636 PG/ML FOLATE, [id number] 00:00:00* Test Item Value Reference Range Interpretation Comme nts HEMATOCRIT (test code = 1004) 33.5 % FOLATE, RBC (test code = 2690) 1179 NG/ML CBC W/AUTO [id number] 00:00:00* Test Item Value Reference Range Interpretation Comme nts WBC (test code = 1001) 7.9 K/UL RBC (test code = 1002) 4.29 M/UL HEMOGLOBIN (test code = 1003) 10.9 G/DL HEMATOCRIT (test code = 1004) 33.5 % MCV (test code = 1005) 78.1 fL MCH (test code = 1006) 25.4 PG MCHC (test code = 1007) 32.5 G/DL RDW (test code = 1038) 14.3 % NEUTROPHILS (test code = 1008) 56.5 % LYMPHOCYTES (test code = 1010) 36.5 % MONOCYTES (test code = 1011) 4.7 % EOSINOPHILS (test code = 1012) 1.9 % BASOPHILS (test code = 1013) 0.4 % PLATELET COUNT (test code = 1015) 303 K/UL CBC W/AUTO [id number] 00:00:00* Test Item Value Reference Range Interpretation Comme nts WBC (test code = 1001) 7.9 K/UL RBC (test code = 1002) 4.29 M/UL HEMOGLOBIN (test code = 1003) 10.9 G/DL HEMATOCRIT (test code = 1004) 33.5 % MCV (test code = 1005) 78.1 fL MCH (test code = 1006) 25.4 PG MCHC (test code = 1007) 32.5 G/DL RDW (test code = 1038) 14.3 % NEUTROPHILS (test code = 1008) 56.5 % LYMPHOCYTES (test code = 1010) 36.5 % MONOCYTES (test code = 1011) 4.7 % EOSINOPHILS (test code = 1012) 1.9 % BASOPHILS (test code = 1013) 0.4 % PLATELET COUNT (test code = 1015) 303 K/UL LIPID [id number] 00:00:00* Test Item Value Reference Range Interpretation Comme nts CHOLESTEROL (test code = 2210) 230 MG/DL TRIGLYCERIDES (test code = 2232) 376 MG/DL HDL CHOLESTEROL (test code = 2220) 36 MG/DL CALC LDL CHOL (test code = 2237) 119 MG/DL RISK RATIO LDL/HDL (test cod e = 2238) 3.30 RATIO COMPREHENSIVE METABOLIC [id number] 00:00:00* Test Item Value Reference Range Interpretation Comme nts GLUCOSE (test code = 2217) 100 MG/DL BUN (test code = 2208) 10 MG/DL CREATININE (test code = 2214) 0.61 MG/DL eGFR AMER. (test cod e = 54294) 129 ML/MIN/1.73 eGFR NON- AMER. (test code = 90625) 111 ML/MIN/1.73 CALC BUN/CREAT (test code = 2235) 16 RATIO SODIUM (test code = 2231) 142 MEQ/L POTASSIUM (test code = 2228) 4.7 MEQ/L CHLORIDE (test code = 2215) 103 MEQ/L CARBON DIOXIDE (test code = 2206) 25 MEQ/L CALCIUM (test code = 2209) 10.1 MG/DL PROTEIN, TOTAL (test code = 2229) 8.4 G/DL ALBUMIN (test code = 2201) 4.5 G/DL CALC GLOBULIN (test code = 2240) 3.9 G/DL CALC A/G RATIO (test code = 2234) 1.2 RATIO BILIRUBIN, TOTAL (test code = 2207) 0.2 MG/DL ALKALINE PHOSPHATASE (test code = 2204) 145 U/L AST (test code = 2218) 111 U/L ALT (test code = 2219) 123 U/L [id number] 00:00:00* Test Item Value Reference Range Interpretation Comme nts TSH, THIRD GENERATION (test code = 2821) 1.250 UIU/ML [id number] 00:00:00* Test Item Value Reference Range Interpretation Comme nts TSH, THIRD GENERATION (test code = 2821) 1.250 UIU/ML VITAMIN [id number] 00:00:00* Test Item Value Reference Range Interpretation Comme nts VITAMIN B-12 (test code = 2840) 636 PG/ML VITAMIN [id number] 00:00:00* Test Item Value Reference Range Interpretation Comme nts VITAMIN B-12 (test code = 2840) 636 PG/ML FOLATE, [id number] 00:00:00* Test Item Value Reference Range Interpretation Comme nts HEMATOCRIT (test code = 1004) 33.5 % FOLATE, RBC (test code = 2690) 1179 NG/ML CBC W/AUTO [id number] 00:00:00* Test Item Value Reference Range Interpretation Comme nts WBC (test code = 1001) 7.9 K/UL RBC (test code = 1002) 4.29 M/UL HEMOGLOBIN (test code = 1003) 10.9 G/DL HEMATOCRIT (test code = 1004) 33.5 % MCV (test code = 1005) 78.1 fL MCH (test code = 1006) 25.4 PG MCHC (test code = 1007) 32.5 G/DL RDW (test code = 1038) 14.3 % NEUTROPHILS (test code = 1008) 56.5 % LYMPHOCYTES (test code = 1010) 36.5 % MONOCYTES (test code = 1011) 4.7 % EOSINOPHILS (test code = 1012) 1.9 % BASOPHILS (test code = 1013) 0.4 % PLATELET COUNT (test code = 1015) 303 K/UL CBC W/AUTO [id number] 00:00:00* Test Item Value Reference Range Interpretation Comme nts WBC (test code = 1001) 7.9 K/UL RBC (test code = 1002) 4.29 M/UL HEMOGLOBIN (test code = 1003) 10.9 G/DL HEMATOCRIT (test code = 1004) 33.5 % MCV (test code = 1005) 78.1 fL MCH (test code = 1006) 25.4 PG MCHC (test code = 1007) 32.5 G/DL RDW (test code = 1038) 14.3 % NEUTROPHILS (test code = 1008) 56.5 % LYMPHOCYTES (test code = 1010) 36.5 % MONOCYTES (test code = 1011) 4.7 % EOSINOPHILS (test code = 1012) 1.9 % BASOPHILS (test code = 1013) 0.4 % PLATELET COUNT (test code = 1015) 303 K/UL CBC W/AUTO [id number] 00:00:00* Test Item Value Reference Range Interpretation Comme nts WBC (test code = 1001) 7.9 K/UL RBC (test code = 1002) 4.29 M/UL HEMOGLOBIN (test code = 1003) 10.9 G/DL HEMATOCRIT (test code = 1004) 33.5 % MCV (test code = 1005) 78.1 fL MCH (test code = 1006) 25.4 PG MCHC (test code = 1007) 32.5 G/DL RDW (test code = 1038) 14.3 % NEUTROPHILS (test code = 1008) 56.5 % LYMPHOCYTES (test code = 1010) 36.5 % MONOCYTES (test code = 1011) 4.7 % EOSINOPHILS (test code = 1012) 1.9 % BASOPHILS (test code = 1013) 0.4 % PLATELET COUNT (test code = 1015) 303 K/UL CBC W/AUTO [id number] 00:00:00* Test Item Value Reference Range Interpretation Comme nts WBC (test code = 1001) 7.9 K/UL RBC (test code = 1002) 4.29 M/UL HEMOGLOBIN (test code = 1003) 10.9 G/DL HEMATOCRIT (test code = 1004) 33.5 % MCV (test code = 1005) 78.1 fL MCH (test code = 1006) 25.4 PG MCHC (test code = 1007) 32.5 G/DL RDW (test code = 1038) 14.3 % NEUTROPHILS (test code = 1008) 56.5 % LYMPHOCYTES (test code = 1010) 36.5 % MONOCYTES (test code = 1011) 4.7 % EOSINOPHILS (test code = 1012) 1.9 % BASOPHILS (test code = 1013) 0.4 % PLATELET COUNT (test code = 1015) 303 K/UL LIPID [id number] 00:00:00* Test Item Value Reference Range Interpretation Comme nts CHOLESTEROL (test code = 2210) 230 MG/DL TRIGLYCERIDES (test code = 2232) 376 MG/DL HDL CHOLESTEROL (test code = 2220) 36 MG/DL CALC LDL CHOL (test code = 2237) 119 MG/DL RISK RATIO LDL/HDL (test cod e = 2238) 3.30 RATIO LIPID [id number] 00:00:00* Test Item Value Reference Range Interpretation Comme nts CHOLESTEROL (test code = 2210) 230 MG/DL TRIGLYCERIDES (test code = 2232) 376 MG/DL HDL CHOLESTEROL (test code = 2220) 36 MG/DL CALC LDL CHOL (test code = 2237) 119 MG/DL RISK RATIO LDL/HDL (test cod e = 2238) 3.30 RATIO CBC W/AUTO [id number] 00:00:00* Test Item Value Reference Range Interpretation Comme nts WBC (test code = 1001) 7.9 K/UL RBC (test code = 1002) 4.29 M/UL HEMOGLOBIN (test code = 1003) 10.9 G/DL HEMATOCRIT (test code = 1004) 33.5 % MCV (test code = 1005) 78.1 fL MCH (test code = 1006) 25.4 PG MCHC (test code = 1007) 32.5 G/DL RDW (test code = 1038) 14.3 % NEUTROPHILS (test code = 1008) 56.5 % LYMPHOCYTES (test code = 1010) 36.5 % MONOCYTES (test code = 1011) 4.7 % EOSINOPHILS (test code = 1012) 1.9 % BASOPHILS (test code = 1013) 0.4 % PLATELET COUNT (test code = 1015) 303 K/UL COMPREHENSIVE METABOLIC [id number] 00:00:00* Test Item Value Reference Range Interpretation Comme nts GLUCOSE (test code = 2217) 100 MG/DL BUN (test code = 2208) 10 MG/DL CREATININE (test code = 2214) 0.61 MG/DL eGFR AMER. (test cod e = 03808) 129 ML/MIN/1.73 eGFR NON- AMER. (test code = 72135) 111 ML/MIN/1.73 CALC BUN/CREAT (test code = 2235) 16 RATIO SODIUM (test code = 2231) 142 MEQ/L POTASSIUM (test code = 2228) 4.7 MEQ/L CHLORIDE (test code = 2215) 103 MEQ/L CARBON DIOXIDE (test code = 2206) 25 MEQ/L CALCIUM (test code = 2209) 10.1 MG/DL PROTEIN, TOTAL (test code = 2229) 8.4 G/DL ALBUMIN (test code = 2201) 4.5 G/DL CALC GLOBULIN (test code = 2240) 3.9 G/DL CALC A/G RATIO (test code = 2234) 1.2 RATIO BILIRUBIN, TOTAL (test code = 2207) 0.2 MG/DL ALKALINE PHOSPHATASE (test code = 2204) 145 U/L AST (test code = 2218) 111 U/L ALT (test code = 2219) 123 U/L COMPREHENSIVE METABOLIC [id number] 00:00:00* Test Item Value Reference Range Interpretation Comme nts GLUCOSE (test code = 2217) 100 MG/DL BUN (test code = 2208) 10 MG/DL CREATININE (test code = 2214) 0.61 MG/DL eGFR AMER. (test cod e = 87977) 129 ML/MIN/1.73 eGFR NON- AMER. (test code = 84361) 111 ML/MIN/1.73 CALC BUN/CREAT (test code = 2235) 16 RATIO SODIUM (test code = 2231) 142 MEQ/L POTASSIUM (test code = 2228) 4.7 MEQ/L CHLORIDE (test code = 2215) 103 MEQ/L CARBON DIOXIDE (test code = 2206) 25 MEQ/L CALCIUM (test code = 2209) 10.1 MG/DL PROTEIN, TOTAL (test code = 2229) 8.4 G/DL ALBUMIN (test code = 2201) 4.5 G/DL CALC GLOBULIN (test code = 2240) 3.9 G/DL CALC A/G RATIO (test code = 2234) 1.2 RATIO BILIRUBIN, TOTAL (test code = 2207) 0.2 MG/DL ALKALINE PHOSPHATASE (test code = 2204) 145 U/L AST (test code = 2218) 111 U/L ALT (test code = 2219) 123 U/L [id number] 00:00:00* Test Item Value Reference Range Interpretation Comme nts TSH, THIRD GENERATION (test code = 2821) 1.250 UIU/ML [id number] 00:00:00* Test Item Value Reference Range Interpretation Comme nts TSH, THIRD GENERATION (test code = 2821) 1.250 UIU/ML [id number] 00:00:00* Test Item Value Reference Range Interpretation Comme nts TSH, THIRD GENERATION (test code = 2821) 1.250 UIU/ML VITAMIN [id number] 00:00:00* Test Item Value Reference Range Interpretation Comme nts VITAMIN B-12 (test code = 2840) 636 PG/ML VITAMIN [id number] 00:00:00* Test Item Value Reference Range Interpretation Comme nts VITAMIN B-12 (test code = 2840) 636 PG/ML VITAMIN [id number] 00:00:00* Test Item Value Reference Range Interpretation Comme nts VITAMIN B-12 (test code = 2840) 636 PG/ML FOLATE, [id number] 00:00:00* Test Item Value Reference Range Interpretation Comme nts HEMATOCRIT (test code = 1004) 33.5 % FOLATE, RBC (test code = 2690) 1179 NG/ML FOLATE, [id number] 00:00:00* Test Item Value Reference Range Interpretation Comme nts HEMATOCRIT (test code = 1004) 33.5 % FOLATE, RBC (test code = 2690) 1179 NG/ML CBC W/AUTO [id number] 00:00:00* Test Item Value Reference Range Interpretation Comme nts WBC (test code = 1001) 7.9 K/UL RBC (test code = 1002) 4.29 M/UL HEMOGLOBIN (test code = 1003) 10.9 G/DL HEMATOCRIT (test code = 1004) 33.5 % MCV (test code = 1005) 78.1 fL MCH (test code = 1006) 25.4 PG MCHC (test code = 1007) 32.5 G/DL RDW (test code = 1038) 14.3 % NEUTROPHILS (test code = 1008) 56.5 % LYMPHOCYTES (test code = 1010) 36.5 % MONOCYTES (test code = 1011) 4.7 % EOSINOPHILS (test code = 1012) 1.9 % BASOPHILS (test code = 1013) 0.4 % PLATELET COUNT (test code = 1015) 303 K/UL CBC W/AUTO [id number] 00:00:00* Test Item Value Reference Range Interpretation Comme nts WBC (test code = 1001) 7.9 K/UL RBC (test code = 1002) 4.29 M/UL HEMOGLOBIN (test code = 1003) 10.9 G/DL HEMATOCRIT (test code = 1004) 33.5 % MCV (test code = 1005) 78.1 fL MCH (test code = 1006) 25.4 PG MCHC (test code = 1007) 32.5 G/DL RDW (test code = 1038) 14.3 % NEUTROPHILS (test code = 1008) 56.5 % LYMPHOCYTES (test code = 1010) 36.5 % MONOCYTES (test code = 1011) 4.7 % EOSINOPHILS (test code = 1012) 1.9 % BASOPHILS (test code = 1013) 0.4 % PLATELET COUNT (test code = 1015) 303 K/UL CBC W/AUTO [id number] 00:00:00* Test Item Value Reference Range Interpretation Comme nts WBC (test code = 1001) 7.9 K/UL RBC (test code = 1002) 4.29 M/UL HEMOGLOBIN (test code = 1003) 10.9 G/DL HEMATOCRIT (test code = 1004) 33.5 % MCV (test code = 1005) 78.1 fL MCH (test code = 1006) 25.4 PG MCHC (test code = 1007) 32.5 G/DL RDW (test code = 1038) 14.3 % NEUTROPHILS (test code = 1008) 56.5 % LYMPHOCYTES (test code = 1010) 36.5 % MONOCYTES (test code = 1011) 4.7 % EOSINOPHILS (test code = 1012) 1.9 % BASOPHILS (test code = 1013) 0.4 % PLATELET COUNT (test code = 1015) 303 K/UL
[2023-05-15 18:53] LABS: Absolute Lymphocytes (CBC) 1.3 K/uL (0.7-4.9); Hematocrit 34.4 % (36.0-45.0); Lymphocytes % 14.8 % (15.3-44.8); MCV 66.3 fL (80-100); MPV 9.1 fL (7.6-11.3); Platelets 235 thou/uL (152-406); RBC Red Blood Cell Count 5.18 M/uL (3.86-4.86)
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
[2023-05-15 19:15] LABS: Protime INR 1.06
[2023-05-15 19:28] LABS: Albumin 3.3 g/dL (3.4-5.0); Bilirubin Direct 0.1 mg/dL (0-0.2); Bilirubin Indirect, Calculated 0.4 mg/dL (0.2-0.8); Bilirubin Total 0.5 mg/dL (0.2-1.0); Potassium 3.7 mEq/L (3.5-5.1); Protein, Total 8.1 g/dL (6.4-8.2); Troponin High Sensitivity 10.1 pg/mL (<58.9)
[2023-05-15 20:08] LABS: Blood Morphology Comment NOTED (NOT SEEN); Hypochromasia 1+; Platelet Estimate ADEQ; White Blood Cell Scan OK (OK)
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
[2023-05-16 03:21] VITALS: BP 110/74; TEMP 97.9; O2SAT 97
--- NOTE | 2023-05-18 16:59 | EKG ---
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
== END ==
LOC: ER 16:27
DX: M54.2 Cervicalgia (principal); R07.9 Chest pain, unspecified; V43.63XA Car passenger injured in collision with pick-up truck in traffic accident, initial encounter; E11.9 Type 2 diabetes mellitus without complications; Z88.0 Allergy status to penicillin
CPT/HCPCS: 93005; 85025; 80048; 36415; 85610; 80076; 84484; 70450; 72125; 71260; 74177; 71045; 96374; 99285; Q9967; J3010

== ENCOUNTER 2024-02-06 12:13 | Emergency (ER) | payer SELFPAY ==
--- OUTSIDE RECORDS SUMMARY | 2024-02-06 12:16 | XMS REPORT | Clinical Summary ---
Author Name Unknown Organization [facility] Address [address] [place] [address] Care Team Providers Care Ethnoarchaeologist Name Role Phone Physician, Outside Primary Care Provider Unavail able Ginna Buckner Unavailable Ginna Buckner Unavailable Encounters Date Type Department Care Team Description 01/12/2024 12:05 PM CDT Ancillary Procedure Mobile Mammography [address] [place] [address] Israel Logan MD Screening mammography 12/16/2023 Documentation Breast Imaging [address] [facility], 5th [place] [address] Felipe Roman, RT after 02/06/2023 Social History Tobacco Use Types Packs/Day Years Used Date Smoking Tobacco: Never Assessed Sex and Gender Information Value Date Recorded Sex Assigned at Not on file Gender Identity Not on file Sexual Orientation Not on file Obstetrics History Para Term AB IAB SAB Ectopic Multiple Livin g Live Births 3 3 3 Date Outcome GA Total Labor Labor/2nd/3rd Weight Sex Type Anes PTL Rafaela A1 A5 Name Clin Term Term Term Plan of Treatment Upcoming Encounters Date Type Department Care Team (Late st Contact Info) Description 02/10/2024 9:30 AM CDT Ancillary Procedure [facility] [address] [address] 02/10/2024 10:30 AM CDT Ancillary Procedure MD [facility] [place] [address] [address] Health Maintenance Due Date Last Done Comments COVID-19 Vaccine (2023-2 5 season) 2023 11/21/2020, 10/22/2020 Influenza Vaccine (#1) 2023 Pneumococcal Vaccine: Pediatrics (0 to 5 Years) and At-Risk Patients (6 to 64 Years) Aged Out No longer eligible b ased on patient's age to complete this topic Procedures Procedure Name Priority Date/Time Associated Diagnosis Comments MOBILE MAMMO DIGITAL SCREENING BILATERAL W ELADIO Routine 01/12/2024 12:45 PM CDT Screening mammography after 02/06/2023 Results * (ABNORMAL) Mobile Mammography Screening Bilateral with Eladio (01/12/2024 12:45 PM CDT) Anatomical Region Laterality Modality Breast Bilateral Mammography Impressions 01/12/2024 1:32 PM CDT Left 1) Mass: Left breast 1.5 cm mass at 2 o'clock. Additional Imaging: Diagnostic Mammogram and Possible Breast Ultrasound is recommended. Right 2) Mass: Right breast 1.1 cm mass at 8 o'clock. Additional Imaging: Diagnostic Mammogram and Possible Breast Ultrasound is recommended. Overall BI-RAD Category: 0 - Incomplete: Needs Additional Imaging Evaluation Additional Imaging: Diagnostic Mammogram and Possible Breast Ultrasound is recommended. The patient completed a breast cancer risk assessment during her appointment utilizing the Malia model. Based upon the information provided, their calculated lifetime risk of the developing breast cancer is 5.47%. If the calculated lifetime risk of breast cancer exceeds 20%, supplemental screening with breast MRI should be considered. Narrative 01/12/2024 1:32 PM CDT CLINICAL INDICATION: Patient is a 49 y.o. female and is seen for screening. Mobile Mammography Screening Bilateral with Eladio Computer-aided detection was utilized by the radiologist in the interpretation of this examination. Tomosynthesis was performed in CC and MLO projections. COMPARISON: No comparisons were made when reading this study. FINDINGS: The breasts are heterogeneously dense, which may obscure small masses. Left 1) Mass: There is a 1.5 cm mass seen in the left breast at 2 o'clock, 7 cm from the nipple. This finding likely represents a cyst. Right 2) Mass: There is a 1.1 cm mass seen in the right breast at 8 o'clock, 6 cm from the nipple. This finding likely represents a cyst. Ginna Buckner IMG MAMMOGRAPHY ORDE RABLES after 02/06/2023 Care Teams Ethnoarchaeologist Relationship Specialty Start Date End Date Physician, [place] [address] PCP - General Oncology 02/01/24 Ginna Buckner [address] [address] PCP - External Follow Up A 02/01/24 Ginna Buckner [address] [address] PCP - External Referring 02/01/24
--- NOTE | 2024-02-06 13:55 | RAD REPORT ---
EXAMINATION: XR RIGHT KNEE CLINICAL INDICATION: Female, 49 years old. PAIN TECHNIQUE: Multiple views of the right knee were obtained. COMPARISON: No prior exam. FINDINGS: Subtle sclerosis is seen along the medial metaphysis of the proximal tibia. This may be rel ated to an underlying bone lesion. Nonemergent MRI would be recommended for follow-up assessment. No evidence of fracture or joint effusion.
--- NOTE | 2024-02-06 14:13 | EDPHYS ---
Physician Documentation [facility] Name: Nichol Garcia Age: 49 yrs Sex: Female : 1975 Arrival Date: 02/06/2024 Time: 12:13 Bed 10 Private MD: ED Physician John Angel HPI: 02/05 15:10 This 49 yrs old Female presents to ER via Ambulatory with complaints of Knee kb Injury - right. 15:10 Pt is a 49 year old female who presents for right knee pain that started after falling kb onto it 2 weeks ago. States it hasn't gotten better so she came in to have it looked at. . 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 - Infectious Disease History:: Denies. - Social history:: Smoking status: Patient denies any tobacco usage or history of. ROS: 15:06 Constitutional: As per HPI kb Exam: 15:06 Constitutional: This is a well developed, well nourished patient who is awake, alert, kb and in no acute distress. Head/Face: Normocephalic, atraumatic. ENT: Moist Mucous membranes Cardiovascular: Regular rate Respiratory: Respirations even and unlabored. No increased work of breathing. Talking in full sentences Skin: Warm, dry with normal turgor. Normal color. Neuro: Awake and alert, GCS 15, oriented to person, place, time, and situation. Moves all extremities. Normal gait. 15:06 Musculoskeletal/extremity: Extremities: grossly normal except: noted in the right knee: pain, scabbed over abrasion, ROM: intact in all extremities, Circulation is intact in all extremities. Sensation intact. Weight bearing: can bear weight with assistance only, uses cane, Vital Signs: 12:20 BP 121 / 70; Pulse 96; Resp 16 S; Temp 97.4(TE); Pulse Ox 96% on R/A; Weight 72.57 kg aa5 (R); Height 4 ft. 11 in. (R); 12:20 Body Mass Index 32.32 (72.57 kg, 149.86 cm) aa5 MDM: 12:19 Patient medically screened. kb 15:07 Differential diagnosis: contusion, fracture, laceration. Data reviewed: vital signs, kb nurses notes. 15:09 Counseling: I had a detailed discussion with the patient and/or guardian regarding the kb historical points, exam findings, and any diagnostic results supporting the discharge/admit diagnosis, radiology results, the need for outpatient follow up, a family practitioner, to return to the emergency department if symptoms worsen or persist or if there are any questions or concerns that arise at home. 02/05 12:24 Order name: Knee Right 3 View XRAY; Complete Time: 14:03 kb 02/05 14:12 Order name: Bahman Wrap; Complete Time: 14:14 kb Administered Medications: No medications were administered Disposition Summary: 02/06/24 14:12 Discharge Ordered Notes: Location: Home kb Condition: Stable kb Diagnosis - Pain in right knee kb Followup: kb - With: Emergency Department - When: As needed - Reason: Worsening of condition Followup: kb - With: Private Physician - When: 2 - 3 days - Reason: Recheck today's complaints, Continuance of care, Re-evaluation by your physician Discharge Instructions: - Discharge Summary Sheet kb - Acute Knee Pain, Adult, [id number] kb Forms: - Medication Reconciliation Form kb - Antibiotic Education kb - Prescription Opioid Use kb - Patient Portal Instructions kb - Leadership Thank You Letter kb Addendum: 02/08/2024 09:20 I was immediately available for consultation during this patient's visit. I did not e c2 personally see the patient or discuss the patient with the ANGELICA. . Signatures: Dispatcher [employer] Vivien Gagnon FNP-C FNP-Vane Young, RN RN aa5 John Angel MD MD ec2
--- NOTE | 2024-02-06 14:13 | ER ---
Nurse's Notes [facility] Name: Nichol Garcia Age: 49 yrs Sex: Female : 1975 Arrival Date: 02/06/2024 Time: 12:13 Bed 10 Private MD: Diagnosis: Pain in right knee Presentation: 02/05 12:20 Chief complaint: Patient states: right knee pian x 2 weeks ago, reports she tripped and aa5 fell. Coronavirus screen: At this time, the client does not indicate any symptoms associated with coronavirus-19. Ebola Screen: Patient denies travel to an Ebola-affected area in the 21 days before illness onset. Initial Sepsis Screen: Does the patient meet any 2 criteria? HR > 90 bpm. Does the patient have a suspected source of infection? No. Patient's initial sepsis screen is negative. Risk Assessment: Do you want to hurt yourself or someone else? Patient reports no desire to harm self or others. Onset of symptoms was January 2024. 12:20 Acuity: LAMAR 4 aa5 12:20 Method Of Arrival: Ambulatory aa5 Triage Assessment: 12:26 General: Appears uncomfortable, Behavior is calm, cooperative, appropriate for age. ll1 Pain: Complains of pain in R knee Quality of pain is described as aching. Musculoskeletal: Reports pain in R knee. Injury Description: Bruise. 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 - Infectious Disease History:: Denies. - Social history:: Smoking status: Patient denies any tobacco usage or history of. Screenin:25 [facility] ED Fall Risk Assessment (Adult) History of falling in the last 3 months, ll1 including since admission Yes- single mechanical fall (1 pt) Confusion or Disorientation No (0 pts) Intoxicated or Sedated No (0 pts) Impaired Gait Yes (1 pt) Mobility Assist Device Used Yes (1 pt) Altered Elimination No (0 pt) Score/Fall Risk Level 3 or more points = High Risk Maintained a safe environment, Hourly rounding (assess needs \T\ fall precautionary measures) done. Abuse screen: Denies threats or abuse. Nutritional screening: No deficits noted. Tuberculosis screening: No symptoms or risk factors identified. Assessment: 14:22 Musculoskeletal: Circulation, motion, and sensation intact. Capillary refill < 3 ll1 seconds, in right toes. 14:25 Reassessment: No changes from previously documented assessment. Patient and/or family ll1 updated on plan of care and expected duration. Pain level reassessed. Patient is alert, oriented x 3, equal unlabored respirations, skin warm/dry/pink. Vital Signs: 12:20 BP 121 / 70; Pulse 96; Resp 16 S; Temp 97.4(TE); Pulse Ox 96% on R/A; Weight 72.57 kg aa5 (R); Height 4 ft. 11 in. (R); 12:20 Body Mass Index 32.32 (72.57 kg, 149.86 cm) aa5 ED Course: 12:17 Patient arrived in ED. ra3 12:18 Vivien Alegria FNP-C is [facility]. kb 12:18 John Angel MD is Attending Physician. kb 12:20 Arm band placed on. aa5 12:21 Triage completed. aa5 12:25 Jihan Moon, SHAHZAD is Primary Nurse. ll1 12:25 Patient has correct armband on for positive identification. Bed in low position. ll1 Provided Education on: ER procedures and process. Cardiac monitoring not applicable on this patient. 13:43 Knee Right 3 View XRAY In Process Unspecified. EDMS 14:20 Bahman wrap to right knee. ll1 14:25 No provider procedures requiring assistance completed. Patient did not have IV access ll1 during this emergency room visit. Administered Medications: No medications were administered Medication: 12:26 VIS not applicable for this client. ll1 Outcome: 14:12 Discharge ordered by . kb 14:25 Patient left the ED. ll1 14:25 Discharged to home ambulatory, ll1 14:25 Condition: stable 14:25 Discharge instructions given to patient, family, Instructed on discharge instructions, follow up and referral plans. Demonstrated understanding of instructions, follow-up care, Signatures: Dispatcher [employer] EDWI Vivien Alegria FNP-C FNP-Ckb Calderon, Audri, RN RN aa5 Jihan Moon RN RN 1 Melissa Mcmullen ra3 Corrections: (The following items were deleted from the chart) :24 12:20 Chief complaint: Patient states: right knee pian x 1 week ago, reports she aa5 tripped and fell. aa5
[2024-02-06 16:57] VITALS: BP 121/70; TEMP 97.4; O2SAT 96
== END 2024-02-06 14:25 | disposition home or self-care (01) ==
LOC: ER 12:13
DX: M25.561 Pain in right knee (principal)

== ENCOUNTER 2024-08-05 14:51 | Emergency (ER) | payer OTHER ==
--- OUTSIDE RECORDS SUMMARY | 2024-08-05 14:56 | XMS REPORT | Clinical Summary ---
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 Image Library [facility] [place] [address] Cancer 02/18/2024 Documentation Breast Imaging [address] [facility], [address]th [place] [address] Feliep Roman, RT 01/12/2024 12:05 PM CDT Ancillary Procedure Mobile Mammography [facility] [place] [address] Israel Logan MD Screening mammography 12/16/2023 Documentation Breast Imaging [address] [facility], [address]th [place] [address] Felipe Roman, RT after 08/06/2023 Social History Tobacco Use Types Packs/Day Years Used Date Smoking Tobacco: Never Assessed Comments No Sex and Gender Information Value Date Recorded Sex Assigned at Not on file Legal Sex Female 10:01 AM CDT Gender Identity Not on file Sexual Orientation Not on file Obstetrics History Para Term AB IAB SAB Ectopic Multiple Livin g Live Births 3 3 3 Date Outcome GA Total Labor Labor/2nd/3rd Weight Sex Type Anes PTL Rafaela A1 A5 Name Clin Term Term Term Plan of Treatment Health Maintenance Due Date Last Done Comments COVID-19 Vaccine (2023-2 5 season) 2023 11/21/2020, 10/22/2020 Influenza Vaccine (#1) 2023 Pneumococcal Vaccine Aged Out No long er eligible based on patient's age to complete this topic Procedures Procedure Name Priority Date/Time Associated Diagnosis Comments MOBILE MAMMO DIGITAL SCREENING BILATERAL W ELADIO Routine 01/12/2024 12:45 PM CDT Screening mammography after 08/06/2023 Results * (ABNORMAL) Mobile Mammography Screening Bilateral [...] finding likely represents a cyst. Ginna Buckner [facility] Final Result after 08/06/2023 Care Teams Manager Animation Relationship Specialty Start Date End Date Physician, [place] [address] PCP - General Oncology 02/01/24 Ginna Buckner [address] [address] PCP - External Follow Up A 02/01/24 Ginna Buckner [address] [address] PCP - External Referring 02/01/24
--- NOTE | 2024-08-05 16:16 | RAD REPORT ---
EXAM: CT brain without contrast HISTORY: TRAUMA COMPARISON: None TECHNIQUE: Multiple contiguous axial images were obtained and a CT of the brain without contrast. Sag ittal and coronal reformats were performed. One or more of the following dose reduction techniques were used: Automated exposure control, adjust ment of the mA and/or kV according to patient size, and/or iterative reconstruction. FINDINGS: No evidence of hydrocephalus, intracranial hemorrhage, or extra-axial fluid collection. The brain is normal in morphology. No evidence of midline shift or areas of brain edema. The calvarium is intact. The visualized paranasal sinuses and mastoid air cells are essentially clear . Left posterior scalp hematoma. IMPRESSION: No evidence of acute intracranial abnormality. EXAM: CT of the cervical spine without contrast HISTORY: Neck pain, injury TRAUMA TECHNIQUE: Multiple contiguous axial images were obtained in a CT of the cervical spine without contr ast. Sagittal and coronal reformats were performed. FINDINGS: The vertebral bodies demonstrate normal height and alignment. No evidence of acute fracture or subluxation.. No degenerative changes are present. No prevertebral soft tissue swelling is seen. The posterior facets are well aligned. Normal alignment of the skull base with the cervical spine is seen. The lung apices are unremarkable. IMPRESSION: No evidence of acute osseous abnormality of the cervical spine.
--- NOTE | 2024-08-05 16:23 | ER ---
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 Coronavirus screen: At this time, the client does not indicate any symptoms associated with coronavirus-19. Ebola Screen: No symptoms or risks identified at this time. Initial Sepsis Screen: Does the patient meet any 2 criteria? No. Patient's initial sepsis screen is negative. Does the patient have a suspected source of infection? No. Patient's initial sepsis screen is negative. Risk Assessment: Do you want to hurt yourself or someone else? Patient reports no desire to harm self or others. Onset of symptoms was August 05, 2024. 15:30 Method Of Arrival: Wheelchair hb 15:30 Acuity: LAMAR 4 hb Historical: - Allergies: 15:31 PENICILLINS; hb - Home Meds: 15:31 cholesterol med [Active]; Metformin Oral [Active]; hb - PMHx: 15:31 Diabetes - NIDDM; hb - PSHx: 15:31 None; hb - Immunization history:: Adult Immunizations up to date. - Infectious Disease History:: Denies. - Social history:: Smoking status: Patient denies any tobacco usage or history of. Vital Signs: 15:30 BP 118 / 73; Pulse 99; Resp 16; Temp 98.4(O); Pulse Ox 95% on R/A; Pain 8/10; hb 15:30 Pain Scale: Adult hb [place] Coma Score: 16:38 Eye Response: spontaneous(4). Motor Response: obeys commands(6). Verbal Response: dr5 oriented(5). Total: 15. ED Course: 14:53 Patient arrived in ED. im 14:56 Shankar Frias FNP-C is PHCP. hb 14:56 Kings Ponce MD is Attending Physician. hb 15:31 Triage completed. hb 15:32 Arm band placed on. hb 15:54 CT Head C Spine In Process Unspecified. EDMS Administered Medications: No medications were administered Outcome: 16:23 Discharge ordered by . dr5 16:28 Patient left the ED. Signatures: Dispatcher [employer] EDMS Abigail Oakes RN RN Carmen Fsoter Dustin, TOOTH POLISHER-C TOOTH POLISHER-Cdr5
--- NOTE | 2024-08-05 16:23 | EDPHYS ---
Physician Documentation [facility] Name: Nichol Garcia Age: 49 yrs Sex: Female : 1975 Arrival Date: 08/05/2024 Time: 14:51 Bed DX3 Private MD: ED Physician Kings Ponce HPI: 08/05 16:38 This 49 yrs old Female presents to ER via Wheelchair with complaints of Head dr5 Injury Without LOC-Adult. 16:38 The complaints affect the right occipital area. Context of injury: resulted from a dr5 fall, slipped. Onset: The symptoms/episode began/occurred acutely. Patient is a 49-year-old female with history of diabetes coming in with injury to back of head from slipping and falling. Patient reports that she placed her cane wrong and slipped and fell and hit the back of her head. Patient denies loss of consciousness. Patient denies nausea or vomiting, or visual disturbances. Patient denies taking medications prior to arrival. [facility] was toned down and ended evaluation of patient and got refusal stating that her neurological exam was normal for them. Patient reports that she wants to just get checked out given pain to the back of her head.. Historical: - Allergies: 15:31 PENICILLINS; hb - Home Meds: 15:31 cholesterol med [Active]; Metformin Oral [Active]; hb - PMHx: 15:31 Diabetes - NIDDM; hb - PSHx: 15:31 None; hb - Immunization history:: Adult Immunizations up to date. - Infectious Disease History:: Denies. - Social history:: Smoking status: Patient denies any tobacco usage or history of. ROS: 16:38 Constitutional: as per hpi dr5 Exam: 16:38 Constitutional: This is a well developed, well nourished patient who is awake, alert, dr5 and in no acute distress. Head/Face: Normocephalic, atraumatic. Eyes: Pupils equal round and reactive to light, extra-ocular motions intact. Lids and lashes normal. Conjunctiva and sclera are non-icteric and not injected. Cornea within normal limits. Periorbital areas with no swelling, redness, or edema. Neck: Trachea midline, no thyromegaly or masses palpated, and no cervical lymphadenopathy. Supple, full range of motion without nuchal rigidity, or vertebral point tenderness. No Meningismus. Chest/axilla: Normal chest wall appearance and motion. Nontender with no deformity. No lesions are appreciated. Cardiovascular: Regular rate and rhythm with a normal S1 and S2. Normal PMI, no JVD. No pulse deficits. Respiratory: Lungs have equal breath sounds bilaterally, clear to auscultation. No rales, rhonchi or wheezes noted. No increased work of breathing, no retractions or nasal flaring. Back: No spinal tenderness. No costovertebral tenderness. Full range of motion. Skin: Warm, dry with normal turgor. Normal color with no rashes, no lesions, and no evidence of cellulitis. Neuro: Awake and alert, GCS 15, oriented to person, place, time, and situation. Cranial nerves II-XII grossly intact. Motor strength 5/5 in all extremities. Sensory grossly intact. Cerebellar exam normal. Normal gait. Contusion noted to the back of her head with tenderness to palpation. Vital Signs: 15:30 BP 118 / 73; Pulse 99; Resp 16; Temp 98.4(O); Pulse Ox 95% on R/A; Pain 8/10; hb 15:30 Pain Scale: Adult hb [place] Coma Score: 16:38 Eye Response: spontaneous(4). Motor Response: obeys commands(6). Verbal Response: dr5 oriented(5). Total: 15. MDM: 14:58 Medical Screening Exam initiated dr5 16:38 Differential diagnosis: Contusion of Hematoma on Intracranial bleed-. Data reviewed: dr5 vital signs, nurses notes. Care significantly affected by the following chronic conditions: Diabetes. Care significantly affected by the following Social Determinants of Health: Poor access to healthcare and/or lack of insurance, Poor access to transportation, Problems related to employment. Counseling: I had a detailed discussion with the patient and/or guardian regarding the historical points, exam findings, and any diagnostic results supporting the discharge/admit diagnosis, the presence of at least one elevated blood pressure reading (>120/80) during this emergency department visit, radiology results, the need for outpatient follow up, for definitive care, a family practitioner, to return to the emergency department if symptoms worsen or persist or if there are any questions or concerns that arise at home. ED course: Discussed CT scan results with patient as well as printed out and put in discharge paperwork. Prescribed an milligrams of ibuprofen for patient to take for pain. Patient's neurological exam remains unremarkable. Strict ER precautions given to patient. Recommended patient monitor for visual disturbances, nausea or vomiting, or any other concerns and if so return to ER. All questions answered.. 08/05 15:34 Order name: CT Head C Spine; Complete Time: 16:18 hb Administered Medications: No medications were administered Disposition Summary: 08/05/24 16:23 Discharge Ordered Notes: Location: Home dr5 Condition: Stable dr5 Diagnosis - Contusion of unspecified part of head, initial encounter dr5 Followup: dr5 - With: Emergency Department - When: As needed - Reason: Worsening of condition Followup: dr5 - With: Private Physician - When: 1 - 2 days - Reason: Recheck today's complaints, Continuance of care, Re-evaluation by your physician Discharge Instructions: - Discharge Summary Sheet dr5 - Facial or Scalp Contusion dr5 Forms: - Medication Reconciliation Form dr5 - Patient Portal Instructions dr5 - Leadership Thank You Letter dr5 Prescriptions: - Ibuprofen 800 mg Oral Tablet - take 1 tablet ORAL route every 12 hours As needed take with food; 20 tablet; dr5 Refills: 0, Product Selection Permitted Signatures: Dispatcher [employer] Abigail Fischer RN RN Shankar Seaman, SOFTLINES SUPERVISOR-C SOFTLINES SUPERVISOR-Cdr5
[2024-08-05 16:31] VITALS: BP 118/73; TEMP 98.4; O2SAT 95
== END 2024-08-05 16:28 | disposition home or self-care (01) ==
LOC: ER 14:51
DX: S00.83XA Contusion of other part of head, initial encounter (principal); W01.0XXA Fall on same level from slipping, tripping and stumbling without subsequent striking against object, initial encounter; E11.9 Type 2 diabetes mellitus without complications
CPT/HCPCS: 70450; 72125; 99281

== ENCOUNTER 2024-09-18 10:23 | Emergency (ER) | payer OTHER ==
--- OUTSIDE RECORDS SUMMARY | 2024-09-18 10:25 | XMS REPORT | Clinical Summary ---
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 Name Role Phone Physician, Outside Primary Care Provider Unavail able Ginna Buckner Unavailable Ginna Buckner Unavailable Encounters Date Type Department Care Team Description 04/05/2024 9:50 PM JIGSAWYER Ancillary Procedure Image Library [facility] [place] [address] Cancer 02/18/2024 Documentation Breast Imaging [address] [facility] 5th [place] [address] Felipe Roman, RT 01/12/2024 12:05 PM CDT Ancillary Procedure Mobile Mammography [facility] [place] [address] Israel Logan MD Screening mammography 12/16/2023 Documentation Breast Imaging [address] [facility] 5th [place] [address] Felipe Roman, RT after 09/19/2023 Social History Tobacco Use Types Packs/Day Years [...] 5 season) 2023 11/21/2020, 10/22/2020 Influenza Vaccine (Season Ended) 2024 Pneumococcal Vaccine Aged Out No long er eligible based on patient's age to complete this topic Procedures Procedure Name Priority Date/Time Associated Diagnosis Comments MOBILE MAMMO DIGITAL SCREENING BILATERAL W ELADIO Routine 01/12/2024 12:45 PM CDT Screening mammography after 09/19/2023 Results * (ABNORMAL) Mobile Mammography Screening Bilateral [...] finding likely represents a cyst. Ginna Buckner [facility] MAMMOGRAPHY ORDERABLES Final Result after 09/19/2023 Care Teams Mop Handle Assembler Relationship Specialty Start Date End Date Physician, [place] [address] PCP - General Oncology 02/01/24 Ginna Buckner [address] [address] PCP - External Follow Up A 02/01/24 Ginna Buckner [address] [address] PCP - External Referring 02/01/24
[2024-09-18 11:50] LABS: SARS-CoV-2 Antigen Rapid Res Negative (Negative)
--- NOTE | 2024-09-18 14:35 | RAD REPORT ---
EXAMINATION: TWO VIEW CHEST XR CLINICAL INDICATION: Female, 49 years old. [facility] MAIN Congestion;Cough;Fever Bed Name: [facility] TECHNIQUE: 2 view radiographs of the chest were performed. COMPARISON: 05/15/2023 FINDINGS: The lungs are well inflated and clear. No pneumothorax or sizable effusion. The heart is normal in si ze. Mediastinal contours are unremarkable. IMPRESSION: No acute or significant abnormalities.
--- NOTE | 2024-09-18 15:06 | ER ---
Nurse's Notes [facility] Name: Nichol Garcia Age: 49 yrs Sex: Female : 1975 Arrival Date: 09/18/2024 Time: 10:23 Bed 11 Private MD: Diagnosis: Acute upper respiratory infection, unspecified Presentation: 09/18 11:01 Chief complaint: Patient states: cough, congestion, fever, body aches, sore throat, ANDREW me1 that started Adama morning. Pain level 7/10. Coronavirus screen: Vaccine status: Patient reports receiving the 2nd dose of the covid vaccine. Ebola Screen: No symptoms or risks identified at this time. Initial Sepsis Screen: Does the patient meet any 2 criteria? No. Patient's initial sepsis screen is negative. Does the patient have a suspected source of infection? No. Patient's initial sepsis screen is negative. Risk Assessment: Do you want to hurt yourself or someone else? Patient reports no desire to harm self or others. Onset of symptoms was September 16, 2024. 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 - Infectious Disease History:: Denies. - Social history:: Smoking status: Patient/guardian denies using tobacco, but has a distant history of tobacco abuse. Vital Signs: 11:01 BP 112 / 68; Pulse 88; Resp 18; Temp 98.9; Pulse Ox 96% ; Weight 71.21 kg; Height 4 ft. me1 11 in. ; Pain 7/10; 11:01 Body Mass Index 31.71 (71.21 kg, 149.86 cm) me1 11:01 Pain Scale: Adult ks1 ED Course: 10:26 Patient arrived in ED. im 10:26 [facility] Fri[facility]-C [facility] dr5 10:26 Kings Ponce MD is Attending Physician. dr5 11:04 Triage completed. me1 11:04 Arm band placed on Patient placed in waiting room. me1 11:08 COVID swab sent to lab. Strep swab sent to lab. me1 11:56 Chest Pa And Lat (2 Views) XRAY In Process Unspecified. EDMS Administered Medications: No medications were administered Outcome: 15:05 Discharge ordered by . dr5 15:12 Discharged to home ambulatory, 15:12 Condition: stable 15:12 Discharge instructions given to patient, Instructed on discharge instructions, follow up and referral plans. medication usage, Demonstrated understanding of instructions, follow-up care, medications, Prescriptions given X 3, 15:13 Patient left the ED. Signatures: Dispatcher [employer] EDMS Abigail Oakes RN RN Carmen Borja Michelle, RN RN [facility] Shankar Frias, BOTTLE BLOWER-C BOTTLE BLOWER-Cdr5
--- NOTE | 2024-09-18 15:06 | EDPHYS ---
Physician Documentation [facility] Name: Nichol Garcia Age: 49 yrs Sex: Female : 1975 Arrival Date: 09/18/2024 Time: 10:23 Bed 11 Private MD: ED Physician Kings Ponce HPI: 09/18 17:24 This 49 yrs old Female presents to ER via Ambulatory with complaints of Flu dr5 Symptoms. 17:24 Onset: The symptoms/episode began/occurred 2 day(s) ago. Patient is a 49-year-old dr5 female with history of diabetes and hyperlipidemia coming in with cough, congestion, subjective fever at home for the past 2 days.. 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 - Infectious Disease History:: Denies. - Social history:: Smoking status: Patient/guardian denies using tobacco, but has a distant history of tobacco abuse. ROS: 17:24 Constitutional: as per hpi dr5 Exam: 17:24 Constitutional: This is a well developed, well nourished patient who is awake, alert, dr5 and in no acute distress. Head/Face: Normocephalic, atraumatic. Eyes: Pupils equal round and reactive to light, extra-ocular motions intact. Lids and lashes normal. Conjunctiva and sclera are non-icteric and not injected. Cornea within normal limits. Periorbital areas with no swelling, redness, or edema. Neck: Trachea midline, no thyromegaly or masses palpated, and no cervical lymphadenopathy. Supple, full range of motion without nuchal rigidity, or vertebral point tenderness. No Meningismus. Chest/axilla: Normal chest wall appearance and motion. Nontender with no deformity. No lesions are appreciated. Cardiovascular: Regular rate and rhythm with a normal S1 and S2. Normal PMI, no JVD. No pulse deficits. Respiratory: Lungs have equal breath sounds bilaterally, clear to auscultation. No rales, rhonchi or wheezes noted. No increased work of breathing, no retractions or nasal flaring. Back: No spinal tenderness. No costovertebral tenderness. Full range of motion. Skin: Warm, dry with normal turgor. Normal color with no rashes, no lesions, and no evidence of cellulitis. MS/ Extremity: Pulses equal, no cyanosis. Neurovascular intact. Full, normal range of motion. Neuro: Awake and alert, GCS 15, oriented to person, place, time, and situation. Cranial nerves II-XII grossly intact. Motor strength 5/5 in all extremities. Sensory grossly intact. Cerebellar exam normal. Normal gait. Vital Signs: 11: BP 112 / 68; Pulse 88; Resp 18; Temp 98.9; Pulse Ox 96% ; Weight 71.21 kg; Height 4 ft. me1 11 in. ; Pain 7/10; 11:01 Body Mass Index 31.71 (71.21 kg, 149.86 cm) me1 11:01 Pain Scale: Adult me1 MDM: 10:26 Medical Screening Exam initiated dr5 17:24 Differential diagnosis: viral Infection, bacterial infection, URI, bronchitis, dr5 pneumonia. Data reviewed: vital signs, nurses notes. I considered the following discharge prescriptions or medication management in the emergency department. Care significantly affected by the following chronic conditions: Diabetes, Hypertension. Care significantly affected by the following Social Determinants of Health: Poor access to healthcare and/or lack of insurance, Poor access to transportation, Problems related to employment. Counseling: I had a detailed discussion with the patient and/or guardian regarding the historical points, exam findings, and any diagnostic results supporting the discharge/admit diagnosis, the presence of at least one elevated blood pressure reading (>120/80) during this emergency department visit, lab results, radiology results, the need for outpatient follow up, for definitive care, a family practitioner, to return to the emergency department if symptoms worsen or persist or if there are any questions or concerns that arise at home. ED course: Will give patient course of steroids, azithromycin, and cough medication. Recommended patient increase hydration. Recommended alternating Tylenol and Motrin as needed for pain and fever. Follow-up with primary care doctor. 09/18 11: Order name: Group A Streptococcus Rapid; Complete Time: : dr5 09/18 11:06 Order name: SARS RAPID; Complete Time: : dr5 09/18 11:43 Order name: Throat Culture EDHI 09/18 11:06 Order name: Chest Pa And Lat (2 Views) XRAY; Complete Time: 14:49 dr5 Administered Medications: No medications were administered Disposition Summary: 09/18/24 15:05 Discharge Ordered Notes: Location: Home dr5 Condition: Stable dr5 Diagnosis - Acute upper respiratory infection, unspecified dr5 Followup: dr5 - With: Emergency Department - When: As needed - Reason: Worsening of condition Followup: dr5 - With: Private Physician - When: 1 - 2 days - Reason: Recheck today's complaints, Continuance of care, Re-evaluation by your physician Discharge Instructions: - Discharge Summary Sheet dr5 - Upper Respiratory Infection, Adult dr5 Forms: - Work release form dr5 - Medication Reconciliation Form dr5 - Antibiotic Education dr5 - Patient Portal Instructions dr5 - Leadership Thank You Letter dr5 Prescriptions: - Bromfed DM 2-30-10 mg/5 mL Oral syrup - administer 10 milliliter ORAL route every 8 hours as needed for cold symptoms; dr5 240 milliliter; Refills: 0, Product Selection Permitted - Zithromax Z-Sergio 250 mg Oral Tablet - take 1 tablet ORAL route as directed for 5 days Day 1 - take two (2) tablets dr5 one time. Day 2, 3, 4 , 5 take one (1) tablet once daily.; 6 tablet; Refills: 0, Product Selection Permitted - Medrol (Sergio) 4 mg Oral Tablets, Dose Pack - take 1 tablet ORAL route as directed - follow package instructions; 1 packet; dr5 Refills: 0, Product Selection Permitted Addendum: 09/19/2024 19:22 Co-signature as Attending Physician, Kings Ponce MD I agree with the assessment and c denise plan of care. Signatures: Dispatcher [employer] EDHI Kings Ponce MD MD cha Eddleman, Michelle, RN RN me1 Shankar Frias, RAIL SPECIALIST-C RAIL SPECIALIST-Cdr5 Corrections: (The following items were deleted from the chart) 09/18 11: 11:06 Group A Streptococcus Rapid Sc+I.LAB.BRZ ordered. EDHI EDMS 11: 11:06 SARS-COV-2 Antigen Rapid+I.LAB.BRZ ordered. EDHI EDMS 11: 11:06 Chest Pa And Lat (2 Views)+RAD.RAD.BRZ ordered. EDHI EDMS
[2024-09-18 15:18] VITALS: BP 112/68; TEMP 98.9; O2SAT 96
== END 2024-09-18 15:13 | disposition home or self-care (01) ==
LOC: ER 10:23
DX: J06.9 Acute upper respiratory infection, unspecified (principal); Z11.52 Encounter for screening for COVID-19
CPT/HCPCS: 36415; 71046; 87070; 87426; 99283